=== PATIENT | female | born 1960 | race Caucasian/White ===

== ENCOUNTER → 2019-12-28 11:55 | Outpatient (CLI) | payer BC, SELFPAY ==
[2019-12-28 10:41] VITALS: BMI 34.0
[2019-12-28 12:35] LABS: Absolute Lymphocyte Count 3.17 X10^3/uL (0.83-4.51); Absolute Neutrophil Count 5.4 X10^3/uL (2.0-7.7); Basophil# 0.07 X10^3/uL; Basophil% 0.7 % (0-1); Eosinophil# 0.37 X10^3/uL; Eosinophils% 3.8 % (0-5); Hematocrit 46.9 % (37-47); Hemoglobin 15.7 g/dL (12.0-15.0); Lymphocyte # 3.17 X10^3/ul (4.0); Lymphocyte % 32.2 % (19-41); Mean Corp Hgb Conc 33.5 g/dL (32-36); Mean Corpuscular Hgb 31.5 pg (27.0-32.0); Mean Corpuscular Volume 94.2 fL (81-99); Mean Platelet Vol. 9.5 fl (6.2-12.0); Monocyte# 0.76 X10^3/uL; Monocyte% 7.7 % (0-10); NRBC Flagged by Analyzer 0 % (0-5); Neutrophil # 5.43 X10^3/uL (2.7-7.7); Neutrophil % 55.2 % (47-70); Platelet Count 285 K/mm3 (150-450); RBC Distribution Width CV 11.9 % (11.6-14.6); RBC Distribution Width SD 41.5 fl (35.1-43.9); Red Blood Count 4.98 M/mm3 (4.2-5.4); White Blood Count 9.8 K/mm3 (4.4-11.0)
[2019-12-28 13:11] LABS: Anion Gap 4 (5-15); BUN 24 mg/dL (7-18); BUN/Creat Ratio 28.3 RATIO (10-20); Calcium,Total 9.6 mg/dL (8.5-10.1); Chloride 105 mmol/L (98-107); Creatinine, Serum 0.85 mg/dL (0.55-1.02); EST Glomerular Filtration Rate 73 mL/min (>60); Est Glom Filt Rate - Afr Amer 89 mL/min (>60); Glucose 112 mg/dL (74-106); Magnesium 2.2 mg/dL (1.6-2.6); Potassium 3.9 mmol/L (3.5-5.1); Sodium Level 138 mmol/L (136-145)
== END ==
PROVIDERS: Referring Provider Internal Medicine Cardiovascular Disease; Visit Provider Internal Medicine Cardiovascular Disease
DX: I42.8 Other cardiomyopathies (principal); I50.22 Chronic systolic (congestive) heart failure
CPT/HCPCS: 36415; 80048; 83735; 84443; 85025

== ENCOUNTER 2020-07-21 13:13 | Emergency (ER) | payer BC, SELFPAY ==
[2019-12-28 10:41] VITALS: BMI 34.0
[2020-07-21 13:14] VITALS: BP 178/92; PULSE 79; RESP 17; TEMP 36.7; O2SAT 99; BMI 33.3
--- NOTE | 2020-07-21 13:53 | RAD_ITS ---
STUDY: X-RAY - UNILATERAL RIBS ( LEFT ) WITH CHEST REASON FOR EXAM: Female, 60 years old. Left axillary rib pain after fall 3 days ago. TECHNIQUE - RIBS: 4 view(s) of the ribs. TECHNIQUE - CHEST: Single frontal view of the chest. COMPARISON: None. FINDINGS - RIBS: Generalized osteopenia. No displaced rib fracture identified. FINDINGS - CHEST: Hyperexpansion. There is no demonstrated pleural abnormality. Cardiomegaly. Normal mediastinum and acosta. Normal visualized pulmonary arteries. Normal visualized aortic arch and descending thoracic aorta. Normal visualized thoracic spine. Normal visualized ribs, clavicles, and shoulders. There is no demonstrated abnormality of the visualized soft tissue structures of the upper abdomen. RAD/Ribs Uni Min 3V w/PA Chest IMPRESSION: RIBS: Osteopenia with no displaced rib fracture. CHEST: Cardiomegaly with hyperexpansion. Electronically Signed: Ry Ontiveros MD at 14:35 EST , Service support ,
[2020-07-21] MEDS: HYDROcodone Bitartrate/Apap 5/325 Tablet PO (14:00)
--- NOTE | 2020-07-21 14:36 | ED.DCSUM_ITS ---
- ER Visit Summary Date of Service: 07/21/20 Chief Complaint: Left rib pain History of Present Illness: The patient is a 60 F who presents with left rib pain that began after a fall. Patient states she fell 4 days ago. Patient states she tripped and fell. Patient states the pain has been getting progress ively worse. Patient describes the pain as sharp. Patient states the pain is over the left lower ribs. Patient states the pain is worse with coughing. Patient states nothing has been helping with the pain. Patient denies any shortness of breath. Patient denies any fevers or chills. Patient denies any head injury or loss of consciousness. Physical Examination: Vital signs are stable. Patient is afebrile. Patient is in no acute distress. Oral mucosa is pink and moist. Neck is supple. Trachea is midline. There is no JVD. Heart was regular rate and rhythm. Lungs are clear and equal bilaterally. Respiratory effort was limited secondary to pain. Abdomen is soft. Bowel sounds are normal. There is no tenderness. Musculoskeletal exam reveals tenderness over the left lower ribs. There is edema and ecchymosis noted. There is no bony crepitance or step-off. Cranial nerves II through XII are intact. There are no focal motor or sensory deficits noted. Test Results: X-rays of the left ribs were obtained. On my interpretation, there were no acute fractures or pneumothorax. There is no acute cardiopulmonary process. Radiologist also interpreted the x-rays and agrees. Emergency Department Course and Treatment: Patient was given a dose of [place] here. Patient was advised of her findings. Patient was given a prescription for [place]. Patient was instructed to take 10-15 deep breaths every hour while awake to prevent pneumonia. Patient was instructed to follow-up with her primary care physician in 5 to 7 days. Patient understood and was agreeable with the plan. All questions were answered. Disposition: Discharge home Impression: 1. Left chest wall contusion This note was generated with [employer] dictation software. It may contain incorrect words, spelling, and punctuation that were not noted in review of the chart prior to signing ED Disposition - Plan for ED Patient: Disposition: Home or Assisted Living Diagnosis: Contusion of left chest wall Instructions: ED CHEST CONTUSION Prescriptions: Hydrocodone Bitart/Apap 5-325 [[place] 5MG-325MG] 1 tab PO Q6H PRN PRN 3 Days #10 tab PRN Reason: Pain Prescription Printed Referrals: Ryan Shelton MD [STAFF PHYSICIAN] - 3-5 Days
[2020-07-21 16:13] VITALS: BP 145/78; PULSE 70; RESP 18; O2SAT 97
== END 2020-07-21 16:14 | disposition home or self-care (01) ==
PROVIDERS: Emergency Provider Emergency Medicine
DX: S20.212A Contusion of left front wall of thorax, initial encounter (principal); W01.0XXA Fall on same level from slipping, tripping and stumbling without subsequent striking against object, initial encounter; I50.9 Heart failure, unspecified; I11.0 Hypertensive heart disease with heart failure; F17.210 Nicotine dependence, cigarettes, uncomplicated
CPT/HCPCS: 71101; 99284

== ENCOUNTER → 2020-07-24 11:42 | Outpatient (CLI) | payer BC, SELFPAY ==
[2020-07-21 13:14] VITALS: BMI 33.3
--- NOTE | 2020-07-24 11:46 | RAD_ITS ---
STUDY: X-RAY - UNILATERAL RIBS ( LEFT ) WITH CHEST REASON FOR EXAM: Female, 60 years old. Fell 6 days ago, left rib pain-under left breast and left lower posterior rib pain also TECHNIQUE - 5 views of the chest and left RIBS COMPARISON: 07/21/2020 The lungs are clear. No focal pulmonary opacity. Normal cardiac mediastinal silhouette. Osseous structures including additional views of the left ribs demonstrate no acute or displaced fracture. RAD/Ribs Uni Min 3V w/PA Chest IMPRESSION: No acute cardiopulmonary process. No acute displaced rib fracture identified. Electronically Signed: Ranjith Bach, at 15:05 EST Tel , Service support ,
== END ==
PROVIDERS: Referring Provider Family Medicine; Visit Provider Family Medicine
DX: R07.81 Pleurodynia (principal)
CPT/HCPCS: 71101

== ENCOUNTER 2020-07-26 09:09 | Emergency (ER) | payer BC, SELFPAY ==
[2020-07-26 09:10] VITALS: BP 163/90; PULSE 83; RESP 16; TEMP 36.4; O2SAT 99; BMI 34.1
--- NOTE | 2020-07-26 09:26 | CT_ITS ---
STUDY: CT CHEST WITHOUT CONTRAST REASON FOR EXAM: Female, 60 years old. Fell 1 week ago injuring ribs, left rib pain, cough. RADIATION DOSAGE (If Supplied By Facility): CTDIvol = ( 13.70 ) mGy, DLP = ( 585.66 ) mGycm TECHNIQUE: Transaxial imaging was performed without the administration of intravenous contrast material. Individualized dose optimization techniques were used for this CT. COMPARISON: Radiographs of the ribs 1121 and 1124. FINDINGS: Normal lung volumes. No pneumothorax. Trace left pleural effusion. No significant pulmonary opacities. 3 or 4 tiny nodules in the posterior right lung base, largest is 4 mm. These can be seen on axial images 99-100. Suggest follow-up in 12 months. Normal heart and pericardium. Normal mediastinum. Normal hilar regions. Normal unenhanced pulmonary arteries. Normal aorta arch and descending thoracic aorta. Fractures of the left fourth, fifth, sixth, seventh, ninth, 10th, ribs. There is no demonstrated abnormality of the visualized upper abdomen. CT/Chest without Contrast IMPRESSION: Several left rib fractures. Trace left pleural effusion. No pneumothorax. Small nodules in the posterior right lung base, suggest follow-up in 12 months. Electronically Signed: Jose Duong MD at 11:23 EST , Service support ,
--- NOTE | 2020-07-26 09:32 | ED.DCSUM_ITS ---
History of Present Illness Chief Complaint: Fall Narrative: Patient presenting for evaluation secondary to rib pain. Patient states that around a week ago she suffered a mechanical fall from a trip and fall where she struck her left ribs. Patient was evaluated in the emergency department for this, she had negative x-rays was discharged with a short course of [place]. Patient was continuing to have chest pain, she got in with a primary care office. Patient reports that she has an underlying allergy to NSAIDs as it causes her severe gastric issues, and she was unhappy with the fact that this primary care did discharge her with a course of NSAID medication. Patient has been having persistent severe left-sided chest pain. Is worse with palpation movement and coughing. Patient denies any hemoptysis. She is not on any sort of anticoagulants. Patient reports that she called Dr. Gutierrez office to establish care, and they recommended that if she was having severe pain she should come to the emergency department for acute pain control. Review of systems otherwise negative. Past Medical History - Allergies and Home Meds Allergies/Adverse Reactions: Allergies aspirin Adverse Reaction (Verified 07/26/20 09:10) GI Upset cyclobenzaprine Adverse Reaction (Verified 07/26/20 09:10) mouth burning latex Adverse Reaction (Verified 07/26/20 09:10) Swelling lisinopril Adverse Reaction (Verified 07/26/20 09:10) cough NSAIDS (Non-Steroidal Anti-Inflamma Adverse Reaction (Verified 07/26/20 09:10) PT UNABLE TO RESPOND-NEEDS F/U EATS A HOLE IN MY TUMMY Primary Care Physician: Mary Lou Gutierrez MD [STAFF PHYSICIAN] - As soon as possible Prior records reviewed: Yes Past Medical History: - - Nonischemic cardiomyopathy, congestive heart failure, pulmonary hypertension, systemic hypertension Smoking Status: Current every day smoker Alcohol: None Drugs: None Review of Systems All systems negative except as indicated General: Denies: Chills, Fever, Sweats Eyes: Denies: Visual changes - bilaterally, Diplopia ENT: Denies: Rhinorrhea, Sore throat Cardiovascular: Reports: Chest pain Respiratory: Reports: Dyspnea - Mild secondary to inability to take a deep breath Gastrointestinal: Denies: Abdominal pain, Nausea, Vomiting, Diarrhea, Melena, Hematochezia Genitourinary: Denies: Dysuria, Hematuria, Frequency Musculoskeletal: Denies: Back pain, Extremity Pain Skin: Denies: Rash, Wounds Neurological: Denies: Headache, Weakness, Numbness Physical Exam Vital Signs/Narrative: Vital Signs Temp Pulse Resp BP Pulse Ox 07/26/20 09:10 97.5 F L 83 16 163/90 H 99 Inital Vital Signs reviewed: Yes General: Well nourished, Well developed, - - Visibly uncomfortable secondary to pain, otherwise not in physiologic distress Head: Normocephalic, Atraumatic Eyes: Perrl, EOMI ENT: TM's clear, No hemotympanum or drainage, No trauma Neck: Nontender, Full ROM Cardiovascular: Regular rate, Regular rhythm, No murmurs Respiratory: Chest tenderness - Ecchymosis noted over the patient's T6-T7 posterior axillary rib line. No crepitus. No evidence of flail chest. Abdomen: Soft, Nontender, Nondistended, Normal bowel sounds Back: Nontender Skin: Normal color, No rash Neurological: Alert, Oriented x3, Cranial nerves II-XII grossly intact, Normal Strength, Normal Sensation Psychological: Normal affect Diagnostic/Tx/Re-eval Clinical Impression(s) from Imaging Studies Chest CT 07/26/20 09:26 IMPRESSION: Several left rib fractures. Trace left pleural effusion. No pneumothorax. Small nodules in the posterior right lung base, suggest follow-up in 12 months. Electronically Signed: Jose Duong MD at 11:23 EST , Service support , - Medical Decision Making Patient presented secondary to a left rib injury. She has ecchymosis in the area and has a significant amount of pain, and concern for occult fracture that was missed by x-ray. CT imaging of the chest shows a multitude of rib fractures with a small associated pleural effusion. No evidence of pneumothorax. Patient was given 2 doses of morphine and a lidocaine patch in the emergency department. She did consent to a serratus anterior block which was performed as described in the procedure note. After the patient's nerve block, she was up and ambulatory and had significant improvement. Patient will be discharged with a course of Percocet. She is instructed to follow-up with primary care. She was educated on signs and symptoms for which to return. Procedures Procedure(s): Patient was given informed consent and verbally consented to a ultrasound-guided left-sided serratus anterior block. Patient serratus muscle was identified via the linear probe with the patient in the right lateral decubitus position. The area was cleansed x2 with chlorhexidine. A 22-gauge spinal needle was utilized, and was advanced under direct ultrasound guidance to the inferior fascial plane to the serratus anterior muscle. A total of 20 cc of 0.5% bupivacaine were injected under direct visualization. Patient tolerated this well. ED Disposition - Plan for ED Patient: Disposition: Home or Assisted Living Diagnosis: Multiple rib fractures Instructions: ED Rib Fx Prescriptions: Oxycodone HCl/Acetaminophen [Percocet 5/325] 1 tab PO Q6H PRN PRN 5 Days #20 tab PRN Reason: Pain 1-10 Or Fever Prescription Printed Referrals: Mary Lou Gutierrez MD [STAFF PHYSICIAN] - As soon as possible
[2020-07-26] MEDS: Lidocaine 5% Patch 1 PATCH TOPICAL (09:54)
[2020-07-26] MEDS: morphine 8 MG/ML Syringe IM (09:55)
[2020-07-26] MEDS: morphine 8 MG/ML Syringe 6 MG IM (10:26)
[2020-07-26] MEDS: Bupivacaine Mpf 0.5% 30 ML VIAL INFILT (12:23)
== END 2020-07-26 12:23 | disposition home or self-care (01) ==
PROVIDERS: Emergency Provider Emergency Medicine
DX: S22.42XA Multiple fractures of ribs, left side, initial encounter for closed fracture (principal); W01.10XA Fall on same level from slipping, tripping and stumbling with subsequent striking against unspecified object, initial encounter; Y93.9 Activity, unspecified; Y92.89 Other specified places as the place of occurrence of the external cause; Y99.9 Unspecified external cause status; I11.0 Hypertensive heart disease with heart failure; I50.9 Heart failure, unspecified; J90 Pleural effusion, not elsewhere classified; I27.20 Pulmonary hypertension, unspecified; F17.200 Nicotine dependence, unspecified, uncomplicated; Z88.6 Allergy status to analgesic agent
CPT/HCPCS: 71250; 96372; 99282

== ENCOUNTER → 2023-05-07 | Outpatient (CLI) | payer BC, SELFPAY ==
--- NOTE | 2023-05-07 14:42 | ECHOD_ITS ---
Reason For Study: CM Procedure This was a 2D Doppler, Color Flow transthoracic echocardiogram. Exam performed in department. Left Ventricle Normal LV size. Left ventricular systolic function is normal. The estimated ejection fraction is 65 %. Stage 1 diastolic dysfunction. No regional wall motion abnormalities noted. Right Ventricle Normal RV size. Normal systolic function. Atria Normal left atrium. Normal right atrium. Bubble contrast study negative for right to left interatrial shunt. Mitral Valve Normal mitral valve. Tricuspid Valve Normal tricuspid valve. Mild tricuspid valve insufficiency. Aortic Valve Normal aortic valve. Trisinus/trileaflet aortic valve. Pulmonic Valve Normal pulmonic valve. Great Vessels Normal aortic root. The pulmonary artery is normal size. Inferior vena cava collapse with respiration. Pericardium/Pleural No pericardial effusion. Medication Performed a rapid injection of agitated mix of 9 cc saline and 1cc air to assess for atrial septal defect. MMode/2D Measurements & Calculations LVIDd: 5.2 cm IVSd: 1.0 cm Ao root diam: 2.8 cm LVIDs: 3.7 cm LVPWd: 0.92 cm RVDd: 3.5 cm FS: 29.2 % LAV(MOD-bp): 41.8 ml LVAd ap4: 28.0 cm2 SV(MOD-sp4): 52.7 ml LAV(MOD-bp) Indexed: 20.7 ml/m2 LVLd ap4: 8.0 cm LAV(MOD-sp2): 39.8 ml EDV(MOD-sp4): 80.2 ml LAV(MOD-sp4): 41.5 ml EDV(sp4-el): 82.7 ml LVAs ap4: 14.5 cm2 LVLs ap4: 6.3 cm ESV(MOD-sp4): 27.5 ml ESV(sp4-el): 28.3 ml EF(MOD-sp4): 65.7 % EF(sp4-el): 65.7 % SV(sp4-el): 54.3 ml LA A4 area: 16.2 cm2 LA dimension(2D): 4.1 cm RA A4 area: 11.2 cm2 TAPSE: 2.0 cm Time Measurements MV dec time: 0.28 sec Doppler Measurements & Calculations MV E max charles: 58.1 cm/sec Lat Peak E' Charles: 9.7 cm/sec Med Peak E' Charles: 6.2 cm/sec MV A max charles: 75.5 cm/sec E/E' lat: 6.0 E/E' med: 9.3 MV E/A: 0.77 MV dec slope: 203.9 cm/sec2 Ao V2 max: 130.7 cm/sec LV V1 max: 112.4 cm/sec Ao max P.8 mmHg LV V1 max P.1 mmHg Ao V2 mean: 88.8 cm/sec Ao mean P.5 mmHg Ao V2 VTI: 28.4 cm PA V2 max: 104.2 cm/sec PI end-d charles: 105.3 cm/sec TR max charles: 193.9 cm/sec TR max P.0 mmHg ECHO/Echo Complete Interpretation Summary Normal LV size. Left ventricular systolic function is normal. The estimated ejection fraction is 65 %. Stage 1 diastolic dysfunction. Mild tricuspid valve insufficiency. Bubble contrast study negative for right to left interatrial shunt. Ordering Physician: Kalin Sneed Referring Physician: Mary Lou Gutierrez Performed By: Sunshine Sanchez, RDCS, RVT
== END | disposition home or self-care (01) ==
PROVIDERS: PCP Internal Medicine; Referring Provider Internal Medicine Cardiovascular Disease; Visit Provider Internal Medicine Cardiovascular Disease
DX: I42.8 Other cardiomyopathies (principal)
CPT/HCPCS: 93306; A4216

== ENCOUNTER → 2023-09-21 | Outpatient (CLI) | payer BC, SELFPAY ==
--- OUTSIDE RECORDS SUMMARY | 2023-09-21 13:44 | XMS RPT_ITS | CCD ---
Author Name Unknown Address [address] [place] [address] Organization [facility] Care Team Providers Care National Sales Associate Name Role Phone Unavailable Primary Care Provider UnavailDebbie Farris MD Primary Care Provider Debbie Gutierrez MD Primary Care Provider MARK DEBBIE D Primary Care Unavailable JACINTO BOWERS Referring Unavailable TALAMPAS, DEBBIE D Primary Care Unavailable JACINTO BOWERS Attending Unavailable TALAMPAS, DEBBIE D Primary Care Unavailable DANIELLE SOTO Referring Unavailable JACINTO BOWERS Referring Unavailable SHARLENE GALLAGHER Attending Unavailable TALAMPAS, DEBBIE D Primary Care Unavailable RASHEL GONGORA Referring Unavailable TALAMPAS, DEBBIE D Primary Care Unavailable TALAMPAS, DEBBIE D Primary Care Unavailable Allergies Allergy Classification Reported Allergen(s) Allergy Type Date of Onset Reaction(s) Facility (12 sources) Aspirin; Translations: [ASPIRIN] Drug Allergy 0 GI Upset [facility] Work Phone: (12 sources) cyclobenzaprine ; Translations: [CYCLOBENZAPRIN E] Drug Allergy 5 Swelling, Other: See Comments [facility] Work Phone: (12 sources) Lactase; Translations: [LACTASE] Drug Allergy 1 Unknown [facility] Work Phone: (12 sources) Latex; Translations: [LATEX] Drug Allergy 1 Rash [facility] Work Phone: (12 sources) Lisinopril; Translations: [LISINOPRIL] Drug Allergy 9 Cough [facility] Work Phone: (12 sources) Non-steroidal anti-inflammato ry agent; Translations: [NSAIDS (NON-STEROIDAL ANTI-INFLAMMATO RY DRUG)] Drug Intolerance 0 Intolerance, GI Upset, Vomiting [facility] Work Phone: (12 sources) Bee Venom Protein (Honey Bee); Translations: [BEE VENOM PROTEIN (HONEY BEE)] Drug Allergy 1 Swelling [facility] Work Phone: Medications Completed/Discontinued Medications Medication Drug Class(es) Dates Sig (Normalized) Sig (Original) amoxicillin 500 mg oral tablet (11 sources) Penicillin-class Antibacterial Start: 05-17-2021 Amoxicillin 500 mg tablet TAKE 4 PILLS 1 HOUR PRIOR TO DENTAL PROCEDURE 4 tablet 5 05/17/2021 Active Problems Active Problems Problem Classification Problem Date Documented Date Episodic/Chronic Congestive heart failure; nonhypertensive (12 sources) Chronic systolic heart failure; Translations: [Chronic systolic (congestive) heart failure] Onset: 2019 06-03-2021 Chronic Disorders of lipid metabolism (2 sources) Hyperlipidemia; Translations: [Hyperlipidemia, unspecified] Onset: 07-28-2022 Chronic Essential hypertension (13 sources) Essential hypertension; Translations: [Essential (primary) hypertension] Onset: 2019 Chronic Other connective tissue disease (3 sources) Infraspinatus tendinitis; Translations: [Other shoulder lesions, left shoulder] Episodic Other connective tissue disease (2 sources) H/O: musculoskeletal disease; Translations: [Personal history of other diseases of the musculoskeletal system and connective tissue] Episodic Other nervous system disorders (1 source) Other chronic pain; Translations: [Chronic left shoulder pain] Onset: 10-08-2022 Chronic Other nutritional; endocrine; and metabolic disorders (8 sources) Obese class I; Translations: [Obesity, unspecified] Onset: 08-12-2022 Chronic Other screening for suspected conditions (not mental disorders or infectious disease) (1 source) Patient encounter status; Translations: [Encounter for screening for malignant neoplasm of colon] Episodic [place]-; endo-; and myocarditis; cardiomyopathy (except that caused by tuberculosis or sexually transmitted disease) (11 sources) Cardiomyopathy; Translations: [Cardiomyopathy, unspecified] Onset: 2019 07-31-2020 Chronic Pulmonary heart disease (20 sources) Secondary pulmonary hypertension; Translations: [Other secondary pulmonary hypertension] Onset: 2019 07-31-2020 Chronic Spondylosis; intervertebral disc disorders; other back problems (11 sources) Cervical disc disorder; Translations: [Cervical disc disorder, unspecified, unspecified cervical region] Onset: 08-12-2022 Chronic Substance-related disorders (12 sources) Nicotine dependence; Translations: [Nicotine dependence, unspecified, uncomplicated] Onset: 08-31-1979 07-31-2020 Chronic Thyroid disorders (16 sources) Hyperthyroidism; Translations: [Thyrotoxicosis, unspecified without thyrotoxic crisis or storm] Onset: 2019 Chronic Unclassified (1 source) Low back pain at multiple sites; Translations: [Low back pain at multiple sites] Onset: 10-08-2022 Past or Other Problems Problem Classification Problem Date Documented Da te Episodic/Chronic Other fractures (11 sources) Fracture of multiple ribs ; Translations: [Multiple fractures of ribs, unspecified side, initial encounter for closed fracture] Onset: 07-31-2020 07-31-2020 Episodic Other non-traumatic joint disorders (7 sources) Chronic pain of left upper limb; Translations: [Pain in left shoulder] Onset: 10-08-2022 Episodic Other non-traumatic joint disorders (1 source) Pain in left shoulder; Translations: [Chronic left shoulder pain] Onset: 10-08-2022 Episodic Spondylosis; intervertebral disc disorders; other back problems (9 sources) Neck pain; Translations: [Cervicalgia] Onset: 10-08-2022 Episodic Superficial injury; contusion (11 sources) Contusion of chest; Translations: [Contusion of left front wall of thorax, initial encounter] Onset: 07-31-2020 06-03-2021 Episodic Results Test Name Value Interpretation Reference Range Facil ity Vital Signs Date Time Vital Sign Value Performing Clinician Faci lity 08-12-2022 13:39-0500 Body height 163.8 cm Jacinto Bowers APRN.CNP Work Phone: [facility] 08-12-2022 13:39-0500 Body weight 92.08 kg Jacinto Bowers APRN.CNP Work Phone: [facility] 08-12-2022 13:39-0500 Diastolic blood pressure 62 mm[Hg] Jacinto Bowers APRN.CNP Work Phone: [facility] 08-12-2022 13:39-0500 Heart rate 77 /min Jacinto Elissa TIMBER FRAMER.BUSINESS SUPPORT PROFESSIONAL Work Phone: [facility] 08-12-2022 13:39-0500 Respiratory rate 12 /min Jacinto Elissa TIMBER FRAMER.BUSINESS SUPPORT PROFESSIONAL Work Phone: [facility] 08-12-2022 13:39-0500 SaO2% (BldA) [Mass fraction] 98 % Jacinto Elissa TIMBER FRAMER.BUSINESS SUPPORT PROFESSIONAL Work Phone: [facility] 08-12-2022 13:39-0500 Systolic blood pressure 118 mm[Hg] Jacinto Elissa TIMBER FRAMER.BUSINESS SUPPORT PROFESSIONAL Work Phone: [facility] Encounters Encounter Date Encounter Type Care Provider Facility Start: 02-28-2023 Get Medical Advice Debbie garzon MD Work Phone: [facility] Procedures Date Procedure Procedure Detail Performing Clinician Start: 11-21-2002 Mammography Yari sequeira Plan of Treatment Date Care Activity Detail Author Start: 07-28-2027 LIPID SCREEN LIPID SCREEN [facility] Start: 05-27-2026 LIPID SCREEN LIPID SCREEN [facility] Start: 07-28-2025 DIABETES SCREEN DIABETES SCREEN [facility] Start: 05-27-2024 DIABETES SCREEN DIABETES SCREEN [facility] Start: 08-12-2023 ANNUAL PCP TEAM CHRONIC DISEASE VISIT ANNUAL PCP TEAM CHRONIC DISEASE VISIT [facility] Start: 08-12-2023 BP CONTROLLED (<130/80) BP CONTROLLED (<130/80) [facility] Start: 05-01-2023 Influenza vaccination INFLUENZA (#1) [facility] Start: 08-31-2022 DEPRESSION ASSESSMENT DEPRESSION ASSESSMENT [facility] Start: 07-14-2022 End: 09-13-2022 CBC W Auto Differential panel - Blood CBC + DIFF Lab Routine Essential hypertension Expected: 07/14/2022, Expires: 09/13/2022 [facility] Work Phone: Immunizations Immunization Date Immunization Notes Care Provider Fa dax 01-07-2022 zoster vaccine recombinant Jacinto Elissa TIMBER FRAMER.BUSINESS SUPPORT PROFESSIONAL Work Phone: [facility] Work Phone: 08-04-2021 zoster vaccine recombinant Jacinto Elissa TIMBER FRAMER.BUSINESS SUPPORT PROFESSIONAL Work Phone: [facility] Work Phone: 12-26-2020 COVID-19 original vaccine, age 12+ yr, monovalent (PFIZER-BIONTECH - PURPLE TOP) Danielle Soto TIMBER FRAMER.BSW Work Phone: [facility] 11-29-2020 COVID-19 original vaccine, age 12+ yr, monovalent (PFIZER-BIONTECH - PURPLE TOP) Danielle Alcalas TIMBER FRAMER.BSW Work Phone: [facility] Payers Date Payer Category Payer Unknown [employer]AYLA SALAZAR HMO [employer] [id number] 2020-Present [phone] [address] [place] [address] HMO [id number] 2020 Unknown [id number] 2019 Unknown [employer]AYLA BLUE CARD PPO [id number] 2019-Present PPO [id number] Social History Date Type Detail Facility Tobacco smoking stat us [facility] Unknown if ever smoked [facility] Sex Assigned At Not on file [facility] Start: 11-29-2020 End: 08-12-2022 Tobacco smoking status PRIS Smokes tobacco daily [facility] Work Phone: History of tobacco use Cigarette Smoker [facility] Work Phone: Start: 11-29-2020 End: 08-12-2022 Cigarettes smoked current (pack per day) - Reported 1 [facility] Start: 11-29-2020 End: 08-12-2022 Tobacco use and exposure Smokeless tobacco non-user [facility] Work Phone: Start: 06-03-2021 End: 08-12-2022 Alcohol intake Current drinker of alcohol (finding) [facility] Start: 05-28-2021 End: 08-11-2022 History SDOH Social Connections Phone 5 [facility] Start: 05-28-2021 End: 08-11-2022 History SDOH Social Connections Get Together 2 [facility] Start: 05-28-2021 End: 08-11-2022 History SDOH Social Connections [employer] 1 [facility] Start: 05-28-2021 End: 08-11-2022 History SDOH Social Connections Living 3 [facility] Start: 05-28-2021 History SDOH Physica l Activity DPW 0 [facility] Start: 05-28-2021 Education 12 [facility] Start: 1960 Sex Assigned At Female [facility] Clinical Notes 02-26-2022 to 03-02-2023 Telephone Encounter - TODD Kelley - 03/02/2023 2:17 PM EDTTelephone Encounter - Debbie Gutierrez MD - 02/28/2023 2:23 PM EDTTelephone Encounter - Dilcia Tucker LPN - 02/28/2023 10:58 AM EDT Note Date & Type Note Facility 03-02-2023 Miscellaneous Notes MC message sent to patient with providers message and number for scheduling provided. TODD Kelley Make sure get at least yearly follow up scheduled July since last seen 08/12/22. Can be a yearly wellness The following approved medication requests have been transmitted electronically. Requested Prescriptions Signed Prescriptions Disp Refills carvedilol (COREG) 25 mg tablet 60 tablet 0 Sig: Take 1 tablet by mouth twice daily. Patient prescription now since [place] be travelling out of [place] and will not be here to get refill of med when due Authorizing Provider: DEBBIE GUTIERREZ MD Per patient's My Chart message: Garret, My daughter needs me in [place] for a few weeks starting 03/09. I'll reschedule my naun with Dr Sneed on the but my Carvedilol won't last. Could you please give me a 30 day holdover? Thank you documented in this encounter [facility] 10-08-2022 Note HNO ID: [id number] Author: Sharlene Gallagher PT Service: ? Author Type: Physical Therapist Type: Progress Notes Filed: 11/12/2022 10:24 AM Note Text: 11/12/2022 [facility] PHYSICAL THERAPY DISCONTINUANCE OF CARE Plan of Care Period: Start of Care Date: 10/08/22 Last Visit Date: 10/08/2022 Therapy Program: Patient did not return for follow up care as planned. Please refer to last visit note for interventions provided for this episode of care. Assessment: Unable to formally assess goal achievement. Reason for Discontinuation of Care: Patient has not returned to therapy or scheduled additional follow-up appointments. Sharlene Gallagher PT Episode Visit Count: 1 Therapist That Will Accept/Oversee The Plan Of Care: Sharlene Gallagher Start of Care Date: 10/08/22 Onset Date: 05/08/22 Plan of Care Certification Date: 10/08/22 Next Certification Due Date: 11/12/22 Patient Identified by Name and Date of : Yes REHABILITATION AND SPORTS THERAPY PHYSICAL THERAPY EVALUATION PLAN OF CARE: Assessment: Angelina Ruiz presents with diagnosis of chronic left shoulder pain, neck pain, low back pain at multiple sites that interferes with sleeping, driving . She presents with impairments in ADL's, flexibility, independence in exercise, joint mobility, overall function, patient reported outcome measures, posture, range of motion, strength , stress management, symptom management, and tissue tenderness. Prognosis for therapy is Fair due to: coping skills, limited tolerance to activity, poor understanding of deficits, chronic nature of impairments, clinical presentation . She will benefit from skilled therapy services to meet the goals established for this plan of care as noted below. Goals for Episode of Care: created on 10/08/22 through 11/12/22 Independent in a Home Exercise Program. Patient will decrease pain rating by 2 points to meet minimal clinical important difference for numeric pain rating scale. Restore pain free cervical ROM to minimal to moderate limitation with R side flexion and L rotation of the cervical spine to allow for ADLs. Drive with no aggravation of pain/symptoms. Sleep throughout the night without pain/symptoms. Patient will be able to tolerate functional activities for 1-2 hours without increased symptoms. Patient Goals: to reduce neck and L shoulder pain, improve cervical rotation for driving Planned Interventions, Frequency, and Duration: Current Frequency: 1x/week Duration: 5 weeks Total Number of Visits Planned: 5 Planned Treatment Interventions: Therapeutic exercise (97601), Self-mcc management (03390) PLAN FOR NEXT VISIT: Assess symptom response to repeated cervical retraction and postural correction. Consider cervical and scapular isometrics Patient demonstrates good understanding of plan of care and treatment. The above goals and plan of care were discussed and agreed upon by patient/family. SUBJECTIVE: Angelina Ruiz is a 62 year old female seen today for for neck and back pain that radiates to the L shoulder but does not radiate down the arm. Pt. makes the statement: I am completely atrophied throughout my whole body. Pt. reports the pain does not reduce below a 6.5/10. Pt. states that she may not get authorization for an MRI unless she does PT first. Patient Goals: to reduce neck and L shoulder pain, improve cervical rotation for driving Functional Limitations: sleeping, driving Prior Level of Function: Independent without limitations Relevant History Past Relevant Medical Conditions: Cardiac, Hypertension Preferred Language: Czech Right or Left Handed: Right Employment: Retired Hobbies / Interests: We just moved here in 2019 and have been locked in. reading Home Environment Patient Lives With: Spouse Intake Information: Prescription present Previous Treatment: Heat , Topicals ( lidocaine patches help. tylenol 2x/day) Falls Interview: No positive findings with falls interview Red Flags Vertebral Fracture Red Flags: Female Vertebral Fracture Clinical Reasoning: Proceed with caution due to the above (1-2) risk factors Cancer Red Flags: Age >50 or <20 Cancer Clinical Reasoning: Proceed with caution Infection Clinical Reasoning: No identified risk factors. Cervical Arterial Dysfunction Clinical Reasoning: Proceed with caution Cervical Myelopathy: Age > 45 yo Cervical Myelopathy Diagnostic Rule: Proceed with caution Red Flags - Cervical Cancer Red Flags: Age >50 or <20 Cancer Clinical Reasoning: Proceed with caution Infection Clinical Reasoning: No identified risk factors. Cervical Arterial Dysfunction Clinical Reasoning: Proceed with caution Cervical Myelopathy: Age > 45 yo Cervical Myelopathy Diagnostic Rule: Proceed with caution Spine History Symptoms Location at Onset: Neck, Back Symptoms Since Onset: Worsening Pain is Worse Always: Turnin (more content not included)... [facility] History of Presen t illness Narrative Episode Visit Count: 1 Therapist That Will Accept/Oversee The Plan Of Care: Sharlene Gallagher Start of Care Date: 10/08/22 Onset Date: 05/08/22 Plan of Care Certification Date: 10/08/22 Next Certification Due Date: 11/12/22 Patient Identified by Name and Date of : Yes REHABILITATION AND SPORTS THERAPY PHYSICAL THERAPY EVALUATION PLAN OF CARE: Assessment: Angelina Ruiz presents with diagnosis of chronic left shoulder pain, neck pain, low back pain at multiple sites that interferes with sleeping, driving . She presents with impairments in ADL's, flexibility, independence in exercise, joint mobility, overall function, patient reported outcome measures, posture, range of motion, strength , stress management, symptom management, and tissue tenderness. Prognosis for therapy is Fair due to: coping skills, limited tolerance to activity, poor understanding of deficits, chronic nature of impairments, clinical presentation . She will benefit from skilled therapy services to meet the goals established for this plan of care as noted below. Goals for Episode of Care: created on 10/08/22 through 11/12/22 Independent in a Home Exercise Program. Patient will decrease pain rating by 2 points to meet minimal clinical important difference for numeric pain rating scale. Restore pain free cervical ROM to minimal to moderate limitation with R side flexion and L rotation of the cervical spine to allow for ADLs. Drive with no aggravation of pain/symptoms. Sleep throughout the night without pain/symptoms. Patient will be able to tolerate functional activities for 1-2 hours without increased symptoms. Patient Goals: to reduce neck and L shoulder pain, improve cervical rotation for driving Planned Interventions, Frequency, and Duration: Current Frequency: 1x/week Duration: 5 weeks Total Number of Visits Planned: 5 Planned Treatment Interventions: Therapeutic exercise (58305), Self-mcc management ([id number]) PLAN FOR NEXT VISIT: Assess symptom response to repeated cervical retraction and postural correction. Consider cervical and scapular isometrics Patient demonstrates good understanding of plan of care and treatment. The above goals and plan of care were discussed and agreed upon by patient/family. SUBJECTIVE: Angelina Ruiz is a 62 year old female seen today for for neck and back pain that radiates to the L shoulder but does not radiate down the arm. Pt. makes the statement: I am completely atrophied throughout my whole body. Pt. reports the pain does not reduce below a 6.5/10. Pt. states that she may not get authorization for an MRI unless she does PT first. Patient Goals: to reduce neck and L shoulder pain, improve cervical rotation for driving Functional Limitations: sleeping, driving Prior Level of Function: Independent without limitations Relevant History Past Relevant Medical Conditions: Cardiac, Hypertension Preferred Language: Czech Right or Left Handed: Right Employment: Retired Hobbies / Interests: We just moved here in 2019 and have been locked in. reading Home Environment Patient Lives With: Spouse Intake Information: Prescription present Previous Treatment: Heat , Topicals ( lidocaine patches help. tylenol 2x/day) Falls Interview: No positive findings with falls interview Red Flags Vertebral Fracture Red Flags: Female Vertebral Fracture Clinical Reasoning: Proceed with caution due to the above (1-2) risk factors Cancer Red Flags: Age >50 or <20 Cancer Clinical Reasoning: Proceed with caution Infection Clinical Reasoning: No identified risk factors. Cervical Arterial Dysfunction Clinical Reasoning: Proceed with caution Cervical Myelopathy: Age > 45 yo Cervical Myelopathy Diagnostic Rule: Proceed with caution Red Flags - Cervical Cancer Red Flags: Age >50 or <20 Cancer Clinical Reasoning: Proceed with caution Infection Clinical Reasoning: No identified risk factors. Cervical Arterial Dysfunction Clinical Reasoning: Proceed with caution Cervical Myelopathy: Age > 45 yo Cervical Myelopathy Diagnostic Rule: Proceed with caution Spine History Symptoms Location at Onset: Neck, Back Symptoms Since Onset: Worsening Pain is Worse Always: Turning, Driving Pain is Better Always: (correcting posture) Sleeping Position: Side lying right > left (owns a cervical pillow, gets 4 consecutive hours/night x 20 years) Sleep Affected by Pain: Pain keeps from falling asleep Pain: Pain Pain Level: 7 ( I live between a 6.5 and a 7 every single day. ) Pain Location: Neck, Shoulder - Left Post Treatment Pain Post Treatment Pain Level: No Change Post Treatment Pain Location: Neck, Shoulder - Left PROMIS Scales Higher is Better 05/28/2021 08/11/2022 10/08/2022 Phys Func - Score - - 34 (moderate dysfunction) Phys Func - Percentile - - 5 % GH Physical - Score 42.3 (Good) 34.9 (Poor) - GH Physical - Percentile 22 % 7 % - GH Mental - Score 45.8 (Good) 41.1 (Good) - GH Mental - Percentile 34 % 19 % - Self-Eff Symptom - Score - - 35 (Low) Self-Eff Symptom - Percentile - - 7 % T-scores: mean of general population = 50. 5 points is clinically meaningfully difference Percentiles provide an indication of how the patient's score ranks in relation to the general population. Higher percentile rankings indicate better function/quality of life. 50th percentile is the average of the general population and indicates half of respondents had a worse score. T-scores: mean of general population = 50. 5 points is clinically meaningfully difference Percentiles provide an indication of how the patient's score ranks in relation to the general population. Higher percentile rankings indicate better function/quality of life. 50th percentile is the average of the general population and indicates half of respondents had a worse score. OBJECTIVE MEASURES WITH LEVEL OF FUNCTION: Posture / Alignment Sitting Posture: Erect Effects of Posture Correction: better, but it's a lot of work. Sensation - Cervical Spine Cervical Spine Sensation: Grossly Intact Cervical Spine ROM Cervical ROM : Limitation AROM Cervical Protrusion AROM: Normal ( doesn't hurt the shoulder blade as much. ) Cervical Retraction AROM: Produces, Peripheralizing Cervical Flexion AROM: Normal, Pain during movement Cervical Extension AROM: Normal, Pain during movement Cervical Side-Bend Right AROM: Pain during movement, Major limitation Cervical Side-Bend Left AROM: Pain during movement, Normal Cervical Rotation Right AROM: Normal, Pain during movement Cervical Rotation Left AROM: Major limitation, Pain during movement Repeated Test Movements - Cervical Cervical RET - Symptoms During: produces Cervical RET - Symptoms After: increase ROM, no effect Static Testing - Cervical Sustained Cervical Protrusion: better Sustained Cervical Flexion: no effect Sustained Cervical Retraction: worse Sustained Cervical Extension: worse UE AROM L Shoulder Flex: 180 Degrees (with increased symptoms) L Shoulder Internal Rotation (Functional): 3rd MCP L hand L3 (with increased symptoms) L Shoulder External Rotation (Functional): 3rd MCP of L hand T4 (with increased symptoms) Education: Education Learning Preferences: Demonstration, Explanation, Performance, Printed Materials Barriers: Emotions Learning/educational needs: Plan of Care, Home exercise program, Posture Education Provided: Yes, see treatment interventions for education provided Education Provided To: Patient Education Mode/Type: Demonstration, Explanation/Discussion, Literature/Printed Materials, Performance Response to Education/Teach Back: Requires Review/Additional Education TREATMENT: PT Treatment Interventions: Therapeutic Exercise, Self-Mcc Management Evaluation Therapeutic Exercise: 1: *seated cervical retraction 3-4 sets of 10 2: *UT stretch 3x30 sec each side Skilled Intervention: Patient was educated in proper exercise technique and purpose for exercises. Skilled judgment was provided in selection of appropriate interventions. Provided written instruction for home exercise program to facilitate proper performance and compliance. Correct performance of therapeutic exercises was facilitated with verbal, visual, and tactile cuing. Educated patient on rationale for performing exercises in regards to decreasing fatigue , increase ease of ADL, and ROM and function . Patient education as noted. Self-Mcc Management: 1: *postural education 2: *discussed use of towel roll when side lying or supine to support lordotic curve of the cervical spine 3: *discussed the benefit of complaince with PT POC to restore functional mobility of cervical spine and reduce symptoms while progressing as tolerated Skilled Intervention: Skilled judgment in the selection of proper modification for activity of daily living/home management based on clinical presentation, deficits, and needs. Educated the patient regarding recommendations and provided written instruction to facilitate compliance. Provided written instruction for activities of daily living techniques to facilitate proper performance and compliance. Reviewed patient specific diagnosis in relation to activities of daily living/home management. Activity progression based on professional judgement. Moderate verbal cues for maintaining neutral spine alignment. Reviewed and educated patient on additions/changes for home program as noted above with an (*). Provided written instruction for home program to facilitate proper performance and compliance. Correct performance of home program was facilitated with verbal, visual, and tactile cueing. Billing * Evaluation Low Complexity: 1 Unit Therapeutic Exercise Treatment Minutes: 15 Self-Care/Home Management Treatment Minutes: 10 Total Treatment Time Minutes (timed/untimed): 45 Sharlene Gallagher PT documented in this encounter [facility] 09-26-2022 Miscellaneous Notes Spoke with pt to schedule Endocrinology Consult appt; declined to schedule at this time; will call back documented in this encounter [facility] 08-20-2022 Miscellaneous Notes Left message on Patient's identifed vm. Called pharmacy w/response. Sandy Hou LPN Check with patient if wants replacement. Looks like lidocaine patches not covered. She can get out of pocket if wants. Pharmacy requesting alternative medication for pt. Prescription below not covered by insurance. Shelli Sims LPN documented in this encounter [facility] 08-12-2022 Note HNO ID: [id number] Author: RT Kelle(R) Service: Radiology Author Type: Technologist Type: Progress Notes Filed: 08/12/2022 3:00 PM Note Text: Radiology Service Progress Note PATIENT NAME: Angelina Ruiz DATE OF SERVICE: August 12, 2022 TIME: 2:47 PM PATIENT IDENTITY VERIFICATION COMPLETED USING TWO (2) IDENTIFIERS: Name and Date of confirmed by patient verbally. FALL SCREENING: Has the patient had 2 falls in the last year or 1 fall with injury or currently using an Ambulatory Assistive Device (Walker, Cane, Wheelchair, Crutches, etc.)? No PATIENT GENDER DATA: Female. status: : No status: NO. PATIENT RELEVANT IMPLANT DATA REVIEWED: Yes RADIOLOGY DEPARTMENT: General X-ray: Exam(s) Completed: Spine X-Ray(s): Cervical AP / LAT / OBL PERIPHERAL IV DATA: Not applicable SIGNED BY: RT Kelle(R) August 12, 2022 2:47 PM [facility] 08-12-2022 Note HNO ID: [id number] Author: Jacinto Bowers APRN.BUSINESS SUPPORT PROFESSIONAL Service: ? Author Type: Nurse Practitioner Type: Progress Notes Filed: 08/12/2022 2:51 PM Note Text: CHIEF COMPLAINT: Patient presents with: Physical Pain: in lower back and neck that radiates down into left shoulder have symptoms of gurgling in right calf but no pain HISTORY: Angelina Ruiz is a 62 year old female who presents 08/12/2022 for her Yearly Physical Exam. They are here today for a wellness exam. Feels like her health is fair. Generally feels well and does not have complaints. Is able to complete ADL's with independence. Last seen in our office in May 2021. Issues with pain to neck and shoulders for the last several months. History of cervical disc disease. Pain continues to worsen. Goes in to the left shoulder. No pain down the arm. No numbness, weakness or tingling. Using ointment and lidocaine patches, warm showers. Tylenol as needed. Muscle tightness. Last imaging was MRI on the neck in 2002. Dr. Gongora in Oct. For her hyperthyroid, tapazole management. Other Providers: Ortho in the past, Dr. Bassett Endocrine Dr. Gongora Depression Screen Q1: Over the past two weeks, have you felt down, depressed or hopeless? No Q2: Over the past two weeks, have you felt little interest or pleasure in doing things? 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 Patient is postmenopausal. Last Pap: No results found for: CYTO Hx of Abnml Pap: No Past Medical History: PAST MEDICAL HISTORY Diagnosis Date Cervical disc disease Congestive heart failure (HCC) Essential hypertension Primary generalized (osteo)arthritis Family Medical History: FAMILY HISTORY Problem Relation Age of Onset Heart Failure Mother other (congestive heart failure) Father Diabetes Father Social History: Social History Tobacco Use Smoking status: Every Day Packs/day: 1.00 Years: 40.00 Pack years: 40.00 Types: Cigarettes Smokeless tobacco: Never Substance Use Topics Alcohol use: Yes Alcohol/week: 14.0 standard drinks Types: 14 Glasses of Wine (5oz) per week Drug use: Yes Frequency: 3.0 times per week Types: Marijuana Allergies: ALLERGIES Allergen Reactions Cyclobenzaprine Swelling, Other: See Comments Mouth swelling Nsaids (Non-Steroid* Intolerance, GI Upset, Vomiting Severe stomach pain Aspirin GI Upset Bee Venom Protein (* Swelling Dairy Aid [Lactase] Unknown Latex Rash itching and swelling Lisinopril Cough Medications: Current Outpatient Medications Medication Sig methIMAzole (TAPAZOLE) 5 mg tablet Take 1 tablet by mouth once daily. As directed Amoxicillin 500 mg tablet TAKE 4 PILLS 1 HOUR PRIOR TO DENTAL PROCEDURE CARVEDILOL ORAL Take 25 mg by mouth twice daily. furosemide (LASIX) 40 mg tablet Take 40 mg by mouth once daily. magnesium oxide 400 mg magnesium cap Take 400 mg by mouth once daily. losartan (COZAAR) 50 mg tablet EVERY EVENING diclofenac (VOLTAREN ARTHRITIS PAIN) 1 % topical gel Apply 4 g to affected area four times daily. No current facility-administered medications for this visit. Chronic Problem List: ACTIVE PROBLEM LIST Cervical Disc Disease - 08/12/2022 Obesity, Class I, Bmi 30-34.9 - 08/12/2022 Contusion of Left Front Wall of Thorax - 07/31/2020 Fracture of Multiple Ribs - 07/31/2020 Secondary Pulmonary Arterial Hypertension (Hcc) - 07/31/2020 Cardiomyopathy (Hcc) - 2019 Chronic Systolic Heart Failure (Hcc) - 2019 Essential Hypertension - 2019 Hyperthyroidism - 2019 Other Secondary Pulmonary Hypertension (Hcc) - 2019 Nicotine Dependence - 08/31/1979 Review of Systems Review of Systems Respiratory: Negative for cough, choking, chest tightness, wheezing and stridor. Cardiovascular: Negative. Musculoskeletal: Positive for arthralgias, back pain and myalgias. Negative for joint swelling, neck pain and neck stiffness. OBJECTIVE BP 118/62 Pulse 77 Resp 12 Ht 5' 4.5 (1.64m) Wt 203 lb (92.1kg) SpO2 98% BMI 34.32 kg/(m2). Physical Exam Vitals and nursing note reviewed. Constitutional: General: She is awake. She is not in acute distress. Appearance: She is well-developed and well-groomed. She is not ill-appearing, toxic-appearing or diaphoretic. HENT: Head: Normocephalic. Neck: Thyroid: No thyroid mass, thyromegaly or thyroid tenderness. Cardiovascular: Rate and Rhythm: Normal rate and regular rhythm. Heart sounds: Normal heart sounds. Pulmonary: Effort: Pulmonary effort is normal. No accessory muscle usage, prolonged expiration or respiratory distress. Breath sounds: Normal breath sounds. Musculosk (more content not included)... [facility] 08-12-2022 Instructions Jacinto Bowers APRN.MARIA C - 08/12/2022 2:09 PM EST 2000 units of vitamin D3 documented in this encounter [facility] 08-12-2022 History of Presen t illness Narrative CHIEF COMPLAINT: Patient presents with: Physical Pain: in lower back and neck that radiates down into left shoulder have symptoms of gurgling in right calf but no pain HISTORY: Angelina Ruiz is a 62 year old female who presents 08/12/2022 for her Yearly Physical Exam. They are here today for a wellness exam. Feels like her health is fair. Generally feels well and does not have complaints. Is able to complete ADL's with independence. Last seen in our office in May 2021. Issues with pain to neck and shoulders for the last several months. History of cervical disc disease. Pain continues to worsen. Goes in to the left shoulder. No pain down the arm. No numbness, weakness or tingling. Using ointment and lidocaine patches, warm showers. Tylenol as needed. Muscle tightness. Last imaging was MRI on the neck in 2002. Dr. Gongora in Oct. For her hyperthyroid, tapazole management. Other Providers: Ortho in the past, Dr. Bassett Endocrine Dr. Gongora Depression Screen Q1: Over the past two weeks, have you felt down, depressed or hopeless? No Q2: Over the past two weeks, have you felt little interest or pleasure in doing things? 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 Patient is postmenopausal. Last Pap: No results found for: CYTO Hx of Abnml Pap: No Past Medical History: PAST MEDICAL HISTORY Diagnosis Date Cervical disc disease Congestive heart failure (HCC) Essential hypertension Primary generalized (osteo)arthritis Family Medical History: FAMILY HISTORY Problem Relation Age of Onset Heart Failure Mother other (congestive heart failure) Father Diabetes Father Social History: Social History Tobacco Use Smoking status: Every Day Packs/day: 1.00 Years: 40.00 Pack years: 40.00 Types: Cigarettes Smokeless tobacco: Never Substance Use Topics Alcohol use: Yes Alcohol/week: 14.0 standard drinks Types: 14 Glasses of Wine (5oz) per week Drug use: Yes Frequency: 3.0 times per week Types: Marijuana Allergies: ALLERGIES Allergen Reactions Cyclobenzaprine Swelling, Other: See Comments Mouth swelling Nsaids (Non-Steroid* Intolerance, GI Upset, Vomiting Severe stomach pain Aspirin GI Upset Bee Venom Protein (* Swelling Dairy Aid [Lactase] Unknown Latex Rash itching and swelling Lisinopril Cough Medications: Current Outpatient Medications Medication Sig methIMAzole (TAPAZOLE) 5 mg tablet Take 1 tablet by mouth once daily. As directed Amoxicillin 500 mg tablet TAKE 4 PILLS 1 HOUR PRIOR TO DENTAL PROCEDURE CARVEDILOL ORAL Take 25 mg by mouth twice daily. furosemide (LASIX) 40 mg tablet Take 40 mg by mouth once daily. magnesium oxide 400 mg magnesium cap Take 400 mg by mouth once daily. losartan (COZAAR) 50 mg tablet EVERY EVENING diclofenac (VOLTAREN ARTHRITIS PAIN) 1 % topical gel Apply 4 g to affected area four times daily. No current facility-administered medications for this visit. Chronic Problem List: ACTIVE PROBLEM LIST Cervical Disc Disease - 08/12/2022 Obesity, Class I, Bmi 30-34.9 - 08/12/2022 Contusion of Left Front Wall of Thorax - 07/31/2020 Fracture of Multiple Ribs - 07/31/2020 Secondary Pulmonary Arterial Hypertension (Hcc) - 07/31/2020 Cardiomyopathy (Hcc) - 2019 Chronic Systolic Heart Failure (Hcc) - 2019 Essential Hypertension - 2019 Hyperthyroidism - 2019 Other Secondary Pulmonary Hypertension (Hcc) - 2019 Nicotine Dependence - 08/31/1979 Review of Systems Review of Systems Respiratory: Negative for cough, choking, chest tightness, wheezing and stridor. Cardiovascular: Negative. Musculoskeletal: Positive for arthralgias, back pain and myalgias. Negative for joint swelling, neck pain and neck stiffness. OBJECTIVE BP 118/62 Pulse 77 Resp 12 Ht 5' 4.5 (1.64m) Wt 203 lb (92.1kg) SpO2 98% BMI 34.32 kg/(m^2). Physical Exam Vitals and nursing note reviewed. Constitutional: General: She is awake. She is not in acute distress. Appearance: She is well-developed and well-groomed. She is not ill-appearing, toxic-appearing or diaphoretic. HENT: Head: Normocephalic. Neck: Thyroid: No thyroid mass, thyromegaly or thyroid tenderness. Cardiovascular: Rate and Rhythm: Normal rate and regular rhythm. Heart sounds: Normal heart sounds. Pulmonary: Effort: Pulmonary effort is normal. No accessory muscle usage, prolonged expiration or respiratory distress. Breath sounds: Normal breath sounds. Musculoskeletal: Right shoulder: Normal. Left shoulder: Tenderness present. No swelling, deformity, effusion, laceration, bony tenderness or crepitus. Decreased range of motion. Normal strength. Normal pulse. Arms: Cervical back: Normal range of motion and neck supple. Lymphadenopathy: Cervical: No cervical adenopathy. Skin: General: Skin is warm and dry. Capillary Refill: Capillary refill takes less than 2 seconds. Neurological: General: No focal deficit present. Mental Status: She is alert and oriented to person, place, and time. Psychiatric: Attention and Perception: Attention normal. Mood and Affect: Mood normal. Speech: Speech normal. Behavior: Behavior normal. Behavior is cooperative. Thought Content: Thought content normal. Judgment: Judgment normal. ASSESSMENT/PLAN: 1. Wellness examination - ICD9: V70.0, ICD10: Z00.00 (primary diagnosis) - Counseled on healthy diet and regular exercise - Calcium intake with supplements or by diet of 1000 mg/day for under 50, 6292-8142 mg/day for 50+ - Pap declined - Colorectal cancer screening recommended - agrees to iFOBT testing - Mammogram ordered - screening declined at this time - Lung cancer screening recommended- declined - Smoking cessation encouraged; discussed risks to health and quitting strategies. Patient is not ready to quit - Counseled patient on limiting alcohol intake to 1 drink per day - Follow up for annual exam in one year 2. Hyperthyroidism - ICD9: 242.90, ICD10: E05.[address] Gongora in October 3. Chronic systolic heart failure (HCC) - ICD9: 428.22, ICD10: I50.22 Stable. 4. Chronic left shoulder pain - ICD9: 719.41, 338.29, ICD10: M25.512, G89.29 Suspect this is due to a tendonitis of the infraspinatus. Recommend rest, ice/heat, continue lidocaine patches. Can try Voltaren gel, PT after holidays if not improving. - DICLOFENAC 1 % TOPICAL GEL 5. Tendinitis of left infraspinatus tendon - ICD9: 726.10, ICD10: M75.82 See above. 6. Cervical disc disease - ICD9: 722.91, ICD10: M50.90 Originally suspect some nerve impingement as cause for her shoulder issues but on exam this appears to be more muscular. Will check a neck xray to ensure no worsening of her cervical disc issues that could be contributing to her pain. - XR CERV OTHER 4V AP/LAT/OBL 7. Tobacco use disorder - ICD9: 305.1, ICD10: F17.200 - Cessation encouraged. 8. Screening for colon cancer - ICD9: V76.51, ICD10: Z12.11 - FECAL OCCULT BLOOD TEST 9. Obesity, Class I, BMI 30-34.9 - ICD9: 278.00, ICD10: E66.9 Wellness exam completed. Health maintenance reviewed and updated. Chronic conditions and medications reviewed and updated as needed. Encouraged regular physical activity as tolerated, Healthy diet, and health promoting lifestyle. Encouraged regular eye doctor and dental visits. Portions of this note have been entered by ancillary staff. I have reviewed and when necessary edited, so that they are an adequate record of my encounter with this patient Please note that parts of this document were created using voice recognition software and therefore may contain grammatical errors. Patient verbalizes understanding of instructions from today's visit and in agreement with treatment plan. Questions answered. Agrees to call the office if questions, concerns or issues with acute symptoms not improving or if they worsen. See diagnoses and orders for additional plan(s). Allergies and medications were reviewed, list was updated, and refills given if needed. Past medical, surgical, social, and family history reviewed and updated as appropriate. Encouraged proper diet & exercise as well as compliance with taking medications. Age-appropriate health preventative measures were discussed. . Return in about 1 year (around 08/12/2023) for Wellness physical.. Jacinto Bowers APRN-BUSINESS SUPPORT PROFESSIONAL documented in this encounter [facility] 08-05-2022 Miscellaneous Notes Pt notified of provider message. Pt reports she will start with 1 tablet daily and see how she does. Brittnee Pradhan LPN LEFT MESSAGE FOR PATIENT TO CALL OFFICE. Please call patient anytime now; she is available now at: [phone]. LEFT MESSAGE FOR PATIENT TO CALL OFFICE. Below noted Dose listed on computer was three times weekly, but usually it is a daily pill. Sent as 30 with 1 refills so may either start at once daily then repeat labs and then adjust or start with 3 times weekly as before then check labs. If having heart racing from hyperthyroidism, offer to add beta suellen.eg, atenolol 25 to 50 mg daily. Labs after 6 weeks with Free T4 and Free T3 and TSH; if still feels hyperthyroid, could check sooner (in 2 to 4 weeks)and base adjustment on Free T4 and Free T3 plus symptoms since TSH may take time to adjust. Patient returned call. Message given as stated below. She said she had stopped taking the medication for 2-3 months to see how she would do without it. Said she scheduled appt with Dr. Gongora in October. Left message for patient to call office TSH suppressed. Verify dose she has been taking of tapazole. Has she missed doses? Prior records shows 3 times weekly. Also, has she been able to get appointment with Dr. Gongora? Patient schedule with Jacinto 08/12 for physical. Medications attached unable to close Last appt with TALENT ASSISTANT 06/20/21. Please call pt to arrange routine appt. Patient has been identified by name and date of : Yes Patient phones for refill(s): Requested Prescriptions Pending Prescriptions Disp Refills methIMAzole (TAPAZOLE) 5 mg tablet Date of last office visit in primary care: 06/03/22 Last 2 Encounter Wt Readings: Date: Wt: 06/03/2021 91.2 kg (201 lb) 11/29/2020 90.7 kg (200 lb) Previous labs/tests for medication: Not applicable Please advise. Thank you. Gail Cristina documented in this encounter [facility] 07-30-2022 Miscellaneous Notes Order and records faxed to Dr. Gongora's office as requested. PATIENT NOTIFIED OF SAME. New order placed. Needs a new order the original has /cancelled. Patient is unable to schedule with endo provider within [facility] due to insurance, please send referral to [facility]-Dr. Rashel Gongora. Please advise. documented in this encounter [facility] 07-14-2022 Miscellaneous Notes Please schedule visit with me or Debbie Gutierrez MD at earliest convenience with labs prior. 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 documented in this encounter [facility] 02-26-2022 Note Patient Outreach (IN [facility]) ANGELINA RUIZ ([id number]) 1960 F Date Time Provider Department 02/26/22 DEBBIE GUTIERREZ During your visit today, we recorded the following information about you: Allergies As of Date: 02/26/2022 Noted Allergy Reaction CYCLOBENZAPRINE 01/02/2005 7 - Swelling 14 - Other: See Comments Comments: Mouth swelling NSAIDS (NON-STEROIDAL ANTI-INFLAM*07/31/2020 5 - Intolerance 8 - GI Upset 11 - Vomiting Comments: Severe stomach pain ASPIRIN 07/26/2020 8 - GI Upset BEE VENOM PROTEIN (HONEY BEE) 11/29/2020 7 - Swelling DAIRY AID (LACTASE) 06/03/2021 16 - Unknown LATEX 11/29/2020 2 - Rash Comments: itching and swelling LISINOPRIL 05/25/2019 3 - Cough Date Reviewed: 06/03/2021 Reviewed by: Danielle Soto APRN.BSW - Fully Assessed Visit Diagnosis:Encounter for screening mammogram for breast cancer [Z12.31] Order(s):[facility] SCREENING [[id number]] Order #: [id number] FUTURE Prescriptions as of 03/03/2022 - Amoxicillin 500 mg tablet TAKE 4 PILLS 1 HOUR PRIOR TO DENTAL PROCEDURE - CARVEDILOL ORAL Take 25 mg by mouth twice daily. - furosemide (LASIX) 40 mg tablet Take 40 mg by mouth once daily. - methIMAzole (TAPAZOLE) 5 mg tablet .3 x week - magnesium oxide 400 mg magnesium cap Take 400 mg by mouth once daily. - losartan (COZAAR) 50 mg tablet EVERY EVENING Problem List As Of Date 02/26/2022 Noted Resolved Cardiomyopathy (HCC) [I42.9] 2019 Chronic systolic heart failure (HCC) [I50.22] 2019 Contusion of left front wall of thorax [S20.212*07/31/2020 Essential hypertension [I10] 2019 Fracture of multiple ribs [S22.49XA] 07/31/2020 Hyperthyroidism [E05.90] 2019 Nicotine dependence [F17.200] 08/31/1979 Other secondary pulmonary hypertension (HCC) [I*2019 Secondary pulmonary arterial hypertension (HCC)*07/31/2020 Encounter Status:Closed by EPIC, PRODUSER on 03/03/22 [facility] Hyperthyroidism- Primary Thyrotoxicosis without mention of goiter or other cause, without mention of thyrotoxic crisis or storm [facility] Diagnosis Wellness examination- Primary Hyperthyroidism Thyrotoxicosis without mention of goiter or other cause, without mention of thyrotoxic crisis or storm Chronic systolic heart failure (HCC) Chronic systolic heart failure Chronic left shoulder pain Pain in joint, shoulder region Tendinitis of left infraspinatus tendon Cervical disc disease Other and unspecified disc disorder of cervical region Tobacco use disorder Screening for colon cancer Special screening for malignant neoplasms, colon Obesity, Class I, BMI 30-34.9 Obesity, unspecified [facility] Diagnosis Personal history of spinal narrowing- Primary Personal history of other musculoskeletal disorders Chronic left shoulder pain Pain in joint, shoulder region Tendinitis of left infraspinatus tendon Cervical disc disease Other and unspecified disc disorder of cervical region [facility] Diagnosis Personal history of spinal narrowing Personal history of other musculoskeletal disorders Chronic left shoulder pain Pain in joint, shoulder region Tendinitis of left infraspinatus tendon Cervical disc disease Other and unspecified disc disorder of cervical region [facility] Diagnosis Neck pain- Primary Cervicalgia Chronic left shoulder pain Pain in joint, shoulder region Low back pain at multiple sites [facility] Diagnostic Procedure Only (Routine) - Closed Specialty Diagnoses / Procedures Referred By Contac t Referred To Contact XR IMAGING Diagnoses Cervical disc disease Procedures XR CERV OTHER 4V AP/LAT/OBL RADEX SPINE CERVICAL 4 OR 5 VIEWS Jacinto Bowers APRN.CNP [id number] [phone] Xr Imaging Referral ID Status Reason Start Date Expiration Date V isits Requested Visits Authorized [id number] Closed Auto-Generate d Referral 08/12/2022 09/11/2023 1 1 [facility] Summary Purpose Family History No Family History Records FoundNo Family History Records Found Advance Directives No Advanced Directives Records FoundNo Advanced Directives Records Found Reason for Referral Specialty Diagnoses / Procedures Referred By Jodi t Referred To Contact Diagnoses Hyperthyroidism Procedures CONSULT TO ENDOCRINOLOGY OFFICE/OUTPATIENT [facility] 60-74 MINUTES Jacinto Bowers APRN.BUSINESS SUPPORT PROFESSIONAL [address] [place] [address] Rashel Gongora MD [address] [place] [address] Referral ID Status Reason Start Date Expiration Date Visits Requested Visits Authorized [id number] Pending Review PCP Requested Referral 2 07/30/2023 1 1 Specialty Diagnoses / Procedures Referred By Contac t Referred To Contact [facility] Diagnoses Chronic left shoulder pain Neck pain Low back pain at multiple sites Procedures PT REHAB FOLLOW UP ORDER THERAPEUTIC EXERCISES RE, EA 15 MIN. Sharlene Gallagher, PT [facility] [address] [place] [address] Referral ID Status Reason Start Date Expiration Date Visits Requested Visits Authorized [id number] Pending Review PCP Requested Referral Auto-Generate d Referral 10/08/2022 01/06/2023 1 1 Additional Source Comments Source Comments (unrecognize d section and content) In the event this informatio n is protected by the Federal Confidentiality of Alcohol and Drug Abuse Patient Records regulations: The Federal rules restrict any use of the information to criminally investigate or prosecute any alcohol or drug abuse patient.[facility] the event this information is protected by the Federal Confidentiality of Alcohol and Drug Abuse Patient Records regulations: The Federal rules restrict any use of the information to criminally investigate or prosecute any alcohol or drug abuse patient.[facility] the event this information is protected by the Federal Confidentiality of Alcohol and Drug Abuse Patient Records regulations: The Federal rules restrict any use of the information to criminally investigate or prosecute any alcohol or drug abuse patient.[facility] the event this information is protected by the Federal Confidentiality of Alcohol and Drug Abuse Patient Records regulations: The Federal rules restrict any use of the information to criminally investigate or prosecute any alcohol or drug abuse patient.[facility] the event this information is protected by the Federal Confidentiality of Alcohol and Drug Abuse Patient Records regulations: The Federal rules restrict any use of the information to criminally investigate or prosecute any alcohol or drug abuse patient.[facility] the event this information is protected by the Federal Confidentiality of Alcohol and Drug Abuse Patient Records regulations: The Federal rules restrict any use of the information to criminally investigate or prosecute any alcohol or drug abuse patient.[facility] the event this information is protected by the Federal Confidentiality of Alcohol and Drug Abuse Patient Records regulations: The Federal rules restrict any use of the information to criminally investigate or prosecute any alcohol or drug abuse patient.[facility] the event this information is protected by the Federal Confidentiality of Alcohol and Drug Abuse Patient Records regulations: The Federal rules restrict any use of the information to criminally investigate or prosecute any alcohol or drug abuse patient.[facility] the event this information is protected by the Federal Confidentiality of Alcohol and Drug Abuse Patient Records regulations: The Federal rules restrict any use of the information to criminally investigate or prosecute any alcohol or drug abuse patient.[facility] Campus[facility] the event this information is protected by the Federal Confidentiality of Alcohol and Drug Abuse Patient Records regulations: The Federal rules restrict any use of the information to criminally investigate or prosecute any alcohol or drug abuse patient.[facility] the event this information is protected by the Federal Confidentiality of Alcohol and Drug Abuse Patient Records regulations: The Federal rules restrict any use of the information to criminally investigate or prosecute any alcohol or drug abuse patient.[facility] Campus[facility] the event this information is protected by the Federal Confidentiality of Alcohol and Drug Abuse Patient Records regulations: The Federal rules restrict any use of the information to criminally investigate or prosecute any alcohol or drug abuse patient.[facility] Reason for Visit (unrecogniz ed section and content) Reason Comments Orders Reason Onset Date Comments Refill Request 07/31/2022 Reason Comments Physical Pain in lower back and ne ck that radiates down into left shoulderhave symptoms of gurgling in right calf but no pain Reason Comments Med Change Request Reason Comments Endocrinology Consult appt Reason Comments PT Eval Specialty Diagnoses / Procedures Referred By Jodi t Referred To Contact [facility] Diagnoses Chronic left shoulder pain Neck pain Low back pain at multiple sites Procedures CONSULT TO PHYSICAL THERAPY PHYSICAL THERAPY EVALUATION HIGH COMPLEX 45 MINS Jacinto Bowers APRN.[facility] [address] [place] [address] [facility] [address] [place] [address] Referral ID Status Reason Start Date Expiration Date Visits Requested Visits Authorized [id number] Pending Review Auto-Generat ed Referral OON/Self Pay Override 09/30/2022 09/30/2023 1 1 Reason Onset Date Comments Refill Request 02/28/2023 Telephone Encounter - Yari Alvarez (Rn), RN - 07/26/2020 8:23 AM EST Miscellaneous Notes (unrecog nized section and content) Reason for call: Severe chest pain Outcome: Patient verbalizes understanding to GO TO ED NOW recommendation and of Care Advice provided. Reviewed ED's near her, not sure where she will go. Reason for Disposition SEVERE chest pain Protocols used: CHEST [id number] Talked with Angelina, she has worsening left sided chest pain since a recent fall and recent ED visit. She rates her pain 13 on 1-10 pain scale. Advised to go to the ED. She was seen for a follow up 2 days ago, declines to speak with electrical and instrumentation manager for that physician. Advised to go to the ED. documented in this encounter INFORMATION SOURCE (unrecogn ized section and content) DATE CREATED AUTHOR AUTHOR'S ORGANIZ ATION 02/09/2023 [facility] Care Teams (unrecognized sec tion and content) National Sales Associate Relationship Specialty Start Date End Date Debbie Gutierrez MD [address] [place] [address] PCP - General Internal Medicine 12/11/20 National Sales Associate Relationship Specialty Start Date End Date Debbie Gutierrez MD [facility] [place] [address] PCP - General Internal Medicine 12/11/20 National Sales Associate Relationship Specialty Start Date End Date Debbie Gutierrez MD [facility] [place] [address] PCP - General Internal Medicine 12/11/20 National Sales Associate Relationship Specialty Start Date End Date Debbie Gutierrez MD [facility] [place] [address] PCP - General Internal Medicine 12/11/20 National Sales Associate Relationship Specialty Start Date End Date Debbie Gutierrez MD [facility] [place] [address] PCP - General Internal Medicine 12/11/20 National Sales Associate Relationship Specialty Start Date End Date Debbie Gutierrez MD [address] [place] [address], [place] [address] PCP - General Internal Medicine 12/11/20 National Sales Associate Relationship Specialty Start Date End Date Debbie Gutierrez MD [address] [place] [address], [place] [address] PCP - General Internal Medicine 12/11/20 National Sales Associate Relationship Specialty Start Date End Date Debbie Gutierrez MD [address] [place] [address], [place] [address] PCP - General Internal Medicine 12/11/20 FOR RECORDS PERTAINING TO PATIENTS WHO ARE OR HAVE BEEN ENROLLED IN A CHEMICAL DEPENDENCY/SUBSTANCEABUSE PROGRAM, SOME INFORMATION MAY BE OMITTED. This clinical summary was aggregated from multiple sources. Caution should be exercised in using it in the provision of clinical care. This summary normalizes information from multiple sources, and as a consequence, information in this document may materially change the coding, format and clinical context of patient data. In addition, data may be omitted in some cases. CLINICAL DECISIONS SHOULD BE BASED ON THE PRIMARY CLINICAL RECORDS. [facility] [employer] [facility]. provides no warranty or guarantee of the accuracy or completeness of information in this document.
[2023-09-21 14:10] LABS: Anion Gap 5 (5-15); BUN 22 mg/dL (7-18); BUN/Creat Ratio 26.3 RATIO (10-20); Calcium,Total 9.8 mg/dL (8.5-10.1); Chloride 105 mmol/L (98-107); Creatinine, Serum 0.84 mg/dL (0.55-1.02); EST Glomerular Filtration Rate 73 mL/min (>60); Est Glom Filt Rate - Afr Amer 89 mL/min (>60); Glucose 143 mg/dL (74-106); Potassium 4.3 mmol/L (3.5-5.1); Sodium Level 138 mmol/L (136-145)
[2023-09-21 14:20] LABS: Free T3 2.2 pg/mL (2.18-3.98); T4 Free Direct 0.77 ng/dL (0.76-1.46); Thyroid Stim Hormone (TSH) 2.96 uIU/mL (0.358-3.74)
== END | disposition home or self-care (01) ==
PROVIDERS: Internal Medicine Endocrinology, Diabetes & Metabolism; Nurse Practitioner Family; PCP Internal Medicine; Referring Provider Nurse Practitioner Family; Visit Provider Nurse Practitioner Family
DX: I42.8 Other cardiomyopathies (principal); F17.200 Nicotine dependence, unspecified, uncomplicated; I10 Essential (primary) hypertension; E05.90 Thyrotoxicosis, unspecified without thyrotoxic crisis or storm
CPT/HCPCS: 36415; 80048; 84439; 84443; 84481

== ENCOUNTER → 2024-01-26 | Outpatient (CLI) | payer BC, SELFPAY ==
[2024-01-26 13:16] LABS: Free T3 3.3 pg/mL (2.18-3.98); T4 Free Direct 0.83 ng/dL (0.76-1.46); Thyroid Stim Hormone (TSH) 2.13 uIU/mL (0.358-3.74)
== END | disposition home or self-care (01) ==
LOC: LAB 12:14
PROVIDERS: PCP Internal Medicine; Referring Provider Internal Medicine Endocrinology, Diabetes & Metabolism; Visit Provider Internal Medicine Endocrinology, Diabetes & Metabolism
DX: E05.90 Thyrotoxicosis, unspecified without thyrotoxic crisis or storm (principal)
CPT/HCPCS: 36415; 84439; 84443; 84481

== ENCOUNTER → 2024-07-19 | Outpatient (CLI) | payer BC, SELFPAY ==
[2024-07-19 16:00] LABS: Free T3 2.9 pg/mL (2.18-3.98); T4 Free Direct 0.78 ng/dL (0.76-1.46)
== END | disposition home or self-care (01) ==
LOC: MTLAB 12:41
PROVIDERS: PCP Internal Medicine; Referring Provider Internal Medicine Endocrinology, Diabetes & Metabolism; Visit Provider Internal Medicine Endocrinology, Diabetes & Metabolism
DX: E05.90 Thyrotoxicosis, unspecified without thyrotoxic crisis or storm (principal)
CPT/HCPCS: 36415; 84439; 84443; 84481

== ENCOUNTER → 2024-08-12 | Outpatient (CLI) | payer BC, SELFPAY ==
[2024-08-12 18:19] LABS: T4 Free Direct 1.01 ng/dL (0.76-1.46)
[2024-08-12 22:58] LABS: Free T3 3.2 pg/mL (2.18-3.98)
== END | disposition home or self-care (01) ==
LOC: MTLAB 14:00
PROVIDERS: Internal Medicine Endocrinology, Diabetes & Metabolism; PCP Internal Medicine; Referring Provider Nurse Practitioner Family; Visit Provider Nurse Practitioner Family
DX: E05.90 Thyrotoxicosis, unspecified without thyrotoxic crisis or storm (principal)
CPT/HCPCS: 36415; 84439; 84443; 84481

== ENCOUNTER → 2025-07-03 | Outpatient (CLI) | payer BC, SELFPAY ==
[2025-07-03 15:45] LABS: Free T3 3.2 pg/mL (2.18-3.98)
== END | disposition home or self-care (01) ==
LOC: MTLAB 12:48
PROVIDERS: PCP Internal Medicine; Referring Provider Internal Medicine Endocrinology, Diabetes & Metabolism; Visit Provider Internal Medicine Endocrinology, Diabetes & Metabolism
DX: E05.90 Thyrotoxicosis, unspecified without thyrotoxic crisis or storm (principal)
CPT/HCPCS: 36415; 84439; 84443; 84481

== ENCOUNTER 2025-08-22 02:42 | Inpatient (IN) | payer BC, SELFPAY ==
[2025-08-22] VITALS (9 sets, daily range): BP systolic 111–156; BP diastolic 41–72; PULSE 77–87; RESP 16–20; TEMP 36.4–37.2; O2SAT 83–99; BMI 37.3; BMI 36.8
--- NOTE | 2025-08-22 02:56 | EDS_ITS ---
HPI HPI - Fall History of Present Illness Chief Complaint: Fall Informant: patient, spouse/S.O. and EMS Narrative Narrative: Patient is a 65-year-old female presenting with left lower leg pain following a fall. - Reports falling after losing balance while turning in the kitchen; describes the incident as a misstep without preceding dizziness or other symptoms. - Pain localized to the middle of the left lower leg; denies pain in the ankle or foot. Unable to stand / WB afterwards due to pain. - Denies head, back, or other extremity injuries. - Currently recovering from pneumonia, taking a Z-Stan, and reports improvement. 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 12/27/19 08/21/25 History ordered Handicap Placard #1 ea 04/08/23 Unknown Rx losartan 50 mg tablet 50 mg PO QPM #90 tabs 08/20/25 Rx methimazole 5 mg tablet 5 mg PO .3 days per week #48 tabs 05/04/25 Unknown Rx psyllium husk 0.4 gram capsule 0.4 g PO QDAY regularit y 05/04/25 08/21/25 History (Daily Fiber) furosemide 40 mg tablet 40 mg PO DAILY Dose increase d back 06/15/25 08/21/25 Rx to whole 40 mg tablet daily #90 tabs carvedilol 25 mg tablet 25 mg PO BID #180 tabs 06/1608/21/25 Rx Allergy/AdvReac Type Severity Reaction Status Date / Time bee venom protein (honey bee) Allergy Unknown Swelling Verified 08/22/25 02:47 lactase (From Dairy Aid) Allergy Unknown Unknown Verified 08/22/25 02:47 aspirin AdvReac GI Upset Verified 08/22/25 02:47 cyclobenzaprine AdvReac mouth Verified 08/22/25 02:47 burning latex AdvReac Swelling Verified 08/22/25 02:47 lisinopril AdvReac cough Verified 08/22/25 02:47 NSAIDS (Non-Steroidal AdvReac PT UNABLE Verified 08/22/25 02:47 Anti-Inflamma TO RESPOND-NEEDS F/U Family History Father Diabetes Heart disease Mother Respiratory disease Psychiatric care Mental disorder Suicide attempt Heart failure Surgical History History of dilatation and curettage History of tubal ligation History of total hip arthroplasty Social History Smoking Status: Current every day smoker tobacco type: cigarettes Tobacco: How many years used: 30 alcohol intake: current alcohol intake frequency: 3 or more drinks per day Alcohol type: wine substance use type: marijuana caffeine: Yes Type: coffee Number of servings: 1 ROS ROS ED Constitutional Constitutional ED: Denies chills or fever(s) Cardiovascular Cardiovascular: Denies chest pain, palpitations or racing heartbeat Respiratory/Chest Respiratory/Chest: Reports cough; Denies dyspnea Gastrointestinal Gastrointestinal: Denies abdominal pain, nausea or vomiting Musculoskeletal Musculoskeletal: Reports extremity pain; Denies back pain or neck pain Integumentary Denies Abrasions, rash or wounds Neurologic Neurologic: Denies headache(s), paresthesias or weakness EXAM Physical Exam Const Vital Signs: 08/22/25 02:43 08/22/25 02:47 08/22/25 03:00 Temperature 97.7 F L Temperature Source Oral Pulse Rate 87 81 Respiratory Rate 18 19 H Respiratory Effort Normal Respiratory Depth Normal Respiratory Pattern Normal Blood Pressure 111/41 L 131/66 H Blood Pressure Mean 64 87 Pulse Ox 99 95 Oxygen Delivery Method Room Air Oxygen Flow Rate (L/min) 08/22/25 04:25 08/22/25 04:53 08/22/25 05:17 Temperature 97.7 F L Temperature Source Pulse Rate 78 78 Respiratory Rate 18 18 Respiratory Effort Respiratory Depth Respiratory Pattern Blood Pressure 121/55 H 121/55 H Blood Pressure Mean 77 77 Pulse Ox 83 94 94 Oxygen Delivery Method Room Air Nasal Cannula Oxygen Flow Rate (L/min) 2 Positive well nourished and well developed General Appearance ED: well developed and NAD HEENT Reports normocephalic atraumatic Eyes PERRL and EOMs intact bilaterally Neck full ROM and supple General: Negative for tenderness Chest Wall inspection of chest normal and palpation of chest normal Resp normal respiratory effort, no retractions and clear to auscultation bilaterally Cardio regular rate, regular rhythm and no murmurs GI non-tender and non-distended Auscultation: normoactive bowel sounds Palpation: soft Back/Spine normal ROM and normal to inspection Extremity Extremity Narrative: Limited range of motion throughout the left lower extremity due to pain in the lower leg. There is some swelling at the lateral aspect, junction of the middle and distal thirds of the lower leg. The knee and ankle are nontender but again limited range of motion. There is no effusion in the knee. No tenderness in the foot. 1+/4 dorsalis pedis pulse, able to wiggle toes without difficulty and normal sensation distally. Full range of motion throughout the right lower and both upper extremities without limitation or difficulty. Neuro oriented x3, no focal motor deficits and no sensory deficits noted Sensorium / Orientation: alert Psych thought process normal Mood & Affect: anxious and tearful Skin no wounds Rashes: no rashes MDM MDM MDM Narrative Medical decision making narrative: I have a high suspicion of a lower leg fracture. The patient was given IV morphine and Zofran, and we obtained x-rays. A two-view x-ray series of the left tibia and fibula, in my interpretation, shows a segmental fracture pattern of the fibula, with fractures at the junction of the proximal and middle thirds as well as the middle and distal thirds. There is also an associated displaced ti bial shaft fracture at the junction of the middle and distal thirds, which will likely require surgery. I discussed the case with Dr. Carl from Orthopedics. He is amenable to the patient staying here and will evaluate her in the morning. The patient has a history of ischemic cardiomyopathy, so we will admit her to the hospitalist service for medical clearance prior to surgery. We splinted the patient after providing additional pain control and obtaining labs, which were reviewed. Given the extent of this injury, the patient will have difficulty maintaining [id number] status and coordinating outpatient follow-up. For that reason, we will admit her. Lab Data Attestation: I reviewed the patient's lab results. Labs: Laboratory Results - last 24 hr 08/22/25 04:25 WBC 9.0 RBC 4.45 Hgb 14.8 Hct 43.9 MCV 98.7 MCH 33.3 H MCHC 33.7 RDW Std Deviation 42.2 RDW Coeff of Lyssa 11.7 Plt Count 460 H MPV 9.2 Immature Gran % (Auto) 0.600 Neut % (Auto) 69.2 Lymph % (Auto) 20.5 Harvey % (Auto) 6.2 Eos % (Auto) 2.5 Baso % (Auto) 1.0 Absolute Neuts (auto) 6.3 Absolute Lymphs (auto) 1.85 Nucleated RBC % 0 Sodium 140 Potassium 4.5 Chloride 103 Carbon Dioxide 21.5 Anion Gap 16 BUN 14 Creatinine 0.58 L Estim Creat Clear Calc 115.86 Est GFR (MDRD) Non-Af 101 BUN/Creatinine Ratio 23.5 H Glucose 143 H Calcium 9.0 TSH 0.172 L Free T4 1.40 Radiography Diagnostic Testing: Clinical Impression(s) from Imaging Studies Tibia/Fibula X-Ray 08/22/25 03:30 IMPRESSION: Acute displaced tibial and fibular fractures with associated soft tissue swelling as detailed above. Reading [facility] [address] Tibia/Fibula X-Ray 08/22/25 04:55 IMPRESSION: Splinted 2 part left fibular and distal left tibial fracture in improved alignment. Reading Location: [id number] Management Discussion w/another healthcare provider: Hospitalist and Projector Booth Operator (alden carl) Procedures Lower Extremity Splints Lower Extremity Splint: Orthoglass and Long leg Splint Fabrication: Fabricated Location: Left (NVID after placement; tolerated well, no complications.) Other Procedures Procedure(s): Closed reduction left distal tibia shaft fracture: At the time of splinting, the patient has an internal rotation and apex anterior deformity of the tibial shaft fracture and was reduced simultaneous while splinting. After this and splinting patient is neurovascularly intact distally, postreduction x- rays show improvement on alignment, 2 views of the left tibia and fibula. Discharge Plan Dx/Rx/DC Orders Clinical Impression: Closed traumatic displaced fracture of shaft of left tibia, Closed traumatic minimally displaced fracture of shaft of left fibula, Fall on same level from tripping Disposition Disposition: Acute Care Hospital [facility] Discharge Date/Time: 08/22/25 06:01
--- NOTE | 2025-08-22 03:30 | RAD_ITS ---
PROCEDURE: TIBIA FIBULA 2 VIEWS 08/22/2025 REASON FOR EXAM: PAIN/INJURY TECHNIQUE: Procedure Code: RADTF Modality: DX Procedure: TIBIA FIBULA 2 VIEWS COMPARISON: None FINDINGS: Acute proximal fibula shaft spiral fracture is noted with minimal displacement. Acute distal tibia shaft fracture with anterior dislocation of the proximal fracture and. Acute distal fibula shaft fracture is noted with minimal gapping and subtle subluxation of the proximal fracture and. Lucent distal tibia/posterior malleolus fracture reaching the articular surface. Associated soft tissue swelling is noted. RAD/Tibia & Fibula 2 Views IMPRESSION: Acute displaced tibial and fibular fractures with associated soft tissue swelli ng as detailed above. Reading Location: [facility]
--- OUTSIDE RECORDS SUMMARY | 2025-08-22 04:12 | XMS RPT_ITS | CCD ---
Author Organization [facility] Care Team Providers Care Director Of Quality Name Role Phone Unavailable Primary Care Provider Debbie Hanson MD Primary Care Provider Debbie Flores MD Primary Care Provider Dr. Debbie Flores Primary Care Provider Dr. Debbie Flores Referring Provider Dr. Vince Gongora Attending Provider Dr. Kalin Sneed Attending Provider [facility] SENIOR IT SECURITY ANALYST, SENIOR IT SECURITY ANALYST-Sara Brito Attending Provider Dr. Debbie Flores Primary Care Provider Dr. Debbie Flores Referring Provider Debbie Flores MD Primary Care Provider Unavailable Primary Care Provider Unavailyessenia Soto HOCKEY PLAYER.STAFFING MGR, Ya Unavailable Elissa HOCKEY PLAYER.STAMP PAD FINISHER, Mag Unavailable Elissa HOCKEY PLAYER.STAMP PAD FINISHER, Mag Unavailable Soto HOCKEY PLAYER.STAFFING MGR, Ya Unavailable Dr. Debbie Flores MD Primary Care Provider [phone] Dr. Debbie Flores MD Referring Provider Dr. Vince Gongora MD Attending Provider YA SOTO Referring Unavailable DEBBIE FLORES Primary Care Unavailable DEBBIE FLORES Referring Unavailable YA SOTO Attending Unavailable DEBBIE FLORES Primary Care Unavailable DEBBIE FLORES Primary Care Unavailable SOTO, YA Attending Unavailable SELF Referring Unavailable SOTO, YA Referring Unavailable TALAMPAS, DEBBIE D Primary Care Unavailable SOTO, YA Referring Unavailable TALAMPAS, DEBBIE D Primary Care Unavailable Ryan Sanchez NP Attending Unavailable Talampas, Debbie D Referring Unavailable Talampas, Debbie D Primary Care Unavailable Rolan, Vince Attending Unavailable Rolan, Vince Referring Unavailable Talampas, Debbie D Primary Care Unavailable Rolan, Vince Attending Unavailable Talampas, Debbie D Referring Unavailable Talampas, Debbie D Primary Care Unavailable Rolan, Vince Attending Unavailable Talampas, Debbie D Referring Unavailable Talampas, Debbie D Primary Care Unavailable Geovanna Dow Attending Unavailable Victor M, Geovanna Referring Unavailable Talampas, Debbie D Primary Care Unavailable Rolan, Vince Attending Unavailable Rolan, Vince Referring Unavailable Talampas, Debbie D Primary Care Unavailable Allergies Allergy Classification Reported Allergen(s) Allergy Type Date of Onset Reaction(s) Facility (20 sources) Aspirin; Translations: [ASPIRIN] Drug Allergy 07-26-20 20 GI Upset [facility] Work Phone: (20 sources) cyclobenzaprine; Translations: [CYCLOBENZAPRINE] Drug Allergy 01-03-20 05 Swelling, Other: See Comments [facility] Work Phone: (20 sources) Lactase; Translations: [LACTASE] Drug Allergy 06-03-20 21 Unknown [facility] Work Phone: [phone] (20 sources) Latex; Translations: [LATEX] Drug Allergy 11-30-19 21 Rash [facility] Work Phone: [phone] (20 sources) Lisinopril; Translations: [LISINOPRIL] Drug Allergy 05-25-20 19 Cough [facility] Work Phone: [phone] (20 sources) Non-steroidal anti-inflammatory agent; Translations: [NSAIDS (NON-STEROIDAL ANTI-INFLAMMATORY DRUG)] Drug Intolerance 07-31-20 20 Intolerance, GI Upset, Vomiting [facility] Work Phone: (20 sources) Bee Venom Protein (Honey Bee); Translations: [BEE VENOM PROTEIN (HONEY BEE)] Drug Allergy 11-30-19 21 Swelling [facility] Work Phone: [phone] (3 sources) Nonsteroidal Anti-inflammatory Compounds Propensity to adverse reactions 04-08-20 PT UNABLE TO RESPOND-NEEDS F/U [facility] Comment on above: EATS A HOLE IN MY T UMMY (1 source) Non-steroidal anti-inflammatory agent Drug Intolerance 07-31-20 Intolerance, GI Upset, Vomiting [facility] (1 source) Aspirin Drug Allergy 05-04-20 [facility] Repository (1 source) cyclobenzaprine Drug Allergy 05-04-20 [facility] (1 source) Lactase Drug Allergy 05-04-20 [facility] (1 source) Latex Drug allergy (disorder) 05-04-20 [facility] (1 source) Lisinopril Drug Allergy 05-04-20 [facility] (1 source) NSAIDs Drug allergy (disorder) 05-04-20 [facility] (1 source) bee venom protein (honey bee) Drug allergy (disorder) 05-04-20 [facility] Medications Current Medications Medication Drug Class(es) Dates Sig (Normalized) Sig (Original) amoxicillin 500 mg oral tablet (20 sources) Penicillin-class Antibacterial Start: 04-02-2023 take 4 capsules by mouth once as needed Amoxicillin 500 mg capsule Active 2000 mg PO ONCE as needed April 02, 2023 12:00am Start: 04-02-2023 take 2000 mg by mouth once [place] xicillin Active 2000 MG PO ONCE April 01, 2023 11:00pm Start: 05-17-2021 End: 11-24-2024 Amoxicillin 500 mg tablet In dications: Status post bilateral hip replacements TAKE 4 PILLS 1 HOUR PRIOR TO DENTAL PROCEDURE 4 tablet 5 11/24/2024 Active Comment on above: TAKE 4 PILLS 1 HOUR PRIOR TO DENTAL PROCEDURE carvedilol 25 mg oral tablet (20 sources) alpha-Adrenergic Suellen, beta-Adrenergic Suellen Start: 0 End: 4 take 1 tablet by mouth twice daily carvedilol (COREG) 25 mg tablet Take 1 tablet by mouth twice daily. Patient prescription now since [place] be [place] and will not be here to get refill of med when due 60 tablet 02/28/2023 Active Comment on above: Take 25 mg by mouth twice daily. Take 1 tablet by marly twice daily. Patient prescription now since will be travelling out of state and will not be here to get refill of med when due clobetasol propionate 0.0005 mg/mg topical ointment (2 sources) Corticosteroid Start: 5 End: clobetasol (TEMOVATE) 0.05 % ointment Indications: Skin lesion Apply to affected area two times a day for 14 days. Use for skin lesions as needed, up to 14 days then discontinue. Repeat as needed 15 g 11/10/2024 11/24/2024 Active furosemide 40 mg oral tablet (20 sources) Loop Diuretic Start: 3 End: 3 Furosemide 40 mg tablet Discontinued 20 mg PO DAILY May 08, 2023 2:38pm August 14, 2023 12:46pm Start: 05-08-2023 End: 08-14-2023 take 20 mg by mouth once daily Furosemide Discontinued 20 MG PO DAILY May 08, 2023 1:38pm August 14, 2023 11:46am Start: 12-27-2019 End: 05-30-2024 take 1 tablet by mouth once daily Furosemide 40 mg tablet Active 40 mg PO DAILY 90 May 30, 2024 9:20am Dose increased back to whole 40 mg tablet daily Comment on above: Take 40 mg by mouth once daily. losartan potassium 50 mg oral tablet (20 sources) Angiotensin 2 Receptor Suellen Start: 2019 End: 2024 take 1 tablet by mouth once daily in the evening losartan (COZAAR) 50 mg tablet Take 1 tablet by mouth once daily. in the evening 90 tablet 1 01/22/2023 Active Comment on above: EVERY EVENING Take 1 tablet by marly th once daily. in the evening magnesium oxide 400 mg oral capsule (20 sources) Start: 2018 take 1 capsule by mouth once daily magnesium oxide 400 mg magnesium cap Take 400 mg by mouth once daily. 2019 Active Comment on above: Take 400 mg by mouth once daily. mupirocin 0.02 mg/mg topical ointment (1 source) RNA Synthetase Inhibitor Antibacterial Start: 2024 End: 2024 mupirocin (BACTROBAN) 2 % ointment Indications: Rash and nonspecific skin eruption Apply 1 application to affected area once daily for 7 days. right leg, red area 30 g 1 11/10/2024 11/17/2024 Active pantoprazole 20 mg delayed release oral tablet (10 sources) Proton Pump Inhibitor Start: 2024 End: 2024 take 1 tablet by mouth once daily for gastroesophageal reflux disease pantoprazole DR (PROTONIX) 20 mg tablet Indications: Gastroesophageal reflux disease without esophagitis Take 1 tablet by mouth once daily. For heartburn symptoms and upper abdominal discomfort 30 tablet 2 11/24/2024 Active psyllium 400 mg oral capsule (1 source) Start: 2024 Psyllium Husk (Daily Fiber) 0.4 gram capsule Active 0.4 g PO daily May 04, 2025 12:00am sertraline 50 mg oral tablet (16 sources) Serotonin Reuptake Inhibitor Start: 2023 End: 2024 take 1 tablet by mouth once daily sertraline (ZOLOFT) 50 mg tablet Indications: Current moderate episode of major depressive disorder, unspecified whether recurrent (HCC) Take 1 tablet by mouth once daily. 90 tablet 1 03/21/2024 Active Start: 12-15-2023 End: 03-21-2024 take 1 tablet by mouth once daily sertraline (ZOLOFT) 25 mg tablet Take 1 tablet by mouth once daily. 90 tablet 1 12/15/2023 03/21/2024 Discontinued (Dosage adjustment) triamcinolone acetonide 1 mg/ml topical cream (1 source) Corticosteroid Start: 11-10-2024 End: 11-17-2024 triamcinolone acetonide (KENALOG) 0.1 % cream Indications: Rash and nonspecific skin eruption Apply 1 application to affected area once daily for 7 days. Apply to affected area. right leg, red area 15 g 1 11/10/2024 11/17/2024 Active Completed/Discontinued Medications Medication Drug Class(es) Dates Sig (Normalized) Sig (Original) acetaminophen 325 mg / HYDROcodone bitartrate 5 mg oral tablet (3 sources) Opioid Agonist Start: 07-21-2020 End: 07-24-2020 Hydrocodone-Acetami nophen 1 TABLET tablet Discontinued 1 {tbl} PO EVERY 6 HOURS NEEDED as needed for Pain 10 3 0 July 21, 2020 July 23, 2020 1:00am July 24, 2020 1:03am Contusion of left chest wall Contusion of left front wall of thorax, initial encounter Start: 07-21-2020 End: 07-24-2020 take 1 tablet by mouth every six hours as needed Hydrocodone-Acetaminophen Discontinued 1 TABLET PO EVERY 6 HOURS NEEDED 10 3 July 21, 2020 July 24, 2020 12:03am acetaminophen 325 mg / oxyCODONE hydrochloride 5 mg oral tablet (4 sources) Opioid Agonist Start: 08-07-2020 End: 08-15-2020 take 8 tablets by mouth every six hours oxyCODONE-acetaminophen (PERCOCET) 5-325 mg tablet Indications: Closed fracture of multiple ribs of left side with routine healing, subsequent encounter Take 0.5-1 tablets by mouth every 6 hours as needed for Pain for up to 7 days. Taper down dose as pain improves then discontinue Do not start before August 07, 2020. 21 tablet 08/07/2020 08/15/2020 Discontinued Start: 07-26-2020 End: 07-31-2020 take 1-10 tablets by mouth every six hours as needed for pain Oxycodone-Acetaminophen 1 TABLET tablet Discontinued 1 {tbl} PO EVERY 6 HOURS NEEDED as needed for Pain 1-10 Or Fever 20 5 0 July 26, 2020 July 30, 2020 1:00am July 31, 2020 1:02am Fracture of multiple ribs 5 day supply is indicated due to holiday weekend with rib fractures Start: 07-26-2020 End: 07-31-2020 take 1 tablet by mouth every six hours as needed Oxycodone-Acetaminophen Discontinued 1 TABLET PO EVERY 6 HOURS NEEDED 20 5 July 26, 2020 July 31, 2020 12:02am 5 day supply is indicated due to holiday weekend with rib fractures amoxicillian (3 sources) Start: 10-07-2022 End: 02-03-2023 amoxicillian Discontinued PO as needed October 07, 2022 1:00am February 03, 2023 1:10pm prior to dental procedures Start: 10-07-2022 End: 02-03-2023 amoxicillian Discontinued PO October 07, 2022 12:00am February 03, 2023 12:10pm prior to dental procedures Start: 10-07-2022 End: 02-03-2023 amoxicillian Discontinued PO October 07, 2022 1:00am February 03, 2023 1:10pm prior to dental procedures cholecalciferol 0.025 mg oral capsule (3 sources) Vitamin D Start: 10-07-2022 End: 02-03-2023 take 1 capsule by mouth once daily Cholecalciferol (Vitamin D3) 25 mcg (1,000 unit) capsule Discontinued 25 ug PO DAILY October 07, 2022 1:00am February 03, 2023 1:10pm diclofenac sodium 0.01 mg/mg topical gel (12 sources) Nonsteroidal Anti-inflammatory Drug Start: 04-02-2023 End: 04-08-2023 Diclofenac Sodium (Arthritis Pain (Diclofenac)) 1 % gel Discontinued 4 g TOPICAL 4 times daily April 02, 2023 12:00am April 08, 2023 11:32am apply to single knee, ankle, foot; for foot includes sole/toes/top of foot Start: 08-12-2022 End: 01-26-2024 apply 4 g topically four times daily diclofenac (VOLTAREN ARTHRITIS PAIN) 1 % topical gel Indications: Chronic left shoulder pain Apply 4 g to affected area four times daily. 450 g 2 08/12/2022 01/26/2024 Discontinued (Lack of Efficacy) Comment on above: Apply 4 g to affecte d area four times daily. Handicap Placard (3 sources) Start: 04-08-2023 Handicap Placard Active 0 .Route .MEDSUPPLY 1 0 April 08, 2023 12:00am April 08, 2028 12:00am Nonischemic cardiomyopathy Chronic systolic congestive heart failure Secondary pulmonary arterial hypertension Essential hypertension Hyperthyroidism Shortness of breath Other cardiomyopathies Chronic systolic (congestive) heart failure Secondary pulmonary arterial hypertension Essential (primary) hypertension Thyrotoxicosis, unspecified without thyrotoxic crisis or storm Shortness of breath Lifetime Expires 5 years from order date Start: 04-08-[address] Active 0 .Route .MEDSUPPLY 1 April 07, 2023 11:00pm Lifetime Expires 5 years from order date Start: 04-08-[address] Active 0 .Route .MEDSUPPLY 1 April 08, 2023 12:00am Lifetime Expires 5 years from order date iv contrast (will be provide d with radiology test) (2 sources) Start: 12-01-2024 End: 12-02-2024 iv contrast (will be provide d with radiology test) MRI PANC/ANDREIA Inject, intravenously, once for 1 dose. No IV access, insert saline lock prior to the beginning of sedation, infusion, injection of imaging exam. Discontinue saline lock post exam. If Pt. has a central line or IVAD, may access for administration according to line specific nursing protocol. Once exam is complete flush line and de-access according to line specific nursing protocol in the MR contrast administration guidelines link. 1 each 12/01/2024 12/02/2024 Start: 12-01-2024 End: 12-02-2024 iv contrast (will be provide d with radiology test) MRI PANC/ANDREIA Inject, intravenously, once for 1 dose. No IV access, insert saline lock prior to the beginning of sedation, infusion, injection of imaging exam. Discontinue saline lock post exam. If Pt. has a central line or IVAD, may access for administration according to line specific nursing protocol. Once exam is complete flush line and de-access according to line specific nursing protocol in the MR contrast administration guidelines link. 1 each 12/01/2024 12/02/2024 Active Lidocaine (20 sources) Antiarrhythmic, Amide Local Anesthetic Start: 10-07-2022 End: 04-02-2023 lidocaine Discontinued TOPICAL October 07, 2022 12:00am April 02, 2023 2:03pm NEEDS CLARIFIED Start: 10-07-2022 End: 04-02-2023 lidocaine Discontinued TOPIC AL October 07, 2022 1:00am April 02, 2023 3:03pm NEEDS CLARIFIED Start: 08-19-2022 apply 1 dose transde rmal route every twenty-four hours lidocaine (LIDODERM) 5 % Indications: Personal history of spinal narrowing , Chronic left shoulder pain , Tendinitis of left infraspinatus tendon , Cervical disc disease Apply 1 Patch as directed every 24 hours. Remove old patch prior to placing new patch. Location: left shoulder 30 Patch 1 08/19/2022 Active Comment on above: Apply 1 Patch as dir ected every 24 hours. Remove old patch prior to placing new patch. Location: left shoulder methIMAzole 5 mg oral tablet (20 sources) Thyroid Hormone Synthesis Inhibitor Start: 05-04-2025 End: 05-04-2025 Methimazole 5 mg tablet Active 5 mg PO .3 days per week 48 May 04, 2025 1:17pm Hyperthyroidism Thyrotoxicosis, unspecified without thyrotoxic crisis or storm Start: 07-21-2024 End: 07-21-2024 take 1 tablet by mouth every other week Methimazole 5 mg tablet Discontinued 5 mg PO .5 days per week 72 July 21, 2024 9:10am July 21, 2024 12:30pm Hyperthyroidism Thyrotoxicosis, unspecified without thyrotoxic crisis or storm Start: 07-20-2024 End: 07-21-2024 Methimazole 5 mg tablet Disc ontinued 5 mg PO .3 days per week 72 July 20, 2024 1:19pm July 21, 2024 9:11am Hyperthyroidism Thyrotoxicosis, unspecified without thyrotoxic crisis or storm Start: 07-19-2024 End: 05-04-2025 Methimazole 5 mg tablet Disc ontinued 5 mg PO .4 days per week 48 May 04, 2025 1:09pm May 04, 2025 1:17pm Hyperthyroidism Thyrotoxicosis, unspecified without thyrotoxic crisis or storm Start: 08-04-2022 End: 07-19-2024 take 1 tablet by mouth once daily methIMAzole (TAPAZOLE) 5 mg tablet Take 1 tablet by mouth once daily. As directed 30 tablet 1 08/04/2022 Active Start: 2019 End: 10-07-2022 take 0.3 tablet by mouth every week Methimazole 5 mg tablet Discontinued 5 mg PO .3 x week 45 3 March 22, 2021 9:31am October 07, 2022 11:13am Comment on above: .3 x week Take 1 tablet by marly once daily. As directed methylPREDNISolone (1 source) Corticosteroid Start: 07-31-20 End: 08-06-20 methylPREDNISolone (MEDROL, KB,) 4 mg Dose-Pack Indications: Closed fracture of multiple ribs of left side with routine healing, subsequent encounter Follow dosing instructions, take with food. 1 Package 07/31/2020 08/06/2020 24 hr metoprolol succinate 50 mg extended release oral tablet (6 sources) beta-Adrenergic Suellen Start: 12-28-19 End: 12-28-19 Metoprolol Succinate 50 mg tablet extended release 24 hr Discontinued 200 mg PO DAILY December 28, 2019 12:00am December 28, 2019 11:22am Start: 12-28-2019 End: 12-28-2019 take 200 mg by mouth once daily Metoprolol Succinate Discontinued 200 MG PO DAILY December 27, 2019 11:00pm December 28, 2019 10:22am Start: 12-27-2019 End: 12-28-2019 take 1 capsule by mouth once daily Metoprolol Succinate 200 mg capsule,sprinkle,ER 24hr Discontinued 200 mg PO DAILY December 27, 2019 12:00am December 28, 2019 10:46am Multivitamin (Daily Multi-Vitamin) tablet (3 sources) Start: 10-07-2022 End: 02-03-2023 Multivitamin (Daily Multi-Vitamin) tablet Discontinued 1 {tbl} PO DAILY October 07, 2022 1:00am February 03, 2023 1:10pm Start: 10-07-2022 End: 02-03-2023 take 1 tablet by mouth once daily Multivitamin (Daily Multi-Vitamin) tablet Discontinued 1 TABLET PO DAILY October 07, 2022 12:00am February 03, 2023 12:10pm Start: 10-07-2022 End: 02-03-2023 take 1 tablet by mouth once daily Multivitamin (Daily Multi-Vitamin) tablet Discontinued 1 TABLET PO DAILY October 07, 2022 1:00am February 03, 2023 1:10pm nitrofurantoin, macrocrystals 25 mg / nitrofurantoin, monohydrate 75 mg oral capsule (5 sources) Nitrofuran Antibacterial Start: 11-24-2024 End: 12-01-2024 take 1 capsule by mouth twice daily at mealtime nitrofurantoin monohydrate and macrocrystal (MACROBID) 100 mg capsule Indications: UTI symptoms Take 1 capsule by mouth two times a day with meals for 7 days. Take with food 14 capsule 11/24/2024 12/01/2024 Problems Active Problems Problem Classification Problem Date Documented Date Episodic/Chronic Congestive heart failure; nonhypertensive (20 sources) Chronic systolic heart failure; Translations: [Chronic systolic (congestive) heart failure] Onset: 2019 06-03-2021 Chronic Deficiency and other anemia (2 sources) Increased hemoglobin; Translations: [Other hemoglobinopathies] 11-25-2024 Chronic Deficiency and other anemia (1 source) Other hemoglobinopathies; Translations: [Elevated hemoglobin] Onset: 12-07-2024 Chronic Disorders of lipid metabolism (1 source) Hyperlipidemia; Translations: [Hyperlipidemia, unspecified] Chronic Esophageal disorders (1 source) Gastroesophageal reflux disease without esophagitis; Translations: [Gastro-esophageal reflux disease without esophagitis] 11-24-2024 Chronic Essential hypertension (20 sources) Essential hypertension; Translations: [Essential (primary) hypertension] Onset: 2019 Chronic Genitourinary symptoms and ill-defined conditions (1 source) Incontinence; Translations: [Mixed incontinence] 11-24-2024 Chronic Genitourinary symptoms and ill-defined conditions (1 source) Urinary symptoms ; Translations: [Unspecified symptoms and signs involving the genitourinary system] 11-24-2024 Episodic Mood disorders (3 sources) Moderate major depression, single episode; Translations: [Major depressive disorder, single episode, moderate] 01-26-2024 Chronic Noninfectious gastroenteritis (1 source) Colitis; Translations: [Noninfective gastroenteritis and colitis, unspecified] 11-24-2024 Episodic Other connective tissue disease (3 sources) History of repair of hip joint; Translations: [Presence of left artificial hip joint] 11-13-2020 Chronic Other connective tissue disease (1 source) Hip joint prosthesis present; Translations: [Presence of artificial hip joint, bilateral] 11-24-2024 Chronic Other connective tissue disease (3 sources) Infraspinatus tendinitis; Translations: [Other shoulder lesions, left shoulder] Episodic Other connective tissue disease (2 sources) H/O: musculoskeletal disease; Translations: [Personal history of other diseases of the musculoskeletal system and connective tissue] Episodic Other fractures (1 source) Closed fracture of multiple ribs; Translations: [Multiple fractures of ribs, left side, subsequent encounter for fracture with routine healing] 08-06-2020 Episodic Other liver diseases (2 sources) Steatosis of liver; Translations: [Fatty (change of) liver, not elsewhere classified] 12-01-2024 Chronic Other liver diseases (2 sources) Enzyme level - finding; Translations: [Abnormal levels of other serum enzymes] 12-01-2024 Episodic Other non-traumatic joint disorders (1 source) Hip pain; Translations: [Pain in left hip] 11-13-2020 Episodic Other nutritional; endocrine; and metabolic disorders (20 sources) Obese class I; Translations: [Obesity, unspecified] Onset: 08-12-2022 Chronic Other nutritional; endocrine; and metabolic disorders (1 source) Obesity caused by energy imbalance; Translations: [Other obesity due to excess calories] 01-26-2024 Chronic Other screening for suspected conditions (not mental disorders or infectious disease) (5 sources) Patient encounter status; Translations: [Encounter for screening for malignant neoplasm of colon] Episodic Other skin disorders (1 source) Skin lesion; Translations: [Disorder of the skin and subcutaneous tissue, unspecified] 11-10-2024 Episodic Other skin disorders (1 source) Eruption; Translations: [Rash and other nonspecific skin eruption] 11-10-2024 Episodic Tahira-; endo-; and myocarditis; cardiomyopathy (except that caused by tuberculosis or sexually transmitted disease) (20 sources) Cardiomyopathy; Translations: [Cardiomyopathy, unspecified] Onset: 2019 07-31-2020 Chronic Pulmonary heart disease (20 sources) Secondary pulmonary hypertension; Translations: [Other secondary pulmonary hypertension] Onset: 2019 07-31-2020 Chronic Residual codes; unclassified (1 source) Postmenopausal state; Translations: [Asymptomatic menopausal state] 01-26-2024 Episodic Spondylosis; intervertebral disc disorders; other back problems (20 sources) Cervical disc disorder; Translations: [Cervical disc disorder, unspecified, unspecified cervical region] Onset: 08-12-2022 Chronic Substance-related disorders (20 sources) Nicotine dependence; Translations: [Nicotine dependence, unspecified, uncomplicated] Onset: 08-31-1979 07-31-2020 Chronic Thyroid disorders (20 sources) Hyperthyroidism; Translations: [Thyrotoxicosis, unspecified without thyrotoxic crisis or storm] Onset: 2019 Chronic Past or Other Problems Problem Classification Problem Date Documented Da te Episodic/Chronic Abdominal pain (13 sources) Lower abdominal pain; Translations: [Right upper quadrant pain] Onset: 11-24-2024 11-24-2024 Episodic Other fractures (20 sources) Fracture of multiple ribs ; Translations: [Multiple fractures of ribs, unspecified side, initial encounter for closed fracture] Onset: 07-31-2020 07-31-2020 Episodic Other non-traumatic joint disorders (20 sources) Chronic pain of left upper limb; Translations: [Pain in left shoulder] Onset: 10-08-2022 Episodic Spondylosis; intervertebral disc disorders; other back problems (20 sources) Neck pain; Translations: [Cervicalgia] Onset: 10-08-2022 Episodic Superficial injury; contusion (20 sources) Contusion of chest; Translations: [Contusion of left front wall of thorax, initial encounter] Onset: 07-31-2020 06-03-2021 Episodic Unclassified (1 source) History of repair of hip joint 02-21-2025 Results Test Name Value Interpretation Reference Range Facility Free T3on 07-03-2025 Free T3 [Mass/Vol] 3.2 pg/mL Normal 2.18-3.98 [facility] Comment on above: Performed By: #### L 506.0400, [id number], L501.75776 #### [facility] [address] [place], [address] T4 Free Directon 07-03-2025 T4 FREE DIRECT 1.10 ng/dL Normal 0.76-1.46 [facility] Comment on above: Performed By: #### L 506.0400, L501.9520, L501.73422 #### [facility] [address] [place], [address] Thyroid Stim Hormone (TSH)on 07-03-2025 TSH 0.959 uIU/mL Normal 0.300-4.200 [facility] Comment on above: Performed By: #### L 506.0400, L501.9520, L501.42427 #### [facility] [address] [place], [address] CNCOon 05-15-2025 CNCO Letter Text Normal [facility] Endocrinology Visit Reporton 05-04-2025 Endocrinology Visit Report [facility] [address] [place], [place] [address] OFFICE VISIT Date of Service: 05/04/25 MR#: [id number] Acct: [id number] Name: ANGELINA THEODORE Rep #: [id number] : 1960 Provider: Jay Harper Age/Sex: 65/F Location[place] [facility] Status: Signed Intake Vital Signs 11/07/24 13:05 12/07/24 10:51 05/04/25 13:01 Height 5 ft 5 in 5 ft 5 in 5 ft 5 in Weight: 221 lb 4 oz 219 lb 215 lb BMI 36.8 36.4 35.7 BP 129/79 H 165/83 H 117/71 Blood Pressure Location Lt radial Lt brachial Lt brachial Position Sitting Sitting Sitting Respiration 20 H Pulse 68 68 65 Pulse Source Monitor Monitor Monitor Pulse Oximetry (%) 93 97 92 Oxygen Delivery Method room air Intake Visit Reasons: 6 M FU Chief Complaint: Hyperthyroidism Hazardous Substances Engineer Required: No Accompanied by: Self Is patient in pain?: Yes (Rt Hand) Pain scale (1-10): 6 Allergies bee venom protein (honey bee) Allergy (Unknown, Verified 05/04/25 13:04) Swelling lactase (From Dairy Aid) Allergy (Unknown, Verified 05/04/25 13:04) Unknown aspirin Adverse Reaction (Verified 05/04/25 13:04) GI Upset cyclobenzaprine Adverse Reaction (Verified 05/04/25 13:04) mouth burning latex Adverse Reaction (Verified 05/04/25 13:04) Swelling lisinopril Adverse Reaction (Verified 05/04/25 13:04) cough NSAIDS (Non-Steroidal Anti-Inflamma Adverse Reaction (Verified 05/04/25 13:04) PT UNABLE TO RESPOND-NEEDS F/U Medications ???Medication ???Instructions ???Recorded ???Confirmed ???Type magnesium oxide 400 mg PO DAILY 12/27/19 05/04/25 History amoxicillin 500 mg capsule 2,000 mg PO ONCE PRN 04/02/2312/23 History Handicap Placard #1 ea 04/08/23 05/04/25 Rx furosemide 40 mg tablet 40 mg PO DAILY Dose increased back 05/30/24 05/04/25 Rx to whole 40 mg tablet daily #90 tabs carvedilol 25 mg tablet 25 mg PO BID #180 tabs 06/17/24 Rx losartan 50 mg tablet 50 mg PO QPM #90 tabs 04/15/25 09/ 04/25 Rx methimazole 5 mg tablet 5 mg PO .3 days per week #48 tabs 05/04/25 05/04/25 Rx psyllium husk 0.4 gram capsule 0.4 g PO QDAY 05/04/25 05/04/25 Hi story (Daily Fiber) PFSH Medical History Secondary pulmonary arterial hypertension Osteoarthritis Fibromyalgia Thyroid nodule Demand ischemia (05/02/19) Chronic systolic (congestive) heart failure Non-ischemic cardiomyopathy Essential (primary) hypertension Hyperthyroidism Nicotine dependence Surgical History History of dilatation and curettage History of tubal ligation History of total hip arthroplasty Family History Father Diabetes Heart disease Mother Respiratory disease Psychiatric care Mental disorder Suicide attempt Heart failure Social History Smoking Status: Current every day smoker tobacco type: cigarettes Tobacco: How many years used: 30 alcohol intake: current alcohol intake frequency: 3 or more drinks per day Alcohol type: wine substance use type: marijuana caffeine: Yes Type: coffee Number of servings: 1 HPI HPI Chief Complaint: Hyperthyroidism Details: ANGELINA THEODORE, is a 65 F who presents to the office today for follow up. She has longstanding hyperthyroidism treated with methimazole 5 mg three times per week. She is feeing fine. She will be due for labs next month. ROS Const Constitutional: Positive for fatigue; No weakness, weight change or change in appetite Eyes Eyes: No change in vision ENT ENT: No hearing loss, nasal congestion or difficulty swallowing Cardio Cardiology: No chest pain at rest, chest pain with exertion or shortness of breath Musc Musculoskeletal: No numbness Neuro Neurology: No weakness, memory loss or numbness Psych Psychiatric: No change in appetite, No memory loss and No Thoughts of harming yourself/Others Resp Respiratory: No cough or chest congestion Gastro GI: No difficulty swallowing Genitourinary-Female : No burning urination Skin Skin: No itchy eyes or wounds Endo Endocrine: Positive for fatigue; No weight change Aller/Imm Allergy/Immunologic: No itchy eyes Exam Const General: cooperative, healthy appearing, comfortable, no acute distress, well developed and not cushingoid Nutritional Appearance: well nourished Orientation: alert, awake and oriented x3 HENMT Head: normal to inspection Ears: hearing grossly normal bilaterally Nose: external nose normal Mouth: oral mucosae normal Eyes General: appearance normal, both eyes and all related structures Alignment and Position: alignment normal Periorbital: periorbit (more content not included)... Normal [facility] 02-21-2025 [facility] Telephone (INTMWS) ANGELINA THEODORE ([id number]) 1960 F Date Time Provider Department 02/21/25 DEBBIE FLORES INTMWS During your visit today, we recorded the following information about you: Nona Grullon RN 02/21/2025 12:37 PM Signed In patient's last 2 encounters (12/23 [facility] and 12/08 Telephone) there was discussion about pt's two current MRI orders that were ordered by Oralia LEWIS on 12/01/24. At that time pt was uncomfortable in proceeding with the MRIs due to having bilateral hip replacement hardware. Per notes, both Oralia Soto and Dr. Flores reviewed this with the MRI personnel who deemed it safe for pt to continue with MRI orders. Of date, pt has not completed the MRIs yet. Pt calling in today to state she would prefer getting a 2nd opinion from Orthopedics to deem it safe for her to proceed with current MRI orders with the bilateral hip hardware that she has. Pt asking if Dr. Flores would place a Ortho referral order for this? Please call patient back with reply. MARLI Lopes Terri, APRN.STAFFING MGR 02/21/2025 4:47 PM Signed OK for consult, please schedule Annita Schuster LPN 02/21/2025 4:51 PM Signed Phoned patient aware referral in place, assisted with transfer to care team coordinator scheduler to get Ortho appt set up. Shona Miller 02/21/2025 4:58 PM Signed Spoke to patient for scheduling. Due to her diagnosis, [facility] is not an option for her to be seen. She declined traveling and would like to proceed scheduling with [facility]. Please send patient referral, office notes and demographics for patient. Shona Miller February 21, 2025 4:58 PM Annita Schuster LPN 02/22/2025 9:36 AM Signed Printed referral, face sheet, insurance card copy and faxed to [facility] at [phone] as requested. Allergies As of Date: 02/21/2025 Noted Allergy Reaction CYCLOBENZAPRINE 01/02/2005 7 - Swelling 14 - Other: See Comments Comments: Mouth swelling NSAIDS (NON-STEROIDAL ANTI-INFLAM*07/31/20 20 5 - Intolerance 8 - GI Upset 11 - Vomiting Comments: Severe stomach pain ASPIRIN 07/26/2020 8 - GI Upset BEE VENOM PROTEIN (HONEY BEE) 11/29/2020 7 - Swelling DAIRY AID (LACTASE) 06/03/2021 16 - Unknown LATEX 11/29/2020 2 - Rash Comments: itching and swelling LISINOPRIL 05/25/2019 3 - Cough Date Reviewed: 11/24/2024 Reviewed by: Ya Soto APRN.STAFFING MGR - Fully Assessed Reason for Visit: Referral Request [Other] Primary Visit Diagnosis:H/O bilateral hip replacements [Z96.643] Order(s):CONSULT TO ORTHOPAEDICS [9026] Order #: [id number]: 1 FUTURE Prescriptions as of 02/22/2025 - Amoxicillin 500 mg tablet TAKE 4 PILLS 1 HOUR PRIOR TO DENTAL PROCEDURE - pantoprazole DR (PROTONIX) 20 mg tablet Take 1 tablet by mouth once daily. For heartburn symptoms and upper abdominal discomfort - sertraline (ZOLOFT) 50 mg tablet Take 1 tablet by mouth once daily. - carvedilol (COREG) 25 mg tablet Take 1 tablet by mouth twice daily. Patient prescription now since [place] be [place] out of state and will not be here to get refill of med when due - losartan (COZAAR) 50 mg tablet Take 1 tablet by mouth once daily. in the evening - lidocaine (LIDODERM) 5 % Apply 1 Patch as directed every 24 hours. Remove old patch prior to placing new patch. Location: left shoulder - methIMAzole (TAPAZOLE) 5 mg tablet Take 1 tablet by mouth once daily. As directed - furosemide (LASIX) 40 mg tablet Take 40 mg by mouth once daily. - magnesium oxide 400 mg magnesium cap Take 400 mg by mouth once daily. Problem List As Of Date 02/21/2025 Noted Resolved Cardiomyopathy (HCC) [I42.9] 2019 Chronic systolic heart failure (HCC) [I50.22] 2019 Contusion of left front wall of thorax [S20.212*07/31/2020 Essential hypertension [I10] 2019 Fracture of multiple ribs [S22.49XA] 07/31/2020 Hyperthyroidism [E05.90] 2019 Nicotine dependence [F17.200] 08/31/1979 Other secondary pulmonary hypertension (HCC) [I*2019 Secondary pulmonary arterial hypertension (HCC)*07/31/2020 Cervical disc disease [M50.90] 08/12/2022 Obesity, Class I, BMI 30-34.9 [E66.811] 08/12/2022 Chronic left shoulder pain [M25.512, G89.29] 10/08/2022 Neck pain [M54.2] 10/08/2022 Low back pain at multiple sites [M54.50] 10/08/2022 Encounter Status:Closed by ANNITA SCHUSTER on 02/21/25 [facility] ANGEL[facility] THEOD[facility] ([id number]) 1960 F Date Time Provider Department 12/08/24 DEBBIE FLORES INTMWS During your visit today, we recorded the following information about you: Jay Stephenson, RN 12/08/2024 12:19 PM Signed [facility]- reports the PA on the MRI abdomen with AND without constrast has been approved. Order # [id number]. Valid 12/07/24 through 01/05/25. CPT- 21125. Ya Soto APRN.JOSHUA 12/08/2024 12:43 PM Signed See below regarding approval for MRI. There is another encounter todays date indicating she was unhappy as she was told previously she could not have an MRI. I will close the other encounter and finish documentation in this phone encounter.. MRI is possible depending on the hardware used for her hip replacements. Would recommend discussing with radiology before performing MRI. Where did she have hip replacement done and when approximately? If has any records of the surgery it would be helpful. Cindy Wyatt MA 12/08/2024 6:57 PM Signed Unable to reach patient. Left VM to return call to office. Please read below and advise. AMOS Tan Terri, APRN.STAFFING MGR 12/09/2024 9:41 AM Signed Is there a account contact associate in MRI dept. that could review if any problem with completing MRI due to her hip replacements? Ya Soto APRN.JOSHUA 12/09/2024 10:34 AM Signed Plesae let her know that reviewed with MRI personnel that advise can complete with hip replacements. Schedule if willing. Dilcia Tucker LPN 12/09/2024 11:19 AM Signed LEFT MESSAGE FOR PATIENT TO CALL OFFICE. Jagruti Ling RN 12/09/2024 11:34 AM Signed Patient called and notified of below. Patient is still unsure if she wants to have it done. Patient will think about this and call back to schedule. MARLI Deng Terri, JYOTI.STAFFING MGR 12/09/2024 3:53 PM Signed noted Allergies As of Date: 12/08/2024 Noted Allergy Reaction CYCLOBENZAPRINE 01/02/2005 7 - Swelling 14 - Other: See Comments Comments: Mouth swelling NSAIDS (NON-STEROIDAL ANTI-INFLAM*07/31/20 20 5 - Intolerance 8 - GI Upset 11 - Vomiting Comments: Severe stomach pain ASPIRIN 07/26/2020 8 - GI Upset BEE VENOM PROTEIN (HONEY BEE) 11/29/2020 7 - Swelling DAIRY AID (LACTASE) 06/03/2021 16 - Unknown LATEX 11/29/2020 2 - Rash Comments: itching and swelling LISINOPRIL 05/25/2019 3 - Cough Date Reviewed: 11/24/2024 Reviewed by: Ya Soto APRN.STAFFING MGR - Fully Assessed Reason for Visit: MRI abd W AND WO constrast approved [Other] Prescriptions as of 12/09/2024 - Amoxicillin 500 mg tablet TAKE 4 PILLS 1 HOUR PRIOR TO DENTAL PROCEDURE - pantoprazole DR (PROTONIX) 20 mg tablet Take 1 tablet by mouth once daily. For heartburn symptoms and upper abdominal discomfort - sertraline (ZOLOFT) 50 mg tablet Take 1 tablet by mouth once daily. - carvedilol (COREG) 25 mg tablet Take 1 tablet by mouth twice daily. Patient prescription now since will be travelling out of state and will not be here to get refill of med when due - losartan (COZAAR) 50 mg tablet Take 1 tablet by mouth once daily. in the evening - lidocaine (LIDODERM) 5 % Apply 1 Patch as directed every 24 hours. Remove old patch prior to placing new patch. Location: left shoulder - methIMAzole (TAPAZOLE) 5 mg tablet Take 1 tablet by mouth once daily. As directed - furosemide (LASIX) 40 mg tablet Take 40 mg by mouth once daily. - magnesium oxide 400 mg magnesium cap Take 400 mg by mouth once daily. Problem List As Of Date 12/08/2024 Noted Resolved Cardiomyopathy (HCC) [I42.9] 2019 Chronic systolic heart failure (HCC) [I50.22] 2019 Contusion of left front wall of thorax [S20.212*07/31/2020 Essential hypertension [I10] 2019 Fracture of multiple ribs [S22.49XA] 07/31/2020 Hyperthyroidism [E05.90] 2019 Nicotine dependence [F17.200] 08/31/1979 Other secondary pulmonary hypertension (HCC) [I*2019 Secondary pulmonary arterial hypertension (HCC)*07/31/2020 Cervical disc disease [M50.90] 08/12/2022 Obesity, Class I, BMI 30-34.9 [E66.811] 08/12/2022 Chronic left shoulder pain [M25.512, G89.29] 10/08/2022 Neck pain [M54.2] 10/08/2022 Low back pain at multiple sites [M54.50] 10/08/2022 Encounter Status:Closed by YA SOTO on 12/09/24 Normal [facility] Hepatic function 2000 panelo n 12-08-2024 Albumin [Mass/Vol] 4.2 g/dL 3.9 - 4.9 g/dL [facility] ALP [Catalytic activity/Vol] 91 U/L 34 - 123 U/L [facility] ALT [Catalytic activity/Vol] 28 U/L 7 - 38 U/L [facility] AST [Catalytic activity/Vol] 26 U/L 13 - 35 U/L [facility] Bilirubin [Mass/Vol] 0.3 mg/dL 0.2 - 1 .3 mg/dL [facility] Bilirubin.conjugated [Mass/Vol] mg/dL NINF - 0.3 mg/dL [facility] Interpretation and review of laboratory results Normal [facility] Protein [Mass/Vol] 6.5 g/dL 6.3 - 8.0 g/dL [facility] CBC W Auto Differential pane l (Bld)on 12-07-2024 Basophils (Bld) [#/Vol] 0.07 10*3/uL Normal <0.11 [facility] Comment on above: Order Comment: Speci men Type: BLOOD SPECIMENOrdering Facility: [facility] Address: [address] [place] [address] Performed By: #### 5 7021-8 ####[facility] LABCLIA [id number] [place] [address] [place] [facility] Basophils/100 WBC (Bld) 1.1 % Normal [facility] Comment on above: Order Comment: Speci men Type: BLOOD SPECIMENOrdering Facility: [facility] Address: [address] [place] [address] Performed By: #### 5 7021-8 ####[facility] LABCLIA [id number] [address] [place] Differential cell count method Nom (Bld) Auto Normal [facility] Comment on above: Order Comment: Speci men Type: BLOOD SPECIMENOrdering Facility: [facility] Address: [address] [place] [address] Performed By: #### 5 7021-8 ####[facility] LABCLIA [id number] [place] [address] [place] Eosinophils (Bld) [#/Vol] 0.30 10*3/uL Normal <0.46 [facility] Comment on above: Order Comment: Speci men Type: BLOOD SPECIMENOrdering Facility: [facility] Address: [address] [place] [address] Performed By: #### 5 7021-8 ####[facility] LABCLIA [id number] [place] [address] [place] Eosinophils/100 WBC (Bld) 4.7 % Normal [facility] Comment on above: Order Comment: Speci men Type: BLOOD SPECIMENOrdering Facility: [facility] Address: [address] [place] [address] Performed By: #### 5 7021-8 ####[facility] LABCLIA [id number] [place] [address] [place] Erythrocyte distribution width (RBC) [Ratio] 12.0 % Normal 11.5-15.0 [facility] Comment on above: Order Comment: Speci men Type: BLOOD SPECIMENOrdering Facility: [facility] Address: [address] [place] [address] Performed By: #### 5 7021-8 ####[facility] LABCLIA [id number] [place] [address] [place] Hematocrit (Bld) [Volume fraction] 49.9 % High 36.0-46.0 [facility] Comment on above: Order Comment: Speci men Type: BLOOD SPECIMENOrdering Facility: [facility] Address: [address] [place], [place] [address] Performed By: #### 5 7021-8 ####[facility] LABCLIA [id number] [address], [place] [address] [place] Hemoglobin (Bld) [Mass/Vol] 17.1 g/dL High 11.5-15.5 [facility] Comment on above: Order Comment: Speci men Type: BLOOD SPECIMENOrdering Facility: [facility] Address: [address] [place] [address] Performed By: #### 5 7021-8 ####[facility] LABCLIA [id number] [address], [place] [address] [place] Immature granulocytes (Bld) [#/Vol] 10*3/uL Normal <0.10 [facility] Comment on above: Order Comment: Speci men Type: BLOOD SPECIMENOrdering Facility: [facility] Address: [address] [place] [address] Performed By: #### 5 7021-8 ####[facility] LABCLIA [id number] [address], [place] [address] [place] Immature granulocytes/100 WBC (Bld) 0.3 % Normal [facility] Comment on above: Order Comment: Speci men Type: BLOOD SPECIMENOrdering Facility: [facility] Address: [address] [place] [address] Performed By: #### 5 7021-8 ####[facility] LABCLIA [id number] [address], [facility] [place] Lymphocytes (Bld) [#/Vol] 1.76 10*3/uL Normal 1.00-4.00 [facility] Comment on above: Order Comment: Speci men Type: BLOOD SPECIMENOrdering Facility: [facility] Address: [address] [place] [address] Performed By: #### 5 7021-8 ####[facility] LABCLIA [id number] [address] [address] [place] Lymphocytes/100 WBC (Bld) 27.7 % Normal [facility] Comment on above: Order Comment: Speci men Type: BLOOD SPECIMENOrdering Facility: [facility] Address: [address] [place] [address] Performed By: #### 5 7021-8 ####[facility] LABIA [id number] [place] [address] [place] MCH (RBC) [Entitic mass] 33.3 pg Normal 26.0-34.0 [facility] Comment on above: Order Comment: Speci men Type: BLOOD SPECIMENOrdering Facility: [facility] Address: [address] [place] [address] Performed By: #### 5 7021-8 ####[facility] LABIA [id number] [place] [address] [place] MCHC (RBC) [Mass/Vol] 34.3 g/dL Normal 30.5-36.0 [facility] Comment on above: Order Comment: Speci men Type: BLOOD SPECIMENOrdering Facility: [facility] Address: [address] [place] [address] Performed By: #### 5 7021-8 ####[facility] LABIA [id number] [place] [address] [place] MCV (RBC) [Entitic vol] 97.1 fL Normal 80.0-100.0 [facility] Comment on above: Order Comment: Speci men Type: BLOOD SPECIMENOrdering Facility: [facility] Address: [address] [place] [address] Performed By: #### 5 7021-8 ####[facility] LABIA [id number] [place] [address] [place] Monocytes (Bld) [#/Vol] 0.47 10*3/uL Normal <0.87 [facility] Comment on above: Order Comment: Speci men Type: BLOOD SPECIMENOrdering Facility: [facility] Address: [address] [place] [address] Performed By: #### 5 7021-8 ####[facility] LABCLIA [id number] [place] [address] [place] Monocytes/100 WBC (Bld) 7.4 % Normal [facility] Comment on above: Order Comment: Speci men Type: BLOOD SPECIMENOrdering Facility: [facility] Address: [address] [place] [address] Performed By: #### 5 7021-8 ####[facility] LABCLIA [id number] [place] [address] [place] Neutrophils (Bld) [#/Vol] 3.73 10*3/uL Normal 1.45-7.50 [facility] Comment on above: Order Comment: Speci men Type: BLOOD SPECIMENOrdering Facility: [facility] Address: [address] [place] [address] Performed By: #### 5 7021-8 ####[facility] LABIA [id number] [place] [address] [place] Neutrophils/100 WBC (Bld) 58.8 % Normal [facility] Comment on above: Order Comment: Speci men Type: BLOOD SPECIMENOrdering Facility: [facility] Address: [address] [place] [address] Performed By: #### 5 7021-8 ####[facility] LABCLIA [id number] [place] [address] [place] Nucleated RBC (Bld) [#/Vol] 10*3/uL Normal <0.01 [facility] Comment on above: Order Comment: Speci men Type: BLOOD SPECIMENOrdering Facility: [facility] Address: [address] [place] [address] Performed By: #### 5 7021-8 ####[facility] LABCLIA [id number] [place] [address] [place] Nucleated RBC/100 WBC (Bld) [Ratio] 0.0 /100 WBC Normal [facility] Comment on above: Order Comment: Speci men Type: BLOOD SPECIMENOrdering Facility: [facility] Address: [address] [place] [address] Performed By: #### 5 7021-8 ####[facility] LABCLIA [id number] [place] [address] [place] Platelet mean volume (Bld) [Entitic vol] 10.6 fL Normal 9.0-12.7 [facility] Comment on above: Order Comment: Speci men Type: BLOOD SPECIMENOrdering Facility: [facility] Address: [address] [place] [address] Performed By: #### 5 7021-8 ####[facility] LABCLIA [id number] [place] [address] [place] Platelets (Bld) [#/Vol] 253 10*3/uL Normal 150-400 [facility] Comment on above: Order Comment: Speci men Type: BLOOD SPECIMENOrdering Facility: [facility] Address: [address] [place] [address] Performed By: #### 5 7021-8 ####[facility] LABCLIA [id number] [place] [address] [place] RBC (Bld) [#/Vol] 5.14 10*6/uL Normal 3.90-5.20 [facility] Comment on above: Order Comment: Speci men Type: BLOOD SPECIMENOrdering Facility: [facility] Address: [address] [place] [address] Performed By: #### 5 7021-8 ####[facility] LABCLIA [id number] [place] [id number] [place] WBC (Bld) [#/Vol] 6.35 10*3/uL Normal 3.70-11.00 [facility] Comment on above: Order Comment: Speci men Type: BLOOD SPECIMENOrdering Facility: [facility] Address: [address] [place] [address] Performed By: #### 5 7021-8 ####[facility] LABCLIA [id number] [address] CERV[address]ES [id number] [place] [address] [place] Cardiology Visit Reporton Cardiology Visit Report [facility] [address] [place] [address] OFFICE VISIT Date of Service: 12/07/24 MR#: [id number] Acct: [id number] Name: ANGELINA THEODORE Rep #: [id number] : 1960 Provider: LIZZY stanley Age/Sex: 64/F Location: [facility] Status: Signed HPI HPI History of Present Illness Details: 64-year-old lady who presents for a cardiovascular patient follow-up. She has been a lifelong tobacco user and had presented with heart failure in [place]. Apparently an echocardiogram was performed which had demonstrated an ejection fraction of 15% with trivial pericardial effusion, moderate mitral regurgitation, and right ventricular systolic pressure of 51 mmHg. She had been placed on beta-suellen and we made some changes to her medication but soon after that COVID struck and she was not seen again here. She then reestablished with our practice. She underwent echocardiogram in May 2023 that showed an improved ejection fraction at 65%. She had hip replacement that has excluded her from having an MRI. She denies chest, arm, jaw, or neck discomfort. She denies palpitations. She states bilateral lower extremity edema. She denies claudication. She denies shortness of breath with activity, shortness of breath at rest, orthopnea, or PND. She denies chronic cough. She denies significant, sudden weight gain. She denies lightheadedness, dizziness, near-syncope, or syncope. She denies blood in urine, blood in stool, or epistaxis. He denies fever with chills. She denies myalgia. She denies fatigue. Her exercise level has remained stable. Intake Vital Signs 08/14/23 11:03 04/12/24 13:00 12/07/24 10:51 Height 5 ft 5 in 5 ft 5 in 5 ft 5 in Weight: 219 lb BMI 36.4 BP 165/83 H Blood Pressure Location Lt brachial Position Sitting Respiration 20 H Pulse 68 Pulse Source Monitor Pulse Oximetry (%) 97 Intake Visit Reasons: 1 Y FU Hazardous Substances Engineer Required: No Is patient in pain?: No Allergies bee venom protein (honey bee) Allergy (Unknown, Verified 12/07/24 16:00) Swelling lactase (From Dairy Aid) Allergy (Unknown, Verified 12/07/24 16:00) Unknown aspirin Adverse Reaction (Verified 12/07/24 16:00) GI Upset cyclobenzaprine Adverse Reaction (Verified 12/07/24 16:00) mouth burning latex Adverse Reaction (Verified 12/07/24 16:00) Swelling lisinopril Adverse Reaction (Verified 12/07/24 16:00) cough NSAIDS (Non-Steroidal Anti-Inflamma Adverse Reaction (Verified 12/07/24 16:00) PT UNABLE TO RESPOND-NEEDS F/U Medications ???Medication ???Instructions ???Recorded ???Confirmed ???Type magnesium oxide 400 mg PO DAILY 12/27/19 12/07/24 History amoxicillin 500 mg capsule 2,000 mg PO ONCE PRN 04/02/2305/25 History Handicap Placard #1 ea 04/08/23 04/12/24 Rx losartan 50 mg tablet 50 mg PO QPM #90 tabs 10/05/2305/25 Rx furosemide 40 mg tablet 40 mg PO DAILY Dose increased back 05/30/24 12/07/24 Rx to whole 40 mg tablet daily #90 tabs carvedilol 25 mg tablet 25 mg PO BID #180 tabs 06/17/24 Rx methimazole 5 mg tablet 5 mg PO .4 days per week #48 tabs 11/07/24 12/07/24 Rx Ejection fraction %: 65 Have you fallen in the past year?: No PFSH Medical History (Reviewed 12/07/24 @ 16:18 by Ryan Sanchez SENIOR IT SECURITY ANALYST, SENIOR IT SECURITY ANALYST-C) Secondary pulmonary arterial hypertension Osteoarthritis Fibromyalgia Thyroid nodule Demand ischemia (05/02/19) Chronic systolic (congestive) heart failure Non-ischemic cardiomyopathy Essential (primary) hypertension Hyperthyroidism Nicotine dependence Surgical History (Reviewed 12/07/24 @ 16:18 by Ryan Sanchez SENIOR IT SECURITY ANALYST, SENIOR IT SECURITY ANALYST-C) History of dilatation and curettage History of tubal ligation History of total hip arthroplasty Family History (Reviewed 12/07/24 @ 16:18 by Ryan Sanchez SENIOR IT SECURITY ANALYST, SENIOR IT SECURITY ANALYST-C) Father Diabetes Heart disease Mother Respiratory disease Psychiatric care Mental disorder Suicide attempt Heart failure Social History (Reviewed 12/07/24 @ 16:18 by Ryan Sanchez SENIOR IT SECURITY ANALYST, SENIOR IT SECURITY ANALYST-C) Smoking Status: Current every day smoker tobacco type: cigarettes Tobacco: How many years used: 30 alcohol intake: current alcohol intake frequency: 3 or more drinks per day Alcohol type: wine substance use type: marijuana caffeine: Yes Type: coffee Number of servings: 1 ROS Const Const: Negative for fatigue, weakness, headache(s) or frequent falls Eyes Eyes: Negative for blurry vision ENT ENT: Negative for headache(s), dizziness or Nosebleed/epistaxis Cardio Chest Pain: No Palpitations: No Edema: Bilateral Muscle aches with walking: None Resp Respiratory: Negative for SOB with activity, SOB at rest or SOB orthopnea SOB lying down GI GI: Positive for heartburn (esophagus issues); Negative nausea, vomiting, bright, red blood in stools or (more content not included)... Normal [facility] Hepatic function 2000 panelo n 12-07-2024 Albumin [Mass/Vol] 4.2 g/dL Normal 3.9-4.9 [facility] Comment on above: Order Comment: Speci men Type: BLOOD SPECIMENOrdering Facility: [facility] Address: [address] [place] [address] Performed By: #### 3 016-3, 94775-8, 305-0, 3027 ####[facility] LABCLIA [id number] [address] [address] [place] ALP [Catalytic activity/Vol] 91 U/L Normal 34-123 [facility] Comment on above: Order Comment: Speci men Type: BLOOD SPECIMENOrdering Facility: [facility] Address: [address] [place] [address] Performed By: #### 3 016-3, 94040-9, 3051-0, 302-7 ####[facility] LABCLIA [id number] [address] [address] [place] ALT [Catalytic activity/Vol] 28 U/L Normal 7-38 [facility] Comment on above: Order Comment: Speci men Type: BLOOD SPECIMENOrdering Facility: [facility] Address: [address] [place] [address] Performed By: #### 3 016-3, 15084-4, 0, 7 ####[facility] LABCLIA [id number] [place] [id number] [place] AST [Catalytic activity/Vol] 26 U/L Normal 13-35 [facility] Comment on above: Order Comment: Speci men Type: BLOOD SPECIMENOrdering Facility: [facility] Address: [address] [place] [address] Performed By: #### 3 016-3, 86470-6, 0, 7 ####[facility] LABCLIA [id number] [place] [id number] [place] Bilirubin [Mass/Vol] 0.3 mg/dL Normal 0.2-1.3 [facility] Comment on above: Order Comment: Speci men Type: BLOOD SPECIMENOrdering Facility: [facility] Address: [address] [place] [address] Performed By: #### 3 016-3, 60277-3, 0, 3024-02 ####[facility] LABCLIA [id number] [place] [id number] [place] Bilirubin.conjugated [Mass/Vol] mg/dL Normal <0.3 [facility] Comment on above: Order Comment: Speci men Type: BLOOD SPECIMENOrdering Facility: [facility] Address: [address] [place] [address] Performed By: #### 3 016-3, 33783-2, 305-0, 7 ####[facility] LABCLIA [id number] [address] [address] [place] Protein [Mass/Vol] 6.5 g/dL Normal 6.3-8.0 [facility] Comment on above: Order Comment: Speci men Type: BLOOD SPECIMENOrdering Facility: [facility] Address: [address] [place] [address] Performed By: #### 3 016-3, 60459-4, 3051-0, 3024-7 ####[facility] LABIA [id number] [address] [address] [place] T3Free SerPl-mCncon 12-08-19 25 Free T3 [Mass/Vol] 3.1 pg/mL Normal 2.3-4.1 [facility] Comment on above: Order Comment: Speci men Type: BLOOD SPECIMENOrdering Facility: [facility] Address: [address] [place] [address], [place] [id number] Performed By: #### 3 016-3, 62299-8, 3051-0, 3024-7 ####[facility] [id number] [place] [id number] [place] T4 Free SerPl-mCncon 025 Free T4 [Mass/Vol] 1.0 ng/dL Normal 0.9-1.7 [facility] Comment on above: Order Comment: Speci men Type: BLOOD SPECIMENOrdering Facility: [facility] Address: [address] [place] [address], [place] [address] Performed By: #### 3 016-3, 92708-4, 3051-0, 3024-7 ####[facility] [id number] [place] [id number] [place] TSH SerPl-aCncon 12-07-2024 TSH Qn 1.270 m[IU]/L Normal 0.270-4.200 [facility] Comment on above: Order Comment: Speci men Type: BLOOD SPECIMENOrdering Facility: [facility] Address: [address] [place] [id number] Performed By: #### 3 016-3, 04377-0, 3051-0, 3024-7 ####[facility] LABCLIA [id number] [place] [address] [place] US ABD RIGHT UPPER QUADRANTo n 11-28-2024 US ABD RIGHT UPPER QUADRANT * * *Final Report* * * DATE OF EXAM: Nov 28 2024 11:52AM WRU 1032 - US ABD RIGHT UPPER QUADRANT / PROCEDURE REASON: multiple diagnoses * * * * Physician Interpretation * * * * EXAMINATION: RIGHT UPPER QUADRANT AND SPLEEN ULTRASOUND CLINICAL HISTORY: Right upper quadrant pain TECHNIQUE: Sonography of the right upper quadrant was performed. Images were obtained and stored in a permanent archive. MQ: URUQ_2 COMPARISON: None. RESULT: Pancreas: Normal sonographic appearance. Portions obscured: tail Liver: Echotexture: Normal, homogeneous. Echogenicity: Increased compatible with hepatic steatosis with mild sparing of the gallbladder fossa Surface contour: Smooth Lesions: None. Biliary: No intrahepatic biliary duct dilation. CBD: 0.9 at the hilum, mildly dilated. Gallbladder: Normal caliber -Contents: No cholelithiasis -Wall: Normal -Other: No pericholecystic fluid. Bilateral kidneys: Normal cortical echogenicity. No hydronephrosis. Spleen: Normal in size measuring 10.6 cm in craniocaudad dimension. No sonographic evidence of focal splenic lesion. Ascites: None. IMPRESSION: 1. Hepatic steatosis. 2. Mild dilation of the common bile duct. Correlate with bilirubin levels. If elevated, consider further evaluation with MRCP. ACTIONABLE RESULT: FOLLOW-UP Acuity: Actionable Findings: Pancreas/Biliary Routing Code: PB_1 Recommendation: Unlisted Recommendation (see report) Time Frame: At the discretion of the clinical team. COMMUNICATION: Results will be communicated with the ordering provider via [employer] staff message or phone message by [employer] within 2 business days of report finalization. --END OF FINDING-- Boat Pilot: ROMY Transcribe Date/Time: Nov 29 2024 2:49P Dictated by : JOSE MIGUEL CONLEY MD This examination was interpreted and the report reviewed and electronically signed by: JOSE MIGUEL CONLEY MD on Nov 29 2024 2:55PM EST [id number] CN ACTIONABLE Invalid Interpretation Code [facility] US ABD SPLEEN -NBon 11-29-19 25 US ABD SPLEEN -NB * * *Final Report* * * DATE OF EXAM: Nov 28 2024 11:52AM WRU 1232 - US ABD SPLEEN -NB / PROCEDURE REASON: multiple diagnoses * * * * Physician Interpretation * * * * EXAMINATION: RIGHT UPPER QUADRANT AND SPLEEN ULTRASOUND CLINICAL HISTORY: Right upper quadrant pain TECHNIQUE: Sonography of the right upper quadrant was performed. Images were obtained and stored in a permanent archive. MQ: URUQ_2 COMPARISON: None. RESULT: Pancreas: Normal sonographic appearance. Portions obscured: tail Liver: Echotexture: Normal, homogeneous. Echogenicity: Increased compatible with hepatic steatosis with mild sparing of the gallbladder fossa Surface contour: Smooth Lesions: None. Biliary: No intrahepatic biliary duct dilation. CBD: 0.9 at the hilum, mildly dilated. Gallbladder: Normal caliber -Contents: No cholelithiasis -Wall: Normal -Other: No pericholecystic fluid. Bilateral kidneys: Normal cortical echogenicity. No hydronephrosis. Spleen: Normal in size measuring 10.6 cm in craniocaudad dimension. No sonographic evidence of focal splenic lesion. Ascites: None. IMPRESSION: 1. Hepatic steatosis. 2. Mild dilation of the common bile duct. Correlate with bilirubin levels. If elevated, consider further evaluation with MRCP. ACTIONABLE RESULT: FOLLOW-UP Acuity: Actionable Findings: Pancreas/Biliary Routing Code: PB_1 Recommendation: Unlisted Recommendation (see report) Time Frame: At the discretion of the clinical team. COMMUNICATION: Results will be communicated with the ordering provider via [employer] staff message or phone message by [facility] within 2 business days of report finalization. --END OF FINDING-- Boat Pilot: ROMY Transcribe Date/Time: Nov 29 2024 2:49P Dictated by : JOSE MIGUEL CONLEY MD This examination was interpreted and the report reviewed and electronically signed by: JOSE MIGUEL CONLEY MD on Nov 29 2024 2:55PM EST [id number] CN ACTIONABLE Invalid Interpretation Code [facility] Amylase SerPl-cCncon 025 Amylase [Catalytic activity/Vol] 27 U/L Low 30-104 [facility] Comment on above: Order Comment: Speci men Type: BLOOD SPECIMENOrdering Facility: [facility] Address: [address] [place] [address] Performed By: #### 1 798-8, 3040-3, 21928-3 ####[facility] [id number] [place] [address] [place] Bacteria Ur Culton Bacteria identified Cx Nom (U) ORGANISM ID: 1 10,000 -<50,000 CFU/ml Mixed microbiota No further workup. Mixed microbiota can be due to???urine???contami nation with skin bacteria at time of collection or presence of a long-term urinary catheter. If a new culture is needed, please consider re-education of the patient on proper midstream collection technique or straight catheterization for???urine???collec tion. Normal [facility] Comment on above: Performed By: #### 6 30-4 ####[facility] LABCLIA [id number] [place] [address] [place] CBC W Auto Differential pane l (Bld)on 11-24-2024 Basophils (Bld) [#/Vol] 0.07 10*3/uL Normal <0.11 [facility] Comment on above: Order Comment: Speci men Type: BLOOD SPECIMENOrdering Facility: [facility] Address: [address] [place] [address] Performed By: #### 5 7021-8 ####[facility] LABCLIA [id number] [place] [address] [place] Basophils/100 WBC (Bld) 0.9 % Normal [facility] Comment on above: Order Comment: Speci men Type: BLOOD SPECIMENOrdering Facility: [facility] Address: [address] [place] [address] Performed By: #### 5 7021-8 ####[facility] LABCLIA [id number] [place] [address] [place] Differential cell count method Nom (Bld) Auto Normal [facility] Comment on above: Order Comment: Speci men Type: BLOOD SPECIMENOrdering Facility: [facility] Address: [address] [place] [address] Performed By: #### 5 7021-8 ####[facility] LABCLIA [id number] [address], [place] [address] [place] Eosinophils (Bld) [#/Vol] 0.26 10*3/uL Normal <0.46 [facility] Comment on above: Order Comment: Speci men Type: BLOOD SPECIMENOrdering Facility: [facility] Address: [address] [place] [address] Performed By: #### 5 7021-8 ####[facility] LABIA [id number] [address], [place] [address] [place] Eosinophils/100 WBC (Bld) 3.2 % Normal [facility] Comment on above: Order Comment: Speci men Type: BLOOD SPECIMENOrdering Facility: [facility] Address: [address] [place] [address] Performed By: #### 5 7021-8 ####[facility] LABIA [id number] [address] [place] Erythrocyte distribution width (RBC) [Ratio] 11.9 % Normal 11.5-15.0 [facility] Comment on above: Order Comment: Speci men Type: BLOOD SPECIMENOrdering Facility: [facility] Address: [address] [place] [address] Performed By: #### 5 7021-8 ####[facility] LABCLIA [id number] [address] [place] Hematocrit (Bld) [Volume fraction] 50.4 % High 36.0-46.0 [facility] Comment on above: Order Comment: Speci men Type: BLOOD SPECIMENOrdering Facility: [facility] Address: [address] [place] [address] Performed By: #### 5 7021-8 ####[facility] LABCLIA [id number] [address], [place] [address] [place] Hemoglobin (Bld) [Mass/Vol] 17.2 g/dL High 11.5-15.5 [facility] Comment on above: Order Comment: Speci men Type: BLOOD SPECIMENOrdering Facility: [facility] Address: [address] [place] [address] Performed By: #### 5 7021-8 ####[facility] LABCLIA [id number] [address], [facility] [place] Immature granulocytes (Bld) [#/Vol] 10*3/uL Normal <0.10 [facility] Comment on above: Order Comment: Speci men Type: BLOOD SPECIMENOrdering Facility: [facility] Address: [address] [place] [address] Performed By: #### 5 7021-8 ####[facility] LABCLIA [id number] [address], [place] [address] [place] Immature granulocytes/100 WBC (Bld) 0.2 % Normal [facility] Comment on above: Order Comment: Speci men Type: BLOOD SPECIMENOrdering Facility: [facility] Address: [address] [place] [address] Performed By: #### 5 7021-8 ####[facility] LABCLIA [id number] [address], [facility] [place] Lymphocytes (Bld) [#/Vol] 2.20 10*3/uL Normal 1.00-4.00 [facility] Comment on above: Order Comment: Speci men Type: BLOOD SPECIMENOrdering Facility: [facility] Address: [address] [place] [address] Performed By: #### 5 7021-8 ####[facility] LABCLIA [id number] [address] [place] [address] [place] Lymphocytes/100 WBC (Bld) 27.2 % Normal [facility] Comment on above: Order Comment: Speci men Type: BLOOD SPECIMENOrdering Facility: [facility] Address: [address] [place] [address] Performed By: #### 5 7021-8 ####[facility] LABIA [id number] [place] [address] [place] MCH (RBC) [Entitic mass] 32.7 pg Normal 26.0-34.0 [facility] Comment on above: Order Comment: Speci men Type: BLOOD SPECIMENOrdering Facility: [facility] Address: [address] [place] [address] Performed By: #### 5 7021-8 ####[facility] LABIA [id number] [place] [address] [place] MCHC (RBC) [Mass/Vol] 34.1 g/dL Normal 30.5-36.0 [facility] Comment on above: Order Comment: Speci men Type: BLOOD SPECIMENOrdering Facility: [facility] Address: [address] [place] [address] Performed By: #### 5 7021-8 ####[facility] LABIA [id number] [place] [address] [place] MCV (RBC) [Entitic vol] 95.8 fL Normal 80.0-100.0 [facility] Comment on above: Order Comment: Speci men Type: BLOOD SPECIMENOrdering Facility: [facility] Address: [address] [place] [address] Performed By: #### 5 7021-8 ####[facility] LABIA [id number] [place] [address] [place] Monocytes (Bld) [#/Vol] 0.85 10*3/uL Normal <0.87 [facility] Comment on above: Order Comment: Speci men Type: BLOOD SPECIMENOrdering Facility: [facility] Address: [address] [place] [address] Performed By: #### 5 7021-8 ####[facility] LABCLIA [id number] [place] [address] [place] Monocytes/100 WBC (Bld) 10.5 % Normal [facility] Comment on above: Order Comment: Speci men Type: BLOOD SPECIMENOrdering Facility: [facility] Address: [address] [place] [address] Performed By: #### 5 7021-8 ####[facility] LABCLIA [id number] [place] [address] [place] Neutrophils (Bld) [#/Vol] 4.68 10*3/uL Normal 1.45-7.50 [facility] Comment on above: Order Comment: Speci men Type: BLOOD SPECIMENOrdering Facility: [facility] Address: [address] [place] [address] Performed By: #### 5 7021-8 ####[facility] LABIA [id number] [place] [address] [place] Neutrophils/100 WBC (Bld) 58.0 % Normal [facility] Comment on above: Order Comment: Speci men Type: BLOOD SPECIMENOrdering Facility: [facility] Address: [address] [place] [address] Performed By: #### 5 7021-8 ####[facility] LABCLIA [id number] [place] [id number] [place] Nucleated RBC (Bld) [#/Vol] 10*3/uL Normal <0.01 [facility] Comment on above: Order Comment: Speci men Type: BLOOD SPECIMENOrdering Facility: [facility] Address: [address] [place] [address] Performed By: #### 5 7021-8 ####[facility] LABCLIA [id number] [place] [id number] [place] Nucleated RBC/100 WBC (Bld) [Ratio] 0.0 /100 WBC Normal [facility] Comment on above: Order Comment: Speci men Type: BLOOD SPECIMENOrdering Facility: [facility] Address: [address] [place] [address] Performed By: #### 5 7021-8 ####[facility] LABCLIA [id number] [place] [address] [place] Platelet mean volume (Bld) [Entitic vol] 10.7 fL Normal 9.0-12.7 [facility] Comment on above: Order Comment: Speci men Type: BLOOD SPECIMENOrdering Facility: [facility] Address: [address] [place] [address] Performed By: #### 5 7021-8 ####[facility] LABCLIA [id number] [place] [address] [place] Platelets (Bld) [#/Vol] 264 10*3/uL Normal 150-400 [facility] Comment on above: Order Comment: Speci men Type: BLOOD SPECIMENOrdering Facility: [facility] Address: [address] [place] [address] Performed By: #### 5 7021-8 ####[facility] LABCLIA [id number] [place] [address] [place] RBC (Bld) [#/Vol] 5.26 10*6/uL High 3.90-5.20 [facility] Comment on above: Order Comment: Speci men Type: BLOOD SPECIMENOrdering Facility: [facility] Address: [address] [place] [address] Performed By: #### 5 7021-8 ####[facility] LABCLIA [id number] [place] [id number] [place] WBC (Bld) [#/Vol] 8.08 10*3/uL Normal 3.70-11.00 [facility] Comment on above: Order Comment: Speci men Type: BLOOD SPECIMENOrdering Facility: [facility] Address: [address] [place] [address] Performed By: #### 5 7021-8 ####[facility] LABCLBRYAN [id number] N[place] CERVANTES [id number] [place] [address] [place] [facility] CNOVon 11-24-2024 CNOV Office Visit (INTMWS) ANGELINA THEODORE ([id number]) 1960 F Date Time Provider Department 11/24/24 11:20 AM YA SOTO INTMWS During your visit today, we recorded the following information about you: Temperature Pulse Respiration Blood pressure 98 degrees 74/minute 16/minute 125/76 Weight 96.8 kg Ya Soto, JYOTI.STAFFING MGR 11/24/2024 12:32 PM Signed Subjective Patient ID: Angelina is a 64 year old female who presents for Abdominal Pain (lower abdominal pain, bloated. On/off sharp pain. Especially after eating something she shouldn't) and UTI (Pain, couldn't urinate, urgency). HPI Presents today regarding abdominal pain x 6 months. Reports history of colitis. Right lower and upper quadrant pain, Intermittent. Colicky. Worse with greasy fried and spicy foods. Usually associated with diet, present a few times a month. Lasts a few hours at a time. Notes eating butter in food that she subsequent epigastric discomfort and diarrhea. Notes one episode only. Present for 4 hours, improved with diarrhea. Notes usually has diarrhea with this also. Abdominal Pain and Diarrhea: - Intermittent RLQ abdominal pain x6 months. - Describes pain as clenching sensation, lasting a few hours, occurring a few times a month. - Constant bloating and discomfort. - Aggravated by greasy, fried, and spicy foods. - Recent episode of severe epigastric pain after consuming butter, lasting 4 hours, accompanied by explosive diarrhea. - Chronic loose stools, 1-2 times daily, x<1 year. - Denies constipation, hematochezia, melena, nausea, or emesis. - No history of EGD or colonoscopy. - PMHx of colitis diagnosed [address] scan. - No history of abdominal surgeries, but had tubal ligation in 1988. - Taking methimazole x5 years for hypothyroidism. - Recent reduction in methimazole dosage to 3 times a week. - Denies taking Gas-X or Beano; previously took charcoal capsules for bloating. Urinary Symptoms: - Acute onset of urinary urgency, frequency, and pressure since last night. - Chronic urinary incontinence x15 years, associated with menopause. - Leaking occurs when heading to the bathroom and with coughing or sneezing. - Denies previous evaluation by urology. Lifestyle: - Smokes cigarettes. - Consumes approximately 4 glasses of wine daily. - Diet consists of crackers and macaroni to avoid aggravating abdominal pain. - Expresses difficulty avoiding fatty foods during October. Additional Requests: - Requests pre-medication (amoxicillin) for upcoming dental appointment due to artificial hips. Heartburn: increased Reflux: yes at back of throat. Nausea: yes Vomiting: no Diarrhea: chronic loose stools 1-2 per day for less than one year Constipation: no BRBPR: no Black tarry: no Dysuria: yes Urgency: yes Frequency: yes Notes feels like not completely emptying since yesterday. Notes trouble with urinary continence, stress and urge. Present since menopause. Reports taking charcoal tabs OTC for bloating QD to QOD x 1 month. Has not tried GasX or similar. She is also followed by endocrine, was taking methimazole in Feruary 2024 ordered by Geovanna Dow APRN.STAMP PAD FINISHER. Taking for [address] Vince Gongora [facility]. EtOH: 4 glasses of wine Smoking: current She is followed by [facility]. ROS Ears/Nose/Mouth/Thro at: (+) gagging Respiratory: (+) cough Gastrointestinal: (+) right lower abdominal pain, (+) bloating, (+) nausea, (+) heartburn, (+) loose stools/diarrhea, (-) constipation, (-) blood in stool Genitourinary: (+) urinary urgency, (+) urinary frequency, (+) burning, (+) incontinence Objective BP 125/76 Pulse 74 Temp 36.7 ?C (98 ?F) Resp 16 Wt 96.8 kg (213 lb 6.5 oz) BMI 36.07 kg/m? Physical Exam Vitals and nursing note reviewed. Constitutional: Appearance: Normal appearance. HENT: Head: Normocephalic and atraumatic. Eyes: Conjunctiva/sclera: Conjunctivae normal. Cardiovascular: Rate and Rhythm: Normal rate and regular rhythm. Heart sounds: Normal heart sounds. Pulmonary: Effort: Pulmonary effort is normal. Breath sounds: Normal breath sounds. Abdominal: General: Bowel sounds are normal. There is no distension. Palpations: Abdomen is soft. There is no mass. Tenderness: There is abdominal tenderness (RLQ, RUQ). There is no guarding or rebound. Negative signs include Gerardo's sign and McBurney's sign. Skin: General: Skin is warm and dry. Neurological: General: No focal deficit present. Mental Status: She is alert and oriented to person, place, and time. 1. Lower abdominal pain (R10.30) 2. Abdominal pain, right lower quadrant (R10.31) 3. RUQ pain (R10.11) - Chronic lower abdominal pain for 6 months, described as a clench or colicky sensation, exacerbated by greasy, fried, and spicy foods. - Single episode of se (more content not included)... Normal [facility] Comprehensive metabolic 2000 panelon 11-24-2024 Albumin [Mass/Vol] 4.5 g/dL Normal 3.9-4.9 [facility] Comment on above: Order Comment: Speci men Type: BLOOD SPECIMENOrdering Facility: [facility] Address: [address] [place] [address] Performed By: #### 1 798-8, 3040-3, 47945-5 ####[facility] [id number] [place] [id number] [place] ALP [Catalytic activity/Vol] 85 U/L Normal 34-123 [facility] Comment on above: Order Comment: Speci men Type: BLOOD SPECIMENOrdering Facility: [facility] Address: [address] [place] [address] Performed By: #### 1 798-8, 3040-3, 94195-2 ####[facility]ORYCL[facility] [id number] [place] [id number] [place] ALT [Catalytic activity/Vol] 40 U/L High 7-38 [facility] Comment on above: Order Comment: Speci men Type: BLOOD SPECIMENOrdering Facility: [facility] Address: [address] [place] [address] Performed By: #### 1 798-8, 3040-3, 69413-9 ####[facility] [id number] [place] [id number] [place] Anion gap [Moles/Vol] 13 mmol/L Normal 8-15 [facility] Comment on above: Order Comment: Speci men Type: BLOOD SPECIMENOrdering Facility: [facility] Address: [address] [place] [address] Performed By: #### 1 798-8, 3039-3, 11495-4 ####[facility] [id number] [place] [id number] [place] AST [Catalytic activity/Vol] 35 U/L Normal 13-35 [facility] Comment on above: Order Comment: Speci men Type: BLOOD SPECIMENOrdering Facility: [facility] Address: [address] [place] [address] Performed By: #### 1 798-8, 3040-3, 22745-0 ####[facility] [id number] [place] [id number] [place] Bilirubin [Mass/Vol] 0.5 mg/dL Normal 0.2-1.3 [facility] Comment on above: Order Comment: Speci men Type: BLOOD SPECIMENOrdering Facility: [facility] Address: [address] [place] [address] Performed By: #### 1 798-8, 3040-3, 38981-0 ####[facility]ORYCL[facility] [id number] [place] [address] [place] Calcium [Mass/Vol] 10.0 mg/dL Normal 8.5-10.2 [facility] Comment on above: Order Comment: Speci men Type: BLOOD SPECIMENOrdering Facility: [facility] Address: [address] [place] [address] Performed By: #### 1 798-8, 3039-3, ####[facility]ORY[facility] [id number] [place] [id number] [place] Chloride [Moles/Vol] 102 mmol/L Normal 98-107 [facility] Comment on above: Order Comment: Speci men Type: BLOOD SPECIMENOrdering Facility: [facility] Address: [address] [place] [address] Performed By: #### 1 798-8, 3, ####[facility]ORY[facility] [id number] [place] [id number] [place] CO2 [Moles/Vol] 24 mmol/L Normal 22-30 [facility] Comment on above: Order Comment: Speci men Type: BLOOD SPECIMENOrdering Facility: [facility] Address: [address] [place] [address] Performed By: #### 1 798-8, 3, 09325-2 ####[facility]ORYCL[facility] [id number] [place] [address] [place] Creatinine [Mass/Vol] 0.62 mg/dL Normal 0.58-0.96 [facility] Comment on above: Order Comment: Speci men Type: BLOOD SPECIMENOrdering Facility: [facility] Address: [address] [place] [address] Performed By: #### 1 798-8, 0-3, 92048-3 ####[facility]ORY[facility] [id number] [place] [id number] [place] Creatinine and Glomerular filtration rate.predicted panel (S/P/Bld) 100 mL/min/1.73m??? Normal >=60 [facility] Comment on above: Order Comment: Pb newberry Type: BLOOD SPECIMENOrdering Facility: [facility] Address: [address] [place] [address] Result Comment: Mercedes mated Glomerular Filtration Rate (eGFR) is calculated using the 2020 CKD-EPI creatinine equation. This equation utilizes serum creatinine, sex, and age as parameters. The creatinine assay has traceable calibration to isotope dilution-mass spectrometry. Refer to KDIGO guidelines for clinical interpretation. In patients with unstable renal function, e.g. those with acute kidney injury, the eGFR may not accurately reflect actual GFR. Performed By: #### 1 798-8, 3040-3, 59740-9 ####[facility]ORY[facility] [id number] [place] [id number] [place] Glucose [Mass/Vol] 115 mg/dL High 74-99 [facility] Comment on above: Order Comment: Pb newberry Type: BLOOD SPECIMENOrdering Facility: [facility] Address: [address] [place] [address] Result Comment: The [place] [employer] Association (ADA) provides guidance for cutoff values for fasting glucose and random glucose. The ADA defines fasting as no caloric intake for at least 8 hours. Fasting plasma glucose results between 100 to 125 mg/dL indicate increased risk for diabetes (prediabetes). Fasting plasma glucose results greater than or equal to 126 mg/dL meet the criteria for diagnosis of diabetes. In the absence of unequivocal hyperglycemia, results should be confirmed by repeat testing. In a patient with classic symptoms of hyperglycemia or hyperglycemic crisis, random plasma glucose results greater than or equal to 200 mg/dL meet the criteria for diagnosis of diabetes. Reference: Standards of Medical Care in Diabetes 2016, [place] [employer] Association. Diabetes Care. 2016.39(Suppl 1). Performed By: #### 1 798-8, 3040-3, 59654-0 ####[facility]ORYCLIA [id number] [place] [id number] [place] Potassium [Moles/Vol] 4.4 mmol/L Normal 3.7-5.1 [facility] Comment on above: Order Comment: Speci men Type: BLOOD SPECIMENOrdering Facility: [facility] Address: [address] [place] [address] Performed By: #### 1 798-8, 3040-3, 49899-3 ####[facility]ORYCLIA [id number] [place] [id number] [place] Protein [Mass/Vol] 7.2 g/dL Normal 6.3-8.0 [facility] Comment on above: Order Comment: Speci men Type: BLOOD SPECIMENOrdering Facility: [facility] Address: [address] [place] [address] Performed By: #### 1 798-8, 0-3, 32877-7 ####[facility]ORYCLIA [id number] [place] [id number] [place] Sodium [Moles/Vol] 139 mmol/L Normal 136-144 [facility] Comment on above: Order Comment: Speci men Type: BLOOD SPECIMENOrdering Facility: [facility] Address: [address] [place] [address] Performed By: #### 1 798-8, 0-3, 65303-0 ####[facility]ORYCLIA [id number] [place] [id number] [place] Urea nitrogen [Mass/Vol] 14 mg/dL Normal 7-21 [facility] Comment on above: Order Comment: Speci men Type: BLOOD SPECIMENOrdering Facility: [facility] Address: [address] [place], [place] [address] Performed By: #### 1 798-8, 3040-3, 55712-1 ####[facility]ATORYCLIA [id number] [place] [address] [place] Lipase SerPl-cCncon 11-24-20 25 Lipase [Catalytic activity/Vol] 35 U/L Normal 16-61 [facility] Comment on above: Order Comment: Speci men Type: BLOOD SPECIMENOrdering Facility: [facility] Address: [address] [place] [address] Performed By: #### 1 798-8, 3040-3, 79332-0 ####[facility]ORATORYIA [id number] [place] [address] [place] UA DIP, URINE (POC)on 2024 BILIRUBIN UA (POCT) Small Abnormal Negative [facility] CLARITY UA (POCT) [facility] COLOR UA (POCT) Yellow [facility] GLUCOSE UA (POCT) Negative Negative mg/dL [facility] Hemoglobin Ql (U) Negative Negative [facility] Interpretation and review of laboratory results Abnormal [facility] KETONE UA (POCT) Trace Negative mg/dL [facility] LEUKOCYTES UA (POCT) Trace Abnormal Negative [facility] NITRITE UA (POCT) Negative Negative [facility] PH UA (POCT) 6 4.5 - 8.0 [facility] Protein Ql (U) 30 mg/dL Abnormal Negative [facility] SPECIFIC GRAVITY UA (POCT) 1.02 1.005 - 1.030 [facility] UROBILINOGEN UA (POCT) 0.2 Natasha l E.U./dL [facility] Location:[address], [id number] [place] [address] POINT OF CARE [facility] CNOVon 11-10-2024 CNOV Office Visit (INTMWS) ANGELINA THEODORE ([id number]) 1960 F Date Time Provider Department 11/10/24 1:20 PM YA SOTO INTJayWS During your visit today, we recorded the following information about you: Pulse Respiration Blood pressure Weight 77/minute 16/minute 102/62 98 kg Ya Soto APRN.STAFFING MGR 11/10/2024 3:59 PM Addendum Angelina Theodore is a 64-year-old female presenting for evaluation of a rash on the right lower leg. Right Lower Leg Rash: - Erythematous, rough rash on the lateral aspect of the right lower leg, x5 days. - Initially pruritic; now experiences occasional burning sensation. - Uncertain if the area is warmer than surrounding skin. - No drainage or visible breaks in the skin. - No associated fever or edema. - Recent cramp in the right calf yesterday; denies history of similar cramps. - No recent changes in activity level; maintains a steady lazy life. - Denies previous occurrences of similar rashes. - No known trauma or insect bites; rash appeared spontaneously. - Has been applying cortisone cream and Neosporin, and cleaning with witch lacie without improvement. - Wears light compression socks regularly; no discomfort reported from wearing them. Heat Rash: - Requests refill of clobetasol ointment for recurrent heat and sun-induced rashes. - Rashes are described as blotchy and very itchy, typically resolving within 2 days with clobetasol application. - Believes these rashes are a residual effect of sun poisoning experienced at age 17. Constitutional: (-) fever Musculoskeletal: (+) right calf cramp, (-) swelling Skin: (+) right lower leg rash, (+) occasional burning, (+) occasional itching, (-) drainage GENERAL: NAD, alert and oriented. SKIN: Erythematous, rough patch noted on the lateral aspect of the right lower leg ~1 diameter, No warmth, drainage, or breaks in the skin observed. No other rashes or lesions noted. HEAD: Normocephalic. EYES: conjunctiva clear. NECK: Supple, LUNGS: breathing easily on room air HEART: normal rate EXTREMITIES: No deformities, no skin discoloration, no edema. NEURO: Awake, alert and oriented x3, cranial nerves II-XII grossly intact, normal gait, no involuntary motions. 1. Skin lesion (L98.9) 2. Rash and nonspecific skin eruption (R21) - Erythematous, rough patch on the lateral aspect of the right lower leg, present for approximately 5 days. Occasional burning sensation, no significant pruritus, no drainage or skin breakdown observed. No associated fever, edema, or history of similar lesions. - Differential diagnosis includes dermatitis and localized infection. - Initiated treatment with antibacterial ointment in the morning and a steroid cream in the evening for 7 days. - Advised to wash the area with soap and water, avoiding alcohol and peroxide to prevent delayed healing. - Refilled clobetasol ointment for recurrent heat and sun-induced rashes. - Scheduled follow-up in one week to assess response to treatment. - Patient to continue wearing light compression socks if comfortable, and may apply a protective bandage if the lesion is irritated by clothing. - Discussed signs of cellulitis, including warmth, swelling, fever, tenderness, skin breakdown, and oozing, and advised to report any such symptoms immediately. Due for physical, will call to schedule for November 2024, plans to get labs at [facility] for endocrinology and cardiology. Medical Decision Making: Problems: Low: Acute, uncomplicated illness or injury Risk: Moderate: Drug management Medical Decision Making Level: 3 - Low The patient consented to the use of Spotistic software for draft documentation of the visit consistent with [facility]?s Notice of Privacy Practices. Ya Soto, JYOTI.STAFFING MGR 11/10/2024 1:46 PM Signed - Wash the affected area on your leg with soap and water (such as Dial or an antibacterial soap) twice daily. Avoid using alcohol or peroxide. - Apply the prescribed antibiotic ointment to the affected area in the morning for 7 days. - Apply the prescribed steroid cream to the affected area in the evening for 7 days. - You may continue wearing light compression socks if they are comfortable and not causing irritation. - If the area feels irritated by clothing or other coverings, you may apply a bandage. - Monitor the rash for improvement. If it does not improve within a week, contact the clinic. - A prescription for Clobetasol cream has been sent to your pharmacy ([facility]) for use as needed for heat or sun rashes. - Schedule a physical exam in November; call the clinic to book a 40-minute appointment. - Complete any lab work ordered by your solutions analyst and contact and service clerks supervisor during your upcoming appointments. Referring Provider: SELF [[id number]] Allergies As of Date: 11/10/2024 Noted Allergy Reaction CYCLOBENZAPRINE 01/02/2005 7 (more content not included)... Normal [facility] Endocrinology Visit Reporton 11-07-2024 Endocrinology Visit Report [facility] [address] [place], [place] [address] OFFICE VISIT Date of Service: 11/07/24 MR#: [id number] Acct: [id number] Name: ANGELINA THEODORE Rep #: [id number] : 1960 Provider: Jay Harper Age/Sex: 64/F [place] [facility] Status: Signed Intake Vital Signs 04/12/24 13:00 11/07/24 13:05 Height 5 ft 5 in 5 ft 5 in Weight: 219 lb 221 lb 4 oz BMI 36.4 36.8 BP 130/78 H 129/79 H Blood Pressure Location Lt brachial Lt radial Position Sitting Sitting Pulse 62 68 Pulse Source Monitor Monitor Pulse Oximetry (%) 93 93 Oxygen Delivery Method room air Intake Visit Reasons: 6 M FU Chief Complaint: Hyperthyroidism Allergies bee venom protein (honey bee) Allergy (Unknown, Verified 11/07/24 13:06) Swelling lactase (From Dairy Aid) Allergy (Unknown, Verified 11/07/24 13:06) Unknown aspirin Adverse Reaction (Verified 11/07/24 13:06) GI Upset cyclobenzaprine Adverse Reaction (Verified 11/07/24 13:06) mouth burning latex Adverse Reaction (Verified 11/07/24 13:06) Swelling lisinopril Adverse Reaction (Verified 11/07/24 13:06) cough NSAIDS (Non-Steroidal Anti-Inflamma Adverse Reaction (Verified 11/07/24 13:06) PT UNABLE TO RESPOND-NEEDS F/U Medications ???Medication ???Instructions ???Recorded ???Confirmed ???Type magnesium oxide 400 mg PO DAILY 12/27/19 11/07/24 History amoxicillin 500 mg capsule 2,000 mg PO ONCE PRN 04/02/2310/29 History Handicap Placard #1 ea 04/08/23 04/12/24 Rx losartan 50 mg tablet 50 mg PO QPM #90 tabs 10/05/2306/24 Rx furosemide 40 mg tablet 40 mg PO DAILY Dose increased back 05/30/24 11/07/24 Rx to whole 40 mg tablet daily #90 tabs carvedilol 25 mg tablet 25 mg PO BID #180 tabs 06/17/24 Rx methimazole 5 mg tablet 5 mg PO .4 days per week #48 tabs 11/07/24 11/07/24 Rx PFSH Medical History Secondary pulmonary arterial hypertension Osteoarthritis Fibromyalgia Thyroid nodule Demand ischemia (05/02/19) Chronic systolic (congestive) heart failure Non-ischemic cardiomyopathy Essential (primary) hypertension Hyperthyroidism Nicotine dependence Surgical History History of dilatation and curettage History of tubal ligation History of total hip arthroplasty Family History Father Diabetes Heart disease Mother Respiratory disease Psychiatric care Mental disorder Suicide attempt Heart failure Social History Smoking Status: Current every day smoker tobacco type: cigarettes Tobacco: How many years used: 30 alcohol intake: current alcohol intake frequency: 3 or more drinks per day Alcohol type: wine substance use type: marijuana caffeine: Yes Type: coffee Number of servings: 1 HPI HPI Chief Complaint: Hyperthyroidism Details: ANGELINA THEODORE, is a 64 F who presents to the office today for follow up. She is on methimazole for hyperthyroidism. TSH was 1.8 in July. She is having more labs next month. ROS Const Constitutional: Positive for fatigue; No weight change ENT ENT: No dizziness/vertigo Cardio Cardiology: Positive for dyspnea on exertion; No chest pain at rest, chest pain with exertion, shortness of breath or palpitations Skin Skin: No wounds Endo Endocrine: Positive for fatigue; No weight change Exam Const General: cooperative, healthy appearing, comfortable, no acute distress, well developed and not cushingoid Nutritional Appearance: well nourished Orientation: alert, awake and oriented x3 HENMT Head: normal to inspection Ears: hearing grossly normal bilaterally Nose: external nose normal Mouth: oral mucosae normal Eyes General: appearance normal, both eyes and all related structures Alignment and Position: alignment normal Periorbital: periorbital findings normal Eyelids: eyelids normal Conjunctivae: conjunctivae normal Neck Neck: normal visual inspection Neck mass: No Thyroid: diffusely enlarged Lymphatic: no lymphadenopathy noted Chest Chest palpation inspection: normal inspection of the chest Resp Effort Inspection: normal respiratory effort, able to speak in complete sentences, symmetric chest movement, no audible wheezes and no cough Cardio Rate: regular rate Rhythm: regular rhythm Skin General: no rashes or lesions noted Neuro General: patient alert, patient awake and patient oriented x3 Cranial Nerves: CN's II-XI intact bilaterally Cognition: normal cognition Speech: speech normal Gait: normal gait Motor: muscle tone normal throughout Extrem General: no edema Psych Appearan (more content not included)... Normal [facility] Free T3on 08-12-2024 Free T3 [Mass/Vol] 3.2 pg/mL Normal 2.18-3.98 [facility] Comment on above: Performed By: #### L [id number] #### [facility] [address] [place], [address] T4 Free Directon 08-12-2024 T4 FREE DIRECT 1.01 ng/dL Normal 0.76-1.46 [facility] Comment on above: Performed By: #### L 501.9520, L506.0400 ####[facility] [id number] [place], [address] Thyroid Stim Hormone (TSH)on 08-12-2024 TSH 1.890 uIU/mL Normal 0.358-3.740 [facility] Comment on above: Performed By: #### L 501.9520, L506.0400 ####[facility] [id number] [place], [address] Free T3on 07-19-2024 Free T3 [Mass/Vol] 2.9 pg/mL Normal 2.18-3.98 [facility] Comment on above: Performed By: #### L 506.0400, L501.9520, L501.91894 #### [facility] [address] [place], [address] T4 Free Directon 07-19-2024 T4 FREE DIRECT 0.78 ng/dL Normal 0.76-1.46 [facility] Comment on above: Performed By: #### L 506.0400, L501.9520, L501.23120 #### [facility] [address] [place], [place], [address] Thyroid Stim Hormone (TSH)on 07-19-2024 TSH 8.970 uIU/mL High 0.358-3.740 [facility] Comment on above: Performed By: #### L 506.0400, L501.9520, L501.36790 #### [facility] [address] [place], [address] Basophil percentageOrdered B y: Ryan Sanchez on 09-21-2023 Chloride [Moles/Vol] 105 mmol/L 98-107 [facility] Glucose [Mass/Vol] 143 mg/dL 74-106 [facility] Comment on above: Fasting Glucose resu lt greater than or equal to 126 mg/dL suggests DIABETES MELLITUS per A.D.A. criteria. Potassium [Moles/Vol] 4.3 mmol/L 3.5-5.1 [facility] Sodium [Moles/Vol] 138 mmol/L 136-145 [facility] - Chemistry and C hemistry - challengeOrdered By: Ryan Sanchez on 09-21-2023 CO2 [Moles/Vol] 28.0 mmol/L 21.0-32.0 [facility] Urea nitrogen/Creatinine [Mass ratio] 26.3 mg/mg 10-20 [facility] No Panel InformationOrdered By: Ryan Sanchez on 09-21-2023 Estimated GFR (MDRD) Amer 89 mL/min >60 [facility] Comment on above: GFR Calc Estimated GFR (MDRD) Non-Af Amer 73 mL/min >60 [facility] Comment on above: Non- GFR Calc No Panel InformationOrdered By: Vince Gongora on 09-21-2023 Free Triiodothyronine (T3) pg/dL 2.2 pg/mL 2.18-3.98 [facility] Serum or plasma calcium adry urement (mass/volume)Ordered By: Ryan Sanchez on 09-21-2023 Calcium [Mass/Vol] 9.8 mg/dL 8.5-10.1 [facility] Serum or plasma creatinine m easurement (mass/volume)Ordered By: Ryan Sanchez on 09-21-2023 Creatinine [Mass/Vol] 0.84 mg/dL 0.55-1.02 [facility] Comment on above: The validity of the calculated GFR & GFRAA in patients over 70 years has not been determined. Clinical correlation is essential. Serum or plasma thyroid stim ulating hormone (TSH) measurement (units/volume)Ordered By: Vince Gongora on 09-21-2023 TSH Qn 2.96 uIU/mL 0.358-3.74 [facility] Serum or plasma urea nitroge n measurement (mass/volume)Ordered By: Ryan Sanchez on 09-21-2023 Urea nitrogen [Mass/Vol] 22 mg/dL 7-18 [facility] Thin prep Papanicolaou smear with manual screeningOrdered By: Ryan Sanchez on 09-21-2023 Thin prep Papanicolaou smear with manual screening 5 5-15 [facility] Thin prep Papanicolaou smear with manual screeningOrdered By: Vince Gongora on 09-21-2023 Thin prep Papanicolaou smear with manual screening 0.77 ng/dL 0.76-1.46 [facility] XR Cervical spine AP and Lat eral and obliqueon 08-13-2022 IMPRESSION: Mild degenerative changes with neural foraminal narrowing, greater on the left. Boat Pilot: ROMY Transcribe Date/Time: Aug 13 2022 2:22P Dictated by : MARIA FERNANAD ALANIZ MD This examination was interpreted and the report reviewed and electronically signed by: MARIA FERNANDA ALANIZ MD on Aug 13 2022 3:03PM [facility] DIVISION OF RADIOLOGY * * *Final Report* * * DATE OF EXAM: Aug 12 2022 2:59PM WOX 5311 - XR CERVICAL 4V AP/LAT/OBL / PROCEDURE REASON: Cervical disc disease * * * * Physician Interpretation * * * * History: Cervical disc disease FINDINGS: 5 views of cervical spine have been obtained. There is no acute fracture or subluxation. There is slight anterolisthesis of C4 with respect to C5. Mild narrowing of the C5/6 and C6/7 interspaces with associated marginal spurring. Vertebral heights are maintained. Oblique views demonstrate neural foraminal narrowing on the left at the C2/3 and to a lesser degree C3/4 levels and on the right at the C3/4 and to a lesser degree the before meals C4/5 level. DIVISION OF RADIOLOGY Provider, [facility] [place] - 08/13/2022 * * *Final Report* * * DATE OF EXAM: Aug 12 2022 2:59PM WOX 5311 - XR CERVICAL 4V AP/LAT/OBL / PROCEDURE REASON: Cervical disc disease * * * * Physician Interpretation * * * * History: Cervical disc disease FINDINGS: 5 views of cervical spine have been obtained. There is no acute fracture or subluxation. There is slight anterolisthesis of C4 with respect to C5. Mild narrowing of the C5/6 and C6/7 interspaces with associated marginal spurring. Vertebral heights are maintained. Oblique views demonstrate neural foraminal narrowing on the left at the C2/3 and to a lesser degree C3/4 levels and on the right at the C3/4 and to a lesser degree the before meals C4/5 level. IMPRESSION IMPRESSION: Mild degenerative changes with neural foraminal narrowing, greater on the left. Boat Pilot: PSCB Transcribe Date/Time: Aug 13 2022 2:22P Dictated by : MARIA FERNANDA ALANIZ MD This examination was interpreted and the report reviewed and electronically signed by: MARIA FERNANDA ALANIZ MD on Aug 13 2022 3:03PM [facility] XR Cervical spine AP and Lat eral and obliqueOrdered By: [facility] Provider on 08-13-2022 [facility] XR Cervical spine AP and Lat eral and obliqueon 08-12-2022 Radiology Study observation (narrative) [facility] CNNURSEon 12-26-2020 CNNURSE Nurse Visit (COVABA) ANGELINA THEODORE ([id number]) 1960 F Date Time Provider Department 12/26/20 12:[address] [facility] COVABA During your visit today, we recorded the following information about you: Referring Provider: JADA LING JR [[id number]] Allergies As of Date: 12/26/2020 Noted Allergy Reaction CYCLOBENZAPRINE 01/02/2005 7 - Swelling 14 - Other: See Comments Comments: Mouth swelling NSAIDS (NON-STEROIDAL ANTI-INFLAM*07/31/20 20 5 - Intolerance 8 - GI Upset 11 - Vomiting Comments: Severe stomach pain ASPIRIN 07/26/2020 8 - GI Upset BEE VENOM PROTEIN (HONEY BEE) 11/29/2020 7 - Swelling LATEX 11/29/2020 2 - Rash Comments: itching and swelling LISINOPRIL 05/25/2019 3 - Cough Date Reviewed: 11/29/2020 Reviewed by: Jayden Bassett - Fully Assessed Order(s):[employer] SARS-COV-2 VACCINE 2D DOSE APPT [[id number]] Order #: [id number] AirPR COVID-19 VACCINE [[id number]] Order #: [id number] Prescriptions as of 12/26/2020 Sig: CARVEDILOL ORAL Take 25 mg by mouth twice kirk* FUROSEMIDE 40 MG TABLET Take 40 mg by mouth once myles* METHIMAZOLE 5 MG TABLET .3 x week MAGNESIUM 400 MG ( MAGNESIU* Take 400 mg by mouth once kirk* LOSARTAN 50 MG TABLET EVERY EVENING Problem List As Of Date 12/26/2020 Noted Resolved Cardiomyopathy (HCC) [I42.9] 2019 Class 1 congestive heart failure, chronic, syst*2019 Contusion of left chest wall [S20.212A] 07/31/2020 Essential hypertension [I10] 2019 Fracture of multiple ribs [S22.49XA] 07/31/2020 Hyperthyroidism [E05.90] 2019 Nicotine dependence [F17.200] 08/31/1979 Other secondary pulmonary hypertension (HCC) [I*2019 Secondary pulmonary arterial hypertension (HCC)*07/31/2020 Encounter Status:Closed by CLOSURE EPIC, ADMINISTRATIVE on 12/27/20 [facility] XR Pelvis and Hip - left AP and Lateral frogon 11-13-2020 IMPRESSION: Postsurgical changes of the left hip without evidence of complication. IMPRESSION: Degenerative changes of the included lower lumbar spine. Boat Pilot: ROMY Transcribe Date/Time: Nov 13 2020 4:16P Dictated by : MARIA FERNANDA ALANIZ MD This examination was interpreted and the report reviewed and electronically signed by: MARIA FERNANDA ALANIZ MD on Nov 13 2020 4:17PM [facility] DIVISION OF RADIOLOGY * * *Final Report* * * DATE OF EXAM: Nov 13 2020 2:44PM WOX 5351 - XR HIP 3V PELV+ AP/LAT LT / PROCEDURE REASON: multiple diagnoses * * * * Physician Interpretation * * * * History: Left hip pain FINDINGS: AP view of the pelvis and AP and lateral views of the left hip have been obtained. Patient has had prior placement of total bilateral hip arthroplasties seen in its entirety on the left and partially on the right. Visualized hardware is intact and alignment stable. No evidence of hardware loosening or acute bony abnormality is seen. Remaining osseous structures are intact. Degenerative changes of the included lower lumbar spine noted. DIVISION OF RADIOLOGY Provider, [facility] [place] - 11/13/2020 * * *Final Report* * * DATE OF EXAM: Nov 13 2020 2:44PM WOX 5351 - XR HIP 3V PELV+ AP/LAT LT / PROCEDURE REASON: multiple diagnoses * * * * Physician Interpretation * * * * History: Left hip pain FINDINGS: AP view of the pelvis and AP and lateral views of the left hip have been obtained. Patient has had prior placement of total bilateral hip arthroplasties seen in its entirety on the left and partially on the right. Visualized hardware is intact and alignment stable. No evidence of hardware loosening or acute bony abnormality is seen. Remaining osseous structures are intact. Degenerative changes of the included lower lumbar spine noted. IMPRESSION IMPRESSION: Postsurgical changes of the left hip without evidence of complication. IMPRESSION: Degenerative changes of the included lower lumbar spine. Boat Pilot: ROMY Transcribe Date/Time: Nov 13 2020 4:16P Dictated by : MARIA FERNANDA ALANIZ MD This examination was interpreted and the report reviewed and electronically signed by: MARIA FERNANDA ALANIZ MD on Nov 13 2020 4:17PM [facility] Radiology Study observation (narrative) [facility] XR Pelvis and Hip - left AP and Lateral frogOrdered By: [facility] Provider on 11-13-2020 [facility] XR Chest PA and Lateralon IMPRESSION: No acute cardiopulmonary process. Boat Pilot: ROMY Transcribe Date/Time: Aug 06 2020 12:26P Dictated by : ANNITA URBAN MD This examination was interpreted and the report reviewed and electronically signed by: ANNITA URBAN MD on Aug 06 2020 12:27PM [facility] DIVISION OF RADIOLOGY * * *Final Report* * * DATE OF EXAM: Aug 06 2020 12:08PM WOX 5291 - XR CHEST 2V FRONTAL/LAT / PROCEDURE REASON: Closed fracture of multiple ribs of left side with routine healing, subsequent e * * * * Physician Interpretation * * * * EXAMINATION: CHEST RADIOGRAPH (2 VIEW FRONTAL & LATERAL) CLINICAL HISTORY: Closed fracture of multiple ribs of left side with routine healing, subsequent encounter MQ: XC2_6 EXAM DATE/TIME: 08/06/2020 12:08 PM COMPARISON: No relevant prior studies available. RESULT: Lines, tubes, and devices: None. Lungs and pleura: Mild chronic interstitial lung changes with biapical pleural thickening and bibasilar fibrotic stranding. There is no focal consolidation or acute pleural process/fluid. There is no vascular redistribution to suggest pulmonary edema. Cardiomediastinal silhouette: The cardiac, mediastinal and hilar shadows are within normal limits. Other: The bony structures are intact DIVISION OF RADIOLOGY Provider, [facility] [place] - 08/06/2020 * * *Final Report* * * DATE OF EXAM: Aug 06 2020 12:08PM WOX 5291 - XR CHEST 2V FRONTAL/LAT / PROCEDURE REASON: Closed fracture of multiple ribs of left side with routine healing, subsequent e * * * * Physician Interpretation * * * * EXAMINATION: CHEST RADIOGRAPH (2 VIEW FRONTAL & LATERAL) CLINICAL HISTORY: Closed fracture of multiple ribs of left side with routine healing, subsequent encounter MQ: XC2_6 EXAM DATE/TIME: 08/06/2020 12:08 PM COMPARISON: No relevant prior studies available. RESULT: Lines, tubes, and devices: None. Lungs and pleura: Mild chronic interstitial lung changes with biapical pleural thickening and bibasilar fibrotic stranding. There is no focal consolidation or acute pleural process/fluid. There is no vascular redistribution to suggest pulmonary edema. Cardiomediastinal silhouette: The cardiac, mediastinal and hilar shadows are within normal limits. Other: The bony structures are intact IMPRESSION IMPRESSION: No acute cardiopulmonary process. Boat Pilot: ROMY Transcribe Date/Time: Aug 06 2020 12:26P Dictated by : ANNITA URBAN MD This examination was interpreted and the report reviewed and electronically signed by: ANNITA URBAN MD on Aug 06 2020 12:27PM EST [facility] Radiology Study observation (narrative) [facility] XR Chest PA and LateralOrder ed By: [facility] Provider on 08-06-2020 [facility] Vital Signs Date Time Vital Sign Value Performing Clinician Facility 05-04-2025 13:01-0400 Body height 165.[address] Debbie Flores MD Work Phone: [facility] 05-04-2025 13:01-0400 Body mass index (BMI) [Ratio] 35.7 kg/m2 Dr. Debbie Flores MD Work Phone: [facility] 05-04-2025 13:01-0400 Body weight 97.[address] Debbie Flores MD Work Phone: [facility] 05-04-2025 13:01-0400 Diastolic blood pressure 71 mm[Hg] Dr. Debbie Flores MD Work Phone: [facility] 05-04-2025 13:01-0400 Heart rate 65 /min Dr. Debbie Flores MD Work Phone: [facility] 05-04-2025 13:01-0400 SaO2% (BldA) [Mass fraction] 92 % Dr. Debbie Flores MD Work Phone: [facility] 05-04-2025 13:01-0400 Systolic blood pressure 117 mm[Hg] Dr. Debbie Flores MD Work Phone: [facility] 11-24-2024 11:15-0400 Body mass index (BMI) [Ratio] 36.07 kg/m2 Ya Soto APRN.CNS Work Phone: [facility] 11-24-2024 11:15-0400 Body temperature 98.01 [degF] Ya Soto HOCKEY PLAYER.STAFFING MGR Work Phone: [facility] 11-24-2024 11:15-0400 Body weight 96.8 kg Ya Soto HOCKEY PLAYER.STAFFING MGR Work Phone: [facility] 11-24-2024 11:15-0400 Diastolic blood pressure 76 mm[Hg] Ya Soto HOCKEY PLAYER.STAFFING MGR Work Phone: [facility] 11-24-2024 11:15-0400 Heart rate 74 /min Ya Soto HOCKEY PLAYER.STAFFING MGR Work Phone: [facility] 11-24-2024 11:15-0400 Respiratory rate 16 /min Ya Soto HOCKEY PLAYER.STAFFING MGR Work Phone: [facility] 11-24-2024 11:15-0400 Systolic blood pressure 125 mm[Hg] Ya Soto HOCKEY PLAYER.STAFFING MGR Work Phone: [facility] 11-10-2024 13:20-0400 Body mass index (BMI) [Ratio] 36.51 kg/m2 Ya Soto HOCKEY PLAYER.STAFFING MGR Work Phone: [facility] 11-10-2024 13:20-0400 Body weight 98 kg Ya Soto HOCKEY PLAYER.STAFFING MGR Work Phone: [facility] 11-10-2024 13:20-0400 Diastolic blood pressure 62 mm[Hg] Ya Soto HOCKEY PLAYER.STAFFING MGR Work Phone: [facility] 11-10-2024 13:20-0400 Heart rate 77 /min Ya Soto HOCKEY PLAYER.STAFFING MGR Work Phone: [facility] 11-10-2024 13:20-0400 Respiratory rate 16 /min Ya Soto HOCKEY PLAYER.STAFFING MGR Work Phone: [facility] 11-10-2024 13:20-0400 Systolic blood pressure 102 mm[Hg] Ya Soto HOCKEY PLAYER.STAFFING MGR Work Phone: [facility] 12-15-2023 16:58-0400 Body mass index (BMI) [Ratio] 37.35 kg/m2 Debbie Flores MD Work Phone: [facility] 12-15-2023 16:58-0400 Body temperature 97.7 [degF] Debbie Flores MD Work Phone: [facility] 12-15-2023 16:58-0400 Body weight 100.25 kg Debbie Flores MD Work Phone: [facility] 12-15-2023 16:58-0400 Diastolic blood pressure 78 mm[Hg] Debbie Flores MD Work Phone: [facility] 12-15-2023 16:58-0400 Heart rate 69 /min Debbie Flores MD Work Phone: [facility] 12-15-2023 16:58-0400 Respiratory rate 18 /min Debbie Flores MD Work Phone: [facility] 12-15-2023 16:58-0400 SaO2% (BldA) [Mass fraction] 92 % Debbie Flores MD Work Phone: [facility] 12-15-2023 16:58-0400 Systolic blood pressure 126 mm[Hg] Debbie Flores MD Work Phone: [facility] 08-14-2023 11:03-0500 Body height 165.[address] Debbie Flores Work Phone: [facility] 08-14-2023 11:03-0500 Body mass index (BMI) [Ratio] 36.4 kg/m2 Dr. Debbie Flores Work Phone: [facility] 08-14-2023 11:03-0500 Body weight 99.[address] Debbie Flores Work Phone: [facility] 08-14-2023 11:03-0500 Diastolic blood pressure 58 mm[Hg] Dr. Debbie Flores Work Phone: [facility] 08-14-2023 11:03-0500 Heart rate 69 /min Dr. Debbie Flores Work Phone: 6(261)854-996520 [place] [address] 08-14-2023 11:03-0500 Respiratory rate 18 /min Dr. Debbie Flores Work Phone: 2(180)564-214720 [place] [address] 08-14-2023 11:03-0500 SaO2% (BldA) [Mass fraction] 95 % Dr. Debbie Flores Work Phone: 8(687)599-553820 [place] [address] 08-14-2023 11:03-0500 Systolic blood pressure 118 mm[Hg] Dr. Debbie Flores Work Phone: 7(993)820-339220 [place] [address] 04-08-2023 11:29-0400 Body height 165.[address] Debbie Flores Work Phone: 5(860)147-673920 [place] [address] 04-08-2023 11:29-0400 Body mass index (BMI) [Ratio] 34.7 kg/m2 Dr. Debbie Flores Work Phone: 5(774)189-625320 [place] [address] 04-08-2023 11:29-0400 Body weight 94.[address] Debbie Flores Work Phone: 4(113)026-409620 [place] [address] 04-08-2023 11:29-0400 Diastolic blood pressure 77 mm[Hg] Dr. Debbie Flores Work Phone: 8(043)888-797120 [place] [address] 04-08-2023 11:29-0400 Heart rate 66 /min Dr. Debbie Flores Work Phone: 7(620)073-465320 [place] [address] 04-08-2023 11:29-0400 Respiratory rate 16 /min Dr. Debbie Flores Work Phone: 5(024)276-446520 [place] [address] 04-08-2023 11:29-0400 Systolic blood pressure 122 mm[Hg] Dr. Debbie Flores Work Phone: 8(746)545-986720 [place] [address] 02-03-2023 13:03-0400 Body mass index (BMI) [Ratio] 34.8 kg/m2 Dr. Debbie Flores Work Phone: 0(842)[phone] [place] [address] 02-03-2023 13:03-0400 Body temperature 98.2 [degF] Dr. Debbie Flores Work Phone: [facility] 02-03-2023 13:03-0400 Body weight 94.[address] Debbie Flores Work Phone: [facility] 02-03-2023 13:03-0400 Diastolic blood pressure 84 mm[Hg] Dr. Debbie Flores Work Phone: [facility] 02-03-2023 13:03-0400 Heart rate 64 /min Dr. Debbie Flores Work Phone: [facility] 02-03-2023 13:03-0400 Respiratory rate 16 /min Dr. Debbie Flores Work Phone: 3(316)505-330989 [place] [address] 02-03-2023 13:03-0400 SaO2% (BldA) [Mass fraction] 96 % Dr. Debbie Flores Work Phone: [facility] 02-03-2023 13:03-0400 Systolic blood pressure 124 mm[Hg] Dr. Debbie Flores Work Phone: [facility] 08-12-2022 13:39-0500 Body height 163.8 cm Mag Elissa HOCKEY PLAYER.STAMP PAD FINISHER Work Phone: [facility] 08-12-2022 13:39-0500 Body weight 92.08 kg Mag Elissa HOCKEY PLAYER.STAMP PAD FINISHER Work Phone: [facility] 08-12-2022 13:39-0500 Diastolic blood pressure 62 mm[Hg] Mag Elissa HOCKEY PLAYER.STAMP PAD FINISHER Work Phone: [facility] 08-12-2022 13:39-0500 Heart rate 77 /min Mag Elissa HOCKEY PLAYER.STAMP PAD FINISHER Work Phone: [facility] 08-12-2022 13:39-0500 Respiratory rate 12 /min Mag Elissa HOCKEY PLAYER.STAMP PAD FINISHER Work Phone: [facility] 08-12-2022 13:39-0500 SaO2% (BldA) [Mass fraction] 98 % Mag Bowers APRN.STAMP PAD FINISHER Work Phone: [facility] 08-12-2022 13:39-0500 Systolic blood pressure 118 mm[Hg] Mag Bowers APRN.STAMP PAD FINISHER Work Phone: [facility] Encounters Encounter Date Encounter Type Care Provider Facility Start: 07-03-2025 ambulatory Vince Gongora Facility:[facility] Start: 05-04-2025 End: 05-04-[address] Vince Gongora MD -[facility] Work Phone: Start: 05-04-2025 End: 05-04-[address] Debbie Flores MD Work Phone: -[facility] Start: 04-20-2025 End: 05-15-2025 Admission to same day surgery center Debbie Flores MD Work Phone: Ambulatory Surgery Comment on above: Outpatient [place] py (Patient is overdue for colorectal cancer screening. Has never done. Patient will need consult with Yuan Ventura CNP prior to colorectal cancer screening. ) Start: 04-20-2025 End: 05-15-2025 ambulatory Debbie Flores MD Work Phone: Ambulatory Surgery Start: 02-21-2025 End: 02-21-2025 Telephone encounter Debbie Flores MD Work Phone: [facility] [place] Comment on above: Referral Request Start: 12-23-2024 End: 12-28-2024 ambulatory Debbie Flores MD Work Phone: [facility] [place] Comment on above: More Testing Start: 12-08-2024 End: 12-08-2024 Follow-up encounter Ya Soto APRN.STAFFING MGR Work Phone: [facility] [place] Start: 12-08-2024 End: 12-09-2024 Telephone encounter Debbie Flores MD Work Phone: [facility] [place] Comment on above: MRI abd W & WO const rast approved Start: 12-07-2024 End: 12-07-2024 ambulatory Ryan Sanchez Facility:[facility] Start: 12-07-2024 End: 12-07-2024 ambulatory YA SOTO Facility:[facility] Start: 11-29-2024 End: 12-09-2024 Follow-up encounter Ya Soto APRN.STAFFING MGR Work Phone: [facility] [place] Comment on above: Results - Mri Start: 11-28-2024 End: 11-28-2024 ambulatory [facility] Facility:[facility] Start: 11-28-2024 End: 11-28-2024 Subsequent hospital visit by physician [facility] Work Phone: Radiology Comment on above: Lower abdominal pain [R10.30] Start: 11-26-2024 End: 11-28-2024 ambulatory Ya Soto HOCKEY PLAYER.STAFFING MGR Work Phone: [facility] [place] Comment on above: Update and question Start: 11-25-2024 End: 12-01-2024 Follow-up encounter Ya Soto APRN.STAFFING MGR Work Phone: [facility] [place] Start: 11-24-2024 End: 11-24-2024 ambulatory [facility] Facility:[facility] Start: 11-24-2024 End: 11-24-2024 ambulatory [facility] Facility:[facility] Start: 11-24-2024 End: 11-24-2024 Office outpatient visit 25 minutes Ya Soto HOCKEY PLAYER.STAFFING MGR Work Phone: [facility] [place] Comment on above: RUQ pain (Primary Dx ); Lower abdominal pain; UTI symptoms; Hyperthyroidism; Status post bilateral hip replacements; Mixed incontinence; Abdominal pain, right lower quadrant; Gastroesophageal reflux disease without esophagitis; Colitis; Presence of both artificial hip joints Start: 11-10-2024 End: 11-10-2024 ambulatory [facility] Facility:[facility] Start: 11-10-2024 End: 11-10-2024 Office outpatient visit 15 minutes Ya Soto HOCKEY PLAYER.STAFFING MGR Work Phone: [facility] [place] Comment on above: Skin lesion (Primary Dx); Rash and nonspecific skin eruption Start: 11-07-2024 End: 11-07-2024 ambulatory Vince Rolan Facility:[facility] Start: 08-12-2024 End: 08-12-2024 ambulatory Geovanna Dow Facility:[facility] Start: 07-19-2024 End: 07-19-2024 ambulatory [facility] Facility:[facility] Start: 05-09-2024 End: 05-12-2024 Telephone encounter Debbie Flores MD Work Phone: [facility] [place] Comment on above: Patient Question Start: 03-18-2024 Telephone encounter Debbie garcia MD Work Phone: [facility] [place] Comment on above: Patient Update Start: 12-15-2023 End: 12-15-2023 Patient encounter status Debbie Flores MD Work Phone: [facility] Work Phone: Start: 12-15-2023 End: 12-15-2023 Periodic preventive med est patient 40-64yrs Debbie Flores MD Work Phone: [facility] [place] Comment on above: Routine medical exam (Primary Dx); Asymptomatic postmenopausal status; Class 2 obesity due to excess calories with body mass index (BMI) of 37.0 to 37.9 in adult, unspecified whether serious comorbidity present; Current moderate episode of major depressive disorder, unspecified whether recurrent (HCC) Start: 12-07-2023 Admission to [facility] Debbie Flores MD Work Phone: Ambulatory Surgery Comment on above: colorectal cancer sc reening Start: 12-07-2023 ambulatory Debbie cole MD Work Phone: Ambulatory Surgery Start: 09-21-2023 End: 09-21-[address] Debbie Flores Work Phone: [facility] Work Phone: Start: 09-21-2023 End: 09-21-[address] Debbie Flores Work Phone: [facility] Work Phone: Start: 08-14-2023 End: 08-14-[address] Debbie Flores Work Phone: [facility] Work Phone: Start: 05-07-2023 Non-patient / Non-visit Dr. Nori Flores Work Phone: [facility] Start: 05-07-2023 End: 05-07-[address] Debbie Flores Work Phone: [facility] Work Phone: Start: 05-07-2023 End: 05-07-[address] [facility] Work [facility]: Start: 04-08-2023 End: 04-08-[address] Debbie Flores Work Phone: [facility] Work Phone: Start: 02-28-2023 Get Medical Advice Debbie garzon MD Work Phone: [facility] [place] Comment on above: Unexpected travel re fill Refill Request Start: 02-03-2023 End: 02-03-[address] Debbie Flores Work Phone: [facility] Work Phone: Start: 10-08-2022 End: 10-08-2022 ambulatory Avani Goff PT [facility] Comment on above: Neck pain (Primary D x); Chronic left shoulder pain; Low back pain at multiple sites Start: 09-26-2022 Telephone encounter Donya Villa [facility] Endocrin[facility] Comment on above: Endocrinology Consul t appt Start: 08-19-2022 Refill Mag Bowers APRN.STAMP PAD FINISHER Work Phone: [facility] [place] Comment on above: Med Change Request Start: 08-15-2022 ambulatory Mag Bowers HOCKEY PLAYER.STAMP PAD FINISHER Work Phone: [facility] [place] Comment on above: Results Start: 08-15-2022 E-mail encounter rosaura mueller caregiver Mag Bowers APRN.STAMP PAD FINISHER Work Phone: [facility] [place] Start: 08-12-2022 End: 08-12-2022 Subsequent hospital visit by physician Noah [facility] [place] Work Phone: Radiology Comment on above: Cervical disc diseas e [M50.90] Start: 08-12-2022 End: 08-12-2022 Patient encounter procedure Mag Bowers JYOTI.STAMP PAD FINISHER Work Phone: [facility] [place] Comment on above: Wellness examination (Primary Dx); Hyperthyroidism; Chronic systolic heart failure (HCC); Chronic left shoulder pain; Tendinitis of left infraspinatus tendon; Cervical disc disease; Tobacco use disorder; Screening for colon cancer; Obesity, Class I, BMI 30-34.9 Start: 08-12-2022 End: 08-12-2022 Patient encounter status Mag Elissa MONTES.STAMP PAD FINISHER Work Phone: Internal Medicine [place] Start: 07-31-2022 Refill Ya Soto APRN.STAFFING MGR Work Phone: Internal Medicine [place] Comment on above: Refill Request Start: 07-29-2022 Telephone encounter Debbie garcia MD Work Phone: Internal Medicine [place] Comment on above: Orders Start: 07-22-2022 ambulatory Ya Soto HOCKEY PLAYER.STAFFING MGR Work Phone: [facility] [place] Start: 07-22-2022 Patient encounter procedure Ya Soto HOCKEY PLAYER.STAFFING MGR Work Phone: Internal Medicine [place] Comment on above: Referral Start: 07-10-2022 ambulatory Ya Soto HOCKEY PLAYER.STAFFING MGR Work Phone: Internal Medicine [place] Comment on above: Recommendation Start: 11-13-2020 End: 11-13-2020 Subsequent hospital visit by physician Noah [facility] [place] Work Phone: Radiology Comment on above: Left hip pain [M25.5 52] Start: 08-06-2020 End: 08-06-2020 Subsequent hospital visit by physician Noah [facility] [place] Work Phone: Radiology Comment on above: Closed fracture of m ultiple ribs of left side with routine healing, subsequent encounter [S22.42XD] Start: 07-26-2020 End: 07-26-2020 Patient encounter procedure Yari Patrick (Rn) Antonio NURSE AGRICULTURAL ENGINEERING TEACHER Comment on above: Chest Pain (recent f all and injury to left side of chest) Procedures Date Procedure Procedure Detail Performing Clinician Start: 11-24-2024 Urnls dip stick/tabl et rgnt auto w/o microscopy Ya Soto HOCKEY PLAYER.STAFFING MGR Work Phone: Start: 12-15-2023 Adult depression scr eening assessment Ya Soto HOCKEY PLAYER.STAFFING MGR Work Phone: Start: 08-12-2022 Radex spine cervical 4 or 5 views Mag Bowers HOCKEY PLAYER.STAMP PAD FINISHER Work Phone: Start: 07-28-2022 Lipid 1996 panel - S rosendo or Plasma Debbie Flores MD Work Phone: Start: 11-13-2020 Radex hip unilateral with pelvis 2-3 views Ya Soto HOCKEY PLAYER.STAFFING MGR Work Phone: Start: 08-06-2020 Radiologic exam ches t 2 views Ya Soto HOCKEY PLAYER.STAFFING MGR Work Phone: Start: 11-21-2002 Mammography Yari sequeira Plan of Treatment Date Care Activity Detail Author Start: 11-25-2027 Diabetes Screening Diabetes Screenin g [facility] Start: 07-28-2027 Lipid panel Lipid Screening [facility] Start: 07-28-2027 LIPID SCREEN LIPID SCREEN [facility] Start: 05-27-2026 LIPID SCREEN LIPID SCREEN [facility] Start: 11-24-2025 Annual PCP Team Curb Setter xiomara Disease Visit Annual PCP Team Chronic Disease Visit [facility] Start: 11-24-2025 BP Controlled (<130/80) BP Controlle d (<130/80) [facility] Start: 11-10-2025 BP Controlled (<130/80) BP Controlle d (<130/80) [facility] Start: 07-28-2025 DIABETES SCREEN DIABETES SCREEN [facility] Start: 07-28-2025 Diabetes Screening Diabetes Screenin g [facility] Start: 05-01-2025 Influenza vaccination C [facility] Start: 03-09-2025 End: 06-08-2025 CBC W Auto Differential panel - Blood COMPLETE BLOOD COUNT AND DIFFERENTIAL Lab Routine Elevated hemoglobin Expected: 03/09/2025 (Approximate), Expires: 06/08/2025 [facility] Work Phone: Comment on above: Expected: 03/09/2025 (Approximate), Expires: 06/08/2025 Start: 12-26-2024 End: 03-27-2025 CBC W Auto Differential panel - Blood COMPLETE BLOOD COUNT AND DIFFERENTIAL Lab Routine Elevated hemoglobin Expected: 12/26/2024 (Approximate), Expires: 03/27/2025 [facility] Work Phone: Comment on above: Expected: 12/26/2024 (Approximate), Expires: 03/27/2025 Start: 12-14-2024 Annual PCP Team Curb Setter xiomara Disease Visit Annual PCP Team Chronic Disease Visit [facility] Start: 12-14-2024 Anxiety Screening Anxiety Screening [facility] Start: 12-14-2024 BP Controlled (<130/80) BP Controlle d (<130/80) [facility] Start: 12-14-2024 Depression Screening Depression Scre ening [facility] Start: 12-07-2024 End: 12-07-2024 ambulatory 12/07/2024 10:30 AM EDT Results Only [facility] Draw Station [address] [facility] [place] [address] [place] [facility] Draw Station Start: 11-25-2024 End: 11-25-2024 Patient encounter procedure 11/25/2024 11:30 AM EDT Appointment Radiology [address] [place] [address] Lower abdominal pain [R10.30] Radiology Comment on above: Lower abdominal pain [R10.30] Start: 11-24-2024 End: 02-23-2025 Amylase [Enzymatic activity/volume] in Serum or Plasma [facility] Comment on above: Expected: 11/24/2024 , Expires: 02/23/2025 Start: 11-24-2024 End: 02-23-2025 CBC W Auto Differential panel - Blood [facility] Comment on above: Expected: 11/24/2024 , Expires: 02/23/2025 Start: 11-24-2024 End: 02-23-2025 Comprehensive metabolic 2000 panel - Serum or Plasma [facility] Comment on above: Expected: 11/24/2024 , Expires: 02/23/2025 Start: 11-24-2024 End: 02-23-2025 Lipase [Enzymatic activity/volume] in Serum or Plasma [facility] Comment on above: Expected: 11/24/2024 , Expires: 02/23/2025 Start: 05-27-2024 DIABETES SCREEN DIABETES SCREEN [facility] Start: 05-01-2024 Covid-19 Vaccine () Covid-19 Vaccine () [facility] Start: 05-01-2024 Covid-19 Vaccine () Covid-19 Vaccine () [facility] Start: 05-01-2024 Influenza vaccination C [facility] Start: 08-31-2023 Behavioral Health Screening Behavioral Health Screening [facility] Start: 08-12-2023 ANNUAL PCP TEAM ELEVATOR ERECTOR XIOMARA DISEASE VISIT ANNUAL PCP TEAM CHRONIC DISEASE VISIT [facility] Start: 08-12-2023 BP CONTROLLED (<130/80) BP CONTROLLE D (<130/80) [facility] Start: 05-01-2023 Covid-19 Vaccine () Covid-19 Vaccine () [facility] Start: 05-01-2023 Influenza vaccination INFLUENZA (#1) [facility] Start: 08-31-2022 DEPRESSION ASSESSMENT DEPRESSION ASS ESSMENT [facility] Start: 07-14-2022 End: 09-13-2022 CBC W Auto Differential panel - Blood CBC + DIFF Lab Routine Essential hypertension Expected: 07/14/2022, Expires: 09/13/2022 [facility] Work Phone: Comment on above: Expected: 07/14/2022 , Expires: 09/13/2022 Start: 07-14-2022 End: 09-13-2022 Comprehensive metabolic 2000 panel - Serum or Plasma COMP METABOLIC PANEL Lab Routine Essential hypertension Expected: 07/14/2022, Expires: 09/13/2022 [facility] Work Phone: Comment on above: Expected: 07/14/2022 , Expires: 09/13/2022 Start: 07-14-2022 End: 09-13-2022 Lipid 1996 panel - Serum or Plasma LIPID PANEL BASIC Lab Routine Hyperlipidemia, unspecified hyperlipidemia type Expected: 07/14/2022, Expires: 09/13/2022 [facility] Work Phone: Comment on above: Expected: 07/14/2022 , Expires: 09/13/2022 Start: 07-14-2022 End: 09-13-2022 Thyrotropin [Units/volume] in Serum or Plasma TSH BLD Lab Routine Hyperthyroidism Expected: 07/14/2022, Expires: 09/13/2022 [facility] Work Phone: Comment on above: Expected: 07/14/2022 , Expires: 09/13/2022 Start: 06-03-2022 BP CONTROLLED (<130/80) BP CONTROLLE D (<130/80) [facility] Start: 05-01-2022 Influenza vaccination INFLUENZA (#1) [facility] Start: 11-14-2021 ANNUAL PCP TEAM ELEVATOR ERECTOR XIOMARA DISEASE VISIT ANNUAL PCP TEAM CHRONIC DISEASE VISIT [facility] Start: 08-31-2021 DEPRESSION ASSESSMENT DEPRESSION ASS ESSMENT [facility] Start: 2021 RSV Vaccine (1 - 1-d ose 60+ series) RSV Vaccine (1 - 1-dose 60+ series) [facility] Start: 2021 RSV Vaccine (1 - Ris k 60-74 years 1-dose series) RSV Vaccine (1 - Risk 60-74 years 1-dose series) [facility] Start: 02-20-2021 COVID-19 VACCINE (3 - Booster for Pfizer series) COVID-19 VACCINE (3 - Booster for Pfizer series) [facility] Start: 05-01-2020 Influenza vaccination INFLUENZA (#1) [facility] Start: 2011 COLORECTAL CANCER SCREENING,SEE MODIFIER COLORECTAL CANCER SCREENING,SEE MODIFIER [facility] Start: 2011 SHINGRIX VACCINE (1 of 2) SHINGRIX VACCINE (1 of 2) [facility] Start: 2006 COLOGUARD (FIT-DNA) COLOGUARD (FIT-D NA) [facility] Start: 2006 Colonoscopy COLONOSCOPY [facility] Start: 2006 COLORECTAL CANCER SCREENING COLORECTAL CANCER SCREENING [facility] Start: [address] COLONOGRAPHY [facility] Start: 2006 DIABETES SCREEN DIABETES SCREEN [facility] Start: 2006 FECAL OCCULT BLOOD FECAL OCCULT BLOO D [facility] Start: 2006 LIPID SCREEN LIPID SCREEN [facility] Start: 2006 Screening for malign ant neoplasm of colon [facility] Start: [address] [facility] Start: 11-22-2003 Mammography MAMMOGRAM [facility] Start: 1991 HPV TESTING HPV TESTING [facility] Start: 1982 PAP TESTING PAP TESTING [facility] Start: 1980 Pneumococcal Vaccine : 50+ (1 of 2 - PCV) Pneumococcal Vaccine: 50+ (1 of 2 - PCV) [facility] Start: 1980 Urine microalbumin profile [facility] Start: 1979 Anxiety Screening Anxiety Screening [facility] Start: 1979 Depression Screening Depression Scre ening [facility] Start: 1979 HEPATITIS C SCREENING HEPATITIS C [facility] Start: 1979 Hepatitis C screening Hepatitis C [facility] Start: 1979 HIV SCREENING HIV SCREENING [facility] Start: 1979 HIV screening HIV Screening [facility] Start: 1967 PNEUMOCOCCAL (1 - PCV) PNEUMOCOCCAL (1 - PCV) [facility] Start: 1967 Pneumococcal vaccination Pneumococcal Vaccine (1 of 2 - PCV) [facility] Bacteria identified in Urine by Culture BACTERIAL CULTURE, URINE Microbiology Routine Lower abdominal pain 11/24/2024 11:31 AM EDT [facility] End: 01-13-2025 DXA-FOREARM SKELETON DXA-FOREARM SKELETON Radiology Routine Asymptomatic postmenopausal status 1 Occurrences starting 12/15/2023 until 01/13/2025 [facility] Work Phone: Comment on above: 1 Occurrences starti ng 12/15/2023 until 01/13/2025 Hemoglobin.gastroint est inal.lower [Presence] in Stool by Immunoassay FECAL OCCULT BLOOD TEST Lab Routine Screening for colon cancer Ordered: 08/12/2022 [facility] Work Phone: Comment on above: Ordered: 08/12/2022 End: 12-31-2025 MR Biliary ducts and Pancreatic duct WO and W contrast IV MRI PANC/ANDREIA WO/W IVCON Radiology Routine Abnormal results of liver function studies Right upper quadrant pain 1 Occurrences starting 12/01/2024 until 12/31/2025 [facility] Comment on above: 1 Occurrences starti ng 12/01/2024 until 12/31/2025 End: 12-31-2025 MR Unspecified body region 3D post processing MRI 3D POST PROCESSING Radiology Routine Abnormal results of liver function studies Right upper quadrant pain Abnormal serum level of amylase Hepatic steatosis 1 Occurrences starting 12/01/2024 until 12/31/2025 [facility] Comment on above: 1 Occurrences starti ng 12/01/2024 until 12/31/2025 PT PLAN OF CARE CERTIFICATION PT PLAN OF CARE CERTIFICATION Procedures Routine Chronic left shoulder pain Neck pain Low back pain at multiple sites Ordered: 10/08/2022 [facility] Comment on above: Ordered: 10/08/2022 End: 09-11-2023 Radex spine cervical 4 or 5 views XR CERV OTHER 4V AP/LAT/OBL Radiology Routine Cervical disc disease 1 Occurrences starting 08/12/2022 until 09/11/2023 [facility] Work Phone: Comment on above: 1 Occurrences starti ng 08/12/2022 until 09/11/2023 Radex spine cervical 4 or 5 views XR CERV OTHER 4V AP/LAT/OBL Radiology Routine Cervical disc disease 08/12/2022 2:59 PM EST [facility] Work Phone: T4 free measurement [facility] T4 free measurement [facility] Thyroid stimulating hormone measurement [facility] Thyroid stimulating hormone measurement [facility] Triiodothyronine, fr ee measurement [facility] Triiodothyronine, fr ee measurement [facility] End: 12-24-2025 US Abdomen RUQ US ABD RIGHT UPPER QUADRANT Radiology Routine Lower abdominal pain RUQ pain 1 Occurrences starting 11/24/2024 until 12/24/2025 [facility] Work Phone: Comment on above: 1 Occurrences starti ng 11/24/2024 until 12/24/2025 US Abdomen RUQ US ABD RIGHT UPP ER QUADRANT Radiology Routine Lower abdominal pain RUQ pain 11/28/2024 11:52 AM EDT [facility] Work Phone: [facility] Immunizations Immunization Date Immunization Notes Care Provider Fa cili 01-07-2022 zoster vaccine recombinant Mag Elissa HOCKEY PLAYER.STAMP PAD FINISHER Work Phone: [facility] Work Phone: 08-04-2021 zoster vaccine recombinant Mag Elissa HOCKEY PLAYER.STAMP PAD FINISHER Work Phone: [facility] Work Phone: 12-26-2020 COVID-19 original vaccine, age 12+ yr, monovalent (PFIZER-BIONTECH - PURPLE TOP) Ya Soto HOCKEY PLAYER.STAFFING MGR Work Phone: [facility] 11-29-2020 COVID-19 original vaccine, age 12+ yr, monovalent (PFIZER-BIONTECH - PURPLE TOP) Ya Soto HOCKEY PLAYER.STAFFING MGR Work Phone: [facility] Payers Date Payer Category Payer Self-pay [id number] 2020 [facility] Member Subscriber Plan / Payer (Effective 2020-Present) Name: Angelina Theodore Relation to Subscriber: Self Name: Angelina Theodore Payer ID: [id number] (NAIC) Type: O Address: [place] [id number] 2020 Unknown [id number] 2019 Unknown [employer] BLUE CARD PPO [id number] 2019-Present PPO [id number] 2019 Unknown [id number] Unknown [id number] Unknown [id number] Unknown [id number] Unknown [id number] Unknown [id number] Unknown [id number] Unknown [id number] Unknown [id number] Social History Date Type Detail Facility Tobacco smoking stat us [facility] Unknown if ever smoked [facility] Sex Assigned At Not on file [facility] Start: 11-29-2020 End: 11-10-2024 Tobacco smoking status OHIS Smokes tobacco daily [facility] Work Phone: History of tobacco use Cigarette Smoker C [facility] Work Phone: Start: 11-29-2020 End: 12-11-2023 Cigarettes smoked current (pack per day) - Reported 1 [facility] Start: 11-29-2020 End: 11-10-2024 Tobacco use and exposure Smokeless tobacco non-user [facility] Work Phone: Start: 06-03-2021 End: 12-27-2024 Alcohol intake Current drinker of alcohol (finding) [facility] Start: 05-28-2021 End: 08-11-2022 History SDOH Social Connections Phone 5 [facility] Start: 05-28-2021 End: 08-11-2022 History SDOH Social Connections Get Together 2 [facility] Start: 05-28-2021 End: 08-11-2022 History SDOH Social Connections Orthodoxy 1 [facility] Start: 05-28-2021 End: 08-11-2022 History SDOH Social Connections Living 3 [facility] Start: 05-28-2021 History SDOH Physica l Activity DPW 0 [facility] Start: 05-28-2021 Education 12 [facility] Start: 1960 Sex Assigned At Female C [facility] Start: 04-08-2023 End: 08-14-2023 Tobacco smoking status NHIS Unknown if ever smoked [facility] Start: 07-26-2020 None [facility] Start: 12-11-2023 End: 11-24-2024 [facility] Has the [employer], oil, or water company threatened to shut off services in your home in past 12Mo No [facility] Are you now , , , , never or living with a partner? [facility] How often to you hav e a drink containing alcohol? 4 or more times a week [facility] How many standard drinks containing alcohol do you have on a typical day? 3 or 4 [facility] How often do you hav e 6 or more drinks on 1 occasion? Less than monthly [facility] Start: 08-01-2012 How hard is it for y ou to pay for the very basics like food, housing, medical care, and heating Not hard at all [facility] Do you feel stress - tense, restless, nervous, or anxious, or unable to sleep at night because your mind is troubled all the time - these days [OSQ] To some extent [facility] (I/We) worried whesemaj er (my/our) food would run out before (I/we) got money to buy more. Never true [facility] Start: 07-30-2020 Gender identity Identifies as female gender (finding) [facility] Start: 07-30-2020 Sexual orientation Heterosexual (fin ding) [facility] How often do you hav e 6 or more drinks on 1 occasion? Monthly [facility] Do you feel stress - tense, restless, nervous, or anxious, or unable to sleep at night because your mind is troubled all the time - these days [OSQ] Only a little [facility] Start: 07-07-2020 End: 11-13-2020 Exposure to SARS-CoV-2 (event) Not sure [facility] Clinical Notes 08-06-2020 to 05-15-2025 Trina Dumont - 05/15/2025 9:10 AM EDTSYahaira castillo - 05/06/2025 9:59 AM EDTBTrina hudson - 04/27/2025 9:31 AM EDT Note Date & Type Note Facility 05-15-2025 Note HNO ID: [id number] Author: ?, ?, ? Service: ? Author Type: ? Type: Progress Notes Filed: 05/15/2025 09:11 Note Text: 3rd attempt LVM and mailed letter [facility] 05-15-2025 History of Present illness Narrative 3rd attempt LVM and mailed letter 2nd failed attempt to contact patient / Patient due for an est wellness visit and consult for colonoscopy w/general surg 1st attempt LVM to schedule consult to gen surgery for colonoscopy documented in this encounter [facility] 05-06-2025 Note HNO ID: [id number] Author: ?, ?, ? Service: ? Author Type: ? Type: Progress Notes Filed: 05/15/2025 09:11 Note Text: 2nd failed attempt to contact patient / Patient due for an est wellness visit and consult for colonoscopy w/general surg [facility] 05-04-2025 Progress note [facility] 05-04-2025 Progress note Note Date/Time May 04, 2025 1:32pm [facility] [address] [place] [address] OFFICE VISIT Date of Service: 05/04/25 MR#: [id number] Acct: [id number] Name: ANGELINA THEODORE Rep #: [id number] : 1960 Provider: Dr. Vince Gongora MD Age/Sex: 65/F [facility] [facility] [place]: Signed Intake Vital Signs 11/07/24 13:05 12/07/24 10:51 05/04/25 13:01 Height 5 ft 5 in 5 ft 5 in 5 ft 5 in Weight: 221 lb 4 oz 219 lb 215 lb BMI 36.8 36.4 35.7 BP 129/79 H 165/83 H 117/71 Blood Pressure Location Lt radial Lt brachial Lt brachial Position Sitting Sitting Sitting Respiration 20 H Pulse 68 68 65 Pulse Source Monitor Monitor Monitor Pulse Oximetry (%) 93 97 92 Oxygen Delivery Method room air Intake Visit Reasons: 6 M FU Chief Complaint: Hyperthyroidism Hazardous Substances Engineer Required: No Accompanied by: Self Is patient in pain?: Yes (Rt Hand) Pain scale (1-10): 6 Allergies bee venom protein (honey bee) Allergy (Unknown, Verified 05/04/25 13:04) Swelling lactase (From D[employer]) Allergy (Unknown, Verified 05/04/25 13:04) Unknown aspirin Adverse Reaction (Verified 05/04/25 13:04) GI Upset cyclobenzaprine Adverse Reaction (Verified 05/04/25 13:04) mouth burning latex Adverse Reaction (Verified 05/04/25 13:04) Swelling lisinopril Adverse Reaction (Verified 05/04/25 13:04) cough NSAIDS (Non-Steroidal Anti-Inflamma Adverse Reaction (Verified 05/04/25 13:04) PT UNABLE TO RESPOND-NEEDS F/U Medications ?Medication ?Instructions ?Recorded ?Confirmed ?Type magnesium oxide 400 mg PO DAILY 12/27/1912/23 History amoxicillin 500 mg capsule 2,000 mg PO ONCE PRN 05/04/25 History Handicap Placard #1 ea 04/08/23 05/04/25 Rx furosemide 40 mg tablet 40 mg PO DAILY Dose increase d back 05/30/24 05/04/25 Rx to whole 40 mg tablet daily #90 tabs carvedilol 25 mg tablet 25 mg PO BID #180 tabs 06/1705/04/25 Rx losartan 50 mg tablet 50 mg PO QPM #90 tabs 05/04/25 Rx methimazole 5 mg tablet 5 mg PO .3 days per week #48 tabs 05/04/25 05/04/25 Rx psyllium husk 0.4 gram capsule 0.4 g PO QDAY 05/04/25 05/04/25 History (Daily Fiber) [facility] Medical History Secondary pulmonary arterial hypertension Osteoarthritis Fibromyalgia Thyroid nodule Demand ischemia (05/02/19) Chronic systolic (congestive) heart failure Non-ischemic cardiomyopathy Essential (primary) hypertension Hyperthyroidism Nicotine dependence Surgical History History of dilatation and curettage History of tubal ligation History of total hip arthroplasty Family History Father Diabetes Heart disease Mother Respiratory disease Psychiatric care Mental disorder Suicide attempt Heart failure Social History Smoking Status: Current every day smoker tobacco type: cigarettes Tobacco: How many years used: 30 alcohol intake: current alcohol intake frequency: 3 or more drinks per day Alcohol type: wine substance use type: marijuana caffeine: Yes Type: coffee Number of servings: 1 HPI HPI Chief Complaint: Hyperthyroidism Details: ANGELINA THEODORE, is a 65 F who presents to the office today for follow up. She has longstanding hyperthyroidism treated with methimazole 5 mg three times per week. She is feeing fine. She will be due for labs next month. ROS Const Constitutional: Positive for fatigue; No weakness, weight change or change in appetite Eyes Eyes: No change in vision ENT ENT: No hearing loss, nasal congestion or difficulty swallowing Cardio Cardiology: No chest pain at rest, chest pain with exertion or shortness of breath Musc Musculoskeletal: No numbness Neuro Neurology: No weakness, memory loss or numbness Psych Psychiatric: No change in appetite, No memory loss and No Thoughts of harming yourself/Others Resp Respiratory: No cough or chest congestion Gastro GI: No difficulty swallowing Genitourinary-Female: No burning urination Skin Skin: No itchy eyes or wounds Endo Endocrine: Positive for fatigue; No weight change Aller/Imm Allergy/Immunologic: No itchy eyes Exam Const General: cooperative, healthy appearing, comfortable, no acute distress, well developed and not cushingoid Nutritional Appearance: well nourished Orientation: alert, awake and oriented x3 HENMT Head: normal to inspection Ears: hearing grossly normal bilaterally Nose: external nose normal Mouth: oral mucosae normal Eyes General: appearance normal, both eyes and all related structures Alignment and Position: alignment normal Periorbital: periorbital findings normal Eyelids: eyelids normal Conjunctivae: conjunctivae normal Neck Neck: normal visual inspection Neck mass: No Thyroid: other (nodular) Lymphatic: no lymphadenopathy noted Chest Chest palpation & inspection: normal inspection of the chest Resp Effort & Inspection: normal respiratory effort, able to speak in complete sentences, symmetric chest movement, no audible wheezes and no cough Auscultation: Bilateral: Clear to Auscultation Cardio Rate: regular rate Rhythm: regular rhythm Skin General: no rashes or lesions noted Neuro General: patient alert, patient awake and patient oriented x3 Cranial Nerves: CN's II-XI intact bilaterally Cognition: normal cognition Speech: speech normal Gait: normal gait Motor: muscle tone normal throughout Psych Appearance: grossly normal Mental Status: mental status grossly normal Mood: congruent mood Affect: normal affect Speech and Movement: speech and movement normal Attitude: cooperative Thought Process: normal Thought Content: normal Judgment: judgment good Assessment and Plan Assessment and Plan (1) Hyperthyroidism: Status: Chronic Plan: Check labs. Adjust methimazole. I have spent [23] minutes today reviewing labs, records and history. Time includes coordinating care, interpretation of tests, discussion with patient's other health care providers via telephone. This also includes time I spent with the patient for exam, treatment plan and education as well as documenting clinical information. I am providing longitudinal care Orders: Orders Free T3 Today E05.90 - Thyrotoxicosis, unspecified without thyrotoxic crisis or storm Free T4 Today E05.90 - Thyrotoxicosis, unspecified without thyrotoxic crisis or storm Thyroid Stim Hormone (TSH) Today E05.90 - Thyrotoxicosis, unspecified without thyrotoxic crisis or storm Medications: Changed From methimazole 5 mg PO .3 days per week E05.90 - Thyrotoxicosis, unspecified without thyrotoxic crisis or storm To methimazole 5 mg PO .4 days per week 48 tabs 1RF E05.90 - Thyrotoxicosis, unspecified without thyrotoxic crisis or storm From methimazole 5 mg PO .4 days per week 48 tabs 1RF E05.90 - Thyrotoxicosis, unspecified without thyrotoxic crisis or storm To methimazole 5 mg PO .3 days per week 48 tabs 1RF E05.90 - Thyrotoxicosis, unspecified without thyrotoxic crisis or storm Coding Level of Care Code Off vis,est,level 3 Extra Time Spent Extra Time Spent Extra Time Spent: G2211 Diagnoses Hyperthyroidism E0590 Additional Codes Extra Time Spent - Extra Time Spent: G2211 (G2211) 05/04/25 1332 <Electronically signed by Vince Gongora MD> Date _ Vince Gongora MD Cosigner Signature: Date (if applicable) CC: Dr. Debbie Flores MD ~ [facility] [place] [facility] Work Phone: 1(629) 823-276308-28-2025 NoteHNO ID: [id number] Author: ?, ?, ? Service: ? Author Type: ? Type: Progress Notes Filed: 05/15/2025 09:11 Note Text: [facility] L[facility] NotePatient Outreach (ASWSTR) JOSEPHANGELINA ([id number]) 1960 F Date Time Provider Department 04/20/25 DEBBIE FLORES During your visit today, we recorded the following information about you: Trina Dumont 05/15/2025 9:11 AM Signed 1st attempt LVM to schedule consult to gen surgery for colonoscopy Yahaira Robin 05/15/2025 9:11 AM Signed 2nd failed attempt to contact patient / Patient due for an est wellness visit and consult for colonoscopy w/general surg Trina Dumont 05/15/2025 9:11 AM Signed 3rd attempt LVM and mailed letter Allergies As of Date: 04/20/2025 Noted Allergy Reaction CYCLOBENZAPRINE 01/02/2005 7 - [...] LISINOPRIL 05/25/2019 3 - Cough Date Reviewed: 11/24/2024 Reviewed by: Ya Soto APRN.STAFFING MGR - Fully Assessed Reason for Visit: Outpatient Colonoscopy [482] Cmt: Patient is overdue for colorectal cancer screening. Has never done. Patient will need consult with Yuan Ventura CNP prior to colorectal cancer screening. Primary Visit Diagnosis:Screening for colorectal cancer [Z12.11, Z12.12] Prescriptions as of 05/15/2025 - Amoxicillin 500 mg tablet TAKE 4 PILLS 1 HOUR PRIOR TO DENTAL PROCEDURE - pantoprazole DR (PROTONIX) 20 mg tablet Take 1 tablet by mouth once daily. For heartburn symptoms and upper abdominal discomfort - sertraline (ZOLOFT) 50 mg tablet Take 1 tablet by mouth once daily. - carvedilol (COREG) 25 mg tablet Take 1 tablet by mouth twice daily. Patient prescription now since [place] and will not be here to get refill of med when due - losartan (COZAAR) 50 mg tablet Take 1 tablet by mouth once daily. in the evening - lidocaine (LIDODERM) 5 % Apply 1 Patch as directed every 24 hours. Remove old patch prior to placing new patch. Location: left shoulder - methIMAzole (TAPAZOLE) 5 mg tablet Take 1 tablet by mouth once daily. As directed - furosemide (LASIX) 40 mg tablet Take 40 mg by mouth once daily. - magnesium oxide 400 mg magnesium cap Take 400 mg by mouth once daily. Problem List As Of Date 04/20/2025 Noted Resolved Cardiomyopathy (HCC) [I42.9] 2019 Chronic systolic heart failure (HCC) [I50.22] 2019 Contusion of left front wall of thorax [S20.212*07/31/2020 Essential hypertension [I10] 2019 Fracture of multiple ribs [S22.49XA] 07/31/2020 Hyperthyroidism [E05.90] 2019 Nicotine dependence [F17.200] 08/31/1979 Other secondary pulmonary hypertension (HCC) [I*2019 Secondary pulmonary arterial hypertension (HCC)*07/31/2020 Cervical disc disease [M50.90] 08/12/2022 Obesity, Class I, BMI 30-34.9 [E66.811] 08/12/2022 Chronic left shoulder pain [M25.512, G89.29] 10/08/2022 Neck pain [M54.2] 10/08/2022 Low back pain at multiple sites [M54.50] 10/08/2022 Encounter Status:Closed by TRINA DUMONT on 05/15/25[facility] Telephone encounter Note* Telephone Encounter - Shona Miller - 02/21/2025 4:57 PM EDT Spoke to patient for scheduling. Due to her diagnosis, [facility] is not an option for her to be seen. She declined traveling and would like to proceed scheduling with [facility]. Please send patient referral, office notes and demographics for patient. Shona Miller February 21, 2025 4:58 PM [facility]06-24-2025 Miscellaneous Notes* Telephone Encounter - Shona Miller - 02/21/2025 4:57 PM EDT Spoke to patient for scheduling. Due to her diagnosis, [facility] is not an option for her to be seen. She declined traveling and would like to proceed scheduling with [facility]. Please send patient referral, office notes and demographics for patient. Shona Miller February 21, 2025 4:58 PM * Telephone Encounter - Annita Schuster LPN - 02/21/2025 4:51 PM EDT Phoned patient aware referral in place, assisted with transfer to care team coordinator scheduler to get Ortho appt set up. * Telephone Encounter - Ya Soto APRN.CNS - 02/21/2025 4:47 PM EDT OK for consult, please schedule * Telephone Encounter - Nona Grullon RN - 02/21/2025 12:28 PM EDT In patient's last 2 encounters (12/23 and 12/08 Telephone) there was discussion about pt's two current MRI orders that were ordered by Oralia LEWIS on 12/01/24. At that time pt was uncomfortable in proceeding with the MRIs due to having bilateral hip replacement hardware. Per notes, both Oralia Soto and Dr. Flores reviewed this with the MRI personnel who deemed it safe for pt to continue with MRIorders. Of date, pt has not completed the MRIs yet. Pt calling in today to state she would prefer getting a 2nd opinion from Orthopedics to deem it safe for her to proceed with current MRI orders with the bilateral hip hardware that she has. Pt askingif Dr. Flores would place a Ortho referral order for this? Please call patient back with reply. Nona Grullon RN documented in this encounter[facility] Telephone encounter Note * Telephone Encounter - Annita Schuster LPN - 02/21/2025 4:51 PM EDT Phoned patient aware referral in place, assisted with transfer to care team coordinator scheduler to get Ortho appt set up. [facility]06-24-2025 Telephone encounter Note* Telephone Encounter - Ya Soto APRN.CNS - 02/21/2025 4:47 PM EDT OK for consult, please schedule [facility]06-24-20[facility] Telephone encounter Note* Telephone Encounter - Nona Grullon RN - 02/21/2025 12:28 PM EDT In patient's last 2 encounters (12/23 [facility] and 12/08 Telephone) there was discussion about pt's two current MRI orders that were ordered by Oralia LEWIS on 12/01/24. At that time pt was uncomfortable in proceeding with the MRIs due to having bilateral hip replacement hardware. Per notes, both Oralia Soto and Dr. Flores reviewed this with the MRI personnel who deemed it safe for pt to continue with MRIorders. Of date, pt has not completed the MRIs yet. Pt calling in today to state she would prefer getting a 2nd opinion from Orthopedics to deem it safe for her to proceed with current MRI orders with the bilateral hip hardware that she has. Pt askingif Dr. Flores would place a Ortho referral order for this? Please call patient back with reply. Nona Grullon RN [facility]04-29-2025 Telephone encounter Note* Telephone Encounter - Debbie Flores MD - 12/27/2024 1:13 AM EDT I reviewed the results of the test and that Ya had reviewed with radiology department that MRI can be done with hip replacement. Records show she had hip replacements in 2009 and 2010. See my response to patient. [facility]04-29-2025 Miscellaneous Notes* Telephone Encounter - Debbie Flores MD - 12/27/2024 1:13 AM EDT I reviewed the results of the test and that Ya had reviewed with radiology department that MRI can be done with hip replacement. Records show she had hip replacements in 2009 and 2010. See my response to patient. * Telephone Encounter - Shabana Verdin MA - 12/23/2024 4:[address] Flores please see message from pt as she's wanting your recommendation. Pt originally seen byYa Soto on 11/24/24. Shabana Verdin MA documented in this encounter[facility]04-[facility] Telephone encounter Note * Telephone Encounter - Shabana Verdin MA - 12/23/2024 4:[address] Flores please see message from pt as she's wanting your recommendation. Pt originally seen byYa Soto on 11/24/24. Shabana Verdin MA [facility]04-11-2025 Telephone encounter Note* Telephone Encounter - Ya Soto APRN.CNS - 12/09/2024 3:52 PM EDT noted [facility]04-11-2025 Miscellaneous Notes* Telephone Encounter - Ya Soto APRN.CNS - 12/09/2024 3:52 PM EDT noted * Telephone Encounter - Jagruti Ling RN - 12/09/2024 11:33 AM EDT Patient called and notified of below. Patient is still unsure if she wants to have it done. Patientwill think about this and call back to schedule. Jagruti Ling RN * Telephone Encounter - Dilcia Tucker LPN - 12/09/2024 11:18 AM EDT LEFT MESSAGE FOR PATIENT TO CALL OFFICE. * Telephone Encounter - Ya Soto APRN.CNS - 12/09/2024 10:32 AM EDT Plesae let her know that reviewed with MRI personnel that advise can complete with hip replacements. Schedule if willing. * Telephone Encounter - Ya Soto APRN.CNS - 12/09/2024 9:40 AM EDT Is there a account contact associate in MRI dept. that could review if any problem with completing MRI due to her hip replacements? * Telephone Encounter - Cindy Wyatt MA - 12/08/2024 6:57 PM EDT Unable to reach patient. Left VM to return call to office. Please read below and advise. Cindy Wyatt MA * Telephone Encounter - Ya Soto APRN.STAFFING MGR - 12/08/2024 12:33 PM EDT See below regarding approval for MRI. There is another encounter todays date indicating she was unhappy as she was told previously she could not have an MRI. I will close the other encounter and finish documentation in this phone encounter.. MRI is possible depending on the hardware used for her hip replacements. Would recommend discussing with radiology before performing MRI. Where did she have hip replacement done and when approximately? If has any records of the surgery it would be helpful. * Telephone Encounter - Jay Stephenson RN - 12/08/2024 12:17 PM EDT [facility]- reports the PA on the MRI abdomen with & without constrast has been approved. Order # [id number]. Valid 12/07/24 through 01/05/25. CPT- 93891. documented in this encounterSelect [facility]04-[facility]-2025 Telephone encounter Note * Telephone Encounter - Jagruti Ling RN - 12/09/2024 11:33 AM EDT Patient called and notified of below. Patient is still unsure if she wants to have it done. Patientwill think about this and call back to schedule. Jagruti Ling RN [facility]04-11-2025 Telephone encounter Note* Telephone Encounter - Dilcia Tucker LPN - 12/09/2024 11:18 AM EDT LEFT MESSAGE FOR PATIENT TO CALL OFFICE. [facility]04-11-2025 Telephone encounter Note* Telephone Encounter - Ya Soto APRN.CNS - 12/09/2024 10:32 AM EDT Juan Ce let her know that reviewed with MRI personnel that advise can complete with hip replacements. Schedule if willing. [facility]04-11-2025 Telephone encounter Note* Telephone Encounter - Barbara Luna MA - 12/09/2024 10:23 AM EDT See note from 12/08/24 [facility]04-11-2025 Miscellaneous Notes* Telephone Encounter - Barbara Luna MA - 12/09/2024 10:23 AM EDT See note from 12/08/24 * Telephone Encounter - Concha Corrales LPN - 12/02/2024 3:31 PM EDT No answer. Left message for patient to call office and ask to speak to a nurse regarding MRI results * Telephone Encounter - Ya Soto APRN.CNS - 12/01/2024 4:45 PM EDT Please let her know that an MRI is recommended to further evaluate the pancreas and common bile duct or gallbladder. Please schedule if willing. * Result Encounter Note - Ya Soto APRN.CNS - 12/01/2024 9:44 AM EDT Normal bilirubin, mildly dilated CBD, hepatic steatosis. Slight decrease amylase. MRCP ordered. documented in this encounter[facility]04[facility]-2025 Telephone encounter Note * Telephone Encounter - Ya Soto APRN.CNS - 12/09/2024 9:40 AM EDT Is there a account contact associate in MRI dept. that could review if any problem with completing MRI due to her hip replacements? [facility]04-10-2025 Telephone encounter Note* Telephone Encounter - Cindy Wyatt MA - 12/08/2024 6:57 PM EDT Unable to reach patient. Left VM to return call to office. Please read below and advise. Cindy Wyatt MA [facility]04-10-2025 Telephone encounter Note* Telephone Encounter - Ya Soto APRN.CNS - 12/08/2024 12:43 PM EDT I will close the other encounter and finish documentation in this phone encounter.. [facility]04-10-2025 Miscellaneous Notes* Telephone Encounter - Ya Soto APRN.CNS - 12/08/2024 12:43 PM EDT I will close the other encounter and finish documentation in this phone encounter.. * Telephone Encounter - Kerry Hall - 12/08/2024 11:51 AM EDT Called pt to schedule MRI pt was very unhappy because she has had a double hip replacement and the doctor told her she cannot have mri's done. Stated she has told us multiple times. I did not see anything in the chart about it . * Result Encounter Note - Ya Soto APRN.CNS - 12/08/2024 9:40 AM EDT Hepatic panel is normal. An MRI was recommended to further evaluate the pancreas and common bile duct or gallbladder. Pleaseschedule if willing. Thyroid labs are normal. H/H elevated, possibly secondary to smoking. Would recommend recheck in ~3 mos, if persisting recommend hematology visit for further evaluation and treatment s indicated. documented in this encounterSelect [facility]04-[facility]-2025 Telephone encounter Note * Telephone Encounter - Ya Soto APRN.CNS - 12/08/2024 12:33 PM EDT See below regarding approval for MRI. There is another encounter todays date indicating she was unhappy as she was told previously she could not have an MRI. I will close the other encounter and finish documentation in this phone encounter.. MRI is possible depending on the hardware used for her hip replacements. Would recommend discussing with radiology before performing MRI. Where did she have hip replacement done and when approximately? If has any records of the surgery it would be helpful. [facility]04-10-2025 Telephone encounter Note* Telephone Encounter - Jay Stephenson RN - 12/08/2024 12:17 PM EDT [facility]- reports the PA on the MRI abdomen with & without constrast has been approved. Order # [id number]. Valid 12/07/24 through 01/05/25. CPT- 68445. [facility]04-10-2025 Telephone encounter Note* Telephone Encounter - Kerry Hall - 12/08/2024 11:51 AM EDT Called pt to schedule MRI pt was very unhappy because she has had a double hip replacement and the doctor told her she cannot have mri's done. Stated she has told us multiple times. I did not see anything in the chart about it . [facility]04-10-2025 Progress note* Result Encounter Note - Ya Soto APRN.CNS - 12/08/2024 9:40 AM EDT Hepatic panel is normal. An MRI was recommended to further evaluate the pancreas and common bile duct or gallbladder. Pleaseschedule if willing. Thyroid labs are normal. H/H elevated, possibly secondary to smoking. Would recommend recheck in ~3 mos, if persisting recommend hematology visit for further evaluation and treatment s indicated. [facility]04-04-2025 Telephone encounter Note* Telephone Encounter - Concha Corrales LPN - 12/02/2024 3:31 PM EDT No answer. Left message for patient to call office and ask to speak to a nurse regarding MRI results [facility]04-03-2025 Telephone encounter Note* Telephone Encounter - Ya Soto APRN.CNS - 12/01/2024 4:45 PM EDT Please let her know that an MRI is recommended to further evaluate the pancreas and common bile duct or gallbladder. Please schedule if willing. [facility]04-03-2025 Progress note* Result Encounter Note - Ya Soto APRN.CNS - 12/01/2024 9:44 AM EDT Normal bilirubin, mildly dilated CBD, hepatic steatosis. Slight decrease amylase. MRCP ordered. [facility]04-03-2025 Telephone encounter Note* Telephone Encounter - Ya Soto APRN.CNS - 12/01/2024 9:30 AM EDT Decreased amylase and normal lipase. Slight elevation in ALT, normal AST, alkaline phosphatase, andbilirubin. Ultrasound shows hepatic steatosis mild dilatation of the common bile duct. Chronic EtOH use, smoking history. MRCP ordered. [facility]04-03-2025 Miscellaneous Notes* Telephone Encounter - Ya Soto APRN.CNS - 12/01/2024 9:30 AM EDT Decreased amylase and normal lipase. Slight elevation in ALT, normal AST, alkaline phosphatase, andbilirubin. Ultrasound shows hepatic steatosis mild dilatation of the common bile duct. Chronic EtOH use, smoking history. MRCP ordered. * Result Encounter Note - Ya Soto APRN.CNS - 11/28/2024 7:10 AM EDT Mixed microbiota * Result Encounter Note - Ya Soto APRN.CNS - 11/25/2024 4:13 PM EDT Metabolic panel shows ALT and glucose slightly elevated. Otherwise normal. CBC shows increased H&H. Amylase is decreased. Lipase in normal range. Right upper quadrant ultrasound is scheduled for further evaluation of right upper quadrant pain. If concern for chronic pancreatitis due to low amylase then cross-sectional imaging with high-quality CT scan using multidetector technology and a pancreatic protocol, or magnetic resonance imaging (MRI) with MRCP can establish the diagnosis of chronic pancreatitis. Mild elevation of AST, consider further evaluation pending result of RUQ US. Recheck CBC one month to trend H/H.. * Result Encounter Note - Ya Soto APRN.CNS - 11/25/2024 1:53 PM EDT Increased H/H, trending upward now with abdominal pain. Other lab results not back yet, RUQ US not yet completed. documented in this encounterSelect [facility]03-31-2025 History of Present illness Narrative* Tara Chang RDMS - 11/28/2024 11:30 AM EDT Radiology Service Progress Note PATIENT NAME: Angelina Theodore DATE OF SERVICE: November 28, 2024 TIME: 11:51 AM PATIENT IDENTITY VERIFICATION COMPLETED USING TWO (2) IDENTIFIERS: Name and Date of confirmedby patient verbally. FALL SCREENING: Has the patient had 2 falls in the last year or 1 fall with injury or currently using an Ambulatory Assistive Device (Walker, Cane, Wheelchair, Crutches, etc.)? No PATIENT GENDER DATA: Assigned female at . status: : No status:NO. PATIENT RELEVANT IMPLANT DATA REVIEWED: Not Applicable PATIENT PRESENTS WITH AN IMPLANTABLE OR ATTACHED COOK CHILL TECHNICIAN: No RADIOLOGY DEPARTMENT: Ultrasound PERIPHERAL IV DATA: Not applicable SIGNED BY: Tara Chang RDMS November 28, 2024 11:51 AM documented in this encounterSelect [facility]03-31-2025 NoteHNO ID: [id number] Author: TARA CHANG RDMS Service: ? Author Type: Gl[employer] Tile Sorter Type: Progress Notes Filed: 11/28/2024 11:51 Note Text: Radiology Service Progress Note PATIENT NAME: Angelina Theodore DATE OF SERVICE: November 28, 2024 TIME: 11:51 AM PATIENT IDENTITY VERIFICATION COMPLETED USING TWO (2) IDENTIFIERS: Name and Date of confirmed by patient verbally. FALL SCREENING: Has the patient had 2 falls in the last year or 1 fall with injury or currently using an Ambulatory Assistive Device (Walker, Cane, Wheelchair, Crutches, etc.)? No PATIENT GENDER DATA: Assigned female at . status: : No status: NO. PATIENT RELEVANT IMPLANT DATA REVIEWED: Not Applicable PATIENT PRESENTS WITH AN IMPLANTABLE OR ATTACHED COOK CHILL TECHNICIAN: No RADIOLOGY DEPARTMENT: Ultrasound PERIPHERAL IV DATA: Not applicable SIGNED BY: Tara Chang RDMS November 28, 2024 11:51 [facility]03-31-2025 Progress note* Result Encounter Note - Ya Soto APRN.CNS - 11/28/2024 7:10 AM EDT Mixed microbiota [facility]03-28-2025 Progress note* Result Encounter Note - Ya Soto APRN.CNS - 11/25/2024 4:13 PM EDT Metabolic panel shows ALT and glucose slightly elevated. Otherwise normal. CBC shows increased H&H. Amylase is decreased. Lipase in normal range. Right upper quadrant ultrasound is scheduled for further evaluation of right upper quadrant pain. If concern for chronic pancreatitis due to low amylase then cross-sectional imaging with high-quality CT scan using multidetector technology and a pancreatic protocol, or magnetic resonance imaging (MRI) with MRCP can establish the diagnosis of chronic pancreatitis. Mild elevation of AST, consider further evaluation pending result of RUQ US. Recheck CBC one month to trend H/H.. [facility]03-28-2025 Progress note* Result Encounter Note - Ya Soto APRN.CNS - 11/25/2024 1:53 PM EDT Increased H/H, trending upward now with abdominal pain. Other lab results not back yet, RUQ US not yet completed. [facility]03-27-2025 Instructions* Patient Instructions* Ya Soto APRN.CNS - 11/24/2024 12:12 PM EDT - Take Nitrofurantoin 100 mg twice daily for 5 days to treat a possible urinary tract infection (UTI); prescription sent to [facility]. - Follow a mild diet to avoid triggering abdominal pain and diarrhea. Avoid fatty, greasy, and spicy foods. - Reduce alcohol consumption to help alleviate abdominal and bladder symptoms. - Cut back on smoking to improve overall health and reduce abdominal complaints. - Schedule and complete an abdominal ultrasound to check for pancreatitis and gallbladder issues. - Complete lab work to check for pancreatitis. - Monitor symptoms and report any changes or worsening conditions. - Follow up with internal medicine or urology for incontinence issues after addressing abdominal concerns. documented in this [facility] History of Present illness Narrative* Ya Soto APRN.CNS - 11/24/2024 11:20 AM EDT Subjective Patient ID: Angelina is a 64 year old female who presents for Abdominal Pain (lower abdominal pain, bloated. On/off sharp pain. Especially after eating something she shouldn't) and UTI (Pain, couldn't urinate, urgency). HPI Presents today regarding abdominal pain x 6 months. Reports history of colitis. Right lower and upper quadrant pain, Intermittent. Colicky. Worse with greasy fried and spicy foods. Usually associated with diet, present a few times a month. Lasts a few hours at a time. Notes eating butter in food that she subsequent epigastric discomfort and diarrhea. Notes one episode only. Present for 4 hours, improved with diarrhea. Notes usually has diarrhea with this also. Abdominal Pain and Diarrhea: - Intermittent RLQ abdominal pain x6 months. - Describes pain as clenching sensation, lasting a few hours, occurring a few times a month. - Constant bloating and discomfort. - Aggravated by greasy, fried, and spicy foods. - Recent episode of severe epigastric pain after consuming butter, lasting 4 hours, accompanied by explosive diarrhea. - Chronic loose stools, 1-2 times daily, x<1 year. - Denies constipation, hematochezia, melena, nausea, or emesis. - No history of EGD or colonoscopy. - PMHx of colitis diagnosed [address] scan[address] - No history of abdominal surgeries, but had tubal ligation in 1988. - Taking methimazole x5 years for hypothyroidism. - Recent reduction in methimazole dosage to 3 times a week. - Denies taking Gas-X or Beano; previously took charcoal capsules for bloating. Urinary Symptoms: - Acute onset of urinary urgency, frequency, and pressure since last night. - Chronic urinary incontinence x15 years, associated with menopause. - Leaking occurs when heading to the bathroom and with coughing or sneezing. - Denies previous evaluation by urology. Lifestyle: - Smokes cigarettes. - Consumes approximately 4 glasses of wine daily. - Diet consists of crackers and macaroni to avoid aggravating abdominal pain. - Expresses difficulty avoiding fatty foods during October. Additional Requests: - Requests pre-medication (amoxicillin) for upcoming dental appointment due to artificial hips. Heartburn: increased Reflux: yes at back of throat. Nausea: yes Vomiting: no Diarrhea: chronic loose stools 1-2 per day for less than one year Constipation: no BRBPR: no Black tarry: no Dysuria: yes Urgency: yes Frequency: yes Notes feels like not completely emptying since yesterday. Notes trouble with urinary continence, stress and urge. Present since menopause. Reports taking charcoal tabs OTC for bloating QD to QOD x 1 month. Has not tried GasX or similar. She is also followed by endocrine, was taking methimazole in Feruary 2024 ordered by Geovanna Dow APRN.STAMP PAD FINISHER. Taking for [address] Vince Gongora [facility]. EtOH: 4 glasses of wine Smoking: current She is followed by [facility]. ROS Ears/Nose/Mouth/Throat: (+) gagging Respiratory: (+) cough Gastrointestinal: (+) right lower abdominal pain, (+) bloating, (+) nausea, (+) heartburn, (+) loose stools/diarrhea, (-) constipation, (-) blood in stool Genitourinary: (+) urinary urgency, (+) urinary frequency, (+) burning, (+) incontinence Objective BP 125/76 Pulse 74 Temp 36.7 C (98 F) Resp 16 Wt 96.8 kg (213 lb 6.5 oz) BMI 36.07 kg/m Physical Exam Vitals and nursing note reviewed. Constitutional: Appearance: Normal appearance. HENT: Head: Normocephalic and atraumatic. Eyes: Conjunctiva/sclera: Conjunctivae normal. Cardiovascular: Rate and Rhythm: Normal rate and regular rhythm. Heart sounds: Normal heart sounds. Pulmonary: Effort: Pulmonary effort is normal. Breath sounds: Normal breath sounds. Abdominal: General: Bowel sounds are normal. There is no distension. Palpations: Abdomen is soft. There is no mass. Tenderness: There is abdominal tenderness (RLQ, RUQ). There is no guarding or rebound. Negative signs include Gerardo's sign and McBurney's sign. Skin: General: Skin is warm and dry. Neurological: General: No focal deficit present. Mental Status: She is alert and oriented to person, place, and time. 1. Lower abdominal pain (R10.30) 2. Abdominal pain, right lower quadrant (R10.31) 3. RUQ pain (R10.11) - Chronic lower abdominal pain for 6 months, described as a clench or colicky sensation, exacerbated by greasy, fried, and spicy foods. - Single episode of severe RUQ pain associated with consumption of butter, followed by explosive diarrhea. - Ordered abdominal ultrasound and lab work to evaluate for potential pancreatitis and gallbladder issues. - Advised patient to follow a mild diet, avoiding fatty and spicy foods. - Patient to schedule ultrasound and lab work at the specialty center. GI upset is known adverse effect and pancreatitis a rare adverse effect of methimazole which she has been taking for 5 years. Will check lab work and ultrasound. 4. UTI symptoms (R39.9) - Recent onset of urinary urgency, frequency, and pressure. - Ordered urinalysis and urine culture to rule out UTI. - Prescribed empiric antibiotic treatment pending culture results. 5. Hyperthyroidism (E05.90) - Managed with methimazole for 5 years, currently taking three times a week. - Potential side effects of methimazole include GI upset and pancreatitis. - Monitoring for any signs of pancreatitis. Following with endocrinology Dr. Vince Gongora 6. Status post bilateral hip replacements (Z96.643) 7. Presence of both artificial hip joints (Z96.643) - Patient requires antibiotic prophylaxis prior to dental procedures. - Prescribed amoxicillin for dental prophylaxis. 8. Mixed incontinence (N39.46) - Chronic issue since menopause, with both stress and urge incontinence. - Discussed further workup and treatment with internal medicine or referral to urology for further evaluation and management. 9. Gastroesophageal reflux disease without esophagitis (K21.9) - Increased frequency of heartburn, described as a burning sensation in the back of the throat. - Advised dietary modifications to avoid trigger foods. -Recommend taking Protonix for 1 to 2 months to see if this helps with reflux and heartburn symptoms. 10. Colitis (K52.9) - History of colitis diagnosed 15 years ago. - Advised patient to avoid known dietary triggers. Assessment & Plan Lower abdominal pain Orders: US ABD RIGHT UPPER QUADRANT; Future COMPLETE BLOOD COUNT AND DIFFERENTIAL; Future COMPREHENSIVE METABOLIC PANEL; Future AMYLASE; Future LIPASE; Future UA DIP, URINE (POC) BACTERIAL CULTURE, URINE RUQ pain Orders: US ABD RIGHT UPPER QUADRANT; Future COMPLETE BLOOD COUNT AND DIFFERENTIAL; Future COMPREHENSIVE METABOLIC PANEL; Future AMYLASE; Future LIPASE; Future UTI symptoms Orders: nitrofurantoin monohydrate and macrocrystal (MACROBID) 100 mg capsule; Take 1 capsule by mouth two times a day with meals for 7 days. Take with food Hyperthyroidism Orders: AMYLASE; Future LIPASE; Future Status post bilateral hip replacements Orders: Amoxicillin 500 mg tablet; TAKE 4 PILLS 1 HOUR PRIOR TO DENTAL PROCEDURE Mixed incontinence Abdominal pain, right lower quadrant Gastroesophageal reflux disease without esophagitis Orders: pantoprazole DR (PROTONIX) 20 mg tablet; Take 1 tablet by mouth once daily. For heartburn symptoms and upper abdominal discomfort Colitis Presence of both artificial hip joints Medical Decision Making: Problems: Moderate: 1+ chronic illnesses with change Data: Unique test(s) ordered: 3+ Risk: Moderate: Drug management Medical Decision Making Level: 4 - Moderate The patient consented to the use of Spotistic software for draft documentation of the visit consistent with [facility] s Notice of Privacy Practices. documented in this encounterSelect [facility]25 NoteHNO ID: [id number] Author: YA SOTO APRN.JOSHUA Service: ? Author Type: Nurse Specialist Type: Progress Notes Filed: 11/24/2024 12:32 Note Text: Subjective Patient ID: Angelina is a 64 year old female who presents for Abdominal Pain (lower abdominal pain, bloated. On/off sharp pain. Especially after eating something she shouldn't) and UTI (Pain, couldn't urinate, urgency). HPI Presents today regarding abdominal pain x 6 months. Reports history of colitis. Right lower and upper quadrant pain, Intermittent. Colicky. Worse with greasy fried and spicy foods. Usually associated with diet, present a few times a month. Lasts a few hours at a time. Notes eating butter in food that she subsequent epigastric discomfort and diarrhea. Notes one episode only. Present for 4 hours, improved with diarrhea. Notes usually has diarrhea with this also. Abdominal Pain and Diarrhea: - Intermittent RLQ abdominal pain x6 months. - Describes pain as clenching sensation, lasting a few hours, occurring a few times a month. - Constant bloating and discomfort. - Aggravated by greasy, fried, and spicy foods. - Recent episode of severe epigastric pain after consuming butter, lasting 4 hours, accompanied by explosive diarrhea. - Chronic loose stools, 1-2 times daily, x<1 year. - Denies constipation, hematochezia, melena, nausea, or emesis. - No history of EGD or colonoscopy. - PMHx of colitis diagnosed [address] scan[address] - No history of abdominal surgeries, but had tubal ligation in 1988. - Taking methimazole x5 years for hypothyroidism. - Recent reduction in methimazole dosage to 3 times a week. - Denies taking Gas-X or Beano; previously took charcoal capsules for bloating. Urinary Symptoms: - Acute onset of urinary urgency, frequency, and pressure since last night. - Chronic urinary incontinence x15 years, associated with menopause. - Leaking occurs when heading to the bathroom and with coughing or sneezing. - Denies previous evaluation by urology. Lifestyle: - Smokes cigarettes. - Consumes approximately 4 glasses of wine daily. - Diet consists of crackers and macaroni to avoid aggravating abdominal pain. - Expresses difficulty avoiding fatty foods during October. Additional Requests: - Requests pre-medication (amoxicillin) for upcoming dental appointment due to artificial hips. Heartburn: increased Reflux: yes at back of throat. Nausea: yes Vomiting: no Diarrhea: chronic loose stools 1-2 per day for less than one year Constipation: no BRBPR: no Black tarry: no Dysuria: yes Urgency: yes Frequency: yes Notes feels like not completely emptying since yesterday. Notes trouble with urinary continence, stress and urge. Present since menopause. Reports taking charcoal tabs OTC for bloating QD to QOD x 1 month. Has not tried GasX or similar. She is also followed by endocrine, was taking methimazole in Feruary 2024 ordered by Geovanna Dow APRN.STAMP PAD FINISHER. Taking for [address] Vince Gongora [facility]. EtOH: 4 glasses of wine Smoking: current She is followed by [facility]. ROS Ears/Nose/Mouth/Throat: (+) gagging Respiratory: (+) cough Gastrointestinal: (+) right lower abdominal pain, (+) bloating, (+) nausea, (+) heartburn, (+) loose stools/diarrhea, (-) constipation, (-) blood in stool Genitourinary: (+) urinary urgency, (+) urinary frequency, (+) burning, (+) incontinence Objective BP 125/76 Pulse 74 Temp 36.7 ?C (98 ?F) Resp 16 Wt 96.8 kg (213 lb 6.5 oz) BMI 36.07 kg/m? Physical Exam Vitals and nursing note reviewed. Constitutional: Appearance: Normal appearance. HENT: Head: Normocephalic and atraumatic. Eyes: Conjunctiva/sclera: Conjunctivae normal. Cardiovascular: Rate and Rhythm: Normal rate and regular rhythm. Heart sounds: Normal heart sounds. Pulmonary: Effort: Pulmonary effort is normal. Breath sounds: Normal breath sounds. Abdominal: General: Bowel sounds are normal. There is no distension. Palpations: Abdomen is soft. There is no mass. Tenderness: There is abdominal tenderness (RLQ, RUQ). There is no guarding or rebound. Negative signs include Gerardo's sign and McBurney's sign. Skin: General: Skin is warm and dry. Neurological: General: No focal deficit present. Mental Status: She is alert and oriented to person, place, and time. 1. Lower abdominal pain (R10.30) 2. Abdominal pain, right lower quadrant (R10.31) 3. RUQ pain (R10.11) - Chronic lower abdominal pain for 6 months, described as a clench or colicky sensation, exacerbated by greasy, fried, and spicy foods. - Single episode of severe RUQ pain associated with consumption of butter, followed by explosive diarrhea. - Ordered abdominal ultrasound and lab work to evaluate for potential pancreatitis and gallbladder issues. - Advised patient to follow a mild diet, avoiding fatty and spicy foods. - Patient to schedu (more content not included)...[facility] 11-10-2024 Instructions* Patient Instructions* Ya Soto APRN.CNS - 11/10/2024 1:46 PM EDT - Wash the affected area on your leg with soap and water (such as Dial or an antibacterial soap) twice daily. Avoid using alcohol or peroxide. - Apply the prescribed antibiotic ointment to the affected area in the morning for 7 days. - Apply the prescribed steroid cream to the affected area in the evening for 7 days. - You may continue wearing light compression socks if they are comfortable and not causing irritation. - If the area feels irritated by clothing or other coverings, you may apply a bandage. - Monitor the rash for improvement. If it does not improve within a week, contact the clinic. - A prescription for Clobetasol cream has been sent to your pharmacy ([facility]) for use as needed for heat or sun rashes. - Schedule a physical exam in November; call the clinic to book a 40-minute appointment. - Complete any lab work ordered by your solutions analyst and contact and service clerks supervisor during your upcoming appointments. documented in this encounter[facility] History of Present illness Narrative* Ya Soto APRN.CNS - 11/10/2024 1:20 PM EDT Angelina Theodore is a 64-year-old female presenting for evaluation of a rash on the right lower leg. Right Lower Leg Rash: - Erythematous, rough rash on the lateral aspect of the right lower leg, x5 days. - Initially pruritic; now experiences occasional burning sensation. - Uncertain if the area is warmer than surrounding skin. - No drainage or visible breaks in the skin. - No associated fever or edema. - Recent cramp in the right calf yesterday; denies history of similar cramps. - No recent changes in activity level; maintains a steady lazy life. - Denies previous occurrences of similar rashes. - No known trauma or insect bites; rash appeared spontaneously. - Has been applying cortisone cream and Neosporin, and cleaning with witch lacie without improvement. - Wears light compression socks regularly; no discomfort reported from wearing them. Heat Rash: - Requests refill of clobetasol ointment for recurrent heat and sun-induced rashes. - Rashes are described as blotchy and very itchy, typically resolving within 2 days with clobetasol application. - Believes these rashes are a residual effect of sun poisoning experienced at age 17. Constitutional: (-) fever Musculoskeletal: (+) right calf cramp, (-) swelling Skin: (+) right lower leg rash, (+) occasional burning, (+) occasional itching, (-) drainage GENERAL: NAD, alert and oriented. SKIN: Erythematous, rough patch noted on the lateral aspect of the right lower leg ~1 diameter, [place], drainage, or breaks in the skin observed. No other rashes or lesions noted. HEAD: Normocephalic. EYES: conjunctiva clear. NECK: Supple, LUNGS: breathing easily on room air HEART: normal rate EXTREMITIES: No deformities, no skin discoloration, no edema. NEURO: Awake, alert and oriented x3, cranial nerves II-XII grossly intact, normal gait, no involuntary motions. 1. Skin lesion (L98.9) 2. Rash and nonspecific skin eruption (R21) - Erythematous, rough patch on the lateral aspect of the right lower leg, present for approximately5 days. Occasional burning sensation, no significant pruritus, no drainage or skin breakdown observed. No associated fever, edema, or history of similar lesions. - Differential diagnosis includes dermatitis and localized infection. - Initiated treatment with antibacterial ointment in the morning and a steroid cream in the eveningfor 7 days. - Advised to wash the area with soap and water, avoiding alcohol and peroxide to prevent delayed healing. - Refilled clobetasol ointment for recurrent heat and sun-induced rashes. - Scheduled follow-up in one week to assess response to treatment. - Patient to continue wearing light compression socks if comfortable, and may apply a protective bandage if the lesion is irritated by clothing. - Discussed signs of cellulitis, including warmth, swelling, fever, tenderness, skin breakdown, andoozing, and advised to report any such symptoms immediately. Due for physical, will call to schedule for November 2024, plans to get labs at [facility] for endocrinology and cardiology. Medical Decision Making: Problems: Low: Acute, uncomplicated illness or injury Risk: Moderate: Drug management Medical Decision Making Level: 3 - Low The patient consented to the use of Spotistic software for draft documentation of the visit consistent with [facility] s Notice of Privacy Practices. documented in this encounterSelect Medical [facility]03-13-2025 NoteHNO ID: [id number] Author: YA SOTO APRN.CNS Service: ? Author Type: Nurse Specialist Type: Progress Notes Filed: 11/10/2024 15:59 Note Text: Angelina Theodore is a 64-year-old female presenting for evaluation of a rash on the right lower leg. Right Lower Leg Rash: - Erythematous, rough rash on the lateral aspect of the right lower leg, x5 days. - Initially pruritic; now experiences occasional burning sensation. - Uncertain if the area is warmer than surrounding skin. - No drainage or visible breaks in the skin. - No associated fever or edema. - Recent cramp in the right calf yesterday; denies history of similar cramps. - No recent changes in activity level; maintains a steady lazy life. - Denies previous occurrences of similar rashes. - No known trauma or insect bites; rash appeared spontaneously. - Has been applying cortisone cream and Neosporin, and cleaning with witch lacie without improvement. - Wears light compression socks regularly; no discomfort reported from wearing them. Heat Rash: - Requests refill of clobetasol ointment for recurrent heat and sun-induced rashes. - Rashes are described as blotchy and very itchy, typically resolving within 2 days with clobetasol application. - Believes these rashes are a residual effect of sun poisoning experienced at age 17. Constitutional: (-) fever Musculoskeletal: (+) right calf cramp, (-) swelling Skin: (+) right lower leg rash, (+) occasional burning, (+) occasional itching, (-) drainage GENERAL: NAD, alert and oriented. SKIN: Erythematous, rough patch noted on the lateral aspect of the right lower leg ~1 diameter, No warmth, drainage, or breaks in the skin observed. No other rashes or lesions noted. HEAD: Normocephalic. EYES: conjunctiva clear. NECK: Supple, LUNGS: breathing easily on room air HEART: normal rate EXTREMITIES: No deformities, no skin discoloration, no edema. NEURO: Awake, alert and oriented x3, cranial nerves II-XII grossly intact, normal gait, no involuntary motions. 1. Skin lesion (L98.9) 2. Rash and nonspecific skin eruption (R21) - Erythematous, rough patch on the lateral aspect of the right lower leg, present for approximately 5 days. Occasional burning sensation, no significant pruritus, no drainage or skin breakdown observed. No associated fever, edema, or history of similar lesions. - Differential diagnosis includes dermatitis and localized infection. - Initiated treatment with antibacterial ointment in the morning and a steroid cream in the evening for 7 days. - Advised to wash the area with soap and water, avoiding alcohol and peroxide to prevent delayed healing. - Refilled clobetasol ointment for recurrent heat and sun-induced rashes. - Scheduled follow-up in one week to assess response to treatment. - Patient to continue wearing light compression socks if comfortable, and may apply a protective bandage if the lesion is irritated by clothing. - Discussed signs of cellulitis, including warmth, swelling, fever, tenderness, skin breakdown, and oozing, and advised to report any such symptoms immediately. Due for physical, will call to schedule for November 2024, plans to get labs at [facility] for endocrinology and cardiology. Medical Decision Making: Problems: Low: Acute, uncomplicated illness or injury Risk: Moderate: Drug management Medical Decision Making Level: 3 - Low The patient consented to the use of ambient ClarityRay software for draft documentation of the visit consistent with [facility]?s Notice of Privacy Practices. [facility]09-12-2024 Telephone encounter Note* Telephone Encounter - Yahaira Robin - 05/12/2024 2:50 PM EDT LVM for patient to call back so we can relay Karen Arnett message Yahaira Robin [facility] Work Phone: [phone]) 173-697809-12-2024 Miscellaneous Notes* Telephone Encounter - Yahaira Robin - 05/12/2024 2:50 PM EDT LVM for patient to call back so we can relay Karen Arnett message Yahaira Robin * Telephone Encounter - Karen Arnett APRN.CNP - 05/12/2024 12:19 PM EDT Unfortunately this provider is not able to accept new patient referrals at this time. Here are some additional psychiatric resources for the patient to utilize to schedule an appointment with a psychiatric provider: 1) [facility] Psychiatric Providers Call [phone] to schedule an appointment. 2)Marvel Pisano is a wonderful gold wheel blocker and polisher at a private [facility] She does inperson and virtual visits. Patient can schedule an appointment there by calling [phone] or by visiting their website. [email or web address]. 3) [facility] [address] [place] [address] 4) [facility] [address] [place] [address] 5) [id number] [address] [facility] [place], [address] * Telephone Encounter - Mag Bowers APRN.CNP - 05/11/2024 10:53 AM EDT Referral for Karen treadwell, please help with scheduling, thanks!! * Telephone Encounter - Annita Schuster LPN - 05/10/2024 2:12 PM EDT Patient returned call and went over notes from Dr Flores. Patient said she did not try taking at bedtime since she takes her magnesium and Losartan at bedtime. She is not sure if might be sleeping a little better. Patient would like the referral to Karen instead of trying this medication and that medication. * Telephone Encounter - Karol Roe RN - 05/10/2024 8:06 AM EDT Called and left a voicemail for the Patient to call back and ask for a nurse to receive the providers message. Karol Roe RN * Telephone Encounter - Debbie Flores MD - 05/09/2024 8:19 PM EDT Recommend follow up to discuss management of meds or consider referral to Karen Arnett (SENIOR IT SECURITY ANALYST with Psychiatry if still taking new patients) to help with med management if trial on another med not tolerated or effective. Recommend be seen at least every 6 months for managing meds for depression instead of just once yearly. Did she already try taking the sertraline at bedtime since was having trouble sleeping when saw herin November? Is she sleeping better at night? Consider med like Effexor since less likely to cause her to be too sleepy * Telephone Encounter - Annita Schuster LPN - 05/09/2024 3:25 PM EDT Patient calling she had increased her Sertraline dose to 50 mg back in late February. She said the Sertraline made her so sleepy, she was taking it mid morning, she takes her blood pressure medication inthe evening. She decreased the Sertraline dose back to 25 mg about 2 weeks ago. Patient said she isstill not feeling great on the medication. Patient would like to come off the Sertraline. She does have a supply at home. Patient is willing to try another medication, if it is not going to do the same thing to her. [facility] her [facility]. Please advise documented in this encounter[facility] Telephone encounter Note * Telephone Encounter - Karen Arnett APRN.CNP - 05/12/2024 12:19 PM EDT Unfortunately this provider is not able to accept new patient referrals at this time. Here are some additional psychiatric resources for the patient to utilize to schedule an appointment with a psychiatric provider: 1) [facility] General Psychiatric Providers Call [phone] to schedule an appointment. 2)Marvel Pisano is a wonderful gold wheel blocker and polisher at a private practice called [facility]. She does inperson and virtual visits. Patient can schedule an appointment there by calling [phone] or by visiting their website. [email or web address]. 3) [facility] ([facility]) [address] [place] [address] 4) [facility] [address] [place] [address] 5) [place] [phone] [place] [address], [address] [facility] Work Phone: [phone]) 631-954609-11-2024 Telephone encounter Note* Telephone Encounter - Mag Bowers APRN.CNP - 05/11/2024 10:53 AM EDT Referral for Karen treadwell, please help with scheduling, thanks!! [facility]09-10-2024 Telephone encounter Note* Telephone Encounter - Annita Schuster LPN - 05/10/2024 2:12 PM EDT Patient returned call and went over notes from Dr Flores. Patient said she did not try taking at bedtime since she takes her magnesium and Losartan at bedtime. She is not sure if might be sleeping a little better. Patient would like the referral to Karen instead of trying this medication and that medication. [facility]09-10-2024 Telephone encounter Note* Telephone Encounter - Karol Roe RN - 05/10/2024 8:06 AM EDT Called and left a voicemail for the Patient to call back and ask for a nurse to receive the providers message. Karol Roe RN T [facility]09-09-2024 Telephone encounter Note* Telephone Encounter - Debbie Flores MD - 05/09/2024 8:19 PM EDT Recommend follow up to discuss management of meds or consider referral to Karen Arnett (SENIOR IT SECURITY ANALYST with Psychiatry if still taking new patients) to help with med management if trial on another med not tolerated or effective. Recommend be seen at least every 6 months for managing meds for depression instead of just once yearly. Did she already try taking the sertraline at bedtime since was having trouble sleeping when saw herin November? Is she sleeping better at night? Consider med like Effexor since less likely to cause her to be too sleepy [facility]09-09-[facility] Telephone encounter Note* Telephone Encounter - Annita Schuster LPN - 05/09/2024 3:25 PM EDT Patient calling she had increased her Sertraline dose to 50 mg back in late February. She said the Sertraline made her so sleepy, she was taking it mid morning, she takes her blood pressure medication inthe evening. She decreased the Sertraline dose back to 25 mg about 2 weeks ago. Patient said she isstill not feeling great on the medication. Patient would like to come off the Sertraline. She does have a supply at home. Patient is willing to try another medication, if it is not going to do the same thing to her. Patient uses [facility] for her [facility]. Please advise [facility]07-22-[facility] Telephone encounter Note* Telephone Encounter - Debbie Flores MD - 03/21/2024 7:07 PM EDT The following approved medication requests have been transmitted electronically. Requested Prescriptions Signed Prescriptions Disp Refills sertraline (ZOLOFT) 50 mg tablet 90 tablet 1 Sig: Take 1 tablet by mouth once daily. Authorizing Provider: DEBBIE FLORES MD Schedule follow up [facility]07-22-2024 Miscellaneous Notes* Telephone Encounter - Debbie Flores MD - 03/21/2024 7:07 PM EDT The following approved medication requests have been transmitted electronically. Requested Prescriptions Signed Prescriptions Disp Refills sertraline (ZOLOFT) 50 mg tablet 90 tablet 1 Sig: Take 1 tablet by mouth once daily. Authorizing Provider: DEBBIE FLORES MD Schedule follow up * Telephone Encounter - Nona Grullon RN - 03/21/2024 1:38 PM EDT Patient returned call. Agreeable to increasing to 50 mg daily. Please send new script. Pended. Thank you. * Telephone Encounter - Kayla Baron LPN - 03/21/2024 9:10 AM EDT left message for patient to call office back and speak with triage nurse. Kayla Baron LPN * Telephone Encounter - Debbie Flores MD - 03/20/2024 10:57 PM EDT May increase by from 25 to 50 mg daily, but if prefers to go up by half pill increments, okay. If no improvement in 2 weeks on 37.5 mg, would increase to 50 mg as tolerated. See if needs a new RX to increase the dose. Needs follow up appointments from November 2023 (nothing scheduled yet). * Telephone Encounter - Jgaruti Ling RN - 03/18/2024 3:51 PM EDT Patient calls and states that she has taken Zoloft since November. Patient states that she has not noticed any difference. Patient asking if this can be increased by half? Patient's pharmacy is [facility] [place]. Please review and advise, Jagruti Ling RN documented in this encounterSelect [facility]07-22-2024 Telephone encounter Note * Telephone Encounter - Nona Grullon RN - 03/21/2024 1:38 PM EDT Patient returned call. Agreeable to increasing to 50 mg daily. Please send new script. Pended. Thank you. [facility]07-22-[facility] Telephone encounter Note* Telephone Encounter - Kayla Baron LPN - 03/21/2024 9:10 AM EDT left message for patient to call office back and speak with triage nurse. Kayla Baron LPN [facility] Telephone encounter Note* Telephone Encounter - Debbie Flores MD - 03/20/2024 10:57 PM EDT May increase by from 25 to 50 mg daily, but if prefers to go up by half pill increments, okay. If no improvement in 2 weeks on 37.5 mg, would increase to 50 mg as tolerated. See if needs a new RX to increase the dose. Needs follow up appointments from November 2023 (nothing scheduled yet). [facility]-19[facility] Telephone encounter Note* Telephone Encounter - Jagruti Ling RN - 03/18/2024 3:51 PM EDT Patient calls and states that she has taken Zoloft since November. Patient states that she has not noticed any difference. Patient asking if this can be increased by half? Patient's pharmacy is [facility] [place]. Please review and advise, Jagruti Ling RN [facility]04-16-[facility] Instructions* Patient Instructions* Debbie Flores MD - 12/15/2023 5:36 PM EDT BONE MINERAL DENSITY PATIENT INSTRUCTIONS Bone mineral density testing measures the amount of calcium in certain parts of your bones. This information determines how strong your bones are. The test is used to detect osteoporosis, a disease in which the bone's mineral content and density are low, increasing a person's risk of fractures. Thelumbar spine (lower back) and the hip are the skeletal sites usually examined. For the test, remember that: 1. You cannot take this test if you are . 2. Eat a normal diet on the day of the test. 3. Take your medications as you normally would. 4. DO NOT take calcium supplements (such as Tums) for 24 hours before the test. 5. On the day of the test, leave valuables (jewelry or credit cards) at home. 6. The test should be performed prior to oral, rectal or IV contrast studies, or at least 7 days after any of these studies. For the test, you may be asked to wear a hospital gown. You will lie on your back, on a padded table, in a comfortable position. Generally, you can resume your usual activities immediately. BONE MINERAL DENSITY PATIENT INSTRUCTIONS Bone mineral density testing measures the amount of calcium in certain parts of your bones. This information determines how strong your bones are. The test is used to detect osteoporosis, a disease in which the bone's mineral content and density are low, increasing a person's risk of fractures. Thelumbar spine (lower back) and the hip are the skeletal sites usually examined. For the test, remember that: 1. You cannot take this test if you are . 2. Eat a normal diet on the day of the test. 3. Take your medications as you normally would. 4. DO NOT take calcium supplements (such as Tums) for 24 hours before the test. 5. On the day of the test, leave valuables (jewelry or credit cards) at home. 6. The test should be performed prior to oral, rectal or IV contrast studies, or at least 7 days after any of these studies. For the test, you may be asked to wear a hospital gown. You will lie on your back, on a padded table, in a comfortable position. Generally, you can resume your usual activities immediately. documented in this encounterSelect [facility]04-16-2024 History of Present illness Narrative* Debbie Flores MD - 12/15/2023 5:03 PM EDT This note was created using iogynriter. Subjective Angelina Theodore is a 63 year old female. HISTORY Angelina Theodore is a 63 year old lady here for yearly exam and follow up appointment. Depression symptoms worse Not sleeping well. Once wakes up after 3 hours, cannot get back to sleep. Takes nap in the day. Goes to bed between 11 and 12. Ongoing issue for years. Few glasses of wine (3 to 4) . Not too bad with hot flashes. Poor bladder control. Also on Lasix. Does Kegel's. Taking Vitamin D did not help. Gas and bloating noted. PHQ-9 05/28/2021 08/11/2022 08/12/2022 12/11/2023 PHQ-9 Scores Little interest or pleasure in doing things Not at all Not at all Not at all More than half the days Feeling down, depressed, or hopeless Not at all Not at all Not at all More than half the days Trouble falling or staying asleep, or sleeping too much - Several days - More than half the days Feeling tired or having little energy - Several days - Nearly every day Poor appetite or overeating - Not at all - More than half the days Feeling bad about yourself - or that you are a failure or have let yourself or your family down - Not at all - More than half the days Trouble concentrating on things, such as reading the newspaper or watching television - Not at all - Several days Moving or speaking so slowly that other people could have noticed. Or the opposite - being so fidgety or restless that you have been moving around a lot more than usual - Not at all - Several days Thoughts that you would be better off , or of hurting yourself in some way - Not at all - Not at all PHQ-9 Score - 2 - 15 PAST MEDICAL HISTORY Diagnosis Date Cervical disc disease Congestive heart failure (HCC) Essential hypertension Primary generalized (osteo)arthritis Current Outpatient Medications Medication Sig carvedilol (COREG) 25 mg tablet Take 1 tablet by mouth twice daily. Patient prescription now since [place] be [place] of [place] and will not be here to get refill of med when due losartan (COZAAR) 50 mg tablet Take 1 tablet by mouth once daily. in the evening lidocaine (LIDODERM) 5 % Apply 1 Patch as directed every 24 hours. Remove old patch prior to placing new patch. Location: left shoulder methIMAzole (TAPAZOLE) 5 mg tablet Take 1 tablet by mouth once daily. As directed Amoxicillin 500 mg tablet TAKE 4 PILLS 1 HOUR PRIOR TO DENTAL PROCEDURE furosemide (LASIX) 40 mg tablet Take 40 mg by mouth once daily. magnesium oxide 400 mg magnesium cap Take 400 mg by mouth once daily. losartan (COZAAR) 50 mg tablet EVERY EVENING diclofenac (VOLTAREN ARTHRITIS PAIN) 1 % topical gel Apply 4 g to affected area four times daily. No current facility-administered medications for this visit. ALLERGIES Allergen Reactions Cyclobenzaprine Swelling, Other: See Comments Mouth swelling Nsaids (Non-Steroid* Intolerance, GI Upset, Vomiting Severe stomach pain Aspirin GI Upset Bee Venom Protein (* Swelling Dairy Aid [Lactase] Unknown Latex Rash itching and swelling Lisinopril Cough FAMILY HISTORY Problem Relation Age of Onset Heart Failure Mother other (congestive heart failure) Father Diabetes Father Social History Tobacco Use Smoking status: Every Day Packs/day: 1.00 Years: 40.00 Additional pack years: 0.00 Total pack years: 40.00 Types: Cigarettes Smokeless tobacco: Never Substance Use Topics Alcohol use: Yes Alcohol/week: 14.0 standard drinks of alcohol Types: 14 Glasses of Wine (5oz) per week Drug use: Yes Frequency: 3.0 times per week Types: Marijuana Review of Systems Objective BP 126/78 Pulse 69 Temp 36.5 C (97.7 F) Resp 18 Wt 100.2 kg (221 lb) SpO2 92% BMI 37.35kg/m Physical Exam Vitals reviewed. Constitutional: Appearance: She is well-developed. HENT: Head: Normocephalic and atraumatic. Right Ear: External ear normal. Left Ear: External ear normal. Nose: Nose normal. Eyes: Conjunctiva/sclera: Conjunctivae normal. Neck: Thyroid: No thyromegaly. Cardiovascular: Rate and Rhythm: Normal rate and regular rhythm. Pulses: Normal pulses. Heart sounds: Normal heart sounds. No murmur heard. No friction rub. No gallop. Pulmonary: Effort: Pulmonary effort is normal. Breath sounds: Normal breath sounds. Abdominal: General: Bowel sounds are normal. There is no distension. Palpations: Abdomen is soft. There is no mass. Tenderness: There is no abdominal tenderness. Musculoskeletal: General: No deformity. Normal range of motion. Lymphadenopathy: Cervical: No cervical adenopathy. Skin: General: Skin is warm and dry. Coloration: Skin is not jaundiced or pale. Findings: No rash. Neurological: General: No focal deficit present. Mental Status: She is alert and oriented to person, place, and time. Cranial Nerves: No cranial nerve deficit. Sensory: No sensory deficit. Motor: No abnormal muscle tone. Coordination: Coordination normal. Deep Tendon Reflexes: Reflexes normal. Psychiatric: Mood and Affect: Mood normal. Behavior: Behavior normal. Thought Content: Thought content normal. Judgment: Judgment normal. Assessment and Plan Encounter Diagnosis ICD-10-CM 1. Routine medical exam Z00.00 2. Asymptomatic postmenopausal status Z78.0 DXA-FOREARM SKELETON CANCELED: DXA-AXIAL SKELETON WITH VFA CANCELED: BD DXA TRABECULAR BONE SCORE (TBS) 3. Class 2 obesity due to excess calories with body mass index (BMI) of 37.0 to 37.9 in adult, unspecified whether serious comorbidity present E66.09 Z68.37 4. Current moderate episode of major depressive disorder, unspecified whether recurrent (HCC) F32.1 Patient here for yearly exam and follow up. Above issues addressed with patient. Patient involved in shared decision making for management of medical issues. History and medications reviewed. Epic updated as needed Refills taken care of and meds adjusted as indicated after reviewed history, exam and labs. Health Maintenance reviewed. Updated record and/or ordered tests as recorded. Encouraged on efforts at healthy diet and regular exercise and adequate sleep. Needs to keep working on diet and exercise with lifestyle changes for effective weight loss as well as control of DM, and control of BP and lipids. Debbie Flores MD * Debbie Flores MD - 12/15/2023 5:03 PM EDT PHQ-9 Score: 15 (Moderately Severe Depression) Medication management * Debbie Flores MD - 12/15/2023 5:02 PM EDT PHQ-9 Score: 15 (Moderately Severe Depression) medication management See counselor and/or psychiatrist for follow up as indicated. Debbie Flores MD documented in this encounterSelect [facility]04-08-2024 History of Present illness Narrative* Florecita Palmer RN - 12/07/2023 7:40 AM EDT COLONOSCOPY PATIENT OUTREACH Action/FYI Colonoscopy Recall Patient identified by Name and : Yes. --- OUTREACH OUTCOME ACTION: Consult- Telephone Call- Pt is overdue for screening colonoscopy. Pt needs consult due to medical history and/or medications. Please call patient and schedule appointment with General Surgery Provider. (No colorectal cancer screening history noted on record). Florecita Palmer RN documented in this encounterSelect [facility]07-03-2023 Miscellaneous Notes* Telephone Encounter - TODD Kelley - 03/02/2023 2:17 PM EDT MC message sent to patient with providers message and number for scheduling provided. TODD Kelley * Telephone Encounter - Debbie Flores MD - 02/28/2023 2:23 PM EDT Make sure get at least yearly follow [...] of med when due Authorizing Provider: DEBBIE FLORES MD * Telephone Encounter - Dilcia Tucker LPN - 02/28/2023 10:58 AM EDT Per patient's My Chart message: Garret, My daughter needs me in [place] for a few weeks starting 03/09. I'll reschedule my naun with Dr Sneed on the but my Carvedilol won't last. Could you please give me a 30 day holdover? Thank you documented in this encounterSelect [facility]02-08-2023 History of Present illness Narrative* Avani Goff, PT - 10/08/2022 11:27 AM EST Episode Visit Count: 1 Therapist That Will Accept/Oversee The Plan Of Care: Avani Goff Start of Care Date: 10/08/22 Onset Date: 05/08/22 Plan of Care Certification Date: 10/08/22 Next Certification Due Date: 11/12/22 Patient Identified by Name and Date of : Yes REHABILITATION AND SPORTS THERAPY PHYSICAL THERAPY EVALUATION PLAN OF CARE: Assessment: Angelina Theodore presents with diagnosis of chronic left shoulder pain, neck pain, low back pain at multiple sites that interferes with sleeping, driving . She presents with impairments inADL's, flexibility, independence in exercise, joint mobility, overall [...] limitation with R side flexion and L rotationof the cervical spine to allow for ADLs. [...] Planned: 5 Planned Treatment Interventions: Therapeutic exercise (92530), Self-longterm management (15858) PLAN FOR NEXT VISIT: Assess symptom response to repeated cervical retraction and postural correction. Consider cervical and scapular isometrics Patient demonstrates good understanding of plan of care and treatment. The above goals and plan of care were discussed and agreed upon by patient/family. SUBJECTIVE: Angelina Theodore is a 62 year old female seen today for for neck and back pain that radiates to the L shoulder but does not radiate down the arm. Pt. makes the statement: I am completely atrophied throughout my whole body. Pt. reports the pain does not reduce below a 6.5/10. Pt. statesthat she may not get authorization for an MRI unless she does PT first. Patient Goals: to reduce neck and L shoulder pain, improve cervical rotation for driving Functional Limitations: sleeping, driving Prior Level of Function: Independent without limitations Relevant History Past Relevant Medical Conditions: Cardiac, Hypertension Preferred Language: Beninese Right or Left Handed: Right Employment: Retired Hobbies / Interests: We just moved here in 2019 and have been locked in. reading Home Environment Patient Lives With: Spouse Intake Information: Prescription present Previous Treatment: Heat , Topicals (lidocaine patches help. tylenol 2x/day) Falls Interview: No positive findings with falls interview Red Flags Vertebral Fracture Red Flags: Female Vertebral Fracture Clinical Reasoning: Proceed with caution due to the above (1- 2) risk factors Cancer Red Flags: Age >50 [...] falling asleep Pain: Pain Pain Level: 7 (I live between a 6.5 and a 7 every single day.) Pain Location: Neck, Shoulder - Left Post [...] : Limitation AROM Cervical Protrusion AROM: Normal (doesn't hurt the shoulder blade as much.) Cervical Retraction AROM: Produces, Peripheralizing Cervical Flexion [...] Education TREATMENT: PT Treatment Interventions: Therapeutic Exercise, Self-Mcfp Management Evaluation Therapeutic Exercise: 1: *seated cervical [...] and function . Patient education as noted. Self-M[facility] Management: 1: *postural education 2: *discussed use of towel roll when side lying or supine to support lordotic curve of the cervicalspine 3: *discussed the benefit of complaince with [...] 10 Total Treatment Time Minutes (timed/untimed): 45 Avani Goff PT documented in this encounterSelect [facility]01-27-2023 Miscellaneous Notes* Telephone Encounter - MARK Curtis - 09/26/2022 5:12 PM EST Spoke with pt to schedule Endocrinology Consult appt; declined to schedule at this time; will call back documented in this encounterSelect Medical [facility]12-21-2022 Miscellaneous Notes* Telephone Encounter - Sandy Hou LPN - 08/20/2022 3:21 PM EST Left message on Patient's identifed vm. Called pharmacy w/response. Sandy Hou LPN * Telephone Encounter - Debbie Flores MD - 08/20/2022 1:06 PM EST Check with patient if wants replacement. Looks like lidocaine patches not covered. She can get out of pocket if wants. * Telephone Encounter - Shelli Sims LPN - 08/20/2022 7:35 AM EST Pharmacy requesting alternative medication for pt. Prescription below not covered by insurance. Shelli Sims LPN documented in this [facility]12-13-2022 History of Present illness Narrative* Tamika Peters RT(R) - 08/12/2022 2:50 PM EST Radiology Service Progress Note PATIENT NAME: Angelina Theodore DATE OF SERVICE: August 12, 2022 TIME: 2:47 PM PATIENT IDENTITY VERIFICATION COMPLETED USING TWO (2) IDENTIFIERS: Name and Date of confirmedby patient verbally. FALL SCREENING: Has the patient [...] RT Kelle(R) August 12, 2022 2:47 PM documented in this [facility]12-13-2022 Instructions* Patient Instructions* Mag Bowers APRN.CNP - 08/12/2022 2:09 PM EST 2000 units of vitamin D3 documented in this [facility]12-13-2022 History of Present illness Narrative* Mag Bowers APRN.CNP - 08/12/2022 1:40 PM EST CHIEF COMPLAINT: Patient presents with: Physical Pain: in lower back and neck that radiates down into left shoulder have symptoms of gurgling in right calf but no pain HISTORY: Angelina Theodore is a 62 year old female who presents 08/12/2022 for her Yearly Physical Exam. They are here today for a wellness exam. Feels like her health is fair. Generally feels well and does nothave complaints. Is able to complete ADL's with [...] ETOH: 3-4 glasses of wine most nights GI PHYSICIAN History: LMP: No LMP recorded. Patient is [...] No swelling, deformity, effusion, laceration, bony tenderness orcrepitus. Decreased range of motion. Normal strength. Normal [...] diet of 1000 mg/day for under 50, 1200- 1500 mg/day for 50+ - Pap declined - [...] her shoulder issues but on exam this appearsto be more muscular. Will check a neck xray to ensure no worsening of her cervical disc issues thatcould be contributing to her pain. - XR [...] from today's visit and in agreement with treatmentplan. Questions answered. Agrees to call the office [...] as well as compliance with taking medications. Age- appropriate health preventative measures were discussed. . Return in about 1 year (around 08/12/2023) for Wellness physical.. Mag Bowers APRN-MARIA C documented in this [facility] Miscellaneous Notes* Telephone Encounter - Brittnee Pradhan LPN - 08/05/2022 1:49 PM EST Pt notified of provider message. Pt reports she will start with 1 tablet daily and see how she does. Brittnee Pradhan LPN * Telephone Encounter - Dilcia Tucker LPN - 08/05/2022 12:47 PM EST LEFT MESSAGE FOR PATIENT TO CALL OFFICE. * Telephone Encounter - Zahra Esposito Pss - 08/05/2022 9:47 AM EST Please call patient anytime now; she is available now at: [phone]. * Telephone Encounter - Dilcia Tucker LPN - 08/05/2022 9:32 AM EST LEFT MESSAGE FOR PATIENT TO CALL OFFICE. * Telephone Encounter - Debbie Flores MD - 08/04/2022 7:04 PM EST Below noted Dose listed on computer was [...] since TSH may take time to adjust. * Telephone Encounter - Nakita Romano [facility] - 08/04/2022 2:56 PM EST Patient returned call. Message given as stated below. She said she had stopped taking the medication for 2-3 months to see how she would do without it. Said she scheduled appt with Dr. Gongora in October. * Telephone Encounter - Padmini Peraza Ma - 08/04/2022 2:39 PM EST Left message for patient to call office * Telephone Encounter - Debbie Flores MD - 08/04/2022 1:52 PM EST TSH suppressed. Verify dose she has been taking of tapazole. Has she missed doses? Prior records shows 3 times weekly. Also, has she been able to get appointment with Dr. Gongora? * Telephone Encounter - Nona Rivas Pss - 08/04/2022 11:19 AM EST Patient schedule with Mag 08/12 for physical. Medications attached unable to close * Telephone Encounter - Antonette Osborne LPN - 07/31/2022 4:42 PM EST Last appt with SENIOR IT SECURITY ANALYST 06/20/21. Please call pt to arrange routine appt. * Telephone Encounter - Gail Cristina - 07/31/2022 11:58 AM EST Patient has been identified by name and [...] Thank you. Gail Cristina documented in this encounter[facility]11-30-2022 Miscellaneous Notes* Telephone Encounter - Dilcia Tucker LPN - 07/30/2022 10:20 AM EST Order and records faxed to Dr. Gongora's office as requested. PATIENT NOTIFIED OF SAME. * Telephone Encounter - Mag Bowers APRN.CNP - 07/30/2022 9:14 AM EST New order placed. * Telephone Encounter - Dilcia Tucker LPN - 07/30/2022 8:44 AM EST Needs a new order the original has /cancelled. * Telephone Encounter - Geovanna Gold Pss - 07/29/2022 12:05 PM EST Patient is unable to schedule with endo provider within [facility] due to insurance, please send referral to [facility]-Dr. Vince Gongora. Please advise. documented in this encounter[facility]11-14-2022 Miscellaneous Notes* Telephone Encounter - Ya Soto APRN.STAFFING MGR - 07/14/2022 7:56 AM EST Please schedule visit with me or Debbie Flores MD at earliest convenience with labs prior. Schedule with solutions analyst for hyperthyroid follow up .at earliest convenience. documented in this encounterSelect [facility]12-07-2020 History of Present illness Narrative* Suzette Rea (Rt), Tech - 08/06/2020 11:30 AM EST Radiology Service Progress Note PATIENT NAME: Angelina Theodore DATE OF SERVICE: August 06, 2020 TIME: 12:09 PM PATIENT IDENTITY VERIFICATION COMPLETED USING TWO (2) IDENTIFIERS: Name and Date of confirmedby patient verbally. FALL SCREENING: Has the patient had 2 falls in the last year or 1 fall with injury or currently using an Ambulatory Assistive Device (Walker, Cane, Wheelchair, Crutches, etc.)? No PATIENT GENDER DATA: Female. status: : No status: NO. PATIENT RELEVANT IMPLANT DATA REVIEWED: Not Applicable RADIOLOGY DEPARTMENT: General X-ray: Exam(s) Completed: Chest X-Ray PERIPHERAL IV DATA: Not applicable SIGNED BY: RT Jenny August 06, 2020 12:09 PM [facility] Diagnosis Hyperthyroidism- Primary Thyrotoxicosis without mention of goiter or other cause, without mention of thyrotoxic crisis or storm Essential hypertension Unspecified essential hypertension Hyperlipidemia, unspecified hyperlipidemia type [facility]* Diagnosis Hyperthyroidism- Primary Thyrotoxicosis without mention of goiter or other cause, without mention of thyrotoxic crisis or storm [facility]* Diagnosis Wellness examination- Primary Hyperthyroidism Thyrotoxicosis [...] 30-34.9 Obesity, unspecified documented [facility]* Diagnosis Personal history of spinal narrowing- Primary Personal history of other musculoskeletal disorders Chronic left shoulder pain Pain in joint, shoulder region Tendinitis of left infraspinatus tendon Cervical disc disease Other and unspecified disc disorder of cervical region documented in [facility]* Diagnosis Personal history of spinal narrowing Personal history of other musculoskeletal disorders Chronic left shoulder pain Pain in joint, shoulder region Tendinitis of left infraspinatus tendon Cervical disc disease Other and unspecified disc disorder of cervical region documented [facility]* Diagnosis Neck pain- Primary Cervicalgia Chronic left shoulder pain Pain in joint, shoulder region Low back pain at multiple sites documented [facility]* Diagnosis Onset Date Resolution Status Hyperthyroidism chronic Non-ischemic cardiomyopathy [facility] Work Phone: Evaluation note* Diagnosis Onset Date Resolution Status Essential (primary) hypertension chronic Nicotine dependence chronic Non-ischemic cardiomyopathy chronic [facility] Work Phone: Evaluation note* Diagnosis Routine medical exam- Primary Routine general medical examination at a health care facility Asymptomatic postmenopausal status Class 2 obesity due to excess calories with body mass index (BMI) of 37.0 to 37.9 in adult, unspecified whether serious comorbidity present Current moderate episode of major depressive disorder, unspecified whether recurrent (HCC) [facility]* Diagnosis Current moderate episode of major depressive disorder, unspecified whether recurrent (HCC)- Primary [facility]* Diagnosis Current moderate episode of major depressive disorder, unspecified whether recurrent (HCC)- Primary [facility]* Diagnosis Cervical disc disease Other and unspecified disc disorder of cervical region [facility]* Diagnosis Closed fracture of multiple ribs of left side with routine healing, subsequent encounter [facility] Diagnosis Left hip pain Pain in joint, pelvic region and thigh History of left hip replacement documented [facility] encounter [facility]* Diagnosis Skin lesion- Primary Unspecified disorder of skin and subcutaneous tissue Rash and nonspecific skin eruption Rash and other nonspecific skin eruption [facility]* Diagnosis RUQ pain- Primary Abdominal pain, right upper quadrant Lower abdominal pain Abdominal pain, other specified site UTI symptoms Other symptoms involving urinary system Hyperthyroidism Thyrotoxicosis without mention of goiter or other cause, without mention of thyrotoxic crisis or storm Status post bilateral hip replacements Hip joint replacement by other means Mixed incontinence Mixed incontinence urge and stress (male)(female) Abdominal pain, right lower quadrant Gastroesophageal reflux disease without esophagitis Esophageal reflux Colitis Other and unspecified noninfectious gastroenteritis and colitis Presence of both artificial hip joints Hip joint replacement by other means * Assessment & Plan Note - Ya Soto APRN.CNS - 11/24/2024 12:31 PM EDT Associated Problem(s): Hyperthyroidism Orders: AMYLASE; Future LIPASE; Future [facility]* Diagnosis RUQ pain- Primary Abdominal pain, right upper quadrant Lower abdominal pain Abdominal pain, other specified site UTI symptoms Other symptoms involving urinary system Hyperthyroidism Thyrotoxicosis without mention of goiter or other cause, without mention of thyrotoxic crisis or storm Status post bilateral hip replacements Hip joint replacement by other means Mixed incontinence Mixed incontinence urge and stress (male)(female) Abdominal pain, right lower quadrant Gastroesophageal reflux disease without esophagitis Esophageal reflux Colitis Other and unspecified noninfectious gastroenteritis and colitis Presence of both artificial hip joints Hip joint replacement by other means Lower abdominal pain Abdominal pain, other specified site RUQ pain Abdominal pain, right upper quadrant documented [facility]* Diagnosis RUQ pain- Primary Abdominal pain, right upper quadrant Lower abdominal pain Abdominal pain, other specified site UTI symptoms Other symptoms involving urinary system Hyperthyroidism Thyrotoxicosis without mention of goiter or other cause, without mention of thyrotoxic crisis or storm Status post bilateral hip replacements Hip joint replacement by other means Mixed incontinence Mixed incontinence urge and stress (male)(female) Abdominal pain, right lower quadrant Gastroesophageal reflux disease without esophagitis Esophageal reflux Colitis Other and unspecified noninfectious gastroenteritis and colitis Presence of both artificial hip joints Hip joint replacement by other means Elevated hemoglobin- Primary Other hemoglobinopathies Abnormal results of liver function studies Nonspecific abnormal results of liver function study Right upper quadrant pain Abdominal pain, right upper quadrant Abnormal serum level of amylase Other nonspecific abnormal serum enzyme levels Hepatic steatosis Other chronic nonalcoholic liver disease documented [facility]* Diagnosis RUQ pain- Primary Abdominal pain, right upper quadrant Lower abdominal pain Abdominal pain, other specified site UTI symptoms Other symptoms involving urinary system Hyperthyroidism Thyrotoxicosis without mention of goiter or other cause, without mention of thyrotoxic crisis or storm Status post bilateral hip replacements Hip joint replacement by other means Mixed incontinence Mixed incontinence urge and stress (male)(female) Abdominal pain, right lower quadrant Gastroesophageal reflux disease without esophagitis Esophageal reflux Colitis Other and unspecified noninfectious gastroenteritis and colitis Presence of both artificial hip joints Hip joint replacement by other means Elevated hemoglobin- Primary Other hemoglobinopathies documented in [facility]* Diagnosis RUQ pain- Primary Abdominal pain, right upper quadrant Lower abdominal pain Abdominal pain, other specified site UTI symptoms Other symptoms involving urinary system Hyperthyroidism Thyrotoxicosis without mention of goiter or other cause, without mention of thyrotoxic crisis or storm Status post bilateral hip replacements Hip joint replacement by other means Mixed incontinence Mixed incontinence urge and stress (male)(female) Abdominal pain, right lower quadrant Gastroesophageal reflux disease without esophagitis Esophageal reflux Colitis Other and unspecified noninfectious gastroenteritis and colitis Presence of both artificial hip joints Hip joint replacement by other means RUQ pain- Primary Abdominal pain, right upper quadrant [facility]* Diagnosis RUQ pain- Primary Abdominal pain, right upper quadrant Lower abdominal pain Abdominal pain, other specified site UTI symptoms Other symptoms involving urinary system Hyperthyroidism Thyrotoxicosis without mention of goiter or other cause, without mention of thyrotoxic crisis or storm Status post bilateral hip replacements Hip joint replacement by other means Mixed incontinence Mixed incontinence urge and stress (male)(female) Abdominal pain, right lower quadrant Gastroesophageal reflux disease without esophagitis Esophageal reflux Colitis Other and unspecified noninfectious gastroenteritis and colitis Presence of both artificial hip joints Hip joint replacement by other means H/O bilateral hip replacements- Primary Hip joint replacement by other means [facility]* Diagnosis Onset Date Resolution Status Admit Date Hyperthyroidism chronic May 04, 2025 1:02pm [facility] Work Phone: Evaluation note* Diagnosis RUQ pain- Primary Abdominal pain, right upper quadrant Lower abdominal pain Abdominal pain, other specified site UTI symptoms Other symptoms involving urinary system Hyperthyroidism Thyrotoxicosis without mention of goiter or other cause, without mention of thyrotoxic crisis or storm Status post bilateral hip replacements Hip joint replacement by other means Mixed incontinence Mixed incontinence urge and stress (male)(female) Abdominal pain, right lower quadrant Gastroesophageal reflux disease without esophagitis Esophageal reflux Colitis Other and unspecified noninfectious gastroenteritis and colitis Presence of both artificial hip joints Hip joint replacement by other means Screening for colorectal cancer- Primary Special screening for malignant neoplasms, colon documented in this encounter [facility] for referral (narrative)* Diagnostic Procedure Only (Routine) - Closed Specialty Diagnoses / Procedures Referred By Jodi t Referred To Contact XR IMAGING Diagnoses Cervical disc disease Procedures XR CERV OTHER 4V AP/LAT/OBL RADEX SPINE CERVICAL 4 OR 5 VIEWS Mag Bowers APRN.STAMP PAD FINISHER [address] [place] [address] Xr Imaging Referral ID Status Reason Start Date Expiration Date V isits Requested Visits Authorized [id number] Closed Auto-Generate d Referral 08/12/2022 09/11/2023 1 1 [facility] for referral (narrative)* Diagnostic Procedure Only (Routine) - Closed Specialty Diagnoses / Procedures Referred By Contac t Referred To Contact XR IMAGING Diagnoses Asymptomatic postmenopausal status Procedures DXA-FOREARM SKELETON DXA BONE DENSITY STUDY SITES APPENDICLR Debbie Duque MD [address] [place], [place] [id number] [place] [address] Referral ID Status Reason Start Date Expiration Date Visits Requested Visits Authorized [id number] Closed Auto-Generated Referral OON Notification Letter 12/15/2023 01/13/2025 1 0 [facility] for referral (narrative)* Diagnostic Procedure Only (Routine) - Closed Specialty Diagnoses / Procedures Referred By Contac t Referred To Contact XR IMAGING Diagnoses Cervical disc disease Procedures XR CERV OTHER 4V AP/LAT/OBL RADEX SPINE CERVICAL 4 OR 5 VIEWS Mag Bowers APRN.CNP [address] [place] [address] [place] [address] Referral ID Status Reason Start Date Expiration Date V isits Requested Visits Authorized [id number] Closed Auto-Generate d Referral 08/12/2022 09/11/2023 1 1 [facility] for referral (narrative)No reason for referral information availableWitham Health Services Services Work Phone: Reason for visit Narrative* Diagnostic Procedure Only (Routine) - Closed Specialty Diagnoses / Procedures Referred By Contac t Referred To Contact XR IMAGING Diagnoses Cervical disc disease Procedures XR CERV OTHER 4V AP/LAT/OBL RADEX SPINE CERVICAL 4 OR 5 VIEWS Mag Bowers APRN.CNP [address] [place] [address] [place] [address] Referral ID Status Reason Start Date Expiration Date V isits Requested Visits Authorized [id number] Closed Auto-Generate d Referral 08/12/2022 09/11/2023 1 1 [facility] N[facility]* Diagnostic Procedure Only (Routine) - Closed Specialty Diagnoses / Procedures Referred By Jodi t Referred To Contact [facility] Diagnoses Pain in left hip Presence of left artificial hip joint Left hip pain [M25.552] History of left hip replacement [Z96.642] Procedures RADEX HIP UNILATERAL WITH PELVIS 2-3 VIEWS xray Ya Soto, HOCKEY PLAYER.STAFFING MGR [address] [place] [address] [facility] [address] [address] [place] [address] Referral ID Status Reason Start Date Expiration Date Visits Re quested Visits Authorized [id number] Closed 11/13/2020 08/30/2021 20 20 [facility] Summary Purpose Family History No Family History Records Found Relationship Condition Age at Onset Recorded Date/T mayur father Diabetes mellitus Unknown Cardiac disease Unknown mother Disorder of respiratory system Unknown Psychiatric care Unknown Mental disorder Unknown Attempted suicide Unknown Heart failure Unknown Advance Directives No Advanced Directives Records Found Advance Directive Response Recorded Date/ Time Living Will No July 26 10:17am Power of Concrete Crusher Loader Operator No July 26, 2020 10:17am Advance Directive Response Recorded Date/ Time Living Will No July 26 9:17am Power of Concrete Crusher Loader Operator No July 26, 2020 9:17am Reason for Referral Specialty Diagnoses / Procedures Referred By Jodi t Referred To Contact Diagnoses Hyperthyroidism Procedures CONSULT TO ENDOCRINOLOGY OFFICE/OUTPATIENT [facility] 60-74 MINUTES Mag Bowers, HOCKEY PLAYER.STAMP PAD FINISHER [address] [place] [address] Vince Gongora MD [address] [facility] [address] [place] [address] Referral ID Status Reason Start Date Expiration Date Visits Requested Visits Authorized [id number] Pending Review PCP Requested Referral 2 07/30/2023 1 1 Specialty Diagnoses / Procedures Referred By Contac t Referred To Contact [facility] Diagnoses Chronic left shoulder pain Neck pain Low back pain at multiple sites Procedures PT REHAB FOLLOW UP ORDER THERAPEUTIC EXERCISES RE, EA [address]vani Goff, [facility] [place] [address] [place] [address] Referral ID Status Reason Start Date Expiration Date Visits Requested Visits Authorized [id number] Pending Review PCP Requested Referral Auto-Generate d Referral 10/08/2022 01/06/2023 1 1 Specialty Diagnoses / Procedures Referred By Contac t Referred To Contact Diagnoses Current moderate episode of major depressive disorder, unspecified whether recurrent (HCC) Procedures CONSULT TO PSYCHIATRY OFFICE/OUTPATIENT [facility] 60 MINUTES Mag Bowers APRN.STAMP PAD FINISHER [address] [place] [address] Referral ID Status Reason Start Date Expiration Date Visits Requested Visits Authorized [id number] Pending Review PCP Requested Referral 05/11/2024 05/11/2025 1 1 Chief Complaint and Reason for Visit Chief Complaint 4 M FU RE-EST / MED REFILL (SELF) CARDIOMYOPATHIES Reason for Visit Hyperthyroidism Non-ischemic cardiomyopathy Chief Complaint 6 wk FU 2 ORDERING DRS/BOTH E ORDERS Reason for Visit Essential (primary) hypertension Nicotine dependence Non-ischemic cardiomyopathy Chief Complaint Admit Date 6 M FU May 04, 2025 1:02pm Reason for Visit Admit Date Hyperthyroidism May 04, 2025 1:02pm Additional Source Comments Source Comments (unrecognize d section and content) In the event this informatio n is protected by the Federal Confidentiality of Alcohol and Drug Abuse Patient Records regulations: The Federal rules restrict any use of the information to criminally investigate or prosecute any alcohol or drug abuse patient.[facility] HospitalIn the event this information is protected by the Federal Confidentiality of Alcohol and Drug Abuse Patient Records regulations: The Federal rules restrict any use of the information to criminally investigate or prosecute any alcohol or drug abuse patient.[facility] Hospital[facility] the event this information is protected by the Federal Confidentiality of Alcohol and Drug Abuse Patient Records regulations: The Federal rules restrict any use of the information to criminally investigate or prosecute any alcohol or drug abuse patient.[facility] HospitalIn the event this information is protected by the Federal Confidentiality of Alcohol and Drug Abuse Patient Records regulations: The Federal rules restrict any use of the information to criminally investigate or prosecute any alcohol or drug abuse patient.[facility] HospitalIn the event this information is protected by the Federal Confidentiality of Alcohol and Drug Abuse Patient Records regulations: The Federal rules restrict any use of the information to criminally investigate or prosecute any alcohol or drug abuse patient.[facility] HospitalIn the event this information is protected by the Federal Confidentiality of Alcohol and Drug Abuse Patient Records regulations: The Federal rules restrict any use of the information to criminally investigate or prosecute any alcohol or drug abuse patient.[facility] HospitalIn the event this information is protected by the Federal Confidentiality of Alcohol and Drug Abuse Patient Records regulations: The Federal rules restrict any use of the information to criminally investigate or prosecute any alcohol or drug abuse patient.[facility] HospitalIn the event this information is protected by the Federal Confidentiality of Alcohol and Drug Abuse Patient Records regulations: The Federal rules restrict any use of the information to criminally investigate or prosecute any alcohol or drug abuse patient.[facility] HospitalIn the event this information is protected by the Federal Confidentiality of Alcohol and Drug Abuse Patient Records regulations: The Federal rules restrict any use of the information to criminally investigate or prosecute any alcohol or drug abuse patient.[facility] HospitalIn the event this information is protected by the Federal Confidentiality of Alcohol and Drug Abuse Patient Records regulations: The Federal rules restrict any use of the information to criminally investigate or prosecute any alcohol or drug abuse patient.[facility] HospitalIn the event this information is protected by the Federal Confidentiality of Alcohol and Drug Abuse Patient Records regulations: The Federal rules restrict any use of the information to criminally investigate or prosecute any alcohol or drug abuse patient.[facility] HospitalIn the event this information is protected by the Federal Confidentiality of Alcohol and Drug Abuse Patient Records regulations: The Federal rules restrict any use of the information to criminally investigate or prosecute any alcohol or drug abuse patient.[facility] HospitalIn the event this information is protected by the Federal Confidentiality of Alcohol and Drug Abuse Patient Records regulations: The Federal rules restrict any use of the information to criminally investigate or prosecute any alcohol or drug abuse patient.[facility] HospitalIn the event this information is protected by the Federal Confidentiality of Alcohol and Drug Abuse Patient Records regulations: The Federal rules restrict any use of the information to criminally investigate or prosecute any alcohol or drug abuse patient.[facility] HospitalIn the event this information is protected by the Federal Confidentiality of Alcohol and Drug Abuse Patient Records regulations: The Federal rules restrict any use of the information to criminally investigate or prosecute any alcohol or drug abuse patient.[facility] HospitalIn the event this information is protected by the Federal Confidentiality of Alcohol and Drug Abuse Patient Records regulations: The Federal rules restrict any use of the information to criminally investigate or prosecute any alcohol or drug abuse patient.[facility] HospitalIn the event this information is protected by the Federal Confidentiality of Alcohol and Drug Abuse Patient Records regulations: The Federal rules restrict any use of the information to criminally investigate or prosecute any alcohol or drug abuse patient.[facility] HospitalIn the event this information is protected by the Federal Confidentiality of Alcohol and Drug Abuse Patient Records regulations: The Federal rules restrict any use of the information to criminally investigate or prosecute any alcohol or drug abuse patient.[facility] HospitalIn the event this information is protected by the Federal Confidentiality of Alcohol and Drug Abuse Patient Records regulations: The Federal rules restrict any use of the information to criminally investigate or prosecute any alcohol or drug abuse patient.[facility] HospitalIn the event this information is protected by the Federal Confidentiality of Alcohol and Drug Abuse Patient Records regulations: The Federal rules restrict any use of the information to criminally investigate or prosecute any alcohol or drug abuse patient.[facility] HospitalIn the event this information is protected by the Federal Confidentiality of Alcohol and Drug Abuse Patient Records regulations: The Federal rules restrict any use of the information to criminally investigate or prosecute any alcohol or drug abuse patient.[facility] HospitalIn the event this information is protected by the Federal Confidentiality of Alcohol and Drug Abuse Patient Records regulations: The Federal rules restrict any use of the information to criminally investigate or prosecute any alcohol or drug abuse patient.[facility] HospitalIn the event this information is protected by the Federal Confidentiality of Alcohol and Drug Abuse Patient Records regulations: The Federal rules restrict any use of the information to criminally investigate or prosecute any alcohol or drug abuse patient.[facility] HospitalIn the event this information is protected by the Federal Confidentiality of Alcohol and Drug Abuse Patient Records regulations: The Federal rules restrict any use of the information to criminally investigate or prosecute any alcohol or drug abuse patient.[facility] HospitalIn the event this information is protected by the Federal Confidentiality of Alcohol and Drug Abuse Patient Records regulations: The Federal rules restrict any use of the information to criminally investigate or prosecute any alcohol or drug abuse patient.[facility] HospitalIn the event this information is protected by the Federal Confidentiality of Alcohol and Drug Abuse Patient Records regulations: The Federal rules restrict any use of the information to criminally investigate or prosecute any alcohol or drug abuse patient.[facility] HospitalIn the event this information is protected by the Federal Confidentiality of Alcohol and Drug Abuse Patient Records regulations: The Federal rules restrict any use of the information to criminally investigate or prosecute any alcohol or drug abuse patient.[facility] HospitalIn the event this information is protected by the Federal Confidentiality of Alcohol and Drug Abuse Patient Records regulations: The Federal rules restrict any use of the information to criminally investigate or prosecute any alcohol or drug abuse patient.[facility] HospitalIn the event this information is protected by the Federal Confidentiality of Alcohol and Drug Abuse Patient Records regulations: The Federal rules restrict any use of the information to criminally investigate or prosecute any alcohol or drug abuse patient.[facility] HospitalIn the event this information is protected by the Federal Confidentiality of Alcohol and Drug Abuse Patient Records regulations: The Federal rules restrict any use of the information to criminally investigate or prosecute any alcohol or drug abuse patient.[facility] Reason for Visit (unrecogniz ed section and content) Reason Onset Date Comments Chest Pain 07/26/2020 recent fall and injury to left side of chest Reason Comments Orders Reason Onset Date Comments Refill Request 07/31/2022 Reason Comments Physical Pain in lower back and ne ck that radiates down into left shoulderhave symptoms of gurgling in right calf but no pain Reason Comments Med Change Request Reason Comments Endocrinology Consult appt Reason Comments PT Eval Specialty Diagnoses / Procedures Referred By Giac t Referred To Contact [facility] Diagnoses Chronic left shoulder pain Neck pain Low back pain at multiple sites Procedures CONSULT TO PHYSICAL THERAPY PHYSICAL THERAPY EVALUATION HIGH COMPLEX 45 MINS Mag Bowers APRN.STAMP PAD FINISHER [address] [place] [address] [facility] [place] [address] [place] [id number] Referral ID Status Reason Start Date Expiration Date Visits Requested Visits Authorized [id number] Pending Review Auto-Generat ed Referral OON/Self Pay Override 09/30/2022 09/30/2023 1 1 Reason Onset Date Comments Refill Request 02/28/2023 Reason Onset Date Comments colorectal cancer screening 12/07/2023 Reason Comments Physical Specialty Diagnoses / Procedures Referred By Contac t Referred To Contact [facility] Diagnoses physical Procedures physical Self Intm [facility] [address] [place] [address] Referral ID Status Reason Start Date Expiration Date Visits Requested Visits Authorized [id number] Outside PCP OON/Self Pay Override 04/17/2023 02/12/2024 1 1 Reason Comments Patient Update Reason Comments Patient Question Reason Comments Rash R leg Specialty Diagnoses / Procedures Referred By Contac t Referred To Contact [facility]IC[facility] Diagnoses RASH Procedures Consult, Test, Treat Self [address] [place] [id number] Referral ID Status Reason Start Date Expiration Date Visits Requested Visits Authorized [id number] Pending Review OON/Self Pay Override 11/09/2024 02/17/2026 1 1 Reason Comments Abdominal Pain lower abdominal pain , bloated. On/off sharp pain. Especially after eating something she shouldn't UTI Pain, couldn't urina te, urgency Specialty Diagnoses / Procedures Referred By Contac t Referred To Contact [facility] Diagnoses not oon at scheduled location Procedures not oon Debbie Flores MD [address] [place] [address] Phone: tel: fax: [address] [place] [phone] Referral ID Status Reason Start Date Expiration Date Visits Requested Visits Authorized [id number] New Request OON/Self Pay Override 11/22/2024 03/02/2026 1 1 Reason Comments Radiology US Specialty Diagnoses / Procedures Referred By Contac t Referred To Contact [facility] Diagnoses Lower abdominal pain RUQ pain Procedures US ABD RIGHT UPPER QUADRANT US ABDOMINAL REAL TIME W/IMAGE LIMITED Ya Soto APRN.STAFFING MGR [address] [place] [address] Phone: tel: fax: [place] [address] Referral ID Status Reason Start Date Expiration Date V isits Requested Visits Authorized [id number] Closed Auto-Generate d Referral OON/Self Pay Override 11/24/2024 12/24/2025 1 1 Reason Onset Date Comments Results - Mri 11/29/2024 Reason Comments MRI abd W & WO constrast approved Reason Comments Referral Request Reason Onset Date Comments Outpatient Colonoscopy 04/20/2025 Patient i s overdue for colorectal cancer screening. Has never done. Patient will need consult with Yuan Ventura CNP prior to colorectal cancer screening. Telephone Encounter - Yari AlvarezRn), RN - 07/26/2020 8:23 AM EST Miscellaneous Notes (unrecog nized section and content) Reason for call: Severe chest pain Outcome: Patient verbalizes understanding to GO TO ED NOW recommendation and of Care Advice provided. Reviewed ED's near her, not sure where she will go. Reason for Disposition SEVERE chest pain Protocols used: CHEST [id number] Talked with Angelina, she has worsening left sided chest pain since a recent fall and recent ED visit. She rates her pain 13 on 1-10 pain scale. Advised to go to the ED. She was seen for a follow up 2 days ago, declines to speak with production control expediter for that physician. Advised to go to the ED. documented in this encounter INFORMATION SOURCE (unrecogn ized section and content) DATE CREATED AUTHOR 12/31/2020 [facility] DATE CREATED AUTHOR AUTHOR'S ORGANIZ ATION 05/16/2025 [facility] DATE CREATED AUTHOR AUTHOR'S ORGANIZ ATION 07/04/2025 [facility] Care Teams (unrecognized sec tion and content) Director Of Quality Relationship Specialty Start Date End Date Debbie Flores MD [address] [place], [place] [id number] PCP - General Internal Medicine 12/11/20 Director Of Quality Relationship Specialty Start Date End Date Debbie Flores MD [address] [place], [place] [id number] PCP - General Internal Medicine 12/11/20 Director Of Quality Relationship Specialty Start Date End Date Debbie Flores MD [address] [place], [place] [id number] PCP - General Internal Medicine 12/11/20 Director Of Quality Relationship Specialty Start Date End Date Debbie Flores MD [address] [facility] [place] [address] PCP - General Internal Medicine 12/11/20 Director Of Quality Relationship Specialty Start Date End Date Debbie Flores MD [address] [facility] [place] [address] PCP - General Internal Medicine 12/11/20 Director Of Quality Relationship Specialty Start Date End Date Debbie Flores MD [address] [facility] [place] [address] PCP - General Internal Medicine 12/11/20 Director Of Quality Relationship Specialty Start Date End Date Debbie Flores MD [address] [facility] [place] [address] PCP - General Internal Medicine 12/11/20 Director Of Quality Relationship Specialty Start Date End Date Debbie Flores MD [address] [facility] [place] [address] PCP - General Internal Medicine 12/11/20 Director Of Quality Relationship Specialty Start Date End Date Debbie Flores MD [address] [facility] [place] [address] PCP - General Internal Medicine 12/11/20 Team Status: Active Member Role Status Dates Dr. Debbie Flores MD Primary Care Provider Active Team Status: Inactive Member Role Status Dates Dr. Debbie Flores MD Primary Care Provider, Referr ing Provider Active Dr. Vince Gongora MD Attending Provider Active Team Status: Inactive Member Role Status Dates Dr. Debbie Flores MD Primary Care Provider, Referr ing Provider Active Dr. Kalin Sneed MD Attending Provider Active Team Status: Active Member Role Status Dates Dr. Debbie Flores MD Primary Care Provider Active Dr. Kalin Sneed MD Attending Provider Active Team Status: Inactive Member Role Status Dates Dr. Debbie Flores MD Primary Care Provider Active Dr. Kalin Sneed MD Attending Provider, Referring Pro vider Active Team Status: Inactive Member Role Status Dates Arabella Andersen SENIOR IT SECURITY ANALYST, SENIOR IT SECURITY ANALYST-C Active Ryan Sanchez SENIOR IT SECURITY ANALYST, SENIOR IT SECURITY ANALYST-C Attending Provider Active Dr. Debbie Flores MD Primary Care Provider, Referr ing Provider Active Team Status: Inactive Member Role Status Dates Dr. Debbie Flores MD Primary Care Provider Active Geovanna Dow SENIOR IT SECURITY ANALYST-C Attending Provider, Referring Pr ovider Active Ryan Sanchez SENIOR IT SECURITY ANALYST, SENIOR IT SECURITY ANALYST-C Other Provider Active Director Of Quality Relationship Specialty Start Date End Date Debbie Flores MD [address] [place] [address] PCP - General Internal Medicine 12/11/20 Director Of Quality Relationship Specialty Start Date End Date Debbie Flores MD [address] [place] [address] PCP - General Internal Medicine 12/11/20 Director Of Quality Relationship Specialty Start Date End Date Debbie Flores MD [address] [place] [address] PCP - General Internal Medicine 12/11/20 Director Of Quality Relationship Specialty Start Date End Date Debbie Flores MD [address] [place] [address] PCP - General Internal Medicine 12/11/20 Director Of Quality Relationship Specialty Start Date End Date Debbie Flores MD [address] [place], [place] [id number] PCP - General Internal Medicine 12/11/20 Director Of Quality Relationship Specialty Start Date End Date Debbie Flores MD [address] [place] [address] PCP - General Internal Medicine 12/11/20 Ya Soto, HOCKEY PLAYER.STAFFING MGR [address] [place] [address] [facility] Internal Medicine 08/08/24 Mag Bowers HOCKEY PLAYER.STAMP PAD FINISHER [address] [place] [address] [facility] Internal Medicine 08/08/24 Director Of Quality Relationship Specialty Start Date End Date Debbie Flores MD [address] [place] [address] PCP - General Internal Medicine 12/11/20 Ya Soto, HOCKEY PLAYER.STAFFING MGR [address] [place] [address] [employer] Internal Medicine 08/08/24 Mag Bowers HOCKEY PLAYER.STAMP PAD FINISHER [address] [place] [address] [facility] Internal Medicine 11/22/24 Director Of Quality Relationship Specialty Start Date End Date Debbie Flores MD [address] [place] [address] PCP - General Internal Medicine 12/11/20 Ya Soto, HOCKEY PLAYER.STAFFING MGR [address] [place] [address] [facility] Internal Medicine 08/08/24 Mag Bowers HOCKEY PLAYER.STAMP PAD FINISHER [address] [place] [address] [employer] Internal Medicine 11/22/24 Director Of Quality Relationship Specialty Start Date End Date Debbie Flores MD [address] [facility] [place] [address] PCP - General Internal Medicine 12/11/20 Ya Soto, HOCKEY PLAYER.STAFFING MGR [address] [facility] [place] [place] [address] Fuse Sp[employer]er Internal Medicine 08/08/24 Mag Bowers HOCKEY PLAYER.STAMP PAD FINISHER [address] [facility] [place] [address] Fuse Spooler Internal Medicine 11/22/24 Director Of Quality Relationship Specialty Start Date End Date Debbie Flores MD [address] [place] [address] PCP - General Internal Medicine 12/11/20 Ya Soto, HOCKEY PLAYER.STAFFING MGR [address] [place] [address] Fuse Sp[employer]er Internal Medicine 08/08/24 Mag Bowers HOCKEY PLAYER.STAMP PAD FINISHER [address] [place] [address] [employer] Sp[employer]er Internal Medicine 11/22/24 Director Of Quality Relationship Specialty Start Date End Date Debbie Flores MD [address] [facility] [place] [address] PCP - General Internal Medicine 12/11/20 Ya Soto, HOCKEY PLAYER.STAFFING MGR [address] [place] [address] Fuse Sp[employer]er Internal Medicine 08/08/24 Mag Bowers HOCKEY PLAYER.STAMP PAD FINISHER [address] [facility] [place] [address] Fuse Sp[employer]er Internal Medicine 11/22/24 Director Of Quality Relationship Specialty Start Date End Date Debbie Flores MD [address] [place] [address] PCP - General Internal Medicine 12/11/20 Ya Soto HOCKEY PLAYER.STAFFING MGR [address] [facility] [place] [address] Fuse Spooler Internal Medicine 08/08/24 Mag Bowers HOCKEY PLAYER.STAMP PAD FINISHER [address] [place] [address] [employer] Sp[employer]er Internal Medicine 11/22/24 Director Of Quality Relationship Specialty Start Date End Date Debbie Flores MD [address] [place] [address] PCP - General Internal Medicine 12/11/20 Mag Bowers HOCKEY PLAYER.STAMP PAD FINISHER [address] [place] [address] [facility] Sp[employer]er Internal Medicine 11/22/24 Ya Soto, HOCKEY PLAYER.STAFFING MGR [address] [place] [address] [facility] Medicine 01/18/25 Team Status: Active Member Role/Relationship Status Dates Dr. Debbie Flores MD Primary Care Provider Active Team Status: Inactive Member Role/Relationship Status Dates Dr. Debbie Flores MD Primary Care Provider Active Start: May 04, 2025 End: May 04, 2025 Dr. Debbie Flores MD Referring Provider Active Start: May 04, 2025 End: May 04, 2025 Dr. Vince Gongora MD Attending Provider Active Sta rt: May 04, 2025 End: May 04, 2025 Director Of Quality Relationship Specialty Start Date End Date Debbie Flores MD [address] [place], [place] [address] PCP - General Internal Medicine 12/11/20 Mag Bowers APRN.STAMP PAD FINISHER [address] [place], [place] [id number] [facility] Internal Medicine 11/22/24 Ya Soto APRN.STAFFING MGR [address] [place], [place] [id number] [facility] Internal Medicine 01/18/25 Goals (unrecognized section and content) Goals may be documented in a n alternate sectionGoals may be documented in an alternate sectionGoals may be documented in an alternate section FOR RECORDS PERTAINING TO PATIENTS WHO ARE [...] BE BASED ON THE PRIMARY CLINICAL RECORDS. [facility] [employer] provides no warranty or guarantee of the accuracy or completeness of information in this document.
[2025-08-22 04:30] LABS: Hematocrit 43.9 % (37-47); Hemoglobin 14.8 g/dL (12.0-15.0); Immature Granulocytes Count 0.050 X10^3/uL (0.0-0.0); Mean Corp Hgb Conc 33.7 g/dL (32-36); Mean Corpuscular Volume 98.7 fL (81-99); Mean Platelet Vol. 9.2 fl (6.2-12.0); NRBC Flagged by Analyzer 0 % (0-5); Platelet Count 460 K/mm3 (150-450); RBC Distribution Width CV 11.7 % (11.6-14.6); RBC Distribution Width SD 42.2 fl (35.1-43.9); Red Blood Count 4.45 M/mm3 (4.2-5.4); White Blood Count 9.0 K/mm3 (4.4-11.0)
--- NOTE | 2025-08-22 04:55 | RAD_ITS ---
PROCEDURE: TIBIA FIBULA 2 VIEWS 08/22/2025 REASON FOR EXAM: POSTREDUCTION Pain TECHNIQUE: Procedure Code: RADTF Modality: DX Procedure: TIBIA FIBULA 2 VIEWS COMPARISON: 03/22/2025 FINDINGS: Splinted views of the left lower leg demonstrate improved alignment of the displaced distal left tibial and fibular diaphyseal fractures. Ankle mortise is intact. A proximal left fibular diaphyseal fracture is also noted. Evaluation of fine osseous and soft tissue details limited due to overlying splinting material. RAD/Tibia & Fibula 2 Views IMPRESSION: Splinted 2 part left fibular and distal left tibial fracture in improved alignm ent. Reading Location: [facility]
--- NOTE | 2025-08-22 05:12 | PCM.HP.STD ---
[facility] - [facility] Date of Admission: 08/22/25 Chief Complaint: Fall and left leg fracture [facility] Narrative JULIO RUIZ, is a 65 F with past medical history significant for nonischemic cardiomyopathy improved with medical therapy, hyperthyroidism on maintenance methimazole, daily alcohol use and tobacco/marijuana smoker presents to the ED after she fell at home after she lost her balance while turning in the kitchen and described the incident as a misstep, she denies any preceding dizziness, lightheadedness, fainting or palpitations and denies any subsequent head injuries, loss of consciousness, change in vision or focal neurologic deficits. Not on antiplatelets or anticoagulants. She developed localized pain to the middle of the left leg and was unable to stand or bear weight on it. No tingling or numbness in the left foot In the ED she was found to have acute displaced tibial and fibular fractures with associated soft tissue swelling. She received IV narcotics and has a manual reduction by ED physician. Patient states that she was recently diagnosed with pneumonia and she completed amoxicillin and azithromycin few days ago, she felt significant improvement with antibiotics but she still have shortness of breath on exertion and cough. On physical exam her left lower lobe has diminished air entry that improved with coughing Of note, she had some oxygen desaturation after she received IV narcotics including morphine 4 mg and Dilaudid 1 mg but no other sedative agents. At baseline, patient has no CHF symptoms and she is compliant to her Coreg, Lasix and losartan. EF improved to 65% on repeat echo in 2022 from 15% in the past only with medical therapy. Unknown etiology of CHF but is nonischemic. Compliant to metamizole 5 mg 3 times a week on Thursday, Thursday, Thursday. No symptoms of thyrotoxicosis. She denies alcohol withdrawal with significant periods of abstinence in the past. Currently she drinks 4 glasses of wine every evening. She still smokes around 1 pack a day both tobacco and marijuana. She is otherwise functional and healthy appearing. [facility] Medical History Secondary pulmonary arterial hypertension Osteoarthritis Fibromyalgia Thyroid nodule Demand ischemia (05/02/19) Chronic systolic (congestive) heart failure Non-ischemic cardiomyopathy Essential (primary) hypertension Hyperthyroidism Nicotine dependence Home Medications ?Medication ?Instructions ?Recorded ?Last Taken ?Type magnesium oxide 400 mg PO DAILY 12/27/19 Unknown History Handicap Placard #1 ea 04/08/23 Unknown Rx losartan 50 mg tablet 50 mg PO QPM #90 tabs 12/13/24 Unknown Rx methimazole 5 mg tablet 5 mg PO .3 days per week #48 tabs 05/04/25 Unknown Rx psyllium husk 0.4 gram capsule 0.4 g PO QDAY 05/04/25 Unknown History (Daily Fiber) furosemide 40 mg tablet 40 mg PO DAILY Dose increased back 06/15/25 Unknown Rx to whole 40 mg tablet daily #90 tabs carvedilol 25 mg tablet 25 mg PO BID #180 tabs 06/16/25 Unknown Rx Allergy/AdvReac Type Severity Reaction Status Date / Time bee venom protein (honey bee) Allergy Unknown Swelling Verified 08/22/25 02:47 lactase (From Dairy Aid) Allergy Unknown Unknown Verified 08/22/25 02:47 aspirin AdvReac GI Upset Verified 08/22/25 02:47 cyclobenzaprine AdvReac mouth Verified 08/22/25 02:47 burning latex AdvReac Swelling Verified 08/22/25 02:47 lisinopril AdvReac cough Verified 08/22/25 02:47 NSAIDS (Non-Steroidal AdvReac PT UNABLE Verified 08/22/25 02:47 Anti-Inflamma TO RESPOND-NEEDS F/U Family History Father Diabetes Heart disease Mother Respiratory disease Psychiatric care Mental disorder Suicide attempt Heart failure Surgical History History of dilatation and curettage History of tubal ligation History of total hip arthroplasty Social History Smoking Status: Current every day smoker tobacco type: cigarettes Tobacco: How many years used: 30 alcohol intake: current alcohol intake frequency: 3 or more drinks per day Alcohol type: wine substance use type: marijuana caffeine: Yes Type: coffee Number of servings: 1 ROS Constitutional Constitutional: Denies fever(s) or poor appetite ENT HEENT: Reports none Cardiovascular Cardiovascular: Denies chest pain or dyspnea Respiratory/Chest Respiratory/Chest: Denies cough or wheezing Gastrointestinal Gastrointestinal: Denies abdominal pain or change in bowel habits Genitourinary Genitourinary: Denies change in urinary stream or dysuria Musculoskeletal Musculoskeletal: Denies arthralgias or myalgias Integumentary Integumentary: Reports none Neurologic Neurologic: Denies abnormal speech, dizziness, focal weakness, loss of vision or numbness Hematologic/Lymphatic Hematologic/Lymphatic: Reports none Patient's Goals Of Care . What would you like to achieve or improve as a result of your hospital stay?: Fix left leg fracture Vital Signs Vital Signs Vital Signs: 08/22/25 02:43 08/22/25 02:47 08/22/25 03:00 Temperature 97.7 F L Temperature Source Oral Pulse Rate 87 81 Respiratory Rate 18 19 H Respiratory Effort Normal Respiratory Depth Normal Respiratory Pattern Normal Blood Pressure 111/41 L 131/66 H Blood Pressure Mean 64 87 Pulse Ox 99 95 Oxygen Delivery Method Room Air Oxygen Flow Rate (L/min) 08/22/25 04:25 08/22/25 04:53 Temperature Temperature Source Pulse Rate 78 Respiratory Rate 18 Respiratory Effort Respiratory Depth Respiratory Pattern Blood Pressure 121/55 H Blood Pressure Mean 77 Pulse Ox 83 94 Oxygen Delivery Method Room Air Nasal Cannula Oxygen Flow Rate (L/min) 2 Weight Weight: 101.741 kg Body Mass Index (BMI) 37.3 Physical Exam Const alert and oriented x3 HEENT normocephalic and head/scalp atraumatic Eyes EOMs intact bilaterally; Negative for no scleral icterus Neck supple Resp normal respiratory effort Resp Narrative: Diminished breath sounds on the left lower lobe, transiently improved with coughing Cardio regular rate and regular rhythm; Negative for no murmurs GI normal to inspection, nondistended, normoactive bowel sounds; Negative for non-tender no CVA tenderness Extremity Extremity Narrative: Left leg wrapped after manual reduction. Left foot is warm, with intact sensations and movements. Skin no rashes or lesions noted Neuro oriented x3 and moves all extremities Results Lab / Micro Data 08/22/25 04:25 08/22/25 04:25 Labs: Laboratory Results - last 24 hr 08/22/25 04:25: WBC 9.0, RBC 4.45, Hgb 14.8, Hct 43.9, MCV 98.7, MCH 33.3 H, MCHC 33.7, RDW Std Deviation 42.2, RDW Coeff of [place]sa 11.7, Plt Count 460 H, MPV 9.2, Immature Gran % (Auto) 0.600, Neut % (Auto) 69.2, Lymph % (Auto) 20.5, [place] % (Auto) 6.2, Eos % (Auto) 2.5, Baso % (Auto) 1.0, Absolute Neuts (auto) 6.3, Absolute Lymphs (auto) 1.85, Nucleated RBC % 0 Imaging Radiology Impression Tibia/Fibula X-Ray 08/22/25 03:30 IMPRESSION: Acute displaced tibial and fibular fractures with associated soft tissue swelling as detailed above. Reading Location: [place] [id number] Assessment & Plan Assessment/Plan (1) Hypoxemia: (2) Closed traumatic minimally displaced fracture of shaft of left fibula: QUALIFIERS: Encounter type: initial encounter Qualified Code(s): S82.402A - Unspecified fracture of shaft of left fibula, initial encounter for closed fracture (3) Closed traumatic displaced fracture of shaft of left tibia: QUALIFIERS: Encounter type: initial encounter Qualified Code(s): S82.202A - Unspecified fracture of shaft of left tibia, initial encounter for closed fracture (4) Non-ischemic cardiomyopathy: (5) Hyperthyroidism: (6) Nicotine dependence: QUALIFIERS: Nicotine product type: cigarettes Substance use status: uncomplicated Qualified Code(s): F17.210 - Nicotine dependence, cigarettes, uncomplicated (7) Fall on same level from tripping: (8) Alcohol use: (9) Cigarette smoker: PLAN: Plan Admission [facility] Orthopedic consultation Left foot neurovascular check Moderate to high risk for general anesthesia given her pneumonia symptoms, left lung exam findings from recent pneumonia and rapid desaturation with IV narcotics. Also she is a chronic smoker. CHF appears very compensated continue beta-suellen and oral maintenance Lasix. Hold losartan to avoid perioperative hypotension Check TSH and free T4, must be normal before any surgery. Clinically appears euthyroid, she is compliant to methimazole. If prolonged n.p.o., switch to rectal methimazole postoperatively Watch for alcohol withdrawal although she denies history of it. She appears well-nourished. Analgesia Heparin every 8 hours for VTE prophylaxis, she is high risk Charges/Coding Visit Charges Inpatient E&M: 21214 Init Hosp L3
[2025-08-22 05:23] LABS: Anion Gap 16 (7-18); BUN 14 mg/dL (4-19); BUN/Creat Ratio 23.5 RATIO (10-20); Calcium,Total 9.0 mg/dL (7.6-11.0); Carbon Dioxide 21.5 mmol/L (20.0-29.0); Chloride 103 mmol/L (96-106); Estimated Creatinine Clearance 115.86 ml/min (50-250); Glucose 143 mg/dL (70-99); Potassium 4.5 mmol/L (3.5-5.1)
--- OUTSIDE RECORDS SUMMARY | 2025-08-22 05:49 | XMS RPT_ITS | CCD ---
Author Organization [facility] Care Team Providers Care Culinary Director Name Role Phone Unavailable Primary Care Provider Debbie Hanson MD Primary Care Provider Debbie Flores MD Primary Care Provider Dr. Debbie Flores Primary Care Provider Dr. Debbie Flores Referring Provider Dr. Vince Gongora Attending Provider Dr. Kalin Sneed Attending Provider [facility] MACHINE TURNER, MACHINE TURNER-Sara Brito Attending Provider Dr. Debbie Flores Primary Care Provider Dr. Debbie Flores Referring Provider Debbie Flores MD Primary Care Provider Unavailable Primary Care Provider Unavailyessenia Soto CREATIVE INTERN.FURNACE SETTER, Ya Unavailable Elissa CREATIVE INTERN.CERTIFIED ADAPTIVE PHYSICAL EDUCATOR, Mag Unavailable Elissa CREATIVE INTERN.CERTIFIED ADAPTIVE PHYSICAL EDUCATOR, Mag Unavailable Soto CREATIVE INTERN.FURNACE SETTER, Ya Unavailable Dr. Debbie Flores MD Primary Care Provider Dr. Debbie Flores MD Referring Provider Dr. [...] [ASPIRIN] Drug Allergy 07-26-20 20 GI Upset [facility] Work Phone: (20 sources) cyclobenzaprine; Translations: [CYCLOBENZAPRINE] Drug Allergy 01-03-20 05 Swelling, Other: See Comments [facility] Work Phone: (20 sources) Lactase; Translations: [LACTASE] Drug Allergy 06-03-20 21 Unknown [facility] Work Phone: [phone] (20 sources) Latex; Translations: [LATEX] Drug Allergy 11-30-19 21 Rash [facility] Work Phone: [phone] (20 sources) Lisinopril; Translations: [LISINOPRIL] Drug Allergy 05-25-20 19 Cough [facility] Work Phone: [phone] (20 sources) Non-steroidal anti-inflammatory agent; Translations: [NSAIDS (NON-STEROIDAL ANTI-INFLAMMATORY DRUG)] Drug Intolerance 07-31-20 20 Intolerance, GI Upset, Vomiting [facility] Work Phone: (20 sources) Bee Venom Protein (Honey Bee); Translations: [BEE VENOM PROTEIN (HONEY BEE)] Drug Allergy 11-30-19 21 Swelling [facility] Work Phone: [phone] (3 sources) Nonsteroidal Anti-inflammatory Compounds Propensity to adverse reactions 04-08-20 PT UNABLE TO RESPOND-NEEDS F/U [facility] Comment on above: EATS A HOLE IN MY T UMMY (1 source) Non-steroidal anti-inflammatory agent Drug Intolerance 07-31-20 Intolerance, GI Upset, Vomiting [facility] (1 source) Aspirin Drug Allergy 05-04-20 [facility] Repository (1 source) cyclobenzaprine Drug Allergy 05-04-20 [facility] Repository (1 source) Lactase Drug Allergy 05-04-20 [facility] Repository (1 source) Latex Drug allergy (disorder) 05-04-20 [facility] Repository (1 source) Lisinopril Drug Allergy 05-04-20 [facility] Rep[facility] (1 source) NSAIDs Drug allergy (disorder) 05-04-20 [facility] Repository (1 source) bee venom protein (honey bee) Drug allergy (disorder) 05-04-20 [facility] Repository Medications Current Medications Medication Drug Class(es) Dates Sig (Normalized) Sig (Original) amoxicillin 500 mg oral tablet (20 sources) Penicillin-class Antibacterial Start: 04-02-2023 take 4 capsules by mouth once as needed Amoxicillin 500 mg capsule Active 2000 mg PO ONCE as needed April 02, 2023 12:00am Start: 04-02-2023 take 2000 mg by mouth once [place] xicillin Active 2000 MG PO ONCE April [...] Free T3 [Mass/Vol] 3.2 pg/mL Normal 2.18-3.98 [facility] Comment on above: Performed By: #### L 506.0400, L501.9520, L501.16858 #### [facility] [address] [place], [address] T4 Free Directon 07-03-2025 T4 FREE DIRECT 1.10 ng/dL Normal 0.76-1.46 [facility] Comment on above: Performed By: #### L 506.0400, L501.9520, L501.10774 #### [facility] [address] [place], [address] Thyroid Stim Hormone (TSH)on 07-03-2025 TSH 0.959 uIU/mL Normal 0.300-4.200 [facility] Comment on above: Performed By: #### L 506.0400, L501.9520, L501.49684 #### [facility] [address] [place], [address] CNCOon 05-15-2025 CNCO Letter Text Normal [facility] Endocrinology Visit Reporton 05-04-2025 Endocrinology Visit Report [facility] [address] [place], [place] [address] OFFICE VISIT Date of Service: 05/04/25 MR#: [id number] Acct: [id number] Name: ANGELINA THEODORE Rep #: [id number] : 1960 Provider: Jay Harper Age/Sex: 65/F [place] [facility] [place] Status: Signed Intake Vital Signs 11/07/24 13:05 [...] Reasons: 6 M FU Chief Complaint: Hyperthyroidism [employer] Required: No Accompanied by: Self Is patient [...] Periorbital: periorbit (more content not included)... Normal [facility] 02-21-2025 [facility] Telephone (INTMWS) ANGELINA THEODORE ([id number]) 1960 F Date Time Provider Department 02/21/25 [...] patient back with reply. MARLI Lopes Terri, APRN.FURNACE SETTER 02/21/2025 4:47 PM Signed OK for consult, please schedule Annita Schuster LPN 02/21/2025 4:51 PM Signed Phoned patient aware referral in place, assisted with transfer to production control scheduler to get Ortho appt set up. Shona Miller 02/21/2025 4:58 PM Signed Spoke to patient for scheduling. Due to her diagnosis, [facility] is not an option for her to be seen. She declined traveling and would like to proceed scheduling with [facility]. Please send patient referral, office notes and demographics for patient. Shona Miller February 21, 2025 4:58 PM Annita Schuster LPN 02/22/2025 9:36 AM Signed Printed referral, face sheet, insurance card copy and faxed to [facility] at [phone] as requested. Allergies As of Date: 02/21/2025 [...] Date Reviewed: 11/24/2024 Reviewed by: Ya Soto APRN.FURNACE SETTER - Fully Assessed Reason for Visit: Referral Request [Other] Primary Visit Diagnosis:H/O bilateral hip replacements [Z96.643] Order(s):CONSULT TO ORTHOPAEDICS [9026] Order #: [id number]: 1 FUTURE Prescriptions as of 02/22/2025 - [...] Encounter Status:Closed by ANNITA SCHUSTER on 02/21/25 [facility] ANGEL[facility] THEODORE ([id number]) 1960 F Date Time Provider Department 12/08/24 DEBBIE FLORES INTMWS During your visit today, we recorded the following information about you: Jay Stephenson, RN 12/08/2024 12:19 PM Signed [facility] Mgmt- reports the PA on the MRI abdomen with AND without constrast has been approved. Order # [id number]. Valid 12/07/24 through 01/05/25. CPT- 35751. Ya Soto APRN.JOSHUA 12/08/2024 12:43 PM Signed [...] read below and advise. AMOS Tan Terri, APRN.FURNACE SETTER 12/09/2024 9:41 AM Signed Is there a contact lens inspector in MRI dept. that could review if [...] call back to schedule. MARLI Deng Terri, JYOTI.FURNACE SETTER 12/09/2024 3:53 PM Signed noted Allergies As [...] Date Reviewed: 11/24/2024 Reviewed by: Ya Soto APRN.FURNACE SETTER - Fully Assessed Reason for Visit: MRI [...] Status:Closed by YA SOTO on 12/09/24 Normal [facility] Hepatic function 2000 panelo n 12-08-2024 Albumin [Mass/Vol] 4.2 g/dL 3.9 - 4.9 g/dL [facility] ALP [Catalytic activity/Vol] 91 U/L 34 - 123 U/L [facility] ALT [Catalytic activity/Vol] 28 U/L 7 - 38 U/L [facility] AST [Catalytic activity/Vol] 26 U/L 13 - 35 U/L [facility] Bilirubin [Mass/Vol] 0.3 mg/dL 0.2 - 1 .3 mg/dL [facility] Bilirubin.conjugated [Mass/Vol] mg/dL NINF - 0.3 mg/dL [facility] Interpretation and review of laboratory results Normal [facility] Protein [Mass/Vol] 6.5 g/dL 6.3 - 8.0 g/dL [facility] CBC W Auto Differential pane l (Bld)on 12-07-2024 Basophils (Bld) [#/Vol] 0.07 10*3/uL Normal <0.11 [facility] Comment on above: Order Comment: Speci men Type: BLOOD SPECIMENOrdering Facility: [facility] Address: [address] [place] [address] Performed By: #### 5 7021-8 ####[facility] LABCLIA [id number] [place] [address] [place] [facility] Basophils/100 WBC (Bld) 1.1 % Normal [facility] Comment on above: Order Comment: Speci men Type: BLOOD SPECIMENOrdering Facility: [facility] Address: [address] [place] [address] Performed By: #### 5 7021-8 ####[facility] LABCLIA [id number] [address] [place] Differential cell count method Nom (Bld) Auto Normal [facility] Comment on above: Order Comment: Speci men Type: BLOOD SPECIMENOrdering Facility: [facility] Address: [address] [place] [address] Performed By: #### 5 7021-8 ####[facility] LABCLIA [id number] [place] [address] [place] Eosinophils (Bld) [#/Vol] 0.30 10*3/uL Normal <0.46 [facility] Comment on above: Order Comment: Speci men Type: BLOOD SPECIMENOrdering Facility: [facility] Address: [address] [place] [address] Performed By: #### 5 7021-8 ####[facility] LABCLIA [id number] [place] [address] [place] Eosinophils/100 WBC (Bld) 4.7 % Normal [facility] Comment on above: Order Comment: Speci men Type: BLOOD SPECIMENOrdering Facility: [facility] Address: [address] [place] [address] Performed By: #### 5 7021-8 ####[facility] LABCLIA [id number] [place] [address] [place] Erythrocyte distribution width (RBC) [Ratio] 12.0 % Normal 11.5-15.0 [facility] Comment on above: Order Comment: Speci men Type: BLOOD SPECIMENOrdering Facility: [facility] Address: [address] [place] [address] Performed By: #### 5 7021-8 ####[facility] LABCLIA [id number] [place] [address] [place] Hematocrit (Bld) [Volume fraction] 49.9 % High 36.0-46.0 [facility] Comment on above: Order Comment: Speci men Type: BLOOD SPECIMENOrdering Facility: [facility] Address: [address] [place], [place] [address] Performed By: #### 5 7021-8 ####[facility] LABCLIA [id number] [address], [place] [address] [place] Hemoglobin (Bld) [Mass/Vol] 17.1 g/dL High 11.5-15.5 [facility] Comment on above: Order Comment: Speci men Type: BLOOD SPECIMENOrdering Facility: [facility] Address: [address] [place] [address] Performed By: #### 5 7021-8 ####[facility] LABCLIA [id number] [address], [place] [address] [place] Immature granulocytes (Bld) [#/Vol] 10*3/uL Normal <0.10 [facility] Comment on above: Order Comment: Speci men Type: BLOOD SPECIMENOrdering Facility: [facility] Address: [address] [place] [address] Performed By: #### 5 7021-8 ####[facility] LABCLIA [id number] [address], [place] [address] [place] Immature granulocytes/100 WBC (Bld) 0.3 % Normal [facility] Comment on above: Order Comment: Speci men Type: BLOOD SPECIMENOrdering Facility: [facility] Address: [address] [place] [address] Performed By: #### 5 7021-8 ####[facility] LABCLIA [id number] [address], [facility] [place] Lymphocytes (Bld) [#/Vol] 1.76 10*3/uL Normal 1.00-4.00 [facility] Comment on above: Order Comment: Speci men Type: BLOOD SPECIMENOrdering Facility: [facility] Address: [address] [place] [address] Performed By: #### 5 7021-8 ####[facility] LABCLIA [id number] [address] [place] Lymphocytes/100 WBC (Bld) 27.7 % Normal [facility] Comment on above: Order Comment: Speci men Type: BLOOD SPECIMENOrdering Facility: [facility] Address: [address] [place] [address] Performed By: #### 5 7021-8 ####[facility] LABIA [id number] [place] [address] [place] MCH (RBC) [Entitic mass] 33.3 pg Normal 26.0-34.0 [facility] Comment on above: Order Comment: Speci men Type: BLOOD SPECIMENOrdering Facility: [facility] Address: [address] [place] [address] Performed By: #### 5 7021-8 ####[facility] LABIA [id number] [place] [address] [place] MCHC (RBC) [Mass/Vol] 34.3 g/dL Normal 30.5-36.0 [facility] Comment on above: Order Comment: Speci men Type: BLOOD SPECIMENOrdering Facility: [facility] Address: [address] [place] [address] Performed By: #### 5 7021-8 ####[facility] LABIA [id number] [place] [address] [place] MCV (RBC) [Entitic vol] 97.1 fL Normal 80.0-100.0 [facility] Comment on above: Order Comment: Speci men Type: BLOOD SPECIMENOrdering Facility: [facility] Address: [address] [place] [address] Performed By: #### 5 7021-8 ####[facility] LABIA [id number] [place] [address] [place] Monocytes (Bld) [#/Vol] 0.47 10*3/uL Normal <0.87 [facility] Comment on above: Order Comment: Speci men Type: BLOOD SPECIMENOrdering Facility: [facility] Address: [address] [place] [address] Performed By: #### 5 7021-8 ####[facility] LABCLIA [id number] [place] [address] [place] Monocytes/100 WBC (Bld) 7.4 % Normal [facility] Comment on above: Order Comment: Speci men Type: BLOOD SPECIMENOrdering Facility: [facility] Address: [address] [place] [address] Performed By: #### 5 7021-8 ####[facility] LABCLIA [id number] [place] [address] [place] Neutrophils (Bld) [#/Vol] 3.73 10*3/uL Normal 1.45-7.50 [facility] Comment on above: Order Comment: Speci men Type: BLOOD SPECIMENOrdering Facility: [facility] Address: [address] [place] [address] Performed By: #### 5 7021-8 ####[facility] LABIA [id number] [place] [address] [place] Neutrophils/100 WBC (Bld) 58.8 % Normal [facility] Comment on above: Order Comment: Speci men Type: BLOOD SPECIMENOrdering Facility: [facility] Address: [address] [place] [address] Performed By: #### 5 7021-8 ####[facility] LABCLIA [id number] [place] [address] [place] Nucleated RBC (Bld) [#/Vol] 10*3/uL Normal <0.01 [facility] Comment on above: Order Comment: Speci men Type: BLOOD SPECIMENOrdering Facility: [facility] Address: [address] [place] [address] Performed By: #### 5 7021-8 ####[facility] LABCLIA [id number] [place] [address] [place] Nucleated RBC/100 WBC (Bld) [Ratio] 0.0 /100 WBC Normal [facility] Comment on above: Order Comment: Speci men Type: BLOOD SPECIMENOrdering Facility: [facility] Address: [address] [place] [address] Performed By: #### 5 7021-8 ####[facility] LABCLIA [id number] [place] [address] [place] Platelet mean volume (Bld) [Entitic vol] 10.6 fL Normal 9.0-12.7 [facility] Comment on above: Order Comment: Speci men Type: BLOOD SPECIMENOrdering Facility: [facility] Address: [address] [place] [address] Performed By: #### 5 7021-8 ####[facility] LABCLIA [id number] [place] [address] [place] Platelets (Bld) [#/Vol] 253 10*3/uL Normal 150-400 [facility] Comment on above: Order Comment: Speci men Type: BLOOD SPECIMENOrdering Facility: [facility] Address: [address] [place] [address] Performed By: #### 5 7021-8 ####[facility] LABCLIA [id number] [place] [address] [place] RBC (Bld) [#/Vol] 5.14 10*6/uL Normal 3.90-5.20 [facility] Comment on above: Order Comment: Speci men Type: BLOOD SPECIMENOrdering Facility: [facility] Address: [address] [place] [address] Performed By: #### 5 7021-8 ####[facility] LABCLIA [id number] [place] [address] [place] WBC (Bld) [#/Vol] 6.35 10*3/uL Normal 3.70-11.00 [facility] Comment on above: Order Comment: Speci men Type: BLOOD SPECIMENOrdering Facility: [facility] Address: [address] [place] [address] Performed By: #### 5 7021-8 ####[facility] LABCLIA [id number] [place] CERVANTES [id number] [place] [address] [place] Cardiology Visit Reporton Cardiology Visit Report [facility] [address] [place] [address] OFFICE VISIT Date of Service: 12/07/24 MR#: [id number] Acct: [id number] Name: ANGELINA THEODORE Rep #: [id number] : 1960 Provider: LIZZY stanley Age/Sex: 64/F [place] [facility] Status: Signed HPI HPI History of Present Illness Details: 64-year-old lady who presents for a cardiovascular patient follow-up. She has been a lifelong tobacco user and had presented with heart failure in [place]. Apparently an echocardiogram was performed which had [...] 97 Intake Visit Reasons: 1 Y FU [employer] Required: No Is patient in pain?: No [...] the past year?: No PFSH Medical History Secondary pulmonary arterial hypertension [...] stools or (more content not included)... Normal [facility] Hepatic function 2000 panelo n 12-07-2024 Albumin [Mass/Vol] 4.2 g/dL Normal 3.9-4.9 [facility] Comment on above: Order Comment: Speci men Type: BLOOD SPECIMENOrdering Facility: [facility] Address: [address] [place] [address] Performed By: #### 3 016-3, 48679-0, 305-0, 3027 ####[facility] LABCLIA [id number] [address] [address] [place] ALP [Catalytic activity/Vol] 91 U/L Normal 34-123 [facility] Comment on above: Order Comment: Speci men Type: BLOOD SPECIMENOrdering Facility: [facility] Address: [address] [place] [address] Performed By: #### 3 016-3, 21577-0, 3051-0, 302-7 ####[facility] LABCLIA [id number] [address] [address] [place] ALT [Catalytic activity/Vol] 28 U/L Normal 7-38 [facility] Comment on above: Order Comment: Speci men Type: BLOOD SPECIMENOrdering Facility: [facility] Address: [address] [place] [address] Performed By: #### 3 016-3, 62243-6, 0, 7 ####[facility] LABCLIA [id number] [place] [address] [place] AST [Catalytic activity/Vol] 26 U/L Normal 13-35 [facility] Comment on above: Order Comment: Speci men Type: BLOOD SPECIMENOrdering Facility: [facility] Address: [address] [place] [address] Performed By: #### 3 016-3, 00726-6, 0, 7 ####[facility] LABCLIA [id number] [place] [address] [place] Bilirubin [Mass/Vol] 0.3 mg/dL Normal 0.2-1.3 [facility] Comment on above: Order Comment: Speci men Type: BLOOD SPECIMENOrdering Facility: [facility] Address: [address] [place] [address] Performed By: #### 3 016-3, 34271-2, 0, 3024-02 ####[facility] LABCLIA [id number] [place] [address] [place] Bilirubin.conjugated [Mass/Vol] mg/dL Normal <0.3 [facility] Comment on above: Order Comment: Speci men Type: BLOOD SPECIMENOrdering Facility: [facility] Address: [address] [place] [address] Performed By: #### 3 016-3, 61864-3, 305-0, 7 ####[facility] LABCLIA [id number] [address] [address] [place] Protein [Mass/Vol] 6.5 g/dL Normal 6.3-8.0 [facility] Comment on above: Order Comment: Speci men Type: BLOOD SPECIMENOrdering Facility: [facility] Address: [address] [place] [address] Performed By: #### 3 016-3, 15316-0, 3051-0, 3024-7 ####[facility] LABIA [id number] [address] [address] [place] T3Free SerPl-mCncon 12-08-19 25 Free T3 [Mass/Vol] 3.1 pg/mL Normal 2.3-4.1 [facility] Comment on above: Order Comment: Speci men Type: BLOOD SPECIMENOrdering Facility: [facility] Address: [address] [place] [address], [place] [id number] Performed By: #### 3 016-3, 99770-2, 3051-0, 3024-7 ####[facility] [id number] [place] [address] [place] T4 Free SerPl-mCncon 025 Free T4 [Mass/Vol] 1.0 ng/dL Normal 0.9-1.7 [facility] Comment on above: Order Comment: Speci men Type: BLOOD SPECIMENOrdering Facility: [facility] Address: [address] [place] [address], [place] [address] Performed By: #### 3 016-3, 10676-1, 3051-0, 3024-7 ####[facility] [id number] [place] [address] [place] TSH SerPl-aCncon 12-07-2024 TSH Qn 1.270 m[IU]/L Normal 0.270-4.200 [facility] Comment on above: Order Comment: Speci men Type: BLOOD SPECIMENOrdering Facility: [facility] Address: [address] [place] [id number] Performed By: #### 3 016-3, 19473-2, 3051-0, 3024-7 ####[facility] LABCLIA [id number] [place] [address] [place] US ABD RIGHT [...] be communicated with the ordering provider via [employer] staff message or phone message by [employer] within 2 business days of report finalization. --END OF FINDING-- Group Fitness Instructor: ROMY Transcribe Date/Time: Nov 29 2024 2:49P Dictated by : JOSE MIGUEL CONLEY MD This examination was interpreted and the report reviewed and electronically signed by: JOSE MIGUEL CONLEY MD on Nov 29 2024 2:55PM EST [id number] CN ACTIONABLE Invalid Interpretation Code [facility] US ABD SPLEEN -NBon 11-29-19 25 US [...] be communicated with the ordering provider via [employer] staff message or phone message by [employer] within 2 business days of report finalization. --END OF FINDING-- [employer] Instructor: ROMY Transcribe Date/Time: Nov 29 2024 2:49P Dictated by : JOSE MIGUEL CONLEY MD This examination was interpreted and the report reviewed and electronically signed by: JOSE MIGUEL CONLEY MD on Nov 29 2024 2:55PM EST [id number] CN ACTIONABLE Invalid Interpretation Code [facility] Amylase SerPl-cCncon 025 Amylase [Catalytic activity/Vol] 27 U/L Low 30-104 [facility] Comment on above: Order Comment: Speci men Type: BLOOD SPECIMENOrdering Facility: [facility] Address: [address] [place] [address] Performed By: #### 1 798-8, 3040-3, 04287-9 ####[facility] LABORATORYCLIA [id number] [place] [address] [place] Bacteria Ur Culton [...] technique or straight catheterization for???urine???collec tion. Normal [facility] Comment on above: Performed By: #### 6 30-4 ####[facility] LABCLIA [id number] [place] [address] [place] CBC W Auto Differential pane l (Bld)on 11-24-2024 Basophils (Bld) [#/Vol] 0.07 10*3/uL Normal <0.11 [facility] Comment on above: Order Comment: Speci men Type: BLOOD SPECIMENOrdering Facility: [facility] Address: [address] [place] [address] Performed By: #### 5 7021-8 ####[facility] LABCLIA [id number] [place] [address] [place] Basophils/100 WBC (Bld) 0.9 % Normal [facility] Comment on above: Order Comment: Speci men Type: BLOOD SPECIMENOrdering Facility: [facility] Address: [address] [place] [address] Performed By: #### 5 7021-8 ####[facility] LABCLIA [id number] [place] [address] [place] Differential cell count method Nom (Bld) Auto Normal [facility] Comment on above: Order Comment: Speci men Type: BLOOD SPECIMENOrdering Facility: [facility] Address: [address] [place] [address] Performed By: #### 5 7021-8 ####[facility] LABCLIA [id number] [address], [place] [address] [place] Eosinophils (Bld) [#/Vol] 0.26 10*3/uL Normal <0.46 [facility] Comment on above: Order Comment: Speci men Type: BLOOD SPECIMENOrdering Facility: [facility] Address: [address] [place] [address] Performed By: #### 5 7021-8 ####[facility] LABIA [id number] [address], [place] [address] [place] Eosinophils/100 WBC (Bld) 3.2 % Normal [facility] Comment on above: Order Comment: Speci men Type: BLOOD SPECIMENOrdering Facility: [facility] Address: [address] [place] [address] Performed By: #### 5 7021-8 ####[facility] LABIA [id number] [address] [place] Erythrocyte distribution width (RBC) [Ratio] 11.9 % Normal 11.5-15.0 [facility] Comment on above: Order Comment: Speci men Type: BLOOD SPECIMENOrdering Facility: [facility] Address: [address] [place] [address] Performed By: #### 5 7021-8 ####[facility] LABCLIA [id number] [address] [place] Hematocrit (Bld) [Volume fraction] 50.4 % High 36.0-46.0 [facility] Comment on above: Order Comment: Speci men Type: BLOOD SPECIMENOrdering Facility: [facility] Address: [address] [place] [address] Performed By: #### 5 7021-8 ####[facility] LABCLIA [id number] [address], [place] [address] [place] Hemoglobin (Bld) [Mass/Vol] 17.2 g/dL High 11.5-15.5 [facility] Comment on above: Order Comment: Speci men Type: BLOOD SPECIMENOrdering Facility: [facility] Address: [address] [place] [address] Performed By: #### 5 7021-8 ####[facility] LABCLIA [id number] [address], [facility] [place] Immature granulocytes (Bld) [#/Vol] 10*3/uL Normal <0.10 [facility] Comment on above: Order Comment: Speci men Type: BLOOD SPECIMENOrdering Facility: [facility] Address: [address] [place] [address] Performed By: #### 5 7021-8 ####[facility] LABCLIA [id number] [address], [place] [address] [place] Immature granulocytes/100 WBC (Bld) 0.2 % Normal [facility] Comment on above: Order Comment: Speci men Type: BLOOD SPECIMENOrdering Facility: [facility] Address: [address] [place] [address] Performed By: #### 5 7021-8 ####[facility] LABCLIA [id number] [address], [facility] [place] Lymphocytes (Bld) [#/Vol] 2.20 10*3/uL Normal 1.00-4.00 [facility] Comment on above: Order Comment: Speci men Type: BLOOD SPECIMENOrdering Facility: [facility] Address: [address] [place] [address] Performed By: #### 5 7021-8 ####[facility] LABCLIA [id number] [address] [place] [address] [place] Lymphocytes/100 WBC (Bld) 27.2 % Normal [facility] Comment on above: Order Comment: Speci men Type: BLOOD SPECIMENOrdering Facility: [facility] Address: [address] [place] [address] Performed By: #### 5 7021-8 ####[facility] LABIA [id number] [place] [address] [place] MCH (RBC) [Entitic mass] 32.7 pg Normal 26.0-34.0 [facility] Comment on above: Order Comment: Speci men Type: BLOOD SPECIMENOrdering Facility: [facility] Address: [address] [place] [address] Performed By: #### 5 7021-8 ####[facility] LABIA [id number] [place] [address] [place] MCHC (RBC) [Mass/Vol] 34.1 g/dL Normal 30.5-36.0 [facility] Comment on above: Order Comment: Speci men Type: BLOOD SPECIMENOrdering Facility: [facility] Address: [address] [place] [address] Performed By: #### 5 7021-8 ####[facility] LABIA [id number] [place] [address] [place] MCV (RBC) [Entitic vol] 95.8 fL Normal 80.0-100.0 [facility] Comment on above: Order Comment: Speci men Type: BLOOD SPECIMENOrdering Facility: [facility] Address: [address] [place] [address] Performed By: #### 5 7021-8 ####[facility] LABIA [id number] [place] [address] [place] Monocytes (Bld) [#/Vol] 0.85 10*3/uL Normal <0.87 [facility] Comment on above: Order Comment: Speci men Type: BLOOD SPECIMENOrdering Facility: [facility] Address: [address] [place] [address] Performed By: #### 5 7021-8 ####[facility] LABCLIA [id number] [place] [address] [place] Monocytes/100 WBC (Bld) 10.5 % Normal [facility] Comment on above: Order Comment: Speci men Type: BLOOD SPECIMENOrdering Facility: [facility] Address: [address] [place] [address] Performed By: #### 5 7021-8 ####[facility] LABCLIA [id number] [place] [address] [place] Neutrophils (Bld) [#/Vol] 4.68 10*3/uL Normal 1.45-7.50 [facility] Comment on above: Order Comment: Speci men Type: BLOOD SPECIMENOrdering Facility: [facility] Address: [address] [place] [address] Performed By: #### 5 7021-8 ####[facility] LABIA [id number] [place] [address] [place] Neutrophils/100 WBC (Bld) 58.0 % Normal [facility] Comment on above: Order Comment: Speci men Type: BLOOD SPECIMENOrdering Facility: [facility] Address: [address] [place] [address] Performed By: #### 5 7021-8 ####[facility] LABCLIA [id number] [place] [id number] [place] Nucleated RBC (Bld) [#/Vol] 10*3/uL Normal <0.01 [facility] Comment on above: Order Comment: Speci men Type: BLOOD SPECIMENOrdering Facility: [facility] Address: [address] [place] [address] Performed By: #### 5 7021-8 ####[facility] LABCLIA [id number] [place] [address] [place] Nucleated RBC/100 WBC (Bld) [Ratio] 0.0 /100 WBC Normal [facility] Comment on above: Order Comment: Speci men Type: BLOOD SPECIMENOrdering Facility: [facility] Address: [address] [place] [address] Performed By: #### 5 7021-8 ####[facility] LABCLIA [id number] [place] [address] [place] Platelet mean volume (Bld) [Entitic vol] 10.7 fL Normal 9.0-12.7 [facility] Comment on above: Order Comment: Speci men Type: BLOOD SPECIMENOrdering Facility: [facility] Address: [address] [place] [address] Performed By: #### 5 7021-8 ####[facility] LABCLIA [id number] [place] [address] [place] Platelets (Bld) [#/Vol] 264 10*3/uL Normal 150-400 [facility] Comment on above: Order Comment: Speci men Type: BLOOD SPECIMENOrdering Facility: [facility] Address: [address] [place] [address] Performed By: #### 5 7021-8 ####[facility] LABCLIA [id number] [place] [address] [place] RBC (Bld) [#/Vol] 5.26 10*6/uL High 3.90-5.20 [facility] Comment on above: Order Comment: Speci men Type: BLOOD SPECIMENOrdering Facility: [facility] Address: [address] [place] [address] Performed By: #### 5 7021-8 ####[facility] LABCLIA [id number] [place] [id number] [place] WBC (Bld) [#/Vol] 8.08 10*3/uL Normal 3.70-11.00 [facility] Comment on above: Order Comment: Speci men Type: BLOOD SPECIMENOrdering Facility: [facility] Address: [address] [place] [address] Performed By: #### 5 7021-8 ####[facility] LABCLBRYAN [id number] NASEEM CERVANTES [id number] [place] [address] [place] [facility] CNOVon 11-24-2024 CNOV Office Visit (INTMWS) ANGELINA THEODORE ([id number]) 1960 F Date Time Provider Department 11/24/24 11:20 AM YA SOTO INTMWS During your visit today, we recorded the following information about you: Temperature Pulse Respiration Blood pressure 98 degrees 74/minute 16/minute 125/76 Weight 96.8 kg Ya Soto, JYOTI.FURNACE SETTER 11/24/2024 12:32 PM Signed Subjective Patient ID: [...] in Feruary 2024 ordered by Geovanna Dow APRN.CERTIFIED ADAPTIVE PHYSICAL EDUCATOR. Taking for [address] Vince Gongora [facility]. EtOH: 4 glasses of wine Smoking: current [...] of se (more content not included)... Normal [facility] Comprehensive metabolic 2000 panelon 11-24-2024 Albumin [Mass/Vol] 4.5 g/dL Normal 3.9-4.9 [facility] Comment on above: Order Comment: Speci men Type: BLOOD SPECIMENOrdering Facility: [facility] Address: [address] [place] [address] Performed By: #### 1 798-8, 3040-3, 64914-7 ####[facility] [id number] [place] [id number] [place] ALP [Catalytic activity/Vol] 85 U/L Normal 34-123 [facility] Comment on above: Order Comment: Speci men Type: BLOOD SPECIMENOrdering Facility: [facility] Address: [address] [place] [address] Performed By: #### 1 798-8, 3040-3, 66505-6 ####[facility] LABORATORYCLIA [id number] [place] [id number] [place] ALT [Catalytic activity/Vol] 40 U/L High 7-38 [facility] Comment on above: Order Comment: Speci men Type: BLOOD SPECIMENOrdering Facility: [facility] Address: [address] [place] [address] Performed By: #### 1 798-8, 3040-3, 56385-2 ####[facility] LABORATORYCLIA [id number] [place] [id number] [place] Anion gap [Moles/Vol] 13 mmol/L Normal 8-15 [facility] Comment on above: Order Comment: Speci men Type: BLOOD SPECIMENOrdering Facility: [facility] Address: [address] [place] [address] Performed By: #### 1 798-8, 3039-3, 12911-6 ####[facility] LABORATORYCLIA [id number] [place] [id number] [place] AST [Catalytic activity/Vol] 35 U/L Normal 13-35 [facility] Comment on above: Order Comment: Speci men Type: BLOOD SPECIMENOrdering Facility: [facility] Address: [address] [place] [address] Performed By: #### 1 798-8, 3040-3, 78803-1 ####[facility]ORATORYCLIA [id number] [place] [id number] [place] Bilirubin [Mass/Vol] 0.5 mg/dL Normal 0.2-1.3 [facility] Comment on above: Order Comment: Speci men Type: BLOOD SPECIMENOrdering Facility: [facility] Address: [address] [place] [address] Performed By: #### 1 798-8, 3040-3, 93170-4 ####[facility] LABORATORYCLIA [id number] [place] [address] [place] Calcium [Mass/Vol] 10.0 mg/dL Normal 8.5-10.2 [facility] Comment on above: Order Comment: Speci men Type: BLOOD SPECIMENOrdering Facility: [facility] Address: [address] [place] [address] Performed By: #### 1 798-8, 3039-3, ####[facility] LABORATORYCLIA [id number] [place] [id number] [place] Chloride [Moles/Vol] 102 mmol/L Normal 98-107 [facility] Comment on above: Order Comment: Speci men Type: BLOOD SPECIMENOrdering Facility: [facility] Address: [address] [place] [address] Performed By: #### 1 798-8, 3, ####[facility] LABORATORYCLIA [id number] [place] [id number] [place] CO2 [Moles/Vol] 24 mmol/L Normal 22-30 [facility] Comment on above: Order Comment: Speci men Type: BLOOD SPECIMENOrdering Facility: [facility] Address: [address] [place] [address] Performed By: #### 1 798-8, 3, 62901-3 ####[facility] LABORATORYCLIA [id number] [place] [address] [place] Creatinine [Mass/Vol] 0.62 mg/dL Normal 0.58-0.96 [facility] Comment on above: Order Comment: Speci men Type: BLOOD SPECIMENOrdering Facility: [facility] Address: [address] [place] [address] Performed By: #### 1 798-8, 0-3, 35951-3 ####[facility] LABORATORYCLIA [id number] [place] [id number] [place] Creatinine and Glomerular filtration rate.predicted panel (S/P/Bld) 100 mL/min/1.73m??? Normal >=60 [facility] Comment on above: Order Comment: Pb newberry Type: BLOOD SPECIMENOrdering Facility: [facility] Address: [address] [place] [address] Result Comment: Mercedes mated Glomerular Filtration Rate [...] GFR. Performed By: #### 1 798-8, 3040-3, 72131-1 ####[facility] LABORATORYCLIA [id number] [place] [id number] [place] Glucose [Mass/Vol] 115 mg/dL High 74-99 [facility] Comment on above: Order Comment: Pb newberry Type: BLOOD SPECIMENOrdering Facility: [facility] Address: [address] [place] [address] Result Comment: The [place] [employer] (ADA) provides guidance for cutoff [...] Standards of Medical Care in Diabetes 2016, [place] [employer]. Diabetes Care. 2016.39(Suppl 1). Performed By: #### 1 798-8, 3040-3, 39554-7 ####[facility] LABORATORYCLIA [id number] [place] [id number] [place] Potassium [Moles/Vol] 4.4 mmol/L Normal 3.7-5.1 [facility] Comment on above: Order Comment: Speci men Type: BLOOD SPECIMENOrdering Facility: [facility] Address: [address] [place] [address] Performed By: #### 1 798-8, 3040-3, 80998-5 ####[facility]ORATORYCLIA [id number] [place] [id number] [place] Protein [Mass/Vol] 7.2 g/dL Normal 6.3-8.0 [facility] Comment on above: Order Comment: Speci men Type: BLOOD SPECIMENOrdering Facility: [facility] Address: [address] [place] [address] Performed By: #### 1 798-8, 0-3, 40232-7 ####[facility] LABORATORYCLIA [id number] [place] [id number] [place] Sodium [Moles/Vol] 139 mmol/L Normal 136-144 [facility] Comment on above: Order Comment: Speci men Type: BLOOD SPECIMENOrdering Facility: [facility] Address: [address] [place] [address] Performed By: #### 1 798-8, 0-3, 77289-7 ####[facility] LABORATORYCLIA [id number] [place] [id number] [place] Urea nitrogen [Mass/Vol] 14 mg/dL Normal 7-21 [facility] Comment on above: Order Comment: Speci men Type: BLOOD SPECIMENOrdering Facility: [facility] Address: [address] [place], [place] [address] Performed By: #### 1 798-8, 3040-3, 96727-3 ####[facility] LABORATORYCLIA [id number] [place] [address] [place] Lipase SerPl-cCncon 11-24-20 25 Lipase [Catalytic activity/Vol] 35 U/L Normal 16-61 [facility] Comment on above: Order Comment: Speci men Type: BLOOD SPECIMENOrdering Facility: [facility] Address: [address] [place] [address] Performed By: #### 1 798-8, 3040-3, 63539-1 ####[facility] LABORATORYIA [id number] [place] [address] [place] UA DIP, URINE (POC)on 2024 BILIRUBIN UA (POCT) Small Abnormal Negative [facility] CLARITY UA (POCT) Clear [facility] COLOR UA (POCT) Yellow [facility] GLUCOSE UA (POCT) Negative Negative mg/dL [facility] Hemoglobin Ql (U) Negative Negative [facility] Interpretation and review of laboratory results Abnormal [facility] KETONE UA (POCT) Trace Negative mg/dL [facility] LEUKOCYTES UA (POCT) Trace Abnormal Negative [facility] NITRITE UA (POCT) Negative Negative [facility] PH UA (POCT) 6 4.5 - 8.0 [facility] Protein Ql (U) 30 mg/dL Abnormal Negative [facility] SPECIFIC GRAVITY UA (POCT) 1.02 1.005 - 1.030 [facility] UROBILINOGEN UA (POCT) 0.2 Natasha l E.U./dL [facility] Location:[address], [id number] [place] [address] POINT OF CARE [facility] CNOVon 11-10-2024 CNOV Office Visit (INTMWS) ANGELINA THEODORE ([id number]) 1960 F Date Time Provider Department 11/10/24 1:20 PM YA SOTO INTJayWS During your visit today, we recorded the following information about you: Pulse Respiration Blood pressure Weight 77/minute 16/minute 102/62 98 kg Ya Soto APRN.FURNACE SETTER 11/10/2024 3:59 PM Addendum Angelina Theodore is [...] November 2024, plans to get labs at [facility] for endocrinology and cardiology. Medical Decision Making: Problems: Low: Acute, uncomplicated illness or injury Risk: Moderate: Drug management Medical Decision Making Level: 3 - Low The patient consented to the use of [employer] software for draft documentation of the visit consistent with [facility]?s Notice of Privacy Practices. Ya Soto, JYOTI.FURNACE SETTER 11/10/2024 1:46 PM Signed - Wash the [...] cream has been sent to your pharmacy ([facility]) for use as needed for heat or sun rashes. - Schedule a physical exam in November; call the clinic to book a 40-minute appointment. - Complete any lab work ordered by your council member and residential energy auditor during your upcoming appointments. Referring Provider: SELF [200] Allergies As of Date: 11/10/2024 Noted Allergy Reaction CYCLOBENZAPRINE 01/02/2005 7 (more content not included)... Normal [facility] Endocrinology Visit Reporton 11-07-2024 Endocrinology Visit Report [facility] [address] [place], [place] [address] OFFICE VISIT Date of Service: 11/07/24 MR#: [id number] Acct: [id number] Name: ANGELINA THEODORE Rep #: [id number] : 1960 Provider: Jay Harper Age/Sex: 64/F Location: [facility] Status: Signed Intake Vital Signs 04/12/24 13:00 [...] Psych Appearan (more content not included)... Normal [facility] Free T3on 08-12-2024 Free T3 [Mass/Vol] 3.2 pg/mL Normal 2.18-3.98 [facility] Comment on above: Performed By: #### L 501.91399 #### [facility] [address] [place], [address] T4 Free Directon 08-12-2024 T4 FREE DIRECT 1.01 ng/dL Normal 0.76-1.46 [facility] Comment on above: Performed By: #### L 501.9520, L506.0400 ####[facility] [address] [place], [address] Thyroid Stim Hormone (TSH)on 08-12-2024 TSH 1.890 uIU/mL Normal 0.358-3.740 [facility] Comment on above: Performed By: #### L 501.9520, L506.0400 ####[facility] [address] [place], [address] Free T3on 07-19-2024 Free T3 [Mass/Vol] 2.9 pg/mL Normal 2.18-3.98 [facility] Comment on above: Performed By: #### L 506.0400, L501.9520, L501.90098 #### [facility] [address] [place], [address] T4 Free Directon 07-19-2024 T4 FREE DIRECT 0.78 ng/dL Normal 0.76-1.46 [facility] Comment on above: Performed By: #### L 506.0400, L501.9520, L501.20885 #### [facility] [address] [place], [place], [address] Thyroid Stim Hormone (TSH)on 07-19-2024 TSH 8.970 uIU/mL High 0.358-3.740 [facility] Comment on above: Performed By: #### L 506.0400, L501.9520, L501.98135 #### [facility] [address] [place], [address] Basophil percentageOrdered B y: Ryan Sanchez on 09-21-2023 Chloride [Moles/Vol] 105 mmol/L 98-107 [facility] Glucose [Mass/Vol] 143 mg/dL 74-106 [facility] Comment on above: Fasting Glucose resu lt greater than or equal to 126 mg/dL suggests DIABETES MELLITUS per A.D.A. criteria. Potassium [Moles/Vol] 4.3 mmol/L 3.5-5.1 [facility] Sodium [Moles/Vol] 138 mmol/L 136-145 [facility] - Chemistry and C hemistry - challengeOrdered By: Ryan Sanchez on 09-21-2023 CO2 [Moles/Vol] 28.0 mmol/L 21.0-32.0 [facility] Urea nitrogen/Creatinine [Mass ratio] 26.3 mg/mg 10-20 [facility] No Panel InformationOrdered By: Ryan Sanchez on 09-21-2023 Estimated GFR (MDRD) Amer 89 mL/min >60 [facility] Comment on above: GFR Calc Estimated GFR (MDRD) Non-Af Amer 73 mL/min >60 [facility] Comment on above: Non- GFR Calc No Panel InformationOrdered By: Vince Gongora on 09-21-2023 Free Triiodothyronine (T3) pg/dL 2.2 pg/mL 2.18-3.98 [facility] Serum or plasma calcium adry urement (mass/volume)Ordered By: Ryan Sanchez on 09-21-2023 Calcium [Mass/Vol] 9.8 mg/dL 8.5-10.1 [facility] Serum or plasma creatinine m easurement (mass/volume)Ordered By: Ryan Sanchez on 09-21-2023 Creatinine [Mass/Vol] 0.84 mg/dL 0.55-1.02 [facility] Comment on above: The validity of the calculated GFR & GFRAA in patients over 70 years has not been determined. Clinical correlation is essential. Serum or plasma thyroid stim ulating hormone (TSH) measurement (units/volume)Ordered By: Vince Gongora on 09-21-2023 TSH Qn 2.96 uIU/mL 0.358-3.74 [facility] Serum or plasma urea nitroge n measurement (mass/volume)Ordered By: Ryan Sanchez on 09-21-2023 Urea nitrogen [Mass/Vol] 22 mg/dL 7-18 [facility] Thin prep Papanicolaou smear with manual screeningOrdered By: Ryan Sanchez on 09-21-2023 Thin prep Papanicolaou smear with manual screening 5 5-15 [facility] Thin prep Papanicolaou smear with manual screeningOrdered By: Vince Gongora on 09-21-2023 Thin prep Papanicolaou smear with manual screening 0.77 ng/dL 0.76-1.46 [facility] XR Cervical spine AP and Lat eral and obliqueon 08-13-2022 IMPRESSION: Mild degenerative changes with neural foraminal narrowing, greater on the left. Group Fitness Instructor: ROMY Transcribe Date/Time: Aug 13 2022 2:22P Dictated by : MARIA FERNANDA ALANIZ MD This examination was interpreted and the report reviewed and electronically signed by: MARIA FERNANDA ALANIZ MD on Aug 13 2022 3:03PM [facility] DIVISION OF RADIOLOGY * * *Final Report* [...] meals C4/5 level. DIVISION OF RADIOLOGY Provider, [facility] [place] - 08/13/2022 * * *Final Report* * [...] neural foraminal narrowing, greater on the left. Group Fitness Instructor: PSCB Transcribe Date/Time: Aug 13 2022 2:22P Dictated by : MARIA FERNANDA ALANIZ MD This examination was interpreted and the report reviewed and electronically signed by: MARIA FERNANDA ALANIZ MD on Aug 13 2022 3:03PM [facility] XR Cervical spine AP and Lat eral and obliqueOrdered By: [facility] Provider on 08-13-2022 [facility] XR Cervical spine AP and Lat eral and obliqueon 08-12-2022 Radiology Study observation (narrative) [facility] CNNURSEon 12-26-2020 CNNURSE Nurse Visit (COVABA) ANGELINA THEODORE ([id number]) 1960 F Date Time Provider Department 12/26/20 12:10 PM COVID VACCINE [facility] COVABA During your visit today, we recorded the following information about you: Referring Provider: JADA LING JR [[id number]] Allergies As of Date: 12/26/2020 Noted Allergy [...] Reviewed by: Jayden Bassett - Fully Assessed Order(s):[facility] [place] SARS-COV-2 VACCINE 2D DOSE APPT [[id number]] Order #: [id number] [place] COVID-19 VACCINE [[id number]] Order #: [id number] Prescriptions as of 12/26/2020 Sig: CARVEDILOL ORAL [...] Status:Closed by CLOSURE EPIC, ADMINISTRATIVE on 12/27/20 [facility] XR Pelvis and Hip - left AP and Lateral frogon 11-13-2020 IMPRESSION: Postsurgical changes of the left hip without evidence of complication. IMPRESSION: Degenerative changes of the included lower lumbar spine. Group Fitness Instructor: ROMY Transcribe Date/Time: Nov 13 2020 4:16P Dictated by : MARIA FERNANDA ALANIZ MD This examination was interpreted and the report reviewed and electronically signed by: MARIA FERNANDA ALANIZ MD on Nov 13 2020 4:17PM [facility] DIVISION OF RADIOLOGY * * *Final Report* [...] lumbar spine noted. DIVISION OF RADIOLOGY Provider, [facility] [place] - 11/13/2020 * * *Final Report* * [...] changes of the included lower lumbar spine. Group Fitness Instructor: ROMY Transcribe Date/Time: Nov 13 2020 4:16P Dictated by : MARIA FERNANDA ALANIZ MD This examination was interpreted and the report reviewed and electronically signed by: MARIA FERNANDA ALANIZ MD on Nov 13 2020 4:17PM [facility] Radiology Study observation (narrative) [facility] XR Pelvis and Hip - left AP and Lateral frogOrdered By: [facility] Provider on 11-13-2020 [facility] XR Chest PA and Lateralon IMPRESSION: No acute cardiopulmonary process. Group Fitness Instructor: ROMY Transcribe Date/Time: Aug 06 2020 12:26P Dictated by : ANNITA URBAN MD This examination was interpreted and the report reviewed and electronically signed by: ANNITA URBAN MD on Aug 06 2020 12:27PM [facility] DIVISION OF RADIOLOGY * * *Final Report* [...] structures are intact DIVISION OF RADIOLOGY Provider, [facility] [place] - 08/06/2020 * * *Final Report* * [...] intact IMPRESSION IMPRESSION: No acute cardiopulmonary process. Group Fitness Instructor: ROMY Transcribe Date/Time: Aug 06 2020 12:26P Dictated by : ANNITA URBAN MD This examination was interpreted and the report reviewed and electronically signed by: ANNITA URBAN MD on Aug 06 2020 12:27PM EST [facility] Radiology Study observation (narrative) [facility] XR Chest PA and LateralOrder ed By: [facility] Provider on 08-06-2020 [facility] Vital Signs Date Time Vital Sign Value Performing Clinician Facility 05-04-2025 13:01-0400 Body height 165.[address] Debbie Flores MD Work Phone: [facility] 05-04-2025 13:01-0400 Body mass index (BMI) [Ratio] 35.7 kg/m2 Dr. Debbie Flores MD Work Phone: [facility] 05-04-2025 13:01-0400 Body weight 97.[address] Debbie Flores MD Work Phone: [facility] 05-04-2025 13:01-0400 Diastolic blood pressure 71 mm[Hg] Dr. Debbie Flores MD Work Phone: [facility] 05-04-2025 13:01-0400 Heart rate 65 /min Dr. Debbie Flores MD Work Phone: [facility] 05-04-2025 13:01-0400 SaO2% (BldA) [Mass fraction] 92 % Dr. Debbie Flores MD Work Phone: [facility] 05-04-2025 13:01-0400 Systolic blood pressure 117 mm[Hg] Dr. Debbie Flores MD Work Phone: [facility] 11-24-2024 11:15-0400 Body mass index (BMI) [Ratio] 36.07 kg/m2 Ya Soto APRN.CNS Work Phone: [facility] 11-24-2024 11:15-0400 Body temperature 98.01 [degF] Ya Soto CREATIVE INTERN.FURNACE SETTER Work Phone: [facility] 11-24-2024 11:15-0400 Body weight 96.8 kg Ya Soto CREATIVE INTERN.FURNACE SETTER Work Phone: [facility] 11-24-2024 11:15-0400 Diastolic blood pressure 76 mm[Hg] Ya Soto CREATIVE INTERN.FURNACE SETTER Work Phone: [facility] 11-24-2024 11:15-0400 Heart rate 74 /min Ya Soto CREATIVE INTERN.FURNACE SETTER Work Phone: [facility] 11-24-2024 11:15-0400 Respiratory rate 16 /min Ya Soto CREATIVE INTERN.FURNACE SETTER Work Phone: [facility] 11-24-2024 11:15-0400 Systolic blood pressure 125 mm[Hg] Ya Soto CREATIVE INTERN.FURNACE SETTER Work Phone: [facility] 11-10-2024 13:20-0400 Body mass index (BMI) [Ratio] 36.51 kg/m2 Ya Soto CREATIVE INTERN.FURNACE SETTER Work Phone: [facility] 11-10-2024 13:20-0400 Body weight 98 kg Ya Soto CREATIVE INTERN.FURNACE SETTER Work Phone: [facility] 11-10-2024 13:20-0400 Diastolic blood pressure 62 mm[Hg] Ya Soto CREATIVE INTERN.FURNACE SETTER Work Phone: [facility] 11-10-2024 13:20-0400 Heart rate 77 /min Ya Soto CREATIVE INTERN.FURNACE SETTER Work Phone: [facility] 11-10-2024 13:20-0400 Respiratory rate 16 /min Ya Soto CREATIVE INTERN.FURNACE SETTER Work Phone: [facility] 11-10-2024 13:20-0400 Systolic blood pressure 102 mm[Hg] Ya Soto CREATIVE INTERN.FURNACE SETTER Work Phone: [facility] 12-15-2023 16:58-0400 Body mass index (BMI) [Ratio] 37.35 kg/m2 Debbie Flores MD Work Phone: [facility] 12-15-2023 16:58-0400 Body temperature 97.7 [degF] Debbie Flores MD Work Phone: [facility] 12-15-2023 16:58-0400 Body weight 100.25 kg Debbie Flores MD Work Phone: [facility] 12-15-2023 16:58-0400 Diastolic blood pressure 78 mm[Hg] Debbie Flores MD Work Phone: [facility] 12-15-2023 16:58-0400 Heart rate 69 /min Debbie Flores MD Work Phone: [facility] 12-15-2023 16:58-0400 Respiratory rate 18 /min Debbie Flores MD Work Phone: [facility] 12-15-2023 16:58-0400 SaO2% (BldA) [Mass fraction] 92 % Debbie Flores MD Work Phone: [facility] 12-15-2023 16:58-0400 Systolic blood pressure 126 mm[Hg] Debbie Flores MD Work Phone: [facility] 08-14-2023 11:03-0500 Body height 165.[address] Debbie Flores Work Phone: [facility] 08-14-2023 11:03-0500 Body mass index (BMI) [Ratio] 36.4 kg/m2 Dr. Debbie Flores Work Phone: [facility] 08-14-2023 11:03-0500 Body weight 99.[address] Debbie Flores Work Phone: [facility] 08-14-2023 11:03-0500 Diastolic blood pressure 58 mm[Hg] Dr. Debbie Flores Work Phone: [facility] 08-14-2023 11:03-0500 Heart rate 69 /min Dr. Debbie Flores Work Phone: 6(367)106-133998 [place] [address] 08-14-2023 11:03-0500 Respiratory rate 18 /min Dr. Debbie Flores Work Phone: 1(479)334-688498 [place] [address] 08-14-2023 11:03-0500 SaO2% (BldA) [Mass fraction] 95 % Dr. Debbie Flores Work Phone: 3(589)930-955098 [place] [address] 08-14-2023 11:03-0500 Systolic blood pressure 118 mm[Hg] Dr. Debbie Flores Work Phone: 9(021)242-627898 [place] [address] 04-08-2023 11:29-0400 Body height 165.[address] Debbie Flores Work Phone: 5(598)092-537498 [place] [address] 04-08-2023 11:29-0400 Body mass index (BMI) [Ratio] 34.7 kg/m2 Dr. Debbie Flores Work Phone: 6(280)815-666998 [place] [address] 04-08-2023 11:29-0400 Body weight 94.[address] Debbie Flores Work Phone: 3(507)729-718898 [place] [address] 04-08-2023 11:29-0400 Diastolic blood pressure 77 mm[Hg] Dr. Debbie Flores Work Phone: 9(298)853-997398 [place] [address] 04-08-2023 11:29-0400 Heart rate 66 /min Dr. Debbie Flores Work Phone: 6(727)884-360098 [place] [address] 04-08-2023 11:29-0400 Respiratory rate 16 /min Dr. Debbie Flores Work Phone: 5(394)803-107198 [place] [address] 04-08-2023 11:29-0400 Systolic blood pressure 122 mm[Hg] Dr. Debbie Flores Work Phone: 0(199)879-404298 [place] [address] 02-03-2023 13:03-0400 Body mass index (BMI) [Ratio] 34.8 kg/m2 Dr. Debbie Flores Work Phone: 9(801)693-817598 [place] [address] 02-03-2023 13:03-0400 Body temperature 98.2 [degF] Dr. Debbie Flores Work Phone: [facility] 02-03-2023 13:03-0400 Body weight 94.[address] Debbie Flores Work Phone: [facility] 02-03-2023 13:03-0400 Diastolic blood pressure 84 mm[Hg] Dr. Debbie Flores Work Phone: [facility] 02-03-2023 13:03-0400 Heart rate 64 /min Dr. Debbie Flores Work Phone: [facility] 02-03-2023 13:03-0400 Respiratory rate 16 /min Dr. Debbie Flores Work Phone: 1(399)867-421319 [place] [address] 02-03-2023 13:03-0400 SaO2% (BldA) [Mass fraction] 96 % Dr. Debbie Flores Work Phone: [facility] 02-03-2023 13:03-0400 Systolic blood pressure 124 mm[Hg] Dr. Debbie Flores Work Phone: [facility] 08-12-2022 13:39-0500 Body height 163.8 cm Mag Elissa CREATIVE INTERN.CERTIFIED ADAPTIVE PHYSICAL EDUCATOR Work Phone: [facility] 08-12-2022 13:39-0500 Body weight 92.08 kg Mag Elissa CREATIVE INTERN.CERTIFIED ADAPTIVE PHYSICAL EDUCATOR Work Phone: [facility] 08-12-2022 13:39-0500 Diastolic blood pressure 62 mm[Hg] Mag Elissa CREATIVE INTERN.CERTIFIED ADAPTIVE PHYSICAL EDUCATOR Work Phone: [facility] 08-12-2022 13:39-0500 Heart rate 77 /min Mag Elissa CREATIVE INTERN.CERTIFIED ADAPTIVE PHYSICAL EDUCATOR Work Phone: [facility] 08-12-2022 13:39-0500 Respiratory rate 12 /min Mag Elissa CREATIVE INTERN.CERTIFIED ADAPTIVE PHYSICAL EDUCATOR Work Phone: [facility] 08-12-2022 13:39-0500 SaO2% (BldA) [Mass fraction] 98 % Mag Bowers APRN.CERTIFIED ADAPTIVE PHYSICAL EDUCATOR Work Phone: [facility] 08-12-2022 13:39-0500 Systolic blood pressure 118 mm[Hg] Mag Bowers APRN.CERTIFIED ADAPTIVE PHYSICAL EDUCATOR Work Phone: [facility] Encounters Encounter Date Encounter Type Care Provider Facility Start: 07-03-2025 ambulatory Vince Gongora Facility:[facility] Start: 05-04-2025 End: 05-04-[address] Vince Gongora MD -[facility] Work Phone: Start: 05-04-2025 End: 05-04-[address] Debbie Flores MD Work Phone: -[facility] Start: 04-20-2025 End: 05-15-2025 Admission to [...] Debbie Flores MD Work Phone: [facility] [place] Comment on above: More Testing Start: 12-08-2024 End: 12-08-2024 Follow-up encounter Ya Soto APRN.FURNACE SETTER Work Phone: [facility] [place] Start: 12-08-2024 End: 12-09-2024 Telephone encounter Debbie Flores MD Work Phone: [facility] [place] Comment on above: MRI abd W & WO const rast approved Start: 12-07-2024 End: 12-07-2024 ambulatory Ryan Sanchez [place] Start: 12-07-2024 End: 12-07-2024 ambulatory YA SOTO Facility:[facility] Start: 11-29-2024 End: 12-09-2024 Follow-up encounter Ya Soto APRN.FURNACE SETTER Work Phone: [facility] [place] Comment on above: Results - Mri Start: 11-28-2024 End: 11-28-2024 ambulatory [facility] Facility:[facility] Start: 11-28-2024 End: 11-28-2024 Subsequent hospital visit by physician [facility] Work Phone: Radiology Comment on above: Lower abdominal pain [R10.30] Start: 11-26-2024 End: 11-28-2024 ambulatory Ya Soto CREATIVE INTERN.FURNACE SETTER Work Phone: [facility] [place] Comment on above: Update and question Start: 11-25-2024 End: 12-01-2024 Follow-up encounter Ya Soto APRN.FURNACE SETTER Work Phone: [facility] [place] Start: 11-24-2024 End: 11-24-2024 ambulatory [facility] Facility:[facility] Start: 11-24-2024 End: 11-24-2024 ambulatory [facility] Facility:[facility] Start: 11-24-2024 End: 11-24-2024 Office outpatient visit 25 minutes Ya Soto CREATIVE INTERN.FURNACE SETTER Work Phone: [facility] [place] Comment on above: RUQ pain (Primary Dx ); Lower abdominal pain; UTI symptoms; Hyperthyroidism; Status post bilateral hip replacements; Mixed incontinence; Abdominal pain, right lower quadrant; Gastroesophageal reflux disease without esophagitis; Colitis; Presence of both artificial hip joints Start: 11-10-2024 End: 11-10-2024 ambulatory [facility] Facility:[facility] Start: 11-10-2024 End: 11-10-2024 Office outpatient visit 15 minutes Ya Soto CREATIVE INTERN.FURNACE SETTER Work Phone: [facility] [place] Comment on above: Skin lesion (Primary Dx); Rash and nonspecific skin eruption Start: 11-07-2024 End: 11-07-2024 ambulatory Vince Rolan [place] Start: 08-12-2024 End: 08-12-2024 ambulatory Geovanna Dow Facility:[facility] Start: 07-19-2024 End: 07-19-2024 ambulatory [facility] Facility:[facility] Start: 05-09-2024 End: 05-12-2024 Telephone encounter Debbie Flores MD Work Phone: [facility] [place] Comment on above: Patient Question Start: 03-18-2024 Telephone encounter Debbie garcia MD Work Phone: [facility] [place] Comment on above: Patient Update Start: 12-15-2023 End: 12-15-2023 Patient encounter status Debbie Flores MD Work Phone: [facility] Work Phone: Start: 12-15-2023 End: 12-15-2023 Periodic preventive med est patient 40-64yrs Debbie Flores MD Work Phone: [facility] [place] Comment on above: Routine medical exam (Primary Dx); Asymptomatic postmenopausal status; Class 2 obesity due to excess calories with body mass index (BMI) of 37.0 to 37.9 in adult, unspecified whether serious comorbidity present; Current moderate episode of major depressive disorder, unspecified whether recurrent (HCC) Start: 12-07-2023 Admission to [facility] Debbie Flores MD Work Phone: Ambulatory Surgery Comment on above: colorectal cancer sc reening Start: 12-07-2023 ambulatory Debbie cole MD Work Phone: Ambulatory Surgery Start: 09-21-2023 End: 09-21-[address] Debbie Flores Work Phone: [facility] Work Phone: Start: 09-21-2023 End: 09-21-[address] Debbie Flores Work Phone: [facility] Work Phone: Start: 08-14-2023 End: 08-14-[address] Debbie Flores Work Phone: [facility] Work Phone: Start: 05-07-2023 Non-patient / Non-visit Dr. Nori Flores Work Phone: [facility] Start: 05-07-2023 End: 05-07-[address] Debbie Flores Work Phone: [facility] Work Phone: Start: 05-07-2023 End: 05-07-[address] [facility] Work [facility]: Start: 04-08-2023 End: 04-08-[address] Debbie Flores Work Phone: [facility] Work Phone: Start: 02-28-2023 Get Medical Advice Debbie garzon MD Work Phone: [facility] [place] Comment on above: Unexpected travel re fill Refill Request Start: 02-03-2023 End: 02-03-[address] Debbie Flores Work Phone: [facility] Work Phone: Start: 10-08-2022 End: 10-08-2022 ambulatory Avani Goff PT [facility] Comment on above: Neck pain (Primary D x); Chronic left shoulder pain; Low back pain at multiple sites Start: 09-26-2022 Telephone encounter Donya Villa [facility] Comment on above: Endocrinology Consul t appt Start: 08-19-2022 Refill Mag Bowers APRN.CERTIFIED ADAPTIVE PHYSICAL EDUCATOR Work Phone: [facility] [place] Comment on above: Med Change Request Start: 08-15-2022 ambulatory Mag Bowers CREATIVE INTERN.CERTIFIED ADAPTIVE PHYSICAL EDUCATOR Work Phone: [facility] [place] Comment on above: Results Start: 08-15-2022 E-mail encounter rosaura mueller caregiver Mag Bowers APRN.CERTIFIED ADAPTIVE PHYSICAL EDUCATOR Work Phone: [facility] [place] Start: 08-12-2022 End: 08-12-2022 Subsequent hospital visit by physician Noah [facility] [place] Work Phone: Radiology Comment on above: Cervical disc diseas e [M50.90] Start: 08-12-2022 End: 08-12-2022 Patient encounter procedure Mag Bowers JYOTI.CERTIFIED ADAPTIVE PHYSICAL EDUCATOR Work Phone: [facility] [place] Comment on above: Wellness examination (Primary Dx); Hyperthyroidism; Chronic systolic heart failure (HCC); Chronic left shoulder pain; Tendinitis of left infraspinatus tendon; Cervical disc disease; Tobacco use disorder; Screening for colon cancer; Obesity, Class I, BMI 30-34.9 Start: 08-12-2022 End: 08-12-2022 Patient encounter status Mag [place] MONTES.CERTIFIED ADAPTIVE PHYSICAL EDUCATOR Work Phone: [facility] [place] Start: 07-31-2022 Refill Ya Soto APRN.FURNACE SETTER Work Phone: [facility] [place] Comment on above: Refill Request Start: 07-29-2022 Telephone encounter Debbie garcia MD Work Phone: [facility] [place] Comment on above: Orders Start: 07-22-2022 ambulatory Ya Soto CREATIVE INTERN.FURNACE SETTER Work Phone: [facility] [place] Start: 07-22-2022 Patient encounter procedure Ya Soto CREATIVE INTERN.FURNACE SETTER Work Phone: [facility] [place] Comment on above: Referral Start: 07-10-2022 ambulatory Ya Soto CREATIVE INTERN.FURNACE SETTER Work Phone: [facility] [place] Comment on above: Recommendation Start: 11-13-2020 End: 11-13-2020 Subsequent hospital visit by physician Noah [facility] [place] Work Phone: Radiology Comment on above: Left hip pain [M25.5 52] Start: 08-06-2020 End: 08-06-2020 Subsequent hospital visit by physician Noah [facility] [place] Work Phone: Radiology Comment on above: Closed fracture of m ultiple ribs of left side with routine healing, subsequent encounter [S22.42XD] Start: 07-26-2020 End: 07-26-2020 Patient encounter procedure Yari Patrick (Rn) [place] NURSE SENIOR MEDICAL TRANSCRIPTIONIST Comment on above: Chest Pain (recent f all and injury to left side of chest) Procedures Date Procedure Procedure Detail Performing Clinician Start: 11-24-2024 Urnls dip stick/tabl et rgnt auto w/o microscopy Ya Soto CREATIVE INTERN.FURNACE SETTER Work Phone: Start: 12-15-2023 Adult depression scr eening assessment Ya Soto CREATIVE INTERN.FURNACE SETTER Work Phone: Start: 08-12-2022 Radex spine cervical 4 or 5 views Mag Bowers CREATIVE INTERN.CERTIFIED ADAPTIVE PHYSICAL EDUCATOR Work Phone: Start: 07-28-2022 Lipid 1996 panel - S rosendo or Plasma Debbie Flores MD Work Phone: Start: 11-13-2020 Radex hip unilateral with pelvis 2-3 views Ya Soto CREATIVE INTERN.FURNACE SETTER Work Phone: Start: 08-06-2020 Radiologic exam ches t 2 views Ya Soto CREATIVE INTERN.FURNACE SETTER Work Phone: Start: 11-21-2002 Mammography Yari sequeira Plan of Treatment Date Care Activity Detail Author Start: 11-25-2027 Diabetes Screening Diabetes Screenin g [facility] Start: 07-28-2027 Lipid panel Lipid Screening [facility] Start: 07-28-2027 LIPID SCREEN LIPID SCREEN [facility] Start: 05-27-2026 LIPID SCREEN LIPID SCREEN [facility] Start: 11-24-2025 Annual PCP Team Range Ecologist xiomara Disease Visit Annual PCP Team Chronic Disease Visit [facility] Start: 11-24-2025 BP Controlled (<130/80) BP Controlle d (<130/80) [facility] Start: 11-10-2025 BP Controlled (<130/80) BP Controlle d (<130/80) [facility] Start: 07-28-2025 DIABETES SCREEN DIABETES SCREEN Clev [facility] Start: 07-28-2025 Diabetes Screening Diabetes Screenin g [facility] Start: 05-01-2025 Influenza vaccination C [facility] Start: 03-09-2025 End: 06-08-2025 CBC W Auto Differential panel - Blood COMPLETE BLOOD COUNT AND DIFFERENTIAL Lab Routine Elevated hemoglobin Expected: 03/09/2025 (Approximate), Expires: 06/08/2025 [facility] Work Phone: Comment on above: Expected: 03/09/2025 (Approximate), Expires: 06/08/2025 Start: 12-26-2024 End: 03-27-2025 CBC W Auto Differential panel - Blood COMPLETE BLOOD COUNT AND DIFFERENTIAL Lab Routine Elevated hemoglobin Expected: 12/26/2024 (Approximate), Expires: 03/27/2025 [facility] Work Phone: Comment on above: Expected: 12/26/2024 (Approximate), Expires: 03/27/2025 Start: 12-14-2024 Annual PCP Team Range Ecologist xiomara Disease Visit Annual PCP Team Chronic Disease Visit [facility] Start: 12-14-2024 Anxiety Screening Anxiety Screening [facility] Start: 12-14-2024 BP Controlled (<130/80) BP Controlle d (<130/80) [facility] Start: 12-14-2024 Depression Screening Depression Scre ening [facility] Start: 12-07-2024 End: 12-07-2024 ambulatory 12/07/2024 10:30 AM EDT Results Only [facility] [address] [facility] [place] [address] [place] [facility] Start: 11-25-2024 End: 11-25-2024 Patient encounter procedure 11/25/2024 11:30 AM EDT Appointment Radiology [address] [place] [address] Lower abdominal pain [R10.30] Radiology Comment on above: Lower abdominal pain [R10.30] Start: 11-24-2024 End: 02-23-2025 Amylase [Enzymatic activity/volume] in Serum or Plasma [facility] Comment on above: Expected: 11/24/2024 , Expires: 02/23/2025 Start: 11-24-2024 End: 02-23-2025 CBC W Auto Differential panel - Blood [facility] Comment on above: Expected: 11/24/2024 , Expires: 02/23/2025 Start: 11-24-2024 End: 02-23-2025 Comprehensive metabolic 2000 panel - Serum or Plasma [facility] Comment on above: Expected: 11/24/2024 , Expires: 02/23/2025 Start: 11-24-2024 End: 02-23-2025 Lipase [Enzymatic activity/volume] in Serum or Plasma [facility] Comment on above: Expected: 11/24/2024 , Expires: 02/23/2025 Start: 05-27-2024 DIABETES SCREEN DIABETES SCREEN [facility] Start: 05-01-2024 Covid-19 Vaccine () Covid-19 Vaccine () [facility] Start: 05-01-2024 Covid-19 Vaccine () Covid-19 Vaccine () [facility] Start: 05-01-2024 Influenza vaccination C [facility] Start: 08-31-2023 Behavioral Health Screening Behavioral Health Screening [facility] Start: 08-12-2023 ANNUAL PCP TEAM NEWBORN PHOTOGRAPHER XIOMARA DISEASE VISIT ANNUAL PCP TEAM CHRONIC DISEASE VISIT [facility] Start: 08-12-2023 BP CONTROLLED (<130/80) BP CONTROLLE D (<130/80) [facility] Start: 05-01-2023 Covid-19 Vaccine () Covid-19 Vaccine () [facility] Start: 05-01-2023 Influenza vaccination INFLUENZA (#1) [facility] Start: 08-31-2022 DEPRESSION ASSESSMENT DEPRESSION ASS ESSMENT [facility] Start: 07-14-2022 End: 09-13-2022 CBC W Auto Differential panel - Blood CBC + DIFF Lab Routine Essential hypertension Expected: 07/14/2022, Expires: 09/13/2022 [facility] Work Phone: Comment on above: Expected: 07/14/2022 , Expires: 09/13/2022 Start: 07-14-2022 End: 09-13-2022 Comprehensive metabolic 2000 panel - Serum or Plasma COMP METABOLIC PANEL Lab Routine Essential hypertension Expected: 07/14/2022, Expires: 09/13/2022 [facility] Work Phone: Comment on above: Expected: 07/14/2022 , Expires: 09/13/2022 Start: 07-14-2022 End: 09-13-2022 Lipid 1996 panel - Serum or Plasma LIPID PANEL BASIC Lab Routine Hyperlipidemia, unspecified hyperlipidemia type Expected: 07/14/2022, Expires: 09/13/2022 [facility] Work Phone: Comment on above: Expected: 07/14/2022 , Expires: 09/13/2022 Start: 07-14-2022 End: 09-13-2022 Thyrotropin [Units/volume] in Serum or Plasma TSH BLD Lab Routine Hyperthyroidism Expected: 07/14/2022, Expires: 09/13/2022 [facility] Work Phone: Comment on above: Expected: 07/14/2022 , Expires: 09/13/2022 Start: 06-03-2022 BP CONTROLLED (<130/80) BP CONTROLLE D (<130/80) [facility] Start: 05-01-2022 Influenza vaccination INFLUENZA (#1) [facility] Start: 11-14-2021 ANNUAL PCP TEAM NEWBORN PHOTOGRAPHER XIOMARA DISEASE VISIT ANNUAL PCP TEAM CHRONIC DISEASE VISIT [facility] Start: 08-31-2021 DEPRESSION ASSESSMENT DEPRESSION ASS ESSMENT [facility] Start: 2021 RSV Vaccine (1 - 1-d ose 60+ series) RSV Vaccine (1 - 1-dose 60+ series) [facility] Start: 2021 RSV Vaccine (1 - Ris k 60-74 years 1-dose series) RSV Vaccine (1 - Risk 60-74 years 1-dose series) [facility] Start: 02-20-2021 COVID-19 VACCINE (3 - Booster for Pfizer series) COVID-19 VACCINE (3 - Booster for Pfizer series) [facility] Start: 05-01-2020 Influenza vaccination INFLUENZA (#1) [facility] Start: 2011 COLORECTAL CANCER SCREENING,SEE MODIFIER COLORECTAL CANCER SCREENING,SEE MODIFIER [facility] Start: 2011 SHINGRIX VACCINE (1 of 2) SHINGRIX VACCINE (1 of 2) [facility] Start: 2006 COLOGUARD (FIT-DNA) COLOGUARD (FIT-D NA) [facility] Start: 2006 Colonoscopy COLONOSCOPY [facility] Start: 2006 COLORECTAL CANCER SCREENING COLORECTAL CANCER SCREENING [facility] Start: [address] COLONOGRAPHY [facility] Start: 2006 DIABETES SCREEN DIABETES SCREEN [facility] Start: 2006 FECAL OCCULT BLOOD FECAL OCCULT BLOO D [facility] Start: 2006 LIPID SCREEN LIPID SCREEN [facility] Start: 2006 Screening for malign ant neoplasm of colon [facility] Start: 2006 SIGMOIDOSCOPY SIGMOIDOSCOPY [facility] Start: 11-22-2003 Mammography MAMMOGRAM [facility] Start: 1991 HPV TESTING HPV TESTING [facility] Start: 1982 PAP TESTING PAP TESTING [facility] Start: 1980 Pneumococcal Vaccine : 50+ (1 of 2 - PCV) Pneumococcal Vaccine: 50+ (1 of 2 - PCV) [facility] Start: 1980 Urine microalbumin profile [facility] Start: 1979 Anxiety Screening Anxiety Screening [facility] Start: 1979 Depression Screening Depression Scre ening [facility] Start: 1979 HEPATITIS C SCREENING HEPATITIS C [facility] Start: 1979 Hepatitis C screening Hepatitis C [facility] Start: 1979 HIV SCREENING HIV SCREENING [facility] Start: 1979 HIV screening HIV Screening [facility] Start: 1967 PNEUMOCOCCAL (1 - PCV) PNEUMOCOCCAL (1 - PCV) [facility] Start: 1967 Pneumococcal vaccination Pneumococcal Vaccine (1 of 2 - PCV) [facility] Bacteria identified in Urine by Culture BACTERIAL CULTURE, URINE Microbiology Routine Lower abdominal pain 11/24/2024 11:31 AM EDT [facility] End: 01-13-2025 DXA-FOREARM SKELETON DXA-FOREARM SKELETON Radiology Routine Asymptomatic postmenopausal status 1 Occurrences starting 12/15/2023 until 01/13/2025 [facility] Work Phone: Comment on above: 1 Occurrences starti ng 12/15/2023 until 01/13/2025 Hemoglobin.gastroint est inal.lower [Presence] in Stool by Immunoassay FECAL OCCULT BLOOD TEST Lab Routine Screening for colon cancer Ordered: 08/12/2022 [facility] Work Phone: Comment on above: Ordered: 08/12/2022 End: 12-31-2025 MR Biliary ducts and Pancreatic duct WO and W contrast IV MRI PANC/ANDREIA WO/W IVCON Radiology Routine Abnormal results of liver function studies Right upper quadrant pain 1 Occurrences starting 12/01/2024 until 12/31/2025 [facility] Comment on above: 1 Occurrences starti ng 12/01/2024 until 12/31/2025 End: 12-31-2025 MR Unspecified body region 3D post processing MRI 3D POST PROCESSING Radiology Routine Abnormal results of liver function studies Right upper quadrant pain Abnormal serum level of amylase Hepatic steatosis 1 Occurrences starting 12/01/2024 until 12/31/2025 [facility] Comment on above: 1 Occurrences starti ng 12/01/2024 until 12/31/2025 PT PLAN OF CARE CERTIFICATION PT PLAN OF CARE CERTIFICATION Procedures Routine Chronic left shoulder pain Neck pain Low back pain at multiple sites Ordered: 10/08/2022 [facility] Comment on above: Ordered: 10/08/2022 End: 09-11-2023 Radex spine cervical 4 or 5 views XR CERV OTHER 4V AP/LAT/OBL Radiology Routine Cervical disc disease 1 Occurrences starting 08/12/2022 until 09/11/2023 [facility] Work Phone: Comment on above: 1 Occurrences starti ng 08/12/2022 until 09/11/2023 Radex spine cervical 4 or 5 views XR CERV OTHER 4V AP/LAT/OBL Radiology Routine Cervical disc disease 08/12/2022 2:59 PM EST [facility] Work Phone: T4 free measurement [facility] T4 free measurement [facility] Thyroid stimulating hormone measurement [facility] Thyroid stimulating hormone measurement [facility] Triiodothyronine, fr ee measurement [facility] Triiodothyronine, fr ee measurement [facility] End: 12-24-2025 US Abdomen RUQ US ABD RIGHT UPPER QUADRANT Radiology Routine Lower abdominal pain RUQ pain 1 Occurrences starting 11/24/2024 until 12/24/2025 [facility] Work Phone: Comment on above: 1 Occurrences starti ng 11/24/2024 until 12/24/2025 US Abdomen RUQ US ABD RIGHT UPP ER QUADRANT Radiology Routine Lower abdominal pain RUQ pain 11/28/2024 11:52 AM EDT [facility] Work Phone: [facility] Immunizations Immunization Date Immunization Notes Care Provider Fa cili 01-07-2022 zoster vaccine recombinant Mag Elissa CREATIVE INTERN.CERTIFIED ADAPTIVE PHYSICAL EDUCATOR Work Phone: [facility] Work Phone: 08-04-2021 zoster vaccine recombinant Mag Elissa CREATIVE INTERN.CERTIFIED ADAPTIVE PHYSICAL EDUCATOR Work Phone: [facility] Work Phone: 12-26-2020 COVID-19 original vaccine, age 12+ yr, monovalent (PFIZER-BIONTECH - PURPLE TOP) Ya Soto CREATIVE INTERN.FURNACE SETTER Work Phone: [facility] 11-29-2020 COVID-19 original vaccine, age 12+ yr, monovalent (PFIZER-BIONTECH - PURPLE TOP) Ya Soto CREATIVE INTERN.FURNACE SETTER Work Phone: [facility] Payers Date Payer Category Payer Self-pay [id number] 2020 [email or web address]AYLA [facility] Member Subscriber Plan / Payer (Effective 2020-Present) Name: Angelina Theodore Relation to Subscriber: Self Name: Angelina Theodore Payer ID: [id number] (NAIC) Type: O Address: [place] [id number] 2020 Unknown [id number] 2019 Unknown GAYLA BLUE CARD PPO [id number] 2019-Present PPO [id number] 2019 Unknown [id number] Unknown [id number] Unknown [id number] Unknown [id number] Unknown [id number] Unknown [id number] Unknown [id number] Unknown [id number] Unknown [id number] Social History Date Type Detail Facility Tobacco smoking stat us [facility] Unknown if ever smoked [facility] Sex Assigned At Not on file [facility] Start: 11-29-2020 End: 11-10-2024 Tobacco smoking status PRIS Smokes tobacco daily [facility] Work Phone: History of tobacco use Cigarette Smoker C [facility] Work Phone: Start: 11-29-2020 End: 12-11-2023 Cigarettes smoked current (pack per day) - Reported 1 [facility] Start: 11-29-2020 End: 11-10-2024 Tobacco use and exposure Smokeless tobacco non-user [facility] Work Phone: Start: 06-03-2021 End: 12-27-2024 Alcohol intake Current drinker of alcohol (finding) [facility] Start: 05-28-2021 End: 08-11-2022 History SDOH Social Connections Phone 5 [facility] Start: 05-28-2021 End: 08-11-2022 History SDOH Social Connections Get Together 2 [facility] Start: 05-28-2021 End: 08-11-2022 History SDOH Social Connections Yazidism 1 [facility] Start: 05-28-2021 End: 08-11-2022 History SDOH Social Connections Living 3 [facility] Start: 05-28-2021 History SDOH Physica l Activity DPW 0 [facility] Start: 05-28-2021 Education 12 [facility] Start: 1960 Sex Assigned At Female C [facility] Start: 04-08-2023 End: 08-14-2023 Tobacco smoking status NHIS Unknown if ever smoked [facility] Start: 07-26-[address] [facility] Start: 12-11-2023 End: 11-24-2024 [facility] Has the [employer], oil, or water company threatened to shut off services in your home in past 12Mo No [facility] Are you now , , , , never or living with a partner? [facility] How often to you hav e a drink containing alcohol? 4 or more times a week [facility] How many standard drinks containing alcohol do you have on a typical day? 3 or 4 [facility] How often do you hav e 6 or more drinks on 1 occasion? Less than monthly [facility] Start: 08-01-2012 How hard is it for y ou to pay for the very basics like food, housing, medical care, and heating Not hard at all [facility] Do you feel stress - tense, restless, nervous, or anxious, or unable to sleep at night because your mind is troubled all the time - these days [OSQ] To some extent [facility] (I/We) worried whesemaj er (my/our) food would run out before (I/we) got money to buy more. Never true [facility] Start: 07-30-2020 Gender identity Identifies as female gender (finding) [facility] Start: 07-30-2020 Sexual orientation Heterosexual (fin ding) [facility] How often do you hav e 6 or more drinks on 1 occasion? Monthly [facility] Do you feel stress - tense, restless, nervous, or anxious, or unable to sleep at night because your mind is troubled all the time - these days [OSQ] Only a little [facility] Start: 07-07-2020 End: 11-13-2020 Exposure to SARS-CoV-2 (event) Not sure [facility] Clinical Notes 08-06-2020 to 05-15-2025 Trina Dumont - 05/15/2025 9:10 AM EDTSYahaira castillo - 05/06/2025 9:59 AM EDTBTrina hudson - 04/27/2025 9:31 AM EDT Note Date & Type Note Facility 05-15-2025 Note HNO ID: [id number] Author: ?, ?, ? Service: ? Author Type: ? Type: Progress Notes Filed: 05/15/2025 09:11 Note Text: 3rd attempt LVM and mailed letter [facility] 05-15-2025 History of Present illness Narrative 3rd attempt LVM and mailed letter 2nd failed attempt to contact patient / Patient due for an est wellness visit and consult for colonoscopy w/general surg 1st attempt LVM to schedule consult to gen surgery for colonoscopy documented in this encounter [facility] 05-06-2025 Note HNO ID: [id number] Author: ?, ?, ? Service: ? Author Type: ? Type: Progress Notes Filed: 05/15/2025 09:11 Note Text: 2nd failed attempt to contact patient / Patient due for an est wellness visit and consult for colonoscopy w/general surg [facility] 05-04-2025 Progress note [facility] [place]-04-2025 Progress note Note Date/Time May 04, 2025 1:32pm [facility] [address] [place] [address] OFFICE VISIT Date of Service: 05/04/25 MR#: [id number] Acct: [id number] Name: ANGELINA THEODORE Rep #: [id number] : 1960 Provider: Dr. Vince Gongora MD Age/Sex: 65/F [place] [facility] Status: Signed Intake Vital Signs 11/07/24 13:05 [...] Reasons: 6 M FU Chief Complaint: Hyperthyroidism [employer] Required: No Accompanied by: Self Is patient [...] PO QDAY 05/04/25 05/04/25 History (Daily Fiber) [facility] Medical History Secondary pulmonary arterial hypertension Osteoarthritis [...] applicable) CC: Dr. Debbie Flores MD ~ [facility] [employer] Work Phone: 1(760) 962-476208-28-2025 NoteHNO ID: [id number] Author: ?, ?, ? Service: ? Author Type: ? Type: Progress Notes Filed: 05/15/2025 09:11 Note Text: 1st attempt LVM [facility] NotePatient Outreach (ASWSTR) JOSEPHANGELINA ([id number]) 1960 F Date Time Provider Department 04/20/25 [...] Date Reviewed: 11/24/2024 Reviewed by: Ya Soto APRN.FURNACE SETTER - Fully Assessed Reason for Visit: Outpatient [...] 10/08/2022 Encounter Status:Closed by TRINA DUMONT on 05/15/25[facility] Telephone encounter Note* Telephone Encounter - Shona Miller - 02/21/2025 4:57 PM EDT Spoke to patient for scheduling. Due to her diagnosis, [facility] is not an option for her to be seen. She declined traveling and would like to proceed scheduling with [facility]. Please send patient referral, office notes and demographics for patient. Shona Miller February 21, 2025 4:58 PM [facility]06-24-2025 Miscellaneous Notes* Telephone Encounter - Shona Miller - 02/21/2025 4:57 PM EDT Spoke to patient for scheduling. Due to her diagnosis, [facility] is not an option for her to be seen. She declined traveling and would like to proceed scheduling with [facility]. Please send patient referral, office notes and demographics for patient. Shona Miller February 21, 2025 4:58 PM * Telephone Encounter - Annita Schuster LPN - 02/21/2025 4:51 PM EDT Phoned patient aware referral in place, assisted with transfer to production control scheduler to get Ortho appt set up. [...] reply. Nona Grullon RN documented in this encounterMary[facility]06-[facility]25 Telephone encounter Note * Telephone Encounter - Annita Schuster LPN - 02/21/2025 4:51 PM EDT Phoned patient aware referral in place, assisted with transfer to production control scheduler to get Ortho appt set up. [facility]06-24-2025 Telephone encounter Note* Telephone Encounter - Ya Soto APRN.CNS - 02/21/2025 4:47 PM EDT OK for consult, please schedule [facility]06-24-2025 Telephone encounter Note* Telephone Encounter - [...] patient back with reply. Nona Grullon RN [facility]04-29-2025 Telephone encounter Note* Telephone Encounter - Debbie Flores MD - 12/27/2024 1:13 AM EDT I reviewed the results of the test and that Ya had reviewed with radiology department that MRI can be done with hip replacement. Records show she had hip replacements in 2009 and 2010. See my response to patient. [facility]04-29-2025 Miscellaneous Notes* Telephone Encounter - Debbie [...] 11/24/24. Shabana Verdin MA documented in this encounterMarymount Hospital04-25-2025 Telephone encounter Note * Telephone Encounter - Shabana Verdin MA - 12/23/2024 4:[address] Flores please see message from pt as she's wanting your recommendation. Pt originally seen byYa Soto on 11/24/24. Shabana Verdin MA [facility]04-11-2025 Telephone encounter Note* Telephone Encounter - Ya Soto APRN.CNS - 12/09/2024 3:52 PM EDT noted [facility]04-11-2025 Miscellaneous Notes* Telephone Encounter - Ya [...] 12/09/2024 9:40 AM EDT Is there a contact lens inspector in MRI dept. that could review if any problem with completing MRI due to her hip replacements? * Telephone Encounter - Cindy Wyatt MA - 12/08/2024 6:57 PM EDT Unable to reach patient. Left VM to return call to office. Please read below and advise. Cindy Wyatt MA * Telephone Encounter - Ya Soto APRN.FURNACE SETTER - 12/08/2024 12:33 PM EDT See below [...] Stephenson RN - 12/08/2024 12:17 PM EDT [facility]- reports the PA on the MRI abdomen with & without constrast has been approved. Order # [id number]. Valid 12/07/24 through 01/05/25. CPT- 07013. documented in this encounterMarymount Hospital04-11-2025 Telephone encounter Note * Telephone Encounter - Jagruti Ling RN - 12/09/2024 11:33 AM EDT Patient called and notified of below. Patient is still unsure if she wants to have it done. Patientwill think about this and call back to schedule. Jagruti Ling RN [facility]04-11-2025 Telephone encounter Note* Telephone Encounter - Dilcia Tucker LPN - 12/09/2024 11:18 AM EDT LEFT MESSAGE FOR PATIENT TO CALL OFFICE. [facility]04-11-2025 Telephone encounter Note* Telephone Encounter - Ya Soto APRN.CNS - 12/09/2024 10:32 AM EDT Juan Ce let her know that reviewed with MRI personnel that advise can complete with hip replacements. Schedule if willing. [facility]04-11-2025 Telephone encounter Note* Telephone Encounter - Barbara Luna MA - 12/09/2024 10:23 AM EDT See note from 12/08/24 [facility]04-11-2025 Miscellaneous Notes* Telephone Encounter - Barbara [...] decrease amylase. MRCP ordered. documented in this encounterMarymount Hospital04-11-2025 Telephone encounter Note * Telephone Encounter - Ya Soto APRN.CNS - 12/09/2024 9:40 AM EDT Is there a contact lens inspector in MRI dept. that could review if any problem with completing MRI due to her hip replacements? [facility]04-10-2025 Telephone encounter Note* Telephone Encounter - Cindy Wyatt MA - 12/08/2024 6:57 PM EDT Unable to reach patient. Left VM to return call to office. Please read below and advise. Cindy Wyatt MA [facility]04-10-2025 Telephone encounter Note* Telephone Encounter - Ya Soto APRN.CNS - 12/08/2024 12:43 PM EDT I will close the other encounter and finish documentation in this phone encounter.. [facility]04-10-2025 Miscellaneous Notes* Telephone Encounter - Ya [...] and treatment s indicated. documented in this encounterMarymount Hospital04-10-2025 Telephone encounter Note * Telephone Encounter [...] of the surgery it would be helpful. [facility]04-10-2025 Telephone encounter Note* Telephone Encounter - Jay Stephenson RN - 12/08/2024 12:17 PM EDT [facility]- reports the PA on the MRI abdomen with & without constrast has been approved. Order # [id number]. Valid 12/07/24 through 01/05/25. CPT- 22357. [facility]04-10-2025 Telephone encounter Note* Telephone Encounter - Kerry Hall - 12/08/2024 11:51 AM EDT Called pt to schedule MRI pt was very unhappy because she has had a double hip replacement and the doctor told her she cannot have mri's done. Stated she has told us multiple times. I did not see anything in the chart about it . [facility]04-10-2025 Progress note* Result Encounter Note - [...] for further evaluation and treatment s indicated. [facility]04-04-2025 Telephone encounter Note* Telephone Encounter - Concha Corrales LPN - 12/02/2024 3:31 PM EDT No answer. Left message for patient to call office and ask to speak to a nurse regarding MRI results [facility]04-03-2025 Telephone encounter Note* Telephone Encounter - Ya Soto APRN.CNS - 12/01/2024 4:45 PM EDT Please let her know that an MRI is recommended to further evaluate the pancreas and common bile duct or gallbladder. Please schedule if willing. [facility]04-03-2025 Progress note* Result Encounter Note - Ya Soto APRN.CNS - 12/01/2024 9:44 AM EDT Normal bilirubin, mildly dilated CBD, hepatic steatosis. Slight decrease amylase. MRCP ordered. [facility]04-03-2025 Telephone encounter Note* Telephone Encounter - Ya Soto APRN.CNS - 12/01/2024 9:30 AM EDT Decreased amylase and normal lipase. Slight elevation in ALT, normal AST, alkaline phosphatase, andbilirubin. Ultrasound shows hepatic steatosis mild dilatation of the common bile duct. Chronic EtOH use, smoking history. MRCP ordered. [facility]04-03-2025 Miscellaneous Notes* Telephone Encounter - Ya [...] US not yet completed. documented in this encounterMarymount Hospital03-31-2025 History of Present illness Narrative* Tara [...] PATIENT PRESENTS WITH AN IMPLANTABLE OR ATTACHED PRACTICAL NURSING FACULTY: No RADIOLOGY DEPARTMENT: Ultrasound PERIPHERAL IV DATA: Not applicable SIGNED BY: Tara Chang RDMS November 28, 2024 11:51 AM documented in this encounterMarymount Hospital03-31-2025 NoteHNO ID: [id number] Author: TARA CHANG RDMS Service: ? Author Type: Chemical Technician Type: Progress Notes Filed: 11/28/2024 11:51 Note [...] PATIENT PRESENTS WITH AN IMPLANTABLE OR ATTACHED PRACTICAL NURSING FACULTY: No RADIOLOGY DEPARTMENT: Ultrasound PERIPHERAL IV DATA: Not applicable SIGNED BY: Tara Chang RDMS November 28, 2024 11:51 [facility]03-31-2025 Progress note* Result Encounter Note - Ya Soto APRN.CNS - 11/28/2024 7:10 AM EDT Mixed microbiota [facility]03-28-2025 Progress note* Result Encounter Note - [...] Recheck CBC one month to trend H/H.. [facility]03-28-2025 Progress note* Result Encounter Note - Ya Soto APRN.CNS - 11/25/2024 1:53 PM EDT Increased H/H, trending upward now with abdominal pain. Other lab results not back yet, RUQ US not yet completed. [facility]03-27-2025 Instructions* Patient Instructions* Ya Soto APRN.CNS - 11/24/2024 12:12 PM EDT - Take Nitrofurantoin 100 mg twice daily for 5 days to treat a possible urinary tract infection (UTI); prescription sent to [facility] [place]. - Follow a mild diet to [...] after addressing abdominal concerns. documented in this encounterMarymount Hospital03-27-2025 History of Present illness Narrative* Ya [...] methimazole in Feruary 2024 ordered by Geovanna oDw APRN.CERTIFIED ADAPTIVE PHYSICAL EDUCATOR. Taking for [address] Vince Gongora [facility]. EtOH: 4 glasses of wine Smoking: current She is followed by [facility] cardiology. ROS Ears/Nose/Mouth/Throat: (+) gagging [...] The patient consented to the use of [employer] software for draft documentation of the visit consistent with [facility] s Notice of Privacy Practices. documented in this encounterMarymount Hospital03-27-2025 NoteHNO ID: [id number] Author: YA SOTO APRN.JOSHUA Service: ? Author [...] in Feruary 2024 ordered by Geovanna Dow APRN.CERTIFIED ADAPTIVE PHYSICAL EDUCATOR. Taking for [address] Vince Gongora [facility]. EtOH: 4 glasses of wine Smoking: current She is followed by [facility]. ROS Ears/Nose/Mouth/Throat: (+) gagging [...] - Patient to schedu (more content not included)...[facility] 11-10-2024 Instructions* Patient Instructions* Ya Soto APRN.CNS [...] cream has been sent to your pharmacy ([facility]) for use as needed for heat or sun rashes. - Schedule a physical exam in November; call the clinic to book a 40-minute appointment. - Complete any lab work ordered by your council member and residential energy auditor during your upcoming appointments. documented in [facility]03-[facility] History of Present illness Narrative* Ya [...] November 2024, plans to get labs at [facility] for endocrinology and cardiology. Medical Decision Making: Problems: Low: Acute, uncomplicated illness or injury Risk: Moderate: Drug management Medical Decision Making Level: 3 - Low The patient consented to the use of [employer] Risk Management software for draft documentation of the visit consistent with [facility] s Notice of Privacy Practices. documented in this encounterMarymount Hospital03-13-2025 NoteHNO ID: [id number] Author: YA SOTO APRN.CNS Service: ? Author [...] November 2024, plans to get labs at [facility] for endocrinology and cardiology. Medical Decision Making: Problems: Low: Acute, uncomplicated illness or injury Risk: Moderate: Drug management Medical Decision Making Level: 3 - Low The patient consented to the use of ambient [employer]and[employer] software for draft documentation of the visit consistent with [facility]?s Notice of Privacy Practices. [facility]09-12-2024 Telephone encounter Note* Telephone Encounter - Yahaira Robin - 05/12/2024 2:50 PM EDT LVM for patient to call back so we can relay Karen Arnett message Yahaira Robin [facility] Work Phone: [phone] Miscellaneous Notes* Telephone Encounter - Yahaira Robin - 05/12/2024 2:50 PM EDT LVM for patient to call back so we can relay Karne Arnett message Yahaira Robin * Telephone Encounter - Karen Arnett APRN.CNP - 05/12/2024 12:19 PM EDT Unfortunately this provider is not able to accept new patient referrals at this time. Here are some additional psychiatric resources for the patient to utilize to schedule an appointment with a psychiatric provider: 1) [facility] Prov[facility] Call [phone] to schedule an appointment. 2)Marvel Pisano is a wonderful journey lineman at a private practice [facility]. She does inperson and virtual visits. Patient can schedule an appointment there by calling [phone] or by visiting their website. [employer]. 3) [facility]) [address] [place] [address] 4) [facility] [address] [place] [address] 5) [id number] [address] [facility] [place] [address] * Telephone Encounter - Mag Bowers APRN.CNP [...] meds or consider referral to Karen Arnett (MACHINE TURNER with Psychiatry if still taking new patients) [...] the same thing to her. Patient uses [facility] for her pharmacy. Please advise documented in this encounterMarymount Hospital09-12-2024 Telephone encounter Note * Telephone Encounter - Karen Arnett APRN.CNP - 05/12/2024 12:19 PM EDT Unfortunately this provider is not able to accept new patient referrals at this time. Here are some additional psychiatric resources for the patient to utilize to schedule an appointment with a psychiatric provider: 1) [facility] Call [phone] to schedule an appointment. 2)Marvel Pisano is a wonderful journey lineman at a private practice called [facility]. She does inperson and virtual visits. Patient can schedule an appointment there by calling [phone] or by visiting their website. [employer]. 3) [facility]) [address] [place] [address] 4) [facility] [address] [place] [address] 5) [place] [address] [place] [address], [address] [facility] Work Phone: 1(796) 286-146809-11-2024 Telephone encounter Note* Telephone Encounter - Mag Bowers APRN.CNP - 05/11/2024 10:53 AM EDT Referral for Karen treadwell, please help with scheduling, thanks!! [facility]09-10-2024 Telephone encounter Note* Telephone Encounter - [...] of trying this medication and that medication. [facility]09-10-2024 Telephone encounter Note* Telephone Encounter - Karol Roe RN - 05/10/2024 8:06 AM EDT Called and left a voicemail for the Patient to call back and ask for a nurse to receive the providers message. Karol Roe RN T [facility]09-09-2024 Telephone encounter Note* Telephone Encounter - Debbie Flores MD - 05/09/2024 8:19 PM EDT Recommend follow up to discuss management of meds or consider referral to Karen Arnett (MACHINE TURNER with Psychiatry if still taking new patients) [...] to cause her to be too sleepy [facility]09-09-2024 Telephone encounter Note* Telephone Encounter - [...] the same thing to her. Patient uses [facility] for her pharmacy. Please advise [facility]07-22-2024 Telephone encounter Note* Telephone Encounter - Debbie Flores MD - 03/21/2024 7:07 PM EDT The following approved medication requests have been transmitted electronically. Requested Prescriptions Signed Prescriptions Disp Refills sertraline (ZOLOFT) 50 mg tablet 90 tablet 1 Sig: Take 1 tablet by mouth once daily. Authorizing Provider: DEBBIE FLORES MD Schedule follow up [facility]07-22-2024 Miscellaneous Notes* Telephone Encounter - Debbie [...] (nothing scheduled yet). * Telephone Encounter - Jarguti Ling RN - 03/18/2024 3:51 PM EDT Patient calls and states that she has taken Zoloft since November. Patient states that she has not noticed any difference. Patient asking if this can be increased by half? Patient's pharmacy is [facility] [place]. Please review and advise, Jagruti Ling RN documented in this encounterMarymount Hospital07-22-2024 Telephone encounter Note * Telephone Encounter - Nona Grullon RN - 03/21/2024 1:38 PM EDT Patient returned call. Agreeable to increasing to 50 mg daily. Please send new script. Pended. Thank you. [facility]07-22-2024 Telephone encounter Note* Telephone Encounter - Kayla Baron LPN - 03/21/2024 9:10 AM EDT left message for patient to call office back and speak with triage nurse. Kayla Baron LPN [facility]07-21-2024 Telephone encounter Note* Telephone Encounter - [...] appointments from November 2023 (nothing scheduled yet). [facility]07-19-2024 Telephone encounter Note* Telephone Encounter - Jagruti Ling RN - 03/18/2024 3:51 PM EDT Patient calls and states that she has taken Zoloft since November. Patient states that she has not noticed any difference. Patient asking if this can be increased by half? Patient's pharmacy is [facility] [place]. Please review and advise, Jagruti Ling RN [facility]04-16-2024 Instructions* Patient Instructions* Debbie Flores MD [...] your usual activities immediately. documented in this encounterMarymount Hospital04-16-2024 History of Present illness Narrative* Debbie Flores MD - 12/15/2023 5:03 PM EDT This note was created using J2D BioMedicalriter. Subjective Angelina Theodore is a 63 year [...] indicated. Debbie Flores MD documented in this encounterMarymount Hospital04-08-2024 History of Present illness Narrative* Florecita [...] record). Florecita Palmer RN documented in this encounterMarymount Hospital07-03-2023 Miscellaneous Notes* Telephone Encounter - TODD [...] message: Garret, My daughter needs me in [place] for a few weeks starting 03/09. I'll reschedule my naun with Dr Sneed on the but my Carvedilol won't last. Could you please give me a 30 day holdover? Thank you documented in this encounterMarymount Hospital02-08-2023 History of Present illness Narrative* Avani [...] Planned: 5 Planned Treatment Interventions: Therapeutic exercise (29207), Self-mcfp management (11402) PLAN FOR NEXT VISIT: Assess symptom response [...] Relevant Medical Conditions: Cardiac, Hypertension Preferred Language: Vietnamese Right or Left Handed: Right Employment: Retired [...] Education TREATMENT: PT Treatment Interventions: Therapeutic Exercise, Self-Residential Management Evaluation Therapeutic Exercise: 1: *seated cervical [...] and function . Patient education as noted. Self-Residential Management: 1: *postural education 2: *discussed use [...] 45 Avani Goff PT documented in this encounterMarymount Hospital01-27-2023 Miscellaneous Notes* Telephone Encounter - MARK Curtis - 09/26/2022 5:12 PM EST Spoke with pt to schedule Endocrinology Consult appt; declined to schedule at this time; will call back documented in this encounterMarymount Hospital12-21-2022 Miscellaneous Notes* Telephone Encounter - Sandy [...] insurance. Shelli Sims LPN documented in this [facility] History of Present illness Narrative* Tamika [...] 12, 2022 2:47 PM documented in this [facility]12-13-2022 Instructions* Patient Instructions* Mag Bowers APRN.CNP - 08/12/2022 2:09 PM EST 2000 units of vitamin D3 documented in this [facility]12-13-2022 History of Present illness Narrative* Mag [...] ETOH: 3-4 glasses of wine most nights SPECIAL EVENT ASSISTANT History: LMP: No LMP recorded. Patient is [...] Mag Bowers APRN-MARIA C documented in this encounterMarymount Hospital12-06-2022 Miscellaneous Notes* Telephone Encounter - Brittnee [...] anytime now; she is available now at: [phone]. * Telephone Encounter - Dilcia Tucker LPN [...] adjust. * Telephone Encounter - Nakita Romano [facility] - 08/04/2022 2:56 PM EST Patient returned [...] call office * Telephone Encounter - Debbie Florse MD - 08/04/2022 1:52 PM EST TSH [...] 07/31/2022 4:42 PM EST Last appt with MACHINE TURNER 06/20/21. Please call pt to arrange routine [...] Thank you. Gail Cristina documented in this encounterMarymount Hospital11-30-2022 Miscellaneous Notes* Telephone Encounter - Dilcia [...] due to insurance, please send referral to [facility]-Dr. Vince Gongora. Please advise. documented in this encounterMarymount Hospital11-14-2022 Miscellaneous Notes* Telephone Encounter - Ya Soto APRN.FURNACE SETTER - 07/14/2022 7:56 AM EST Please schedule visit with me or Debbie Flores MD at earliest convenience with labs prior. Schedule with council member for hyperthyroid follow up .at earliest convenience. documented in this encounterMarymount Hospital12-07-2020 History of Present illness Narrative* Suzette [...] 06, 2020 12:09 PM [facility] Diagnosis Hyperthyroidism- Primary Thyrotoxicosis without mention of goiter or other cause, without mention of thyrotoxic crisis or storm Essential hypertension Unspecified essential hypertension Hyperlipidemia, unspecified hyperlipidemia type documented in this encounter [facility] note* Diagnosis Hyperthyroidism- Primary Thyrotoxicosis without mention of goiter or other cause, without mention of thyrotoxic crisis or storm [facility]* Diagnosis Wellness examination- Primary Hyperthyroidism Thyrotoxicosis [...] 30-34.9 Obesity, unspecified documented in this encounter [facility] note* Diagnosis Personal history of spinal narrowing- Primary Personal history of other musculoskeletal disorders Chronic left shoulder pain Pain in joint, shoulder region Tendinitis of left infraspinatus tendon Cervical disc disease Other and unspecified disc disorder of cervical region documented in this encounter [facility] note* Diagnosis Personal history of spinal narrowing Personal history of other musculoskeletal disorders Chronic left shoulder pain Pain in joint, shoulder region Tendinitis of left infraspinatus tendon Cervical disc disease Other and unspecified disc disorder of cervical region documented in this encounter [facility] note* Diagnosis Neck pain- Primary Cervicalgia Chronic left shoulder pain Pain in joint, shoulder region Low back pain at multiple sites documented in this encounter [facility] note* Diagnosis Onset Date Resolution Status Hyperthyroidism chronic Non-ischemic cardiomyopathy [facility] Work Phone: Evaluation note* Diagnosis Onset Date Resolution Status Essential (primary) hypertension chronic Nicotine dependence chronic Non-ischemic cardiomyopathy chronic [facility] Work Phone: Evaluation note* Diagnosis Routine medical exam- Primary Routine general medical examination at a health care facility Asymptomatic postmenopausal status Class 2 obesity due to excess calories with body mass index (BMI) of 37.0 to 37.9 in adult, unspecified whether serious comorbidity present Current moderate episode of major depressive disorder, unspecified whether recurrent (HCC) documented in this encounter [facility]* Diagnosis Current moderate episode of major depressive disorder, unspecified whether recurrent (HCC)- Primary documented in this encounter [facility]* Diagnosis Current moderate episode of major depressive disorder, unspecified whether recurrent (HCC)- Primary documented in this encounter [facility]* Diagnosis Cervical disc disease Other and unspecified disc disorder of cervical region documented in this encounter [facility]* Diagnosis Closed fracture of multiple ribs of left side with routine healing, subsequent encounter [facility]* Diagnosis Left hip pain Pain in joint, pelvic region and thigh History of left hip replacement documented in this [facility]* Diagnosis Skin lesion- Primary Unspecified disorder of skin and subcutaneous tissue Rash and nonspecific skin eruption Rash and other nonspecific skin eruption documented in this encounter [facility]* Diagnosis RUQ pain- Primary Abdominal pain, [...] Future LIPASE; Future documented in this encounter [facility]* Diagnosis RUQ pain- Primary Abdominal pain, [...] right upper quadrant documented in this encounter [facility] note* Diagnosis RUQ pain- Primary Abdominal pain, [...] nonalcoholic liver disease documented in this encounter [facility] note* Diagnosis RUQ pain- Primary Abdominal pain, [...] Primary Other hemoglobinopathies documented in this encounter [facility] note* Diagnosis RUQ pain- Primary Abdominal pain, [...] right upper quadrant documented in this encounter [facility]* Diagnosis RUQ pain- Primary Abdominal pain, [...] by other means documented in this encounter [facility] note* Diagnosis Onset Date Resolution Status Admit Date Hyperthyroidism chronic May 04, 2025 1:02pm [employer] Work Phone: Evaluation note* Diagnosis RUQ [...] malignant neoplasms, colon documented in this encounter [facility] for referral (narrative)* Diagnostic Procedure Only (Routine) - Closed Specialty Diagnoses / Procedures Referred By Jodi t Referred To Contact XR IMAGING Diagnoses Cervical disc disease Procedures XR CERV OTHER 4V AP/LAT/OBL RADEX SPINE CERVICAL 4 OR 5 VIEWS Mag Bowers APRN.CERTIFIED ADAPTIVE PHYSICAL EDUCATOR [address] [place] [address] Xr Imaging Referral ID Status Reason Start Date Expiration Date V isits Requested Visits Authorized [id number] Closed Auto-Generate d Referral 08/12/2022 09/11/2023 1 1 [facility] for referral (narrative)* Diagnostic Procedure Only (Routine) - Closed Specialty Diagnoses / Procedures Referred By Contac t Referred To Contact XR IMAGING Diagnoses Asymptomatic postmenopausal status Procedures DXA-FOREARM SKELETON DXA BONE DENSITY STUDY SITES APPENDICLR Debbie Duque MD [address] [place], [place] [id number] [place] [address] Referral ID Status Reason Start Date Expiration Date Visits Requested Visits Authorized [id number] Closed Auto-Generated Referral OON Notification Letter 12/15/2023 01/13/2025 1 0 [facility] for referral (narrative)* Diagnostic Procedure Only (Routine) - Closed Specialty Diagnoses / Procedures Referred By Contac t Referred To Contact XR IMAGING Diagnoses Cervical disc disease Procedures XR CERV OTHER 4V AP/LAT/OBL RADEX SPINE CERVICAL 4 OR 5 VIEWS Mag Bowers APRN.CNP [address] [place] [address] [place] [address] Referral ID Status Reason Start Date Expiration Date V isits Requested Visits Authorized [id number] Closed Auto-Generate d Referral 08/12/2022 09/11/2023 1 1 [facility] for referral (narrative)No reason for referral information [facility] Work Phone: Reason for visit Narrative* Diagnostic Procedure Only (Routine) - Closed Specialty Diagnoses / Procedures Referred By Contac t Referred To Contact XR IMAGING Diagnoses Cervical disc disease Procedures XR CERV OTHER 4V AP/LAT/OBL RADEX SPINE CERVICAL 4 OR 5 VIEWS Mag Bowers APRN.CNP [address] [place] [address] [place] [address] Referral ID Status Reason Start Date Expiration Date V isits Requested Visits Authorized [id number] Closed Auto-Generate d Referral 08/12/2022 09/11/2023 1 1 [facility] N[facility]ative* Diagnostic Procedure Only (Routine) - Closed Specialty Diagnoses / Procedures Referred By Jodi t Referred To Contact [facility] Diagnoses Pain in left hip Presence of left artificial hip joint Left hip pain [M25.552] History of left hip replacement [Z96.642] Procedures RADEX HIP UNILATERAL WITH PELVIS 2-3 VIEWS xray Ya Soto, CREATIVE INTERN.FURNACE SETTER [address] [place] [address] [facility] [address] [place] [address] Referral ID Status Reason Start Date Expiration Date Visits Re quested Visits Authorized [id number] Closed 11/13/2020 08/30/2021 20 20 [facility] Summary Purpose Family History No Family [...] Will No July 26 10:17am Power of Hoister No July 26, 2020 10:17am Advance Directive Response Recorded Date/ Time Living Will No July 26 9:17am Power of Hoister No July 26, 2020 9:17am Reason for Referral Specialty Diagnoses / Procedures Referred By Jodi t Referred To Contact Diagnoses Hyperthyroidism Procedures CONSULT TO ENDOCRINOLOGY OFFICE/OUTPATIENT [facility] 60-74 MINUTES Mag Bowers, CREATIVE INTERN.CERTIFIED ADAPTIVE PHYSICAL EDUCATOR [address] [place] [address] Vince Gongora MD [address] [facility] [address] [place] [address] Referral ID Status Reason Start Date Expiration Date Visits Requested Visits Authorized [id number] Pending Review PCP Requested Referral 2 07/30/2023 1 1 Specialty Diagnoses / Procedures Referred By Contac t Referred To Contact [facility] Diagnoses Chronic left shoulder pain Neck pain Low back pain at multiple sites Procedures PT REHAB FOLLOW UP ORDER THERAPEUTIC EXERCISES RE, EA 15 MIN[address] Avani Goff, [facility] [place] [address] [place] [address] Referral ID Status Reason Start Date Expiration Date Visits Requested Visits Authorized [id number] Pending Review PCP Requested Referral Auto-Generate d Referral 10/08/2022 01/06/2023 1 1 Specialty Diagnoses / Procedures Referred By Contac t Referred To Contact Diagnoses Current moderate episode of major depressive disorder, unspecified whether recurrent (HCC) Procedures CONSULT TO PSYCHIATRY OFFICE/OUTPATIENT [facility] 60 MINUTES Mag Bowers APRN.CERTIFIED ADAPTIVE PHYSICAL EDUCATOR [address] [place] [address] Referral ID Status Reason Start Date Expiration Date Visits Requested Visits Authorized [id number] Pending Review PCP Requested Referral 05/11/2024 05/11/2025 [...] or prosecute any alcohol or drug abuse patient.[facility] HospitalIn the event this information is protected by the Federal Confidentiality of Alcohol and Drug Abuse Patient Records regulations: The Federal rules restrict any use of the information to criminally investigate or prosecute any alcohol or drug abuse patient.[facility] HospitalIn the event this information is protected by the Federal Confidentiality of Alcohol and Drug Abuse Patient Records regulations: The Federal rules restrict any use of the information to criminally investigate or prosecute any alcohol or drug abuse patient.[facility] HospitalIn the event this information is protected by the Federal Confidentiality of Alcohol and Drug Abuse Patient Records regulations: The Federal rules restrict any use of the information to criminally investigate or prosecute any alcohol or drug abuse patient.[facility] HospitalIn the event this information is protected by the Federal Confidentiality of Alcohol and Drug Abuse Patient Records regulations: The Federal rules restrict any use of the information to criminally investigate or prosecute any alcohol or drug abuse patient.[facility] HospitalIn the event this information is protected by the Federal Confidentiality of Alcohol and Drug Abuse Patient Records regulations: The Federal rules restrict any use of the information to criminally investigate or prosecute any alcohol or drug abuse patient.[facility] HospitalIn the event this information is protected by the Federal Confidentiality of Alcohol and Drug Abuse Patient Records regulations: The Federal rules restrict any use of the information to criminally investigate or prosecute any alcohol or drug abuse patient.[facility] HospitalIn the event this information is protected by the Federal Confidentiality of Alcohol and Drug Abuse Patient Records regulations: The Federal rules restrict any use of the information to criminally investigate or prosecute any alcohol or drug abuse patient.[facility] HospitalIn the event this information is protected by the Federal Confidentiality of Alcohol and Drug Abuse Patient Records regulations: The Federal rules restrict any use of the information to criminally investigate or prosecute any alcohol or drug abuse patient.[facility] HospitalIn the event this information is protected by the Federal Confidentiality of Alcohol and Drug Abuse Patient Records regulations: The Federal rules restrict any use of the information to criminally investigate or prosecute any alcohol or drug abuse patient.[facility] HospitalIn the event this information is protected by the Federal Confidentiality of Alcohol and Drug Abuse Patient Records regulations: The Federal rules restrict any use of the information to criminally investigate or prosecute any alcohol or drug abuse patient.[facility] HospitalIn the event this information is protected by the Federal Confidentiality of Alcohol and Drug Abuse Patient Records regulations: The Federal rules restrict any use of the information to criminally investigate or prosecute any alcohol or drug abuse patient.[facility] HospitalIn the event this information is protected by the Federal Confidentiality of Alcohol and Drug Abuse Patient Records regulations: The Federal rules restrict any use of the information to criminally investigate or prosecute any alcohol or drug abuse patient.[facility] HospitalIn the event this information is protected by the Federal Confidentiality of Alcohol and Drug Abuse Patient Records regulations: The Federal rules restrict any use of the information to criminally investigate or prosecute any alcohol or drug abuse patient.[facility] HospitalIn the event this information is protected by the Federal Confidentiality of Alcohol and Drug Abuse Patient Records regulations: The Federal rules restrict any use of the information to criminally investigate or prosecute any alcohol or drug abuse patient.[facility] HospitalIn the event this information is protected by the Federal Confidentiality of Alcohol and Drug Abuse Patient Records regulations: The Federal rules restrict any use of the information to criminally investigate or prosecute any alcohol or drug abuse patient.[facility] HospitalIn the event this information is protected by the Federal Confidentiality of Alcohol and Drug Abuse Patient Records regulations: The Federal rules restrict any use of the information to criminally investigate or prosecute any alcohol or drug abuse patient.[facility] HospitalIn the event this information is protected by the Federal Confidentiality of Alcohol and Drug Abuse Patient Records regulations: The Federal rules restrict any use of the information to criminally investigate or prosecute any alcohol or drug abuse patient.[facility] HospitalIn the event this information is protected by the Federal Confidentiality of Alcohol and Drug Abuse Patient Records regulations: The Federal rules restrict any use of the information to criminally investigate or prosecute any alcohol or drug abuse patient.[facility] HospitalIn the event this information is protected by the Federal Confidentiality of Alcohol and Drug Abuse Patient Records regulations: The Federal rules restrict any use of the information to criminally investigate or prosecute any alcohol or drug abuse patient.[facility] HospitalIn the event this information is protected by the Federal Confidentiality of Alcohol and Drug Abuse Patient Records regulations: The Federal rules restrict any use of the information to criminally investigate or prosecute any alcohol or drug abuse patient.[facility] HospitalIn the event this information is protected by the Federal Confidentiality of Alcohol and Drug Abuse Patient Records regulations: The Federal rules restrict any use of the information to criminally investigate or prosecute any alcohol or drug abuse patient.[facility] HospitalIn the event this information is protected by the Federal Confidentiality of Alcohol and Drug Abuse Patient Records regulations: The Federal rules restrict any use of the information to criminally investigate or prosecute any alcohol or drug abuse patient.[facility] HospitalIn the event this information is protected by the Federal Confidentiality of Alcohol and Drug Abuse Patient Records regulations: The Federal rules restrict any use of the information to criminally investigate or prosecute any alcohol or drug abuse patient.[facility] HospitalIn the event this information is protected by the Federal Confidentiality of Alcohol and Drug Abuse Patient Records regulations: The Federal rules restrict any use of the information to criminally investigate or prosecute any alcohol or drug abuse patient.[facility] HospitalIn the event this information is protected by the Federal Confidentiality of Alcohol and Drug Abuse Patient Records regulations: The Federal rules restrict any use of the information to criminally investigate or prosecute any alcohol or drug abuse patient.[facility] HospitalIn the event this information is protected by the Federal Confidentiality of Alcohol and Drug Abuse Patient Records regulations: The Federal rules restrict any use of the information to criminally investigate or prosecute any alcohol or drug abuse patient.[facility] HospitalIn the event this information is protected by the Federal Confidentiality of Alcohol and Drug Abuse Patient Records regulations: The Federal rules restrict any use of the information to criminally investigate or prosecute any alcohol or drug abuse patient.[facility] HospitalIn the event this information is protected by the Federal Confidentiality of Alcohol and Drug Abuse Patient Records regulations: The Federal rules restrict any use of the information to criminally investigate or prosecute any alcohol or drug abuse patient.[facility] HospitalIn the event this information is protected by the Federal Confidentiality of Alcohol and Drug Abuse Patient Records regulations: The Federal rules restrict any use of the information to criminally investigate or prosecute any alcohol or drug abuse patient.[facility] Reason for Visit (unrecogniz ed section [...] EVALUATION HIGH COMPLEX 45 MINS Mag Bowers APRN.CERTIFIED ADAPTIVE PHYSICAL EDUCATOR [address] [place] [address] [facility] [address] [place] [id number] Referral ID Status Reason Start Date Expiration Date Visits Requested Visits Authorized [id number] Pending Review Auto-Generat ed Referral OON/Self Pay Override 09/30/2022 09/30/2023 1 1 Reason Onset Date Comments Refill Request 02/28/2023 Reason Onset Date Comments colorectal cancer screening 12/07/2023 Reason Comments Physical Specialty Diagnoses / Procedures Referred By Contac t Referred To Contact INTERNAL MEDICINE Diagnoses physical Procedures physical Self Intm [facility] [address] [place] [address] Referral ID Status Reason Start Date Expiration Date Visits Requested Visits Authorized [id number] Outside PCP OON/Self Pay Override 04/17/2023 02/12/2024 1 1 Reason Comments Patient Update Reason Comments Patient Question Reason Comments Rash R leg Specialty Diagnoses / Procedures Referred By Contac t Referred To Contact INTERNAL MEDICINE Diagnoses RASH Procedures Consult, Test, Treat Self [address] [place] [address] Referral ID Status Reason Start Date Expiration Date Visits Requested Visits Authorized [id number] Pending Review OON/Self Pay Override 11/09/2024 02/17/2026 1 1 Reason Comments Abdominal Pain lower abdominal pain , bloated. On/off sharp pain. Especially after eating something she shouldn't UTI Pain, couldn't urina te, urgency Specialty Diagnoses / Procedures Referred By Contac t Referred To Contact INTERNAL MEDICINE Diagnoses not oon at scheduled location Procedures not oon Debbie Flores MD [address] [place] [address] Phone: tel: fax: [address] [place] [address] Referral ID Status Reason Start Date Expiration Date Visits Requested Visits Authorized [id number] New Request OON/Self Pay Override 11/22/2024 03/02/2026 1 1 Reason Comments Radiology US Specialty Diagnoses / Procedures Referred By Contac t Referred To Contact US IMAGING Diagnoses Lower abdominal pain RUQ pain Procedures US ABD RIGHT UPPER QUADRANT US ABDOMINAL REAL TIME W/IMAGE LIMITED Ya Soto APRN.FURNACE SETTER [address] [place] [address] Phone: tel: fax: [place] [phone] Referral ID Status Reason Start Date Expiration Date V isits Requested Visits Authorized [id number] Closed Auto-Generate d Referral OON/Self Pay Override [...] Disposition SEVERE chest pain Protocols used: CHEST [id number] Talked with Angelina, she has worsening left sided chest pain since a recent fall and recent ED visit. She rates her pain 13 on 1-10 pain scale. Advised to go to the ED. She was seen for a follow up 2 days ago, declines to speak with online producer for that physician. Advised to go to the ED. documented in this encounter INFORMATION SOURCE (unrecogn ized section and content) DATE CREATED AUTHOR 12/31/2020 [facility] DATE CREATED AUTHOR AUTHOR'S ORGANIZ ATION 05/16/2025 [facility] DATE CREATED AUTHOR AUTHOR'S ORGANIZ ATION 07/04/2025 [facility] Care Teams (unrecognized sec tion and content) Culinary Director Relationship Specialty Start Date End Date Debbie Flores MD [address] [place], [place] [id number] PCP - General Internal Medicine 12/11/20 Culinary Director Relationship Specialty Start Date End Date Debbie Flores MD [address] [place], [place] [id number] PCP - General Internal Medicine 12/11/20 Culinary Director Relationship Specialty Start Date End Date Debbie Flores MD [address] [place], [place] [id number] PCP - General Internal Medicine 12/11/20 Culinary Director Relationship Specialty Start Date End Date Debbie Flores MD [address] [facility] [address] PCP - General Internal Medicine 12/11/20 Culinary Director Relationship Specialty Start Date End Date Debbie Flores MD [address] [facility] [place] [address] PCP - General Internal Medicine 12/11/20 Culinary Director Relationship Specialty Start Date End Date Debbie Flores MD [address] [facility] [place] [address] PCP - General Internal Medicine 12/11/20 Culinary Director Relationship Specialty Start Date End Date Debbie Flores MD [address] [facility] [place] [address] PCP - General Internal Medicine 12/11/20 Culinary Director Relationship Specialty Start Date End Date Debbie Flores MD [address] [facility] [place] [address] PCP - General Internal Medicine 12/11/20 Culinary Director Relationship Specialty Start Date End Date Debbie Flores MD [address] [facility] [place] [address] PCP - General Internal Medicine 12/11/20 Team [...] Inactive Member Role Status Dates Arabella Andersen MACHINE TURNER, MACHINE TURNER-C Active Ryan Sanchez MACHINE TURNER, MACHINE TURNER-C Attending Provider Active Dr. Debbie Flores MD Primary Care Provider, Referr ing Provider Active Team Status: Inactive Member Role Status Dates Dr. Debbie Flores MD Primary Care Provider Active Geovanna Dow MACHINE TURNER-C Attending Provider, Referring Pr ovider Active Ryan Sanchez MACHINE TURNER, MACHINE TURNER-C Other Provider Active Culinary Director Relationship Specialty Start Date End Date Debbie Flores MD [address] [place] [address] PCP - General Internal Medicine 12/11/20 Culinary Director Relationship Specialty Start Date End Date Debbie Flores MD [address] [place] [address] PCP - General Internal Medicine 12/11/20 Culinary Director Relationship Specialty Start Date End Date Debbie Flores MD [address] [place] [address] PCP - General Internal Medicine 12/11/20 Culinary Director Relationship Specialty Start Date End Date Debbie Flores MD [address] [place] [address] PCP - General Internal Medicine 12/11/20 Culinary Director Relationship Specialty Start Date End Date Debbie Flores MD [address] [place], [place] [id number] PCP - General Internal Medicine 12/11/20 Culinary Director Relationship Specialty Start Date End Date Debbie Flores MD [address] [place] [address] PCP - General Internal Medicine 12/11/20 Ya Soto, CREATIVE INTERN.FURNACE SETTER [address] [place] [address] Web Operations Specialist Internal Medicine 08/08/24 Mag Bowers CREATIVE INTERN.CERTIFIED ADAPTIVE PHYSICAL EDUCATOR [address] [place] [address] Web Operations Specialist Internal Medicine 08/08/24 Culinary Director Relationship Specialty Start Date End Date Debbie Flores MD [address] [place] [address] PCP - General Internal Medicine 12/11/20 Ya Soto, CREATIVE INTERN.FURNACE SETTER [address] [place] [address] Web Operations Specialist Internal Medicine 08/08/24 Mag Bowers CREATIVE INTERN.CERTIFIED ADAPTIVE PHYSICAL EDUCATOR [address] [place] [address] Web Operations Specialist Internal Medicine 11/22/24 Culinary Director Relationship Specialty Start Date End Date Debbie Flores MD [address] [place] [address] PCP - General Internal Medicine 12/11/20 Ya Soto, CREATIVE INTERN.FURNACE SETTER [address] [place] [address] Web Operations Specialist Internal Medicine 08/08/24 Mag Bowers CREATIVE INTERN.CERTIFIED ADAPTIVE PHYSICAL EDUCATOR [address] [place] [address] Web Operations Specialist Internal Medicine 11/22/24 Culinary Director Relationship Specialty Start Date End Date Debbie Flores MD [address] [facility] [address] PCP - General Internal Medicine 12/11/20 Ya Soto, CREATIVE INTERN.FURNACE SETTER [address] [facility] [place] [address] Web Operations Specialist Internal Medicine 08/08/24 Mag Bowers CREATIVE INTERN.CERTIFIED ADAPTIVE PHYSICAL EDUCATOR [address] [facility] [address] Web Operations Specialist Internal Medicine 11/22/24 Culinary Director Relationship Specialty Start Date End Date Debbie Flores MD [address] [facility] [address] [place] [address] PCP - General Internal Medicine 12/11/20 Ya Soto, CREATIVE INTERN.FURNACE SETTER [address] [facility] [place] [address] Web Operations Specialist Internal Medicine 08/08/24 Mag Bowers CREATIVE INTERN.CERTIFIED ADAPTIVE PHYSICAL EDUCATOR [address] [facility] [address] [place] [address] Web Operations Specialist Internal Medicine 11/22/24 Culinary Director Relationship Specialty Start Date End Date Debbie Flores MD [address] [facility] [address] PCP - General Internal Medicine 12/11/20 Ya Soto, CREATIVE INTERN.FURNACE SETTER [address] [facility] [place] [address] Web Operations Specialist Internal Medicine 08/08/24 Mag Bowers CREATIVE INTERN.CERTIFIED ADAPTIVE PHYSICAL EDUCATOR [address] [facility] [address] Web Operations Specialist Internal Medicine 11/22/24 Culinary Director Relationship Specialty Start Date End Date Debbie Flores MD [address] [place] [address] PCP - General Internal Medicine 12/11/20 Ya Soto CREATIVE INTERN.FURNACE SETTER [address] [facility] [address] Web Operations Specialist Internal Medicine 08/08/24 Mag Bowers CREATIVE INTERN.CERTIFIED ADAPTIVE PHYSICAL EDUCATOR [address] [place] [address] Web Operations Specialist Internal Medicine 11/22/24 Culinary Director Relationship Specialty Start Date End Date Debbie Flores MD [address] [place] [address] PCP - General Internal Medicine 12/11/20 Mag Bowers CREATIVE INTERN.CERTIFIED ADAPTIVE PHYSICAL EDUCATOR [address] [place] [address] Web Operations Specialist Internal Medicine 11/22/24 Ya Soto, CREATIVE INTERN.FURNACE SETTER [address] [place] [address] Web Operations Specialist Internal Medicine 01/18/25 Team Status: Active Member [...] May 04, 2025 End: May 04, 2025 Culinary Director Relationship Specialty Start Date End Date Debbie Flores MD [address] [place], [place] [address] PCP - General Internal Medicine 12/11/20 Mag Bowers APRN.CERTIFIED ADAPTIVE PHYSICAL EDUCATOR [address] [place], [place] [id number] Web Operations Specialist Internal Medicine 11/22/24 Ya Soto APRN.FURNACE SETTER [address] [place], [place] [id number] [facility] Internal Medicine 01/18/25 Goals (unrecognized section and [...] BE BASED ON THE PRIMARY CLINICAL RECORDS. [facility] [employer] provides no warranty or guarantee of the accuracy or completeness of information in this document.
--- NOTE | 2025-08-22 05:50 | RAD_ITS ---
PROCEDURE: CHEST 1 VIEW (PORTABLE) 08/22/2025 REASON FOR EXAM: LEFT-SIDED PNEUMONIA, HYPOXIA TECHNIQUE: Frontal view of the chest. COMPARISON: July 26, 2020 FINDINGS: The lungs are adequately aerated bilaterally without pleural effusion or pneumothorax. Patchy left basilar airspace disease. Atheromatous changes of the aorta without cardiomegaly. Degenerative changes of the shoulders and spine. RAD/Chest 1 View (Portable) IMPRESSION: Patchy left basilar airspace disease for which pneumonias consideration. Recom mend repeat radiographs in 1-2 weeks to document resolution. Reading Location: [id number]
[2025-08-22] MEDS: 0.9% Saline Lock 10 ML Syringe IV ×2 (06:35→09:55)
[2025-08-22] MEDS: Heparin Injection (Vial) 5,000 UNIT/ML VIAL 5000 UNIT SC ×3 (06:42→21:29)
--- NOTE | 2025-08-22 07:08 | PN.HOSP_ITS ---
Reason for Visit Chief Complaint: Fall and left leg fracture Subjective Subjective Patient is a 65-year-old lady who presented to the emergency department following a fall with subsequent leg pain. Imaging studies obtained did show Acute displaced tibial and fibular fractures with associated soft tissue swelling Objective Data Objective Data Vital Signs: Vital Signs Temp Pulse Resp BP Pulse Ox O2 Del Method O2 Flow Rate 97.6 F L 82 20 H 156/72 H 94 Nasal Cannula 2 08/22/25 06:19 08/22/25 06:19 08/22/25 06:19 08/22/25 06:19 08/22/25 06:19 08/22/25 06:50 08/22/25 06:50 Oxygen Flow Rate (L/min) 2 Oxygen Delivery Method Nasal Cannula Weight: 97.5 kg Body Mass Index (BMI) 36.8 Intake & Output: Intake and Output for Last 24 Hours 08/20/25 08/21/25 08/22/25 23:59 23:59 23:59 Intake Total 100 / 100 Balance 100 / 100 Lab / Micro Data 08/22/25 04:25 08/22/25 04:25 Labs: Laboratory Results - last 24 hr 08/22/25 04:25: WBC 9.0, RBC 4.45, Hgb 14.8, Hct 43.9, MCV 98.7, MCH 33.3 H, MCHC 33.7, RDW Std Deviation 42.2, RDW Coeff of Lyssa 11.7, Plt Count 460 H, MPV 9.2, Immature Gran % (Auto) 0.600, Neut % (Auto) 69.2, Lymph % (Auto) 20.5, Waller % (Auto) 6.2, Eos % (Auto) 2.5, Baso % (Auto) 1.0, Absolute Neuts (auto) 6.3, Absolute Lymphs (auto) 1.85, Nucleated RBC % 0, Sodium 140, Potassium 4.5, Chloride 103, Carbon Dioxide 21.5, Anion Gap 16, BUN 14, Creatinine 0.58 L, Estim Creat Clear Calc 115.86, Est GFR (MDRD) Non-Af 101, BUN/Creatinine Ratio 23.5 H, Glucose 143 H, Calcium 9.0, TSH 0.172 L, Free T4 1.40 Radiography Diagnostic Testing: Radiology Impression Tibia/Fibula X-Ray 08/22/25 03:30 IMPRESSION: Acute displaced tibial and fibular fractures with associated soft tissue swelling as detailed above. Reading [id number] Tibia/Fibula X-Ray 08/22/25 04:55 IMPRESSION: Splinted 2 part left fibular and distal left tibial fracture in improved alignment. Reading Location: [facility] Chest X-Ray 08/22/25 05:50 IMPRESSION: Patchy left basilar airspace disease for which pneumonias consideration. Recommend repeat radiographs in 1-2 weeks to document resolution. Reading Location: [facility] Physical Exam Narrative GENERAL: cooperative HEENT: Atraumatic; normocephalic EYES; Anicteric, Normal Conjunctiva NECK; supple, normal thyroid, RESPIRATORY: Diminished to auscultation CARDIOVASCULAR: Regular S1 S2, GI: soft, normoactive bowel sounds, : No Renal angle tenderness; EXTREMITIES: No edema, no clubbing, MUSCULOSKELETAL: Left lower extremity immobilized NEURO: Awake; no lateralizing signs. SKIN: No Rash PSYCH; Flat affect Assessment & Plan Assessment/Plan (1) Hypoxemia: (2) Closed traumatic minimally displaced fracture of shaft of left fibula: QUALIFIERS: Encounter type: initial encounter Qualified Code(s): S82.402A - Unspecified fracture of shaft of left fibula, initial encounter for closed fracture (3) Closed traumatic displaced fracture of shaft of left tibia: QUALIFIERS: Encounter type: initial encounter Qualified Code(s): S82.202A - Unspecified fracture of shaft of left tibia, initial encounter for closed fracture (4) Non-ischemic cardiomyopathy: (5) Hyperthyroidism: (6) Nicotine dependence: QUALIFIERS: Nicotine product type: cigarettes Substance use status: uncomplicated Qualified Code(s): F17.210 - Nicotine dependence, cigarettes, uncomplicated (7) Fall on same level from tripping: (8) Alcohol use: (9) Cigarette smoker: PLAN: Plan Patient is a 65-year-old lady who presented to the emergency department following a fall with subsequent leg pain. Imaging studies obtained did show Acute displaced tibial and fibular fractures with associated soft tissue swelling 1. Fall with acute displaced tibia and fibula fracture ? Patient has been admitted to regular nursing floor manage with pain meds immobilization with consultation placed orthopedic surgery. Patient risk for surgical intervention as documented by H&P 2. Abnormal chest x-ray Patient was recently treated for pneumonia and finished antibiotics 3 days prior to her admission. Imaging studies on admission did show patchy left basilar airspace disease patient currently denies any fever no cough no chills and has no leukocytosis we will continue with monitoring 3. Hypertension ? Blood pressure controlled, home medications continued with dose adjustment as needed 4. Chronic alcohol use ? Patient admitted to drinking 4 glasses of wine almost every evening. Patient will be monitored for possible withdrawal 5. Hypothyroidism ? Patient is on methimazole 6. Class II obesity with BMI of 37 ? Complicating care weight loss advised 7. Tobacco dependence ? Counseled on cessation, offered nicotine patch for tobacco cravings 8. DVT prophylaxis ? Subcu heparin Charges/Coding Visit Charges Inpatient E&M: 42230 Subs Hosp L2
--- NOTE | 2025-08-22 07:23 | CT_ITS ---
PROCEDURE: EXTREMITY LOWER WITHOUT CONTRA 08/22/2025 REASON FOR EXAM: ASSESS INTRA ARTICULAR EXTENSION OF FRACTURE TECHNIQUE: Procedure Code: CTELWO Modality: CT Procedure: EXTREMITY LOWER WITHOUT CONTRA Contiguous axial scans of 1.75 mm slice thicknesses. Sagittal and coronal reconstruction images were obtained. One or more dose reduction techniques were used (e.g., automated exposure control, adjustment of mA and/or kv according to patient size, use of iterative reconstruction technique). CONTRAST: Not given VOLUME: 0 mL RADIATION DOSE SUMMARY: CTDlvol: 15.35 mGy DLP: 511.11 mGycm COMPARISON: Plain films of the tibia and fibula dated 1222 2024. FINDINGS: Bones: A vertical hairline fracture extends through the posterior malleolus extending to the articular surface of the tibia. Oblique fracture through the distal diaphysis of the fibula with distal fracture fragment displaced anteriorly by approximately 5 mm. Comminuted oblique fracture through the distal tibial diaphysis, medial offset of the distal fracture fragments by approximately 8 mm. Posterior displacement of the distal fracture fragments by approximately 7 mm. Oblique fracture through the medial malleolus extending through the articular surface. No other fractures involving the ankle. Plantar and dorsal calcaneal spurs. Joints: Ankle mortise is intact.. Soft tissues: Soft tissue swelling and edema surrounds the ankle. CT/Extremity Lower without Contra IMPRESSION: Acute fractures of the distal tibia and fibula as detailed above. Displacement of the fracture fragments detailed above. The medial and posterior malleolar fracture lines extend to the articular surfa ce of the tibia. Calcaneal spurs. Reading Location: [place] [address]
[2025-08-22] MEDS: Nicotine (PBKC) 21 MG Patch TD (09:54)
--- NOTE | 2025-08-22 11:45 | CASEMGMT ---
MARLI DHILLON Assessment Face to Face with patient for initial transition planning/care coordination assessment. MARLI DHILLON introduced self and role at [facility], pt voices understanding. Pt is A&Ox4 and is resting comfortably in bed and is calm. Care providers, pharmacy, and demographics verified. Admitting dx: Left Tibia Fracture LACE Strata: 1 PCP: Mary Lou Gutierrez Specialists: MONTY, Yoni Endocrinology. Dr Simms with Ortho is consulted Preferred Pharmacy: [facility] Insurance: [employer] Prescription Benefit: Yes LNOK: Ray (H) Living Arrangements: Pt lives with her in a single story home with 2 steps to enter ADLs/IADLs: Pt states that she is indep at baseline. However, pt recently had a fall and was admitted for a left tibia fracture. Surgery is pending with Dr. Simms. Noted that the surgery is scheduled for 08/25 in [facility]. Inquired with the pt's RN and the MS Charge nurse to confirm if this is accurate. Pt's RN states that he plans to call surgery to confirm when surgery is as the pt is NPO at this time. Current 6-Click score is 12 and PT to eval once appropriate. Transportation: Self, DME: Pt denies wanting medical alert resources. Pt has a FWW from previous surgeries as well as a shower chair. Noted that the pt was 94% on 3L of oxygen. A verbal list of local in-network DME companies were provided to the pt at this time. Pt prefers [facility]. HHC/SNF: Report HH history x 15 years ago. Denies SNF history EtOH/ Smoking/ Illicit Drug use: Pt states that she drinks about 4 glasses of wine daily, smokes 1 pack of cigarettes per day, and smokes THC daily. Pt offered SW follow up and/ or cessation resources. However, pt declines. Pt?s goal: TBD Plan: TBD. CM to follow PT eval s/p surgery and follow up with the pt in regards to safe DC planning. Pt denies further questions or concerns at this time. Report given to MOISES CALLES CM. Edward Man RN, CM
--- NOTE | 2025-08-22 16:25 | CON.PCM.OR_ITS ---
HPI Consult Data Date of Consult: 08/22/25 HPI Narrative HPI Narrative: JULIO RUIZ, is a 65 F who presents with a right distal tibia fracture with intra-articular extension. The patient tripped and twisted the leg fell at home. Smoker. ambulates independently lives at home with her . Seen in the emergency department and placed into a splint and had a CT of the ankle. No knee pain. Pain is controlled currently with narcotics seen on the [place] [address]. [facility] Medical History Secondary pulmonary arterial hypertension Osteoarthritis Fibromyalgia Thyroid nodule Demand ischemia (05/02/19) Chronic systolic (congestive) heart failure Non-ischemic cardiomyopathy Essential (primary) hypertension Hyperthyroidism Nicotine dependence Home Medications ?Medication ?Instructions ?Recorded ?Last Taken ?Type magnesium oxide 400 mg PO DAILY extension associate 12/27/19 08/21/25 History ordered Handicap Placard #1 ea 04/08/23 Unknown Rx losartan 50 mg tablet 50 mg PO QPM #90 tabs 08/20/25 Rx methimazole 5 mg tablet 5 mg PO .3 days per week #48 tabs 05/04/25 Unknown Rx psyllium husk 0.4 gram capsule 0.4 g PO QDAY regularit y 05/04/25 08/21/25 History (Daily Fiber) furosemide 40 mg tablet 40 mg PO DAILY Dose increase d back 06/15/25 08/21/25 Rx to whole 40 mg tablet daily #90 tabs carvedilol 25 mg tablet 25 mg PO BID #180 tabs 06/1608/21/25 Rx Allergy/AdvReac Type Severity Reaction Status Date / Time bee venom protein (honey bee) Allergy Unknown Swelling Verified 08/22/25 02:47 lactase (From Dairy Aid) Allergy Unknown Unknown Verified 08/22/25 02:47 aspirin AdvReac GI Upset Verified 08/22/25 02:47 cyclobenzaprine AdvReac mouth Verified 08/22/25 02:47 burning latex AdvReac Swelling Verified 08/22/25 02:47 lisinopril AdvReac cough Verified 08/22/25 02:47 NSAIDS (Non-Steroidal AdvReac PT UNABLE Verified 08/22/25 02:47 Anti-Inflamma TO RESPOND-NEEDS F/U Family History Father Diabetes Heart disease Mother Respiratory disease Psychiatric care Mental disorder Suicide attempt Heart failure Surgical History History of dilatation and curettage History of tubal ligation History of total hip arthroplasty Social History Smoking Status: Current every day smoker tobacco type: cigarettes Tobacco: How many years used: 30 alcohol intake: current alcohol intake frequency: 3 or more drinks per day Alcohol type: wine substance use type: marijuana caffeine: Yes Type: coffee Number of servings: 1 Vital Signs Vital Signs Vital Signs: 08/22/25 02:43 08/22/25 02:47 08/22/25 03:00 Temperature 97.7 F L Temperature Source Oral Pulse Rate 87 81 Respiratory Rate 18 19 H Respiratory Effort Normal Respiratory Depth Normal Respiratory Pattern Normal Blood Pressure 111/41 L 131/66 H Blood Pressure Mean 64 87 Blood Pressure Source Blood Pressure Position Blood Pressure Location Pulse Ox 99 95 Oxygen Delivery Method Room Air Oxygen Flow Rate (L/min) 08/22/25 04:25 08/22/25 04:53 08/22/25 05:17 Temperature 97.7 F L Temperature Source Pulse Rate 78 78 Respiratory Rate 18 18 Respiratory Effort Respiratory Depth Respiratory Pattern Blood Pressure 121/55 H 121/55 H Blood Pressure Mean 77 77 Blood Pressure Source Blood Pressure Position Blood Pressure Location Pulse Ox 83 94 94 Oxygen Delivery Method Room Air Nasal Cannula Oxygen Flow Rate (L/min) 2 08/22/25 06:19 08/22/25 06:50 08/22/25 10:44 Temperature 97.6 F L Temperature Source Oral Pulse Rate 82 Respiratory Rate 20 H Respiratory Effort Normal Non-Labored Respiratory Depth Normal Respiratory Pattern Normal Blood Pressure 156/72 H Blood Pressure Mean 100 Blood Pressure Source Monitor Blood Pressure Position Semi-Fowlers Blood Pressure Location Right Arm Pulse Ox 94 Oxygen Delivery Method Nasal Cannula Nasal Cannula Nasal Cannula Oxygen Flow Rate (L/min) 3 2 2 08/22/25 12:00 Temperature 97.9 F Temperature Source Oral Pulse Rate 77 Respiratory Rate 18 Respiratory Effort Respiratory Depth Respiratory Pattern Blood Pressure 144/65 H Blood Pressure Mean 91 Blood Pressure Source Monitor Blood Pressure Position Supine Blood Pressure Location Right Arm Pulse Ox 95 Oxygen Delivery Method Nasal Cannula Oxygen Flow Rate (L/min) 3 Weight Weight: 214 lb 15.211 oz Body Mass Index (BMI) 36.8 Physical Exam Const alert, oriented x3, no apparent distress and well nourished General Appearance: cooperative Extremity Extremity Narrative: In a splint the foot is warm and well-perfused able to wiggle the toes normal sensation throughout the foot. No pain over the knee. No pain on passive stretch. Patient appears comfortable. Lab / Micro Data 08/22/25 04:25 08/22/25 04:25 Labs: Laboratory Results - last 24 hr 08/22/25 04:25: WBC 9.0, RBC 4.45, Hgb 14.8, Hct 43.9, MCV 98.7, MCH 33.3 H, MCHC 33.7, RDW Std Deviation 42.2, RDW Coeff of Lyssa 11.7, Plt Count 460 H, MPV 9.2, Immature Gran % (Auto) 0.600, Neut % (Auto) 69.2, Lymph % (Auto) 20.5, [place] % (Auto) 6.2, Eos % (Auto) 2.5, Baso % (Auto) 1.0, Absolute Neuts (auto) 6.3, Absolute Lymphs (auto) 1.85, Nucleated RBC % 0, Sodium 140, Potassium 4.5, Chloride 103, Carbon Dioxide 21.5, Anion Gap 16, BUN 14, Creatinine 0.58 L, Estim Creat Clear Calc 115.86, Est GFR (MDRD) Non-Af 101, BUN/Creatinine Ratio 23.5 H, Glucose 143 H, Calcium 9.0, TSH 0.172 L, Free T4 1.40 Imaging Radiology Impression Tibia/Fibula X-Ray 08/22/25 03:30 IMPRESSION: Acute displaced tibial and fibular fractures with associated soft tissue swelling as detailed above. Reading Location: [facility] Tibia/Fibula X-Ray 08/22/25 04:55 IMPRESSION: Splinted 2 part left fibular and distal left tibial fracture in improved alignment. Reading Location: [id number] Chest X-Ray 08/22/25 05:50 IMPRESSION: Patchy left basilar airspace disease for which pneumonias consideration. Recommend repeat radiographs in 1-2 weeks to document resolution. Reading Location: [id number] Lower Extremity CT 08/22/25 07:23 IMPRESSION: Acute fractures of the distal tibia and fibula as detailed above. Displacement of the fracture fragments detailed above. The medial and posterior malleolar fracture lines extend to the articular surface of the tibia. Calcaneal spurs. Reading Location: [place] [id number] There is a spiral distal third tibia shaft fracture with intra-articular extension small posterior malleolus fragment coronal split as well as a sagittal split to the medial malleolus. Assessment & Plan Assessment/Plan (1) Closed traumatic displaced fracture of shaft of left tibia: QUALIFIERS: Encounter type: initial encounter Qualified Code(s): S82.202A - Unspecified fracture of shaft of left tibia, initial encounter for closed fracture PLAN: 65-year-old female with Left distal third tibia and fibula fracture with intra-articular displacement and involvement of the medial malleolus and small posterior malleolus coronal split fragment. Recommend open reduction internal fixation though I did discuss nonoperative management high risk of malunion and delayed union. That being said due to the smoking chance she is high risk of complications overall like infection delayed or nonunion I encouraged her to quit or cut back. For now splint diet as tolerated n.p.o. at midnight for planned surgery Thursday anesthesia aware as well as placed onto the board for an add-on case likely second case of the day. In the meantime VTE prophylaxis rest ice elevate the leg. Neurovascular checks. Discussed the pros and cons risks and benefits of surgery including but not limited to infection pain stiffness bleeding VTE and . Likely plan for suprapatellar nailing as well as medial buttress plate possibly to partially-threaded screws for the medial malleolus and possibly an anterior to posterior screw for the posterior coronal split fragment. Likely just partial weightbearing after with immediate range of motion of the ankle. The patient understands no further questions or concerns and will be made n.p.o. at midnight for left tibia and fibula ORIF. Pros and cons risks and benefits were discussed with the patient including but not limited to infection, pain, stiffness, bleeding, damage to surrounding structures, neurovascular injury, recurrence or retear, failure or wear of hardware or fixation, instability, fracture, deep vein thrombosis and pulmonary embolism, anesthetic risks, , patient dissatisfaction, need for further surgery and other risks. Patient understood and wished to proceed with surgery, and signed the informed consent documentation.
[2025-08-23] VITALS (9 sets, daily range): BP systolic 117–140; BP diastolic 60–83; PULSE 70–84; RESP 16–20; TEMP 36.2–36.9; O2SAT 90–98
[2025-08-23] MEDS: 0.9% Saline Lock 10 ML Syringe IV ×4 (00:58→13:29)
[2025-08-23 06:36] LABS: Hematocrit 40.7 % (37-47); Hemoglobin 13.8 g/dL (12.0-15.0); Immature Granulocytes Count 0.040 X10^3/uL (0.0-0.0); Mean Corp Hgb Conc 33.9 g/dL (32-36); Mean Corpuscular Volume 101.5 fL (81-99); Mean Platelet Vol. 9.4 fl (6.2-12.0); NRBC Flagged by Analyzer 0 % (0-5); Platelet Count 444 K/mm3 (150-450); RBC Distribution Width CV 11.7 % (11.6-14.6); RBC Distribution Width SD 42.4 fl (35.1-43.9); Red Blood Count 4.01 M/mm3 (4.2-5.4); White Blood Count 11.3 K/mm3 (4.4-11.0)
[2025-08-23 06:42] LABS: Anion Gap 9 (7-18); BUN 17 mg/dL (4-19); BUN/Creat Ratio 29.7 RATIO (10-20); Calcium,Total 8.9 mg/dL (7.6-11.0); Carbon Dioxide 27.9 mmol/L (20.0-29.0); Chloride 98 mmol/L (96-106); Estimated Creatinine Clearance 109.22 ml/min (50-250); Glucose 168 mg/dL (70-99); Magnesium 2.1 mg/dL (1.5-2.2); Potassium 3.8 mmol/L (3.5-5.1)
[2025-08-23] MEDS: Heparin Injection (Vial) 5,000 UNIT/ML VIAL 5000 UNIT SC ×3 (06:58→20:49)
--- NOTE | 2025-08-23 07:06 | PCM.PN.HOSP ---
Reason for Visit Chief Complaint: Fall and left leg fracture Subjective Subjective Patient seen still complains of pain in the left lower extremity. Scheduled to undergo ORIF on 08/25/2025 Objective Data Objective Data Vital Signs: Vital Signs Temp Pulse Resp BP Pulse Ox O2 Del Method O2 Flow Rate 98.4 F 84 20 H 140/77 H 93 Nasal Cannula 4 08/23/25 04:06 08/23/25 04:06 08/23/25 04:06 08/23/25 04:06 08/23/25 04:06 08/23/25 04:13 08/23/25 04:13 Oxygen Flow Rate (L/min) 4 Oxygen Delivery Method Nasal Cannula Weight: 97.5 kg Body Mass Index (BMI) 36.8 Intake & Output: Intake and Output for Last 24 Hours 08/21/25 08/22/25 08/23/25 23:59 23:59 23:59 Intake Total 100 / 100 Output Total 1100 / 1100 700 / 700 Balance -1000 / -1000 -700 / -700 Lab / Micro Data 08/23/25 05:58 08/23/25 05:58 Labs: Laboratory Results - last 24 hr 08/23/25 05:58: WBC 11.3 H, RBC 4.01 L, Hgb 13.8, Hct 40.7, MCV 101.5 H, MCH 34.4 H, MCHC 33.9, RDW Std Deviation 42.4, RDW Coeff of Lyssa 11.7, Plt Count 444, MPV 9.4, Immature Gran % (Auto) 0.400, Neut % (Auto) 75.0 H, Lymph % (Auto) 16.2 L, [place] % (Auto) 6.4, Eos % (Auto) 1.6, Baso % (Auto) 0.4, Absolute Neuts (auto) 8.5 H, Absolute Lymphs (auto) 1.83, Nucleated RBC % 0, Sodium 135, Potassium 3.8, Chloride 98, Carbon Dioxide 27.9, Anion Gap 9, BUN 17, Creatinine 0.59 L, Estim Creat Clear Calc 109.22, Est GFR (MDRD) Non-Af 101, BUN/Creatinine Ratio 29.7 H, Glucose 168 H, Calcium 8.9, Phosphorus 2.8, Magnesium 2.1, TSH 0.142 L Radiography Diagnostic Testing: Radiology Impression Lower Extremity CT 08/22/25 07:23 IMPRESSION: Acute fractures of the distal tibia and fibula as detailed above. Displacement of the fracture fragments detailed above. The medial and posterior malleolar fracture lines extend to the articular surface of the tibia. Calcaneal spurs. Reading Location: [place] [address] Physical Exam Narrative GENERAL: cooperative HEENT: Atraumatic; normocephalic EYES; Anicteric, Normal Conjunctiva NECK; supple, normal thyroid, RESPIRATORY: Diminished to auscultation CARDIOVASCULAR: Regular S1 S2, GI: soft, normoactive bowel sounds, : No Renal angle tenderness; EXTREMITIES: No edema, no clubbing, MUSCULOSKELETAL: Left lower extremity immobilized NEURO: Awake; no lateralizing signs. SKIN: No Rash PSYCH; Flat affect Assessment & Plan Assessment/Plan (1) Hypoxemia: (2) Closed traumatic minimally displaced fracture of shaft of left fibula: QUALIFIERS: Encounter type: initial encounter Qualified Code(s): S82.402A - Unspecified fracture of shaft of left fibula, initial encounter for closed fracture (3) Closed traumatic displaced fracture of shaft of left tibia: QUALIFIERS: Encounter type: initial encounter Qualified Code(s): S82.202A - Unspecified fracture of shaft of left tibia, initial encounter for closed fracture (4) Non-ischemic cardiomyopathy: (5) Hyperthyroidism: (6) Nicotine dependence: QUALIFIERS: Nicotine product type: cigarettes Substance use status: uncomplicated Qualified Code(s): F17.210 - Nicotine dependence, cigarettes, uncomplicated (7) Fall on same level from tripping: (8) Alcohol use: (9) Cigarette smoker: PLAN: Plan Patient is a 65-year-old lady who presented to the emergency department following a fall with subsequent leg pain. Imaging studies obtained did show Acute displaced tibial and fibular fractures with associated soft tissue swelling 1. Fall with acute displaced tibia and fibula fracture ? Patient has been admitted to regular nursing floor manage with pain meds immobilization with consultation placed orthopedic surgery. Patient risk for surgical intervention as documented by H&P ? 08/19/2025; patient was seen in consultation by orthopedic surgery case discussed with Dr. Simms, plan is for patient to undergo ORIF on 08/25/2025 2. Abnormal chest x-ray Patient was recently treated for pneumonia and finished antibiotics 3 days prior to her admission. Imaging studies on admission did show patchy left basilar airspace disease patient currently denies any fever no cough no chills and has no leukocytosis we will continue with monitoring 3. Hypertension ? Blood pressure controlled, home medications continued with dose adjustment as needed 4. Chronic alcohol use ? Patient admitted to drinking 4 glasses of wine almost every evening. Patient will be monitored for possible withdrawal 5. Hypothyroidism ? Patient is on methimazole 6. Class II obesity with BMI of 37 ? Complicating care weight loss advised 7. Tobacco dependence ? Counseled on cessation, offered nicotine patch for tobacco cravings 8. DVT prophylaxis ? Subcu heparin 9. Constipation ? Patient started on stool softener Time spent in the patient's overall evaluation,decision-making process, review of diagnostic data, adjustment of management, discussion with other providers, nursing nursing and ancillary staff involved in patient's care documentation, 38 Minutes Charges/Coding Visit Charges Inpatient E&M: 93340 Subs Hosp L2
[2025-08-23] MEDS: Senna/Docusate Sodium 1 Tablet 2 TABLET PO (11:20)
[2025-08-23] MEDS: Nicotine (PBKC) 21 MG Patch TD (11:20)
[2025-08-24] VITALS (8 sets, daily range): BP systolic 105–153; BP diastolic 63–77; PULSE 63–77; RESP 15–16; TEMP 36.6–37.2; O2SAT 92–99
[2025-08-24] MEDS: 0.9% Saline Lock 10 ML Syringe IV ×3 (00:03→23:41)
[2025-08-24 04:48] LABS: Hematocrit 41.5 % (37-47); Hemoglobin 13.7 g/dL (12.0-15.0); Immature Granulocytes Count 0.030 X10^3/uL (0.0-0.0); Mean Corp Hgb Conc 33.0 g/dL (32-36); Mean Corpuscular Volume 102.2 fL (81-99); Mean Platelet Vol. 9.5 fl (6.2-12.0); NRBC Flagged by Analyzer 0 % (0-5); Platelet Count 325 K/mm3 (150-450); RBC Distribution Width CV 11.6 % (11.6-14.6); RBC Distribution Width SD 43.7 fl (35.1-43.9); Red Blood Count 4.06 M/mm3 (4.2-5.4); White Blood Count 8.9 K/mm3 (4.4-11.0)
[2025-08-24] MEDS: Heparin Injection (Vial) 5,000 UNIT/ML VIAL 5000 UNIT SC ×3 (05:07→22:20)
[2025-08-24 05:36] LABS: Anion Gap 13 (7-18); BUN 15 mg/dL (4-19); BUN/Creat Ratio 25.7 RATIO (10-20); Calcium,Total 9.1 mg/dL (7.6-11.0); Carbon Dioxide 20.6 mmol/L (20.0-29.0); Chloride 103 mmol/L (96-106); Estimated Creatinine Clearance 111.10 ml/min (50-250); Glucose 158 mg/dL (70-99); Potassium 4.3 mmol/L (3.5-5.1)
--- NOTE | 2025-08-24 07:42 | PN.HOSP_ITS ---
Reason for Visit Chief Complaint: Fall and left leg fracture Subjective Subjective Patient seen still complains of significant pain. Further adjustment made to patient pain regimen with discontinuation of morphine and initiation of Dilaudid. Objective Data Objective Data Vital Signs: Vital Signs Temp Pulse Resp BP Pulse Ox O2 Del Method O2 Flow Rate 97.9 F 77 16 131/66 H 95 Nasal Cannula 3 08/24/25 03:00 08/24/25 03:00 08/24/25 03:00 08/24/25 03:00 08/24/25 03:07 08/24/25 03:07 08/24/25 03:07 Oxygen Flow Rate (L/min) 3 Oxygen Delivery Method Nasal Cannula Weight: 97.5 kg Body Mass Index (BMI) 36.8 Intake & Output: Intake and Output for Last 24 Hours 08/22/25 08/23/25 08/24/25 23:59 23:59 23:59 Intake Total 100 / 100 760 / 1210 450 / 450 Output Total 1100 / 1100 1200 / 1200 450 / 450 Balance -1000 / -1000 -440 / 10 0 / 0 Lab / Micro Data 08/24/25 04:19 08/24/25 04:19 Labs: Laboratory Results - last 24 hr 08/24/25 04:19: WBC 8.9, RBC 4.06 L, Hgb 13.7, Hct 41.5, MCV 102.2 H, MCH 33.7 H , MCHC 33.0, RDW Std Deviation 43.7, RDW Coeff of Lyssa 11.6, Plt Count 325, MPV 9.5, Immature Gran % (Auto) 0.300, Neut % (Auto) 67.2, Lymph % (Auto) 21.2, [place] % (Auto) 8.1, Eos % (Auto) 2.7, Baso % (Auto) 0.5, Absolute Neuts (auto) 6.0, Absolute Lymphs (auto) 1.88, Nucleated RBC % 0, Sodium 136, Potassium 4.3, Chloride 103, Carbon Dioxide 20.6, Anion Gap 13, BUN 15, Creatinine 0.58 L, Estim Creat Clear Calc 111.10, Est GFR (MDRD) Non-Af 101, BUN/Creatinine Ratio 25.7 H, Glucose 158 H, Calcium 9.1 Physical Exam Narrative GENERAL: cooperative HEENT: Atraumatic; normocephalic EYES; Anicteric, Normal Conjunctiva NECK; supple, normal thyroid, RESPIRATORY: Diminished to auscultation CARDIOVASCULAR: Regular S1 S2, GI: soft, normoactive bowel sounds, : No Renal angle tenderness; EXTREMITIES: No edema, no clubbing, MUSCULOSKELETAL: Left lower extremity immobilized NEURO: Awake; no lateralizing signs. SKIN: No Rash PSYCH; Flat affect Assessment & Plan Assessment/Plan (1) Hypoxemia: (2) Closed traumatic minimally displaced fracture of shaft of left fibula: QUALIFIERS: Encounter type: initial encounter Qualified Code(s): S82.402A - Unspecified fracture of shaft of left fibula, initial encounter for closed fracture (3) Closed traumatic displaced fracture of shaft of left tibia: QUALIFIERS: Encounter type: initial encounter Qualified Code(s): S82.202A - Unspecified fracture of shaft of left tibia, initial encounter for closed fracture (4) Non-ischemic cardiomyopathy: (5) Hyperthyroidism: (6) Nicotine dependence: QUALIFIERS: Nicotine product type: cigarettes Substance use status: uncomplicated Qualified Code(s): F17.210 - Nicotine dependence, cigarettes, uncomplicated (7) Fall on same level from tripping: (8) Alcohol use: (9) Cigarette smoker: PLAN: Plan Patient is a 65-year-old lady who presented to the emergency department following a fall with subsequent leg pain. Imaging studies obtained did show Acute displaced tibial and fibular fractures with associated soft tissue swelling 1. Fall with acute displaced tibia and fibula fracture ? Patient has been admitted to regular nursing floor manage with pain meds immobilization with consultation placed orthopedic surgery. Patient risk for surgical intervention as documented by H&P ? 08/19/2025; patient was seen in consultation by orthopedic surgery case discussed with Dr. Simms, plan is for patient to undergo ORIF on 08/25/2025 08/24/2025;Patient seen still complains of significant pain. Further adjustment made to patient pain regimen with discontinuation of morphine and initiation of Dilaudid. 2. Abnormal chest x-ray Patient was recently treated for pneumonia and finished antibiotics 3 days prior to her admission. Imaging studies on admission did show patchy left basilar airspace disease patient currently denies any fever no cough no chills and has no leukocytosis we will continue with monitoring ? 08/24/2025; patient has productive cough but no fever with no leukocytosis will continue with symptomatic with antitussives 3. Hypertension ? Blood pressure controlled, home medications continued with dose adjustment as needed 4. Chronic alcohol use ? Patient admitted to drinking 4 glasses of wine almost every evening. Patient will be monitored for possible withdrawal 5. Hypothyroidism ? Patient is on methimazole 6. Class II obesity with BMI of 37 ? Complicating care weight loss advised 7. Tobacco dependence ? Counseled on cessation, offered nicotine patch for tobacco cravings 8. DVT prophylaxis ? Subcu heparin 9. Constipation ? Patient started on stool softener Time spent in the patient's overall evaluation,decision-making process, review of diagnostic data, adjustment of management, discussion with other providers, nursing nursing and ancillary staff involved in patient's care documentation, 36 Minutes Charges/Coding Visit Charges Inpatient E&M: 93032 Subs Hosp L2
[2025-08-24] MEDS: Nicotine (PBKC) 21 MG Patch TD (08:31)
[2025-08-25] VITALS (23 sets, daily range): BP systolic 104–164; BP diastolic 51–84; PULSE 67–94; RESP 15–20; TEMP 36.2–36.9; O2SAT 80–97; BMI 36.8
[2025-08-25] MEDS: 0.9% Saline Lock 10 ML Syringe IV ×2 (04:43→15:06)
--- NOTE | 2025-08-25 05:00 | EKG12_ITS ---
Test Reason : AM EKG Blood Pressure : */* mmHG Vent. Rate : 69 BPM Atrial Rate : 69 BPM P-R Int : 212 ms QRS Dur : 74 ms QT Int : 390 ms P-R-T Axes : 79 14 46 degrees QTcB Int : 417 ms Sinus rhythm with 1st degree A-V block ST & T wave abnormality, consider lateral ischemia Abnormal ECG No previous ECGs available Poor quality Confirmed by Lukas Mae [id number]), copy editor JANNY SANTANA ([id number]) on 08/25/2025 12:59:19 PM Referred By: KANNAN Confirmed By: Lukas Mae
[2025-08-25 07:10] LABS: Hematocrit 41.5 % (37-47); Hemoglobin 14.3 g/dL (12.0-15.0); Immature Granulocytes Count 0.030 X10^3/uL (0.0-0.0); Mean Corp Hgb Conc 34.5 g/dL (32-36); Mean Corpuscular Volume 97.6 fL (81-99); Mean Platelet Vol. 9.6 fl (6.2-12.0); NRBC Flagged by Analyzer 0 % (0-5); Platelet Count 407 K/mm3 (150-450); RBC Distribution Width CV 11.7 % (11.6-14.6); RBC Distribution Width SD 41.7 fl (35.1-43.9); Red Blood Count 4.25 M/mm3 (4.2-5.4); White Blood Count 7.2 K/mm3 (4.4-11.0)
--- NOTE | 2025-08-25 07:44 | PCM.PN.HOSP ---
Reason for Visit Chief Complaint: Fall and left leg fracture Subjective Subjective Patient seen pain did improve with adjustment made the day prior. Patient is scheduled to undergo surgical intervention Objective Data Objective Data Vital Signs: Vital Signs Temp Pulse Resp BP Pulse Ox O2 Del Method O2 Flow Rate 97.7 F L 70 16 128/55 H 96 Nasal Cannula 3 08/25/25 07:21 08/25/25 07:21 08/25/25 07:21 08/25/25 07:21 08/25/25 07:21 08/25/25 07:28 08/25/25 07:28 Oxygen Flow Rate (L/min) 3 Oxygen Delivery Method Nasal Cannula Weight: 97.5 kg Body Mass Index (BMI) 36.8 Intake & Output: Intake and Output for Last 24 Hours 08/23/25 08/24/25 08/25/25 23:59 23:59 23:59 Intake Total 760 / 1210 450 / 450 Output Total 1200 / 1200 1650 / 1650 150 / 150 Balance -440 / 10 -1200 / -1200 -150 / -150 Lab / Micro Data 08/25/25 06:05 08/24/25 04:19 Labs: Laboratory Results - last 24 hr 08/25/25 06:05: WBC 7.2, RBC 4.25, Hgb 14.3, Hct 41.5, MCV 97.6, MCH 33.6 H, MCHC 34.5, RDW Std Deviation 41.7, RDW Coeff of Lyssa 11.7, Plt Count 407, MPV 9.6, Immature Gran % (Auto) 0.400, Neut % (Auto) 64.9, Lymph % (Auto) 19.5, [place] % (Auto) 10.8 H, Eos % (Auto) 3.8, Baso % (Auto) 0.6, Absolute Neuts (auto) 4.7, Absolute Lymphs (auto) 1.40, Nucleated RBC % 0 Physical Exam Narrative GENERAL: cooperative HEENT: Atraumatic; normocephalic EYES; Anicteric, Normal Conjunctiva NECK; supple, normal thyroid, RESPIRATORY: Diminished to auscultation CARDIOVASCULAR: Regular S1 S2, GI: soft, normoactive bowel sounds, : No Renal angle tenderness; EXTREMITIES: No edema, no clubbing, MUSCULOSKELETAL: Left lower extremity immobilized NEURO: Awake; no lateralizing signs. SKIN: No Rash PSYCH; Flat affect Assessment & Plan Assessment/Plan (1) Hypoxemia: (2) Closed traumatic minimally displaced fracture of shaft of left fibula: QUALIFIERS: Encounter type: initial encounter Qualified Code(s): S82.402A - Unspecified fracture of shaft of left fibula, initial encounter for closed fracture (3) Closed traumatic displaced fracture of shaft of left tibia: QUALIFIERS: Encounter type: initial encounter Qualified Code(s): S82.202A - Unspecified fracture of shaft of left tibia, initial encounter for closed fracture (4) Non-ischemic cardiomyopathy: (5) Hyperthyroidism: (6) Nicotine dependence: QUALIFIERS: Nicotine product type: cigarettes Substance use status: uncomplicated Qualified Code(s): F17.210 - Nicotine dependence, cigarettes, uncomplicated (7) Fall on same level from tripping: (8) Alcohol use: (9) Cigarette smoker: PLAN: Plan Patient is a 65-year-old lady who presented to the emergency department following a fall with subsequent leg pain. Imaging studies obtained did show Acute displaced tibial and fibular fractures with associated soft tissue swelling 1. Fall with acute displaced tibia and fibula fracture ? Patient has been admitted to regular nursing floor manage with pain meds immobilization with consultation placed orthopedic surgery. Patient risk for surgical intervention as documented by H&P ? 08/19/2025; patient was seen in consultation by orthopedic surgery case discussed with Dr. Simms, plan is for patient to undergo ORIF on 08/25/2025 08/24/2025;Patient seen still complains of significant pain. Further adjustment made to patient pain regimen with discontinuation of morphine and initiation of Dilaudid. ? 08/25/2025; patient pain did improve with adjustment made the day prior. Was kept n.p.o. in anticipation of her ORIF today 2. Abnormal chest x-ray Patient was recently treated for pneumonia and finished antibiotics 3 days prior to her admission. Imaging studies on admission did show patchy left basilar airspace disease patient currently denies any fever no cough no chills and has no leukocytosis we will continue with monitoring ? 08/24/2025; patient has productive cough but no fever with no leukocytosis will continue with symptomatic with antitussives 3. Hypertension ? Blood pressure controlled, home medications continued with dose adjustment as needed 4. Chronic alcohol use ? Patient admitted to drinking 4 glasses of wine almost every evening. Patient will be monitored for possible withdrawal 5. Hypothyroidism ? Patient is on methimazole 6. Class II obesity with BMI of 37 ? Complicating care weight loss advised 7. Tobacco dependence ? Counseled on cessation, offered nicotine patch for tobacco cravings 8. DVT prophylaxis ? Subcu heparin 9. Constipation ? Patient started on stool softener Time spent in the patient's overall evaluation,decision-making process, review of diagnostic data, adjustment of management, discussion with other providers, nursing nursing and ancillary staff involved in patient's care documentation, 35 Minutes Charges/Coding Visit Charges Inpatient E&M: 14654 Subs Hosp L2
[2025-08-25 08:04] LABS: Anion Gap 11 (7-18); BUN 15 mg/dL (4-19); BUN/Creat Ratio 30.1 RATIO (10-20); Calcium,Total 9.7 mg/dL (7.6-11.0); Carbon Dioxide 29.2 mmol/L (20.0-29.0); Chloride 99 mmol/L (96-106); Estimated Creatinine Clearance 126.35 ml/min (50-250); Glucose 149 mg/dL (70-99); Potassium 3.7 mmol/L (3.5-5.1)
--- NOTE | 2025-08-25 08:23 | PN.ORTHO_ITS ---
Subjective Subjective Patient seen preoperative holding plan for left tibia and fibula open reduction internal fixation IM rodding close operative fixation likely for posterior and medial malleolus fragments. Objective Data Objective Data Vital Signs: Vital Signs Temp Pulse Resp BP Pulse Ox O2 Del Method O2 Flow Rate 97.7 F L 70 16 128/55 H 96 Nasal Cannula 3 08/25/25 07:21 08/25/25 07:21 08/25/25 07:21 08/25/25 07:21 08/25/25 07:21 08/25/25 07:28 08/25/25 07:28 Oxygen Flow Rate (L/min) 3 Oxygen Delivery Method Nasal Cannula Weight: 214 lb 15.211 oz Body Mass Index (BMI) 36.8 Intake & Output: Intake and Output for Last 24 Hours 08/23/25 08/24/25 08/25/25 23:59 23:59 23:59 Intake Total 760 / 1210 450 / 450 Output Total 1200 / 1200 1650 / 1650 150 / 150 Balance -440 / 10 -1200 / -1200 -150 / -150 Lab / Micro Data 08/25/25 06:05 08/25/25 06:05 Labs: Laboratory Results - last 24 hr 08/25/25 06:05: WBC 7.2, RBC 4.25, Hgb 14.3, Hct 41.5, MCV 97.6, MCH 33.6 H, MCHC 34.5, RDW Std Deviation 41.7, RDW Coeff of Lyssa 11.7, Plt Count 407, MPV 9.6, Immature Gran % (Auto) 0.400, Neut % (Auto) 64.9, Lymph % (Auto) 19.5, [place] % (Auto) 10.8 H, Eos % (Auto) 3.8, Baso % (Auto) 0.6, Absolute Neuts (auto) 4.7, Absolute Lymphs (auto) 1.40, Nucleated RBC % 0, Sodium 139, Potassium 3.7, Chloride 99, Carbon Dioxide 29.2 H, Anion Gap 11, BUN 15, Creatinine 0.51 L, Estim Creat Clear Calc 126.35, Est GFR (MDRD) Non-Af 104, BUN/Creatinine Ratio 30.1 H, Glucose 149 H, Calcium 9.7 Physical Exam Const alert, oriented x3 and no apparent distress Extremity Extremity Narrative: Left lower extremity in a splint left foot marked. Assessment & Plan Assessment/Plan (1) Closed traumatic displaced fracture of shaft of left tibia: QUALIFIERS: Encounter type: initial encounter Qualified Code(s): S82.202A - Unspecified fracture of shaft of left tibia, initial encounter for closed fracture PLAN: 65-year-old female with distal third intra-articular distal tibia and fibula fracture. Okay to proceed fasting no further questions or concerns.
[2025-08-25] MEDS: Lactated Ringers 1,000 ML 15 ML IV ×2 (08:25→12:24)
--- NOTE | 2025-08-25 08:32 | PRE.ANES_ITS ---
ASA Classification* ASA Classification ASA Classification: 3 Assessment & Plan Anesthesia* Anesthesia Assessment Anesthesia Assessment: Discussed sedation and/or anesthesia options, risks, benefits, and alternatives with patient/parents/legal guardian/POA. Questions invited. The patient/parents/legal guardian/POA seems to understand and agrees to proceed with anesthesia plan. Reviewed the physical assessment, medical history, allergy history and patient home medications list prior to surgery/procedure/anesthetic and documented any changes. Performed airway and anesthesia risk assessments. Anesthesia Type Anesthesia Type: General and Block (Postop pain block if necessary was discussed with the patient. She has consented.) History Source History Obtained from:: Patient and Chart Anesthesia Focused Assessment* Temperature: 97.7 F Pulse Rate: 70 Blood Pressure: 128/55 Respiratory Rate: 16 Pulse Ox: 96 Oxygen Delivery Method: Nasal Cannula Oxygen Flow Rate (L/min): 3 Airway Assessment Mouth opens: >3 cm Mallampati Score: III Teeth Condition: Caps/Crowns (Patient has several crowns. They are all tight.) Neck Range of motion (ROM): Limited ROM (Somewhat Decreased) Labs Anesthesia Preop lab: CBC WBC, (4.4-11.0) 7.2 K/mm3 Today, 06:05 RBC, (4.2-5.4) 4.25 M/mm3 Today, 06:05 Hgb, (12.0-15.0) 14.3 g/dL Today, 06:05 Hct, (37-47) 41.5 % Today, 06:05 Plt Count, (150-450) 407 K/mm3 Today, 06:05 CHEMISTRY Potassium, (3.5-5.1) 3.7 mmol/L Today, 06:05 Sodium, (135-145) 139 mmol/L Today, 06:05 Magnesium, (1.5-2.2) 2.1 mg/dL 08/23/25, 05:58 Phosphorus, (2.7-4.5) 2.8 mg/dL 08/23/25, 05:58 BUN, (4-19) 15 mg/dL Today, 06:05 Creatinine, (0.70-1.20) 0.51 mg/dL L Today, 06:05 Glucose, (70-99) 149 mg/dL H Today, 06:05 TSH, (0.300-4.200) 0.142 uIU/mL L 08/23/25, 05:58 COAG Pre-Assessment Diagnosis/Proposed Procedure Planned Operative Procedure(s): IM rodding tibia on the left. Anesthesia History Anesthesia History - interface developer: Anesthesia History - interface developer Hx Hospitalization Any Problems With Anesthesia No 08/24/25 20:43 Cholinesterase deficiency No 08/24/25 20:43 You/Your Family Experience No 08/24/25 20:43 fever (hyperthermia) with Relationship Recent Exposure to Contagious No 08/24/25 20:43 Disease Does patient have nerve No 08/24/25 20:43 stimulator Patient instructed to have device shut off --Does patient have Pacemaker No 08/25/25 07:21 or ICD? When Was Last Pacemaker Check QUESTION #4 FULL TEXT: You/Your Family Experience fever (hyperthermia) with Anesthesia Last Oral Intake Last Oral intake: Last Oral Intake NPO since 00:00 08/25/25 07:21 Meds taken in AM with sips of water? Meds patient instructed to take am of surgery PONV PONV - interface developer: PONV - interface developer Female HX of Motion Sickness HX of N/V After Surgery Non-Smoker Duration of Surgery greater than 60 minutes Number of Risk Factors PONV Score Height & Weight Height & Weight: Anesthesia: Height & Weight Height 5 ft 4 in 08/25/25 07:21 Weight: 97.5 kg 08/25/25 07:21 Body Mass Index (BMI) 36.8 08/25/25 07:21 Respiratory Assessment Respiratory Assessment - interface developer: Respiratory Tract Infection Hx - interface developer Hx Respiratory Tract Infection No 08/24/25 20:43 Any additional information?: Yes Hx Respiratory Tract Infection: Yes History of Anesthesia Respiratory Infection details: Patient had recent pneumonia. Course of antibiotics was completed 6 days ago. STOP Sleep Apnea STOP Sleep Apnea - interface developer: STOP Sleep Apnea - interface developer Hx Hypertension Yes 08/24/25 09:28 Hx Sleep Apnea No 08/22/25 05:58 CPAP BIPAP Do you snore loudly (louder No 08/22/25 05:58 than talking or can be heard Do you often feel tired/ Yes 08/22/25 05:58 fatigued/ sleepy during daytime? Has anyone observed you stop No 08/22/25 05:58 breathing during sleep? STOP Results Positive 08/22/25 05:58 QUESTION #5 FULL TEXT : Do you snore loudly (louder than talking or can be heard through closed doors)? Tobacco Use History Tobacco Use History - interface developer: Tobacco Use History - interface developer Tobacco Use Smoking Status Current every day smoker 08/22/25 20:04 Hx Tobacco Use Yes 08/22/25 05:58 Years Smoking 50 08/22/25 05:58 Packs Smoked per Day 1 08/22/25 05:58 Smoking Cessation Date was within the last 15 years Hx Smoking Cessation Date Hx Smoking Cessation Counseling Hematologic Medial History Hematologic Hx - interface developer: Hematologic Medical Hx - mate relief Hx of Blood Transfusion No 08/22/25 05:58 Hx of Transfusion in last 3 No 08/22/25 05:58 Months Date of Last Transfusion (if within last 3 months) Ever experience any problems No 08/22/25 05:58 with transfusion(s)? Specify any problems Hx of Preganancy in last 3 No 08/22/25 05:58 Months Nurse Filling Out Transfusion EVIZZO 08/22/25 05:58 & Questions: Date: 08/22/25 08/22/25 05:58 Time: 06:25 08/22/25 05:58 Patient unable to answer at this time (ie. confused, unrespo /Reproduction History /Reproductive History - interface developer: /Reproductive Hx- interface developer Hx Now No 08/22/25 07:05 Gestational Age (in weeks): EDC: Hx Hx Para Hx Section SAB No 08/22/25 07:05 Does the father of the baby or his family experience fever w Father of the baby Malignant Hypertension history comment Active Medications Active Medications: Current Medications Generic Name Dose Route Start Last Admin Trade Name Freq PRN Reason Stop Dose Admin Acetaminophen 650 mg 08/22/25 06:16 08/24/25 22:20 Acetaminophen 325 Mg Tablet PO 650 mg Q6H PRN PRN Administration Pain 1-10 Or Fever>100.7 Al Hydrox/Mg Hydrox/Simethicone 30 ml 08/23/25 10:15 Mag /Aluminum/Simeth Wch Udc 30 Ml Oral.Susp PO Q6H PRN PRN Gastric Burning Albuterol Sulfate 2.5 mg 08/23/25 10:15 Albuterol 2.5 Mg/3 Ml Vial.Neb. INHALATION Q2H PRN PRN SOB &/OR WHEEZING Carvedilol 25 mg 08/22/25 08:00 08/24/25 16:06 Carvedilol 25 Mg Tablet PO 25 mg BIDCM PARAS Administration Protocol Furosemide 40 mg 08/22/25 10:00 08/24/25 08:31 Furosemide 40 Mg Tablet PO 40 mg DAILY PARAS Administration Protocol Guaifenesin 20 ml 08/23/25 10:15 Guaifenesin 10 Ml Udc (200mg/10ml) PO Q4H PRN PRN COUGH Heparin Sodium (Porcine) 5,000 unit 08/22/25 06:16 08/25/25 04:41 Heparin Injection (Vial) 5,000 Unit/Ml Vial SC Not Given Q8 PARAS Hydromorphone HCl 0.5 - 1 mg 08/24/25 08:13 Hydromorphone 0.5 Mg/0.5 Ml Syringe IV Q3H PRN PRN Pain Score 1-10 Hydromorphone HCl 0.5 - 1 mg 08/24/25 08:27 08/25/25 04:42 Hydromorphone 1 Mg/Ml Syringe IV 1 mg Q3H PRN PRN Administration Pain Score 1-10 Sodium Chloride 250 mls @ 15 mls/hr 08/22/25 05:59 IV .[id number] PRN Saline Flush Sodium Chloride 250 mls @ 15 mls/hr 08/22/25 05:59 IV .[id number] PRN Additional IVPB Infusion Lactated Ringer's 1,000 mls @ 15 mls/hr 08/25/25 08:30 08/25/25 08:25 IV 15 mls/hr .Q48H PARAS Administration Melatonin 10 mg 08/23/25 10:15 Melatonin 10 Mg Tablet PO QHS PRN PRN INSOMNIA Methimazole 5 mg 08/23/25 06:00 08/25/25 04:42 Methimazole 5 Mg Tablet PO Not Given [id number] PARAS Nicotine 21 mg 08/23/25 10:55 08/24/25 08:31 Nicotine (Pbkc) 21 Mg Patch TD 21 mg DAILY PARAS Administration Ondansetron HCl 4 mg 08/23/25 10:15 Ondansetron 4 Mg/2 Ml Vial IV Q8H PRN PRN NAUSEA/VOMITING Senna/Docusate Sodium 2 tablet 08/23/25 10:30 08/24/25 22:19 Senna/Docusate Sodium 1 Tablet PO Not Given BID PARAS Sodium Chloride 10 - 40 ml 08/22/25 05:59 08/25/25 04:43 0.9% Saline Lock 10 Ml Syringe IV 10 ml UD PRN Administration SALINE FLUSH Tizanidine HCl 4 mg 08/22/25 06:16 08/24/25 16:06 Tizanidine Hcl 2 Mg Tablet PO 4 mg Q8H PRN PRN Administration Muscle Spasms/Musculoskeletal Pain PFSH Medical History Secondary pulmonary arterial hypertension Osteoarthritis Fibromyalgia Thyroid nodule Demand ischemia (05/02/19) Chronic systolic (congestive) heart failure Non-ischemic cardiomyopathy Essential (primary) hypertension Hyperthyroidism Nicotine dependence Home Medications ?Medication ?Instructions ?Recorded ?Last Taken ?Type 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 12/27/19 08/21/25 History ordered Handicap Placard #1 ea 04/08/23 Unknown Rx losartan 50 mg tablet 50 mg PO QPM #90 tabs 08/20/25 Rx methimazole 5 mg tablet 5 mg PO .3 days per week #48 tabs 05/04/25 Unknown Rx psyllium husk 0.4 gram capsule 0.4 g PO QDAY regularit y 05/04/25 08/21/25 History (Daily Fiber) furosemide 40 mg tablet 40 mg PO DAILY Dose increase d back 06/15/25 08/21/25 Rx to whole 40 mg tablet daily #90 tabs carvedilol 25 mg tablet 25 mg PO BID #180 tabs 06/1608/21/25 Rx Allergy/AdvReac Type Severity Reaction Status Date / Time bee venom protein (honey bee) Allergy Unknown Swelling Verified 08/25/25 08:20 lactase (From Dairy Aid) Allergy Unknown Unknown Verified 08/25/25 08:20 aspirin AdvReac GI Upset Verified 08/25/25 08:20 cyclobenzaprine AdvReac mouth Verified 08/25/25 08:20 burning latex AdvReac Swelling Verified 08/25/25 08:20 lisinopril AdvReac cough Verified 08/25/25 08:20 NSAIDS (Non-Steroidal AdvReac PT UNABLE Verified 08/25/25 08:20 Anti-Inflamma TO RESPOND-NEEDS F/U Family History Father Diabetes Heart disease Mother Respiratory disease Psychiatric care Mental disorder Suicide attempt Heart failure Surgical History History of dilatation and curettage History of tubal ligation History of total hip arthroplasty Social History Smoking Status: Current every day smoker tobacco type: cigarettes Tobacco: How many years used: 30 alcohol intake: current alcohol intake frequency: 3 or more drinks per day Alcohol type: wine substance use type: marijuana caffeine: Yes Type: coffee Number of servings: 1 Review of Systems (Anesthesia) ROS Narrative System reviewed and no additional complaints, except as documented.
--- NOTE | 2025-08-25 08:55 | RAD_ITS ---
PROCEDURE: TIBIA FIBULA 2 VIEWS 08/25/2025 REASON FOR EXAM: IM RODDING TIBIA Intraoperative fluoroscopy images were obtained. MGy: 11.8. A total of 124.8 seconds of fluoroscopy time was performed. TECHNIQUE: Procedure Code: RADTF Modality: DX Procedure: TIBIA FIBULA 2 VIEWS COMPARISON: Tibia and fibula views dated 08/22/2025 FINDINGS: An intramedullary stuart is seen in the femur. Radiopaque plates and screws are projected over the distal tibia and fibula and appear to be in satisfactory position. There is no fracture or loosening of the radiopaque hardware. The distal tibia and fibula fractures appear to be in near anatomic alignment. RAD/Tibia & Fibula 2 Views IMPRESSION: An intramedullary stuart is seen in the femur. Radiopaque plates and screws are p rojected over the distal tibia and fibula and appear to be in satisfactory position. There is no fracture or loosening of the radiopaque hardware. The distal tibia and fibula fractures appear to be in near anatomic alignment. Reading Location: [id number]
[2025-08-25] MEDS: Albuterol 2.5 MG/3 ML VIAL.NEB. INHALATION (09:00)
[2025-08-25] MEDS: Lidocaine 1% (5 ml sdv) 5 ML Vial IV (09:12)
[2025-08-25] MEDS: fentaNYL 100 MCG/2 ML Ampul IV (09:25)
[2025-08-25] MEDS: Cefazolin 1 GM/5 ML Vial 2 GM IV (09:30)
[2025-08-25] MEDS: dexMEDEtomidine 200 MCG/2 ML ML 8 MCG IV (11:50)
--- NOTE | 2025-08-25 11:54 | PCM.OPRPT ---
Procedures Musculoskeletal [id number]: Other Procedure See Report Operative Report (Standard) Operative Information Date of Procedure: 08/25/25 Pre-Operative Diagnosis: Left distal tibia and fibula fracture Post-Operative Diagnosis: Same Surgery/Procedure Performed: Left tibia IM rodding, separate open incision medial malleolus open reduction internal fixation, separate incision distal fibula fracture certified travel counselor: Yes Raiser Helper: reyna Tasks completed by automotive service assistant: Retracting Additional assistant coach?: No Type of Anesthesia: Block,Regional and General RN Documented Start/Stop Times: Operation Date: 08/25/25 09:00 Case Time Into Pre-Op 08/25/25 08:16 Out of Pre-Op 08/25/25 09:05 Anesthesia Start 08/25/25 09:07 Into Room 08/25/25 09:07 Procedure Start 08/25/25 09:37 Procedure End 08/25/25 11:51 Procedure Start Time: 09:37 Procedure Stop Time: 11:51 Select all DRAINS/GRAFTS/IMPLANTS that apply: Implanted device Implanted device details: See below Estimated Blood Loss: 50 Specimen collected: No Description of surgery: Patient brought to the operating room theater. Placed supine on the table. General anesthesia induced. 2 g IV Ancef ministered prior to the start of the procedure. Bump under the left hip. Tourniquet applied to left thigh appropriately padded. Lower extremity prepped and draped in the usual sterile fashion with chlorhexidine-based prep solution allowing over 3 minutes drying time prior to draping. SCD on the nonoperative leg. Preoperative timeout performed confirm the site patient and surgery. Began by elevating limb inflating the tourniquet to 250 mmHg. Passed 2 guidewires at the medial malleolus but the fracture appeared quite vertical so I switched fixation tactics towards buttress plating to prevent vertical shear fracture from worsening. I made open incision over the medial malleolus carried dissection down through skin subcutaneous tissue achieved meticulous hemostasis. Protected the tibialis posterior tendon. Protected the saphenous vein. Identified the fracture site irrigated any fracture hematoma and remove any periosteum achieved preliminary reduction using fracture forceps across the fracture site. Selected a Arthrex precontoured medial malleolus specific fragment plate to prevent the vertical shear fracture in a antiglide fashion. Fixated this proximally and distally using locking screws made sure the screws were out of the joint. Next turned my attention towards tibia fracture, used a clamp at the fracture the fracture ended up in valgus even without clamping across this so I decided to fix the fibula to get that out to length as well as to prevent valgus at the fracture site. I made incision directly over the lateral aspect of the fibula carried the dissection down through skin and subcutaneous tissue to meticulous hemostasis. Ensured to protect the superficial peroneal nerve. Dissected down onto the fracture fragments elevate the periosteum removing any fracture hematoma clamped across the fracture used a reconstruction plate from the Arthrex set. Under contoured this. Placed 4 proximal screws and 3 distal screws across the fracture fully threaded cortical screws to achieve a good reduction at the fibula and achieve a good rotation length and alignment at the tibia fracture. Then clamped across the tibia fracture ensured that the foot was lined up appropriately. Next made a small longitudinal incision over the distal quadriceps tendon and carried the dissection down through skin and subcutaneous tissue achieved meticulous hemostasis and incised the quadriceps tendon in line with the skin incision. Using soft tissue sleeve passed the 3.2 mm guidewire just medial to the lateral tibial spine and at the eminence on the lateral radiographs. I overreamed this past the guidewire down to an appropriate depth at the physeal scar. Reamed over this all the way up to a size 1 above the good chatter at the isthmus. Passed a tibial nail Synthes 9 mm diameter 315 mm length. To an appropriate depth. Inserted 2 locking screws distally 1 from anterior to posterior 1 from medial to lateral. I then filled the rest of the screws up in the medial plate and the medial antiglide plate I put 1 screw through the plate and then through the nail as well. I then placed 2 proximal locking screws opposite directions proximally. This achieved good length alignment rotation of the fracture site confirm this took off the aiming arm final radiographs saved AP and lateral at proximal distally as well as at the fracture site. AP lateral mortise views achieved at the ankle good alignment to the fracture site and the periarticular nature of the fracture was well reduced the small posterior malleolus fracture was stable syndesmosis was well aligned negative hook test and negative syndesmosis stress test no syndesmosis instability. Tourniquet let down meticulous hemostasis achieved wound thoroughly irrigated subcutaneous tissue closed with 2-0 Vicryl suture and skin with amita. Skin cleaned with wet dry dressing publication of a Xeroform 4 x 4 gauze ABD dressing sterile cast padding with a posterior splint fashion with the foot and ankle in neutral overwrapped gently with an Cisco bandage. Patient woken up from the general anesthetic transferred off the operating table taken to postanesthetic care unit in stable condition. All sponge needle and instrument counts are correct no complications plan to the patient they can be discharged home when they clear PT OT and social work a partial weightbearing lower extremity and follow-up in the office in 2 weeks time. CPT 70493 IM rodding tibia [id number] modifier 59 medial malleolus fixation for separate medial incision the medial malleolus fragment is anatomically reduced and fixated. [id number] modifier 59 lateral malleolus fixation for separate lateral incision the lateral malleolus fragment is anatomically reduced and fixated. CPT 82326 apply short posterior leg splint Surgical Findings: As above Complications Complications: No Admit VTE Documentation VTE Present on Admission: No VTE Mechan Device Prophylaxis: SCD's VTE Pharm Prophylaxis ordered?: Yes
--- NOTE | 2025-08-25 12:08 | PCM.POST.ANE ---
Anesthesia: Postop Eval I Current Vital Signs Temperature: 98.4 F Pulse Rate: 93 Blood Pressure: 157/78 Respiratory Rate: 16 Pulse Ox: 93 Oxygen Delivery Method: Nasal Cannula Oxygen Flow Rate (L/min): 3 Assessment Airway patent: Yes Spontaneous unlabored respirations: Yes Mental status: Awake and Calm nausea: No Vomiting: No Anesthesia Complication: No Fluid Hydration Crystalloid volume administer (ml): 900 Total IV fluid infused: 900 Progress Note Anesthesia document: Postop Eval 1 completed: Yes
--- NOTE | 2025-08-25 14:53 | CASEMGMT ---
Discharge Planning A list of?SNF providers including quality and resource use data and consistent with the patient's preferred geographic region, medical needs, and insurance network was created in [facility].? This list was provided to the RN JACQUIE. Kendra Baeza, Discharge Planning Asst.
[2025-08-25] MEDS: Nicotine (PBKC) 21 MG Patch TD (14:57)
--- NOTE | 2025-08-25 16:11 | POSTOPAN2_ITS ---
Anesthesia Postop Eval I Sum Postop Eval Completion status Anesthesia document: Postop Eval 1 completed: Yes Anesthesia Postop Eval I Summary Anesthesia Postop Eval I Summary: Anesthesia Postop Eval I: Assessment Summary Airway patent Yes 08/25/25 12:09 INDUSTRIAL MACHINE SYSTEM TECHNICIAN.[email or web address] Spontaneous unlabored Yes 08/25/25 12:09 INDUSTRIAL MACHINE SYSTEM TECHNICIAN.JDEF respirations Mental status Awake,Calm 08/25/25 12:09 INDUSTRIAL MACHINE SYSTEM TECHNICIAN.JDEF nausea No 08/25/25 12:09 INDUSTRIAL MACHINE SYSTEM TECHNICIAN.JDEF Vomiting No 08/25/25 12:09 INDUSTRIAL MACHINE SYSTEM TECHNICIAN.JDEF Anesthesia Postop Eval I: Fluid Summary Crystalloid volume administer 900 08/25/25 12:09 INDUSTRIAL MACHINE SYSTEM TECHNICIAN.JDEF (ml) Colloids volume administered ( ml) Blood Product volume administered (ml) Total IV fluid infused 900 08/25/25 12:09 INDUSTRIAL MACHINE SYSTEM TECHNICIAN.JDEF Anesthesia Postop Eval I: Summary Notes Anesthesia Complication No 08/25/25 12:09 INDUSTRIAL MACHINE SYSTEM TECHNICIAN.JDEF Anesthesia Complication Comment: Post-operative progress note Anesthesia: Postop Eval II Evaluation Mental status: Awake Pain Level: 2 nausea: No Vomiting: No
--- NOTE | 2025-08-25 16:11 | PCM.POSTANE2 ---
Anesthesia Postop Eval I Sum Postop Eval Completion status Anesthesia document: Postop Eval 1 completed: Yes Anesthesia Postop Eval I Summary Anesthesia Postop Eval I Summary: Anesthesia Postop Eval I: Assessment Summary Airway patent Yes 08/25/25 12:09 FURNACE PROCESS SUPERVISOR.JDEF Spontaneous unlabored Yes 08/25/25 12:09 FURNACE PROCESS SUPERVISOR.JDEF respirations Mental status Awake,Calm 08/25/25 12:09 FURNACE PROCESS SUPERVISOR.JDEF nausea No 08/25/25 12:09 FURNACE PROCESS SUPERVISOR.JDEF Vomiting No 08/25/25 12:09 FURNACE PROCESS SUPERVISOR.JDEF Anesthesia Postop Eval I: Fluid Summary Crystalloid volume administer 900 08/25/25 12:09 FURNACE PROCESS SUPERVISOR.JDEF (ml) Colloids volume administered ( ml) Blood Product volume administered (ml) Total IV fluid infused 900 08/25/25 12:09 FURNACE PROCESS SUPERVISOR.JDEF Anesthesia Postop Eval I: Summary Notes Anesthesia Complication No 08/25/25 12:09 FURNACE PROCESS SUPERVISOR.JDEF Anesthesia Complication Comment: Post-operative progress note Anesthesia: Postop Eval II Evaluation Mental status: Awake Pain Level: 2 nausea: No Vomiting: No
[2025-08-26] VITALS (10 sets, daily range): BP systolic 113–130; BP diastolic 52–69; PULSE 73–91; RESP 16–18; TEMP 36.4–37.1; O2SAT 85–99
[2025-08-26] MEDS: Nicotine (PBKC) 21 MG Patch TD (08:05)
--- NOTE | 2025-08-26 08:13 | PN.HOSP_ITS ---
Reason for Visit Chief Complaint: Fall and left leg fracture Subjective Subjective Patient underwent Left tibia IM rodding, separate open incision medial malleolus open reduction internal fixation, separate incision distal fibula fracture on 08/25/2025. Subsequently ordered PT/OT Objective Data Objective Data Vital Signs: Vital Signs Temp Pulse Resp BP Pulse Ox O2 Del Method O2 Flow Rate 98.0 F 82 18 128/69 H 98 Nasal Cannula 3 08/26/25 07:51 08/26/25 07:51 08/26/25 07:51 08/26/25 07:51 08/26/25 07:51 08/26/25 07:59 08/26/25 07:59 Oxygen Flow Rate (L/min) 3 Oxygen Delivery Method Nasal Cannula Weight: 97.5 kg Body Mass Index (BMI) 36.8 Intake & Output: Intake and Output for Last 24 Hours 08/24/25 08/25/25 08/26/25 23:59 23:59 23:59 Intake Total 450 / 450 1623.75 / 1823.75 400 / 400 Output Total 1650 / 1650 200 / 200 Balance -1200 / -1200 1423.75 / 1623.75 400 / 400 Lab / Micro Data 08/25/25 06:05 08/25/25 06:05 Radiography Diagnostic Testing: Radiology Impression Tibia/Fibula X-Ray 08/25/25 08:55 IMPRESSION: An intramedullary stuart is seen in the femur. Radiopaque plates and screws are projected over the distal tibia and fibula and appear to be in satisfactory position. There is no fracture or loosening of the radiopaque hardware. The distal tibia and fibula fractures appear to be in near anatomic alignment. Reading Location: [facility] [place][NOTE 3] Physical Exam Narrative GENERAL: cooperative HEENT: Atraumatic; normocephalic EYES; Anicteric, Normal Conjunctiva NECK; supple, normal thyroid, RESPIRATORY: Diminished to auscultation CARDIOVASCULAR: Regular S1 S2, GI: soft, normoactive bowel sounds, : No Renal angle tenderness; EXTREMITIES: No edema, no clubbing, MUSCULOSKELETAL: Left lower extremity immobilized NEURO: Awake; no lateralizing signs. SKIN: No Rash PSYCH; Flat affect Assessment & Plan Assessment/Plan (1) Hypoxemia: (2) Closed traumatic minimally displaced fracture of shaft of left fibula: QUALIFIERS: Encounter type: initial encounter Qualified Code(s): S82.402A - Unspecified fracture of shaft of left fibula, initial encounter for closed fracture (3) Closed traumatic displaced fracture of shaft of left tibia: QUALIFIERS: Encounter type: initial encounter Qualified Code(s): S82.202A - Unspecified fracture of shaft of left tibia, initial encounter for closed fracture (4) Non-ischemic cardiomyopathy: (5) Hyperthyroidism: (6) Nicotine dependence: QUALIFIERS: Nicotine product type: cigarettes Substance use status: uncomplicated Qualified Code(s): F17.210 - Nicotine dependence, cigarettes, uncomplicated (7) Fall on same level from tripping: (8) Alcohol use: (9) Cigarette smoker: PLAN: Plan Patient is a 65-year-old lady who presented to the emergency department following a fall with subsequent leg pain. Imaging studies obtained did show Acute displaced tibial and fibular fractures with associated soft tissue swelling 1. Fall with acute displaced tibia and fibula fracture ? Patient has been admitted to regular nursing floor manage with pain meds immobilization with consultation placed orthopedic surgery. Patient risk for surgical intervention as documented by H&P ? 08/19/2025; patient was seen in consultation by orthopedic surgery case discussed with Dr. Simms, plan is for patient to undergo ORIF on 08/25/2025 08/24/2025;Patient seen still complains of significant pain. Further adjustment made to patient pain regimen with discontinuation of morphine and initiation of Dilaudid. ? 08/25/2025; patient pain did improve with adjustment made the day prior. Was kept n.p.o. in anticipation of her ORIF today ? 08/26/2025; patient underwent Left tibia IM rodding, separate open incision medial malleolus open reduction internal fixation, separate incision distal fibula fracture on 08/25/2025. Subsequently ordered PT/OT 2. Abnormal chest x-ray Patient was recently treated for pneumonia and finished antibiotics 3 days prior to her admission. Imaging studies on admission did show patchy left basilar airspace disease patient currently denies any fever no cough no chills and has no leukocytosis we will continue with monitoring ? 08/24/2025; patient has productive cough but no fever with no leukocytosis will continue with symptomatic with antitussives 3. Hypertension ? Blood pressure controlled, home medications continued with dose adjustment as needed 4. Chronic alcohol use ? Patient admitted to drinking 4 glasses of wine almost every evening. Patient will be monitored for possible withdrawal 5. Hypothyroidism ? Patient is on methimazole 6. Class II obesity with BMI of 37 ? Complicating care weight loss advised 7. Tobacco dependence ? Counseled on cessation, offered nicotine patch for tobacco cravings 8. DVT prophylaxis ? Subcu heparin 9. Constipation ? Patient started on stool softener Time spent in the patient's overall evaluation,decision-making process, review of diagnostic data, adjustment of management, discussion with other providers, nursing nursing and ancillary staff involved in patient's care documentation, 38 Minutes Charges/Coding Visit Charges Inpatient E&M: 81362 Subs Hosp L2
[2025-08-26 09:52] LABS: Hematocrit 38.2 % (37-47); Hemoglobin 12.6 g/dL (12.0-15.0); Mean Corp Hgb Conc 33.0 g/dL (32-36); Mean Corpuscular Volume 99.5 fL (81-99); Mean Platelet Vol. 9.3 fl (6.2-12.0); Platelet Count 364 K/mm3 (150-450); RBC Distribution Width CV 11.7 % (11.6-14.6); RBC Distribution Width SD 42.7 fl (35.1-43.9); Red Blood Count 3.84 M/mm3 (4.2-5.4); White Blood Count 8.2 K/mm3 (4.4-11.0)
[2025-08-26 10:25] LABS: AST(SGOT) 36 U/L (<=31); Alanine Aminotransfer ALT/SGPT 36 U/L (<=34); Albumin, Serum 3.3 g/dL (3.4-4.8); Alkaline Phosphatase 66 U/L (35-104); Anion Gap 7 (7-18); BUN 11 mg/dL (4-19); BUN/Creat Ratio 20.7 RATIO (10-20); Calcium,Total 9.2 mg/dL (7.6-11.0); Carbon Dioxide 30.4 mmol/L (20.0-29.0); Chloride 99 mmol/L (96-106); Estimated Creatinine Clearance 117.16 ml/min (50-250); Globulin 2.6 g/dL (2.2-4.2); Glucose 177 mg/dL (70-99); Magnesium 2.1 mg/dL (1.5-2.2); Potassium 4.0 mmol/L (3.5-5.1)
[2025-08-26] MEDS: 0.9% Saline Lock 10 ML Syringe IV ×4 (12:18→23:30)
[2025-08-26] MEDS: Senna/Docusate Sodium 1 Tablet 2 TABLET PO ×2 (12:18→21:25)
--- NOTE | 2025-08-26 16:25 | CASEMGMT ---
MARLI DHILLON into pt room to discuss DC plan. RN JACQUIE discussed SNF, Pt adamantly denies wanting to go to SNF. MARLI DHILLON discussed HHC, Pt agreeable. MARLI DHILLON offered list of local providers, Pt denied wanting list of HHC agencies and asked for [facility]. MARLI DHILLON informed Pt will send a referral on Thursday to see if they are able to accept. If not, MARLI DHILLON will provide a list of HHC agencies covered by insurance.
[2025-08-27 05:32] VITALS: BP 129/63; PULSE 82; RESP 18; TEMP 36.5; O2SAT 97
[2025-08-27] MEDS: 0.9% Saline Lock 10 ML Syringe IV (05:34)
[2025-08-27 07:41] LABS: Hematocrit 38.9 % (37-47); Hemoglobin 13.1 g/dL (12.0-15.0); Immature Granulocytes Count 0.040 X10^3/uL (0.0-0.0); Mean Corp Hgb Conc 33.7 g/dL (32-36); Mean Corpuscular Volume 98.0 fL (81-99); Mean Platelet Vol. 9.7 fl (6.2-12.0); NRBC Flagged by Analyzer 0 % (0-5); Platelet Count 428 K/mm3 (150-450); RBC Distribution Width CV 11.8 % (11.6-14.6); RBC Distribution Width SD 42.5 fl (35.1-43.9); Red Blood Count 3.97 M/mm3 (4.2-5.4); White Blood Count 9.8 K/mm3 (4.4-11.0)
[2025-08-27 08:04] LABS: Anion Gap 11 (7-18); BUN 12 mg/dL (4-19); BUN/Creat Ratio 23.1 RATIO (10-20); Calcium,Total 9.6 mg/dL (7.6-11.0); Carbon Dioxide 29.5 mmol/L (20.0-29.0); Chloride 99 mmol/L (96-106); Estimated Creatinine Clearance 123.92 ml/min (50-250); Glucose 176 mg/dL (70-99); Potassium 3.8 mmol/L (3.5-5.1)
[2025-08-27 08:42] VITALS: BP 131/58; PULSE 82; RESP 16; TEMP 36.6; O2SAT 100; O2SAT 88
[2025-08-27] MEDS: Senna/Docusate Sodium 1 Tablet 2 TABLET PO ×2 (08:47→22:49)
[2025-08-27] MEDS: Nicotine (PBKC) 21 MG Patch TD (08:48)
--- NOTE | 2025-08-27 09:17 | NURSING ---
pt reports for 5 years i was on Morphine ER 90mg three times a day for my arthritis until i had surgery. then i weaned myself off of it and that was awful. discussion on risks/ramifications/alternatives to pain control/management. pt reports pain is 7/10 and is tolerable
[2025-08-27 13:40] VITALS: BP 124/66; PULSE 82; RESP 16; TEMP 36.7; O2SAT 92
--- NOTE | 2025-08-27 13:47 | PCM.PROGNOTE ---
Subjective Subjective Patient seen and examined with her nurse by bedside. Her was by bedside also. She complained of pain in her left lower extremity. She is asking for refill of her medications as her pain is not well-controlled. Review of systems otherwise negative. She has otherwise remained hemodynamically stable. Objective Data Objective Data Vital Signs: Vital Signs Temp Pulse Resp BP Pulse Ox O2 Del Method O2 Flow Rate 97.8 F 82 16 131/58 H 100 Nasal Cannula 2 08/27/25 08:42 08/27/25 08:42 08/27/25 08:42 08/27/25 08:42 08/27/25 08:42 08/27/25 08:42 08/27/25 08:42 Oxygen Flow Rate (L/min) 2 Oxygen Delivery Method Nasal Cannula Weight: 214 lb 15.211 oz Body Mass Index (BMI) 36.8 Intake & Output: Intake and Output for Last 24 Hours 08/25/25 08/26/25 08/27/25 23:59 23:59 23:59 Intake Total 1623.75 / 1823.75 400 / 400 Output Total 200 / 200 200 / 200 400 / 400 Balance 1423.75 / 1623.75 200 / 200 -400 / -400 Lab / Micro Data 08/27/25 06:39 08/27/25 06:39 Labs: Laboratory Results - last 24 hr 08/27/25 06:39: WBC 9.8, RBC 3.97 L, Hgb 13.1, Hct 38.9, MCV 98.0, MCH 33.0 H, MCHC 33.7, RDW Std Deviation 42.5, RDW Coeff of Lyssa 11.8, Plt Count 428, MPV 9.7, Immature Gran % (Auto) 0.400, Neut % (Auto) 70.1 H, Lymph % (Auto) 14.1 L, [place] % (Auto) 11.3 H, Eos % (Auto) 3.7, Baso % (Auto) 0.4, Absolute Neuts (auto) 6.9, Absolute Lymphs (auto) 1.38, Nucleated RBC % 0, Sodium 139, Potassium 3.8, Chloride 99, Carbon Dioxide 29.5 H, Anion Gap 11, BUN 12, Creatinine 0.52 L, Estim Creat Clear Calc 123.92, Est GFR (MDRD) Non-Af 104, BUN/Creatinine Ratio 23.1 H, Glucose 176 H, Calcium 9.6 Physical Exam Const alert, oriented x3 and no apparent distress General Appearance: cooperative and well developed HEENT normocephalic, head/scalp atraumatic, moist oral mucous membranes and oropharynx normal Eyes EOMs intact bilaterally Neck supple and no JVD Lymph Lymphatic: no lymphedema noted Resp normal respiratory effort, normal air movement and clear to auscultation bilaterally Resp Narrative: on room air. Cardio regular rate, regular rhythm, S1 normal heart sound, S2 normal heart sound and no murmurs GI normal to inspection, nondistended, normoactive bowel sounds, soft to palpation and non-tender Extremity Extremity Narrative: LLE wrapped in cast and bandage Skin General Skin Exam: no breakdown Neuro no focal motor deficits Motor Exam: general weakness Psych thought process normal, cooperative and affect normal Appearance: appropriate Assessment & Plan Assessment/Plan (1) Closed traumatic minimally displaced fracture of shaft of left fibula: QUALIFIERS: Encounter type: initial encounter Qualified Code(s): S82.402A - Unspecified fracture of shaft of left fibula, initial encounter for closed fracture PLAN: Plan #Left tibia and fibula fracture due to mechanical fall Orthopedics on board. She is s/p reduction and internal fixation with left tibia IM rodding on 08/25/2025. Today's postop day 2. Management as per orthopedics. Says her pain is not well-controlled. On Dilaudid. P.o. oxycodone as needed added on. Goal is to try to wean her off the Dilaudid. On p.o. Tylenol also. #Hypertension: Continue current blood pressure medications-carvedilol #Chronic alcohol use disorder: Says she drinks about 4 glasses of wine every evening. Has no symptoms of withdrawal. Will monitor closely #Hyperthyroidism: On methimazole #Class II obesity: BMI is 37. Complicates acute care, expected recovery and prognosis. #Nicotine dependence: Counseled on cessation. Nicotine patch as needed DVT prophylaxis: On Xarelto as per orthopedics. To be on Xarelto for 30 days as per orthopedics Disposition: PT OT on board and case management on board to help facilitate placement if needed. Charges/Coding Visit Charges Inpatient E&M: 77793 Subs Hosp L2
[2025-08-27] MEDS: Psyllium 1 PACKET PO (16:33)
[2025-08-27 22:45] VITALS: BP 142/61; PULSE 80; RESP 18; TEMP 36.6; O2SAT 99
[2025-08-27] MEDS: Magnesium Chloride 64 MG Delay Rel.Tablet 128 MG PO (22:50)
[2025-08-28 00:56] VITALS: BP 122/56; PULSE 84; RESP 16; TEMP 36.5; O2SAT 92
[2025-08-28 05:59] VITALS: BP 105/59; PULSE 96; RESP 18; TEMP 36.6; O2SAT 94
[2025-08-28 06:49] LABS: Anion Gap 9 (7-18); BUN 12 mg/dL (4-19); BUN/Creat Ratio 26.2 RATIO (10-20); Calcium,Total 9.6 mg/dL (7.6-11.0); Carbon Dioxide 29.2 mmol/L (20.0-29.0); Chloride 100 mmol/L (96-106); Estimated Creatinine Clearance 143.20 ml/min (50-250); Glucose 162 mg/dL (70-99); Potassium 3.4 mmol/L (3.5-5.1)
[2025-08-28 06:58] LABS: Hematocrit 38.3 % (37-47); Hemoglobin 12.8 g/dL (12.0-15.0); Immature Granulocytes Count 0.030 X10^3/uL (0.0-0.0); Mean Corp Hgb Conc 33.4 g/dL (32-36); Mean Corpuscular Volume 98.5 fL (81-99); Mean Platelet Vol. 9.8 fl (6.2-12.0); NRBC Flagged by Analyzer 0 % (0-5); Platelet Count 462 K/mm3 (150-450); RBC Distribution Width CV 11.8 % (11.6-14.6); RBC Distribution Width SD 42.3 fl (35.1-43.9); Red Blood Count 3.89 M/mm3 (4.2-5.4); White Blood Count 8.1 K/mm3 (4.4-11.0)
[2025-08-28 08:02] VITALS: BP 129/73; PULSE 89; RESP 16; TEMP 36.7; O2SAT 93
[2025-08-28] MEDS: Potassium Chloride Oral Tablet 20 MEQ 40 MEQ PO (08:17)
[2025-08-28] MEDS: Nicotine (PBKC) 21 MG Patch TD (10:17)
[2025-08-28] MEDS: Senna/Docusate Sodium 1 Tablet 2 TABLET PO (10:17)
--- NOTE | 2025-08-28 10:24 | CASEMGMT ---
Addendum entered by Sandra Shelton 08/28/25 15:48: Spoke with pt nurse who will give second dose of xarelto prior to dc'ing. MARLI DHILLON into pt room, she is aware of cost of medication and states this is affordable to her. Provided her with a savings card and explanation provided. Pt denies further needs. Addendum entered by Sandra Shelton 08/28/25 15:18: TC to [facility] pharmacy, pt cost is $158.91 for xarelto. They will order in and will be available for tomorrow. Addendum entered by Sandra Shelton 08/28/25 14:00: Received tc from Luanne at [facility], they can accept pt for SOC on Thursday as long as pt is agreeable to paying her deductible of $6000 prior to visits being covered at 30% until her max oop is met of $9200. MARLI DHILLON into pt room with [facility] on the phone, pt is agreeable to this. Pt is aware of the per visit cost for therapy. Pt is aware that [facility] will be out on Thursday. Updated hospitalist. Pt denies further needs at this time. Original Note: TC to [facility], spoke with Luanne, made referral for PT and OT. Will await decision to accept.
--- NOTE | 2025-08-28 12:51 | PCM.PN.ORT ---
Subjective Subjective Postop day 3 left tibia IM nailing open reduction internal fixation patient doing a lot better today pain is settling down on oral pain medications now Objective Data Objective Data Vital Signs: Vital Signs Temp Pulse Resp BP Pulse Ox O2 Del Method O2 Flow Rate 98.1 F 89 16 129/73 H 93 Room Air 3 08/28/25 08:02 08/28/25 08:02 08/28/25 08:02 08/28/25 08:02 08/28/25 08:02 08/28/25 08:02 08/28/25 07:52 Oxygen Flow Rate (L/min) 3 Oxygen Delivery Method Room Air Weight: 214 lb 15.211 oz Body Mass Index (BMI) 36.8 Intake & Output: Intake and Output for Last 24 Hours 08/26/25 08/27/25 08/28/25 23:59 23:59 23:59 Intake Total 400 / 400 300 / 300 400 / 400 Output Total 200 / 200 400 / 400 Balance 200 / 200 -100 / -100 400 / 400 Lab / Micro Data 08/28/25 06:08 08/28/25 06:08 Labs: Laboratory Results - last 24 hr 08/28/25 06:08: WBC 8.1, RBC 3.89 L, Hgb 12.8, Hct 38.3, MCV 98.5, MCH 32.9 H, MCHC 33.4, RDW Std Deviation 42.3, RDW Coeff of Lyssa 11.8, Plt Count 462 H, MPV 9.8, Immature Gran % (Auto) 0.400, Neut % (Auto) 61.9, Lymph % (Auto) 22.5, [place] % (Auto) 10.0, Eos % (Auto) 4.6, Baso % (Auto) 0.6, Absolute Neuts (auto) 5.0, Absolute Lymphs (auto) 1.83, Nucleated RBC % 0, Sodium 138, Potassium 3.4 L, Chloride 100, Carbon Dioxide 29.2 H, Anion Gap 9, BUN 12, Creatinine 0.45 L, Estim Creat Clear Calc 143.20, Est GFR (MDRD) Non-Af 107, BUN/Creatinine Ratio 26.2 H, Glucose 162 H, Calcium 9.6 Physical Exam Const alert, oriented x3, no apparent distress and well nourished Extremity Extremity Narrative: Splint intact able to wiggle the toes normal sensation throughout the foot foot warm and well-perfused. No strikethrough on the dressing Cisco bandage intact. Assessment & Plan Assessment/Plan (1) Closed traumatic displaced fracture of shaft of left tibia: QUALIFIERS: Encounter type: initial encounter Qualified Code(s): S82.202A - Unspecified fracture of shaft of left tibia, initial encounter for closed fracture PLAN: 65-year-old female postop day 3 left tibia open reduction internal fixation IM nailing and periarticular plating patient's doing well okay to discharge home as long as they are safe per physical therapy and Occupational Therapy. Follow-up in the office in 2 weeks time and leave the dressing on until then. Understood no further questions or concerns. (2) Closed traumatic minimally displaced fracture of shaft of left fibula: QUALIFIERS: Encounter type: initial encounter Qualified Code(s): S82.402A - Unspecified fracture of shaft of left fibula, initial encounter for closed fracture
[2025-08-28 14:39] VITALS: BP 153/69; PULSE 73; RESP 16; TEMP 36.6; O2SAT 96
--- NOTE | 2025-08-28 15:01 | PCM.DC.SUM ---
Providers Date of Admission: 08/22/25 Date of Discharge: 08/28/25 Primary Care Physician: Dr. Mary Lou Gutierrez MD Consultations 08/22/25 06:16 Consult: Orthopedics Routine Consulting Provider: Dave Simms Reason for Consult: Left displaced tibia fibula fracture EMERGENT Consult: Yes MD Notified: Yes Date Notified: 08/22/25 Time Notified: 06:04 Method of Notification: ED Physician Initiated Reason For Visit: LEFT TIBIA FRACTURE Diagnosis Discharge Diagnosis (1) Closed traumatic displaced fracture of shaft of left tibia: Status: Acute Code(s): S82.202A - Unspecified fracture of shaft of left tibia, initial encounter for closed fracture Qualifiers: Encounter type: initial encounter Qualified Code(s): S82.202A - Unspecified fracture of shaft of left tibia, initial encounter for closed fracture (2) Closed traumatic minimally displaced fracture of shaft of left fibula: Status: Acute Code(s): S82.402A - Unspecified fracture of shaft of left fibula, initial encounter for closed fracture Qualifiers: Encounter type: initial encounter Qualified Code(s): S82.402A - Unspecified fracture of shaft of left fibula, initial encounter for closed fracture Plan #Left tibia and fibula fracture due to mechanical fall Orthopedics on board. She is s/p reduction and internal fixation with left tibia IM rodding on 08/25/2025. Today's postop day 2. Management as per orthopedics. Says her pain is not well-controlled. On Dilaudid. P.o. oxycodone as needed added on. Goal is to try to wean her off the Dilaudid. On p.o. Tylenol also. #Hypertension: Continue current blood pressure medications-carvedilol #Chronic alcohol use disorder: Says she drinks about 4 glasses of wine every evening. Has no symptoms of withdrawal. Will monitor closely #Hyperthyroidism: On methimazole #Class II obesity: BMI is 37. Complicates acute care, expected recovery and prognosis. #Nicotine dependence: Counseled on cessation. Nicotine patch as needed DVT prophylaxis: On Xarelto as per orthopedics. To be on Xarelto for 30 days as per orthopedics Disposition: PT OT on board and case management on board to help facilitate placement if needed. 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 ordered 12/27/19 Handicap Placard #1 ea 04/08/23 losartan 50 mg tablet 50 mg PO QPM #90 tabs 12/13/24 methimazole 5 mg tablet 5 mg PO .3 days per week #48 tabs 05/04/25 psyllium husk 0.4 gram capsule (Daily Fiber) 0.4 g PO QDAY regularity 05/04/25 furosemide 40 mg tablet 40 mg PO DAILY Dose increased back to whole 40 mg tablet daily #90 tabs 06/15/25 carvedilol 25 mg tablet 25 mg PO BID #180 tabs 06/16/25 acetaminophen 325 mg tablet 650 mg (2 x 325 mg) PO Q6H PRN PRN Pain 1-10 Or Fever>100.7 #30 tabs 08/28/25 oxycodone 5 mg tablet 5 mg PO Q6H PRN PRN Pain Score 4-10 5 days #20 tabs 08/28/25 rivaroxaban 2.5 mg tablet (Xarelto) 2.5 mg PO BID #60 tabs 08/28/25 tizanidine 2 mg tablet 4 mg (2 x 2 mg) PO Q8H PRN PRN Muscle Spasms/Musculoskeletal Pain #30 tabs 08/28/25 Hospital Course Operations - (left tibia IM nailing and ORIF) Procedures None Summary of Care Provided Minutes Spent on Discharge: 45 Hospital Course: Patient is a 65-year-old female with past medical history as outlined was admitted through the ED on 08/22/2025 with complaint of mechanical fall. She lost her balance while standing in the kitchen and fell. She denied any dizziness or lightheadedness, fainting or palpitations or loss of consciousness. Review of systems otherwise negative. She could not weight-bear on the left leg and had localized pain to the middle of the left leg. In the ED imaging done showed acute displaced tibial and fibular fractures with associated soft tissue swelling. She was admitted and managed for debility due to mechanical fall with resultant left tibial and fibula fracture. Orthopedic surgery was consulted. She had open reduction and internal fixation with tibial rodding on 08/25/2025. Postop course was noncomplicated. Orthopedic she was placed on Xarelto 2.5 mg twice daily for 30 days for DVT prophylaxis. She was placed on IV Dilaudid and oral pain meds. She was eventually weaned off of the Dilaudid. Pain was controlled on the oral pain meds. She worked with physical therapy and was deemed as being able to go home with home physical therapy. She was therefore discharged on 08/28/2025. She was discharged with a prescription for p.o. oxycodone 5 mg every 6 hours as needed for total of 20 tablets for 5 days. She was also discharged on tizanidine and Tylenol. Of note OARRS score was checked and no red flags were seen. She is follow-up with her primary care doctor and follow-up with orthopedic surgery within 1 to 2 weeks. Patient was seen and examined prior to discharge. She had no active complaints. Review of systems otherwise negative. Labs and vitals reviewed. Home medication reviewed and reconciled. Physical Exam Const alert, oriented x3 and no apparent distress General Appearance: cooperative, comfortable and well developed HEENT normocephalic, head/scalp atraumatic, hearing grossly normal bilaterally, moist oral mucous membranes and oropharynx normal Mouth: oral and palatal mucosa normal Eyes EOMs intact bilaterally; Negative for no scleral icterus Neck supple and no JVD Lymph Lymphatic: no lymphedema noted Resp normal respiratory effort, normal air movement and clear to auscultation bilaterally Resp Narrative: on room air. Cardio regular rate, regular rhythm, S1 normal heart sound, S2 normal heart sound and no murmurs GI normal to inspection, nondistended, normoactive bowel sounds, soft to palpation and non-tender no CVA tenderness Extremity Extremity Narrative: LLE wrapped in cast and bandage Skin no rashes or lesions noted General Skin Exam: no breakdown Neuro oriented x3, moves all extremities and no focal motor deficits Motor Exam: general weakness Psych thought process normal, cooperative and affect normal Appearance: appropriate Weight / BMI Weight Weight: 214 lb 15.211 oz Body Mass Index (BMI) 36.8 ABG / Lab / Microbiology Data 08/28/25 06:08 08/28/25 06:08 Laboratory: Laboratory Results - last 24 hr 08/28/25 06:08: WBC 8.1, RBC 3.89 L, Hgb 12.8, Hct 38.3, MCV 98.5, MCH 32.9 H, MCHC 33.4, RDW Std Deviation 42.3, RDW Coeff of Lyssa 11.8, Plt Count 462 H, MPV 9.8, Immature Gran % (Auto) 0.400, Neut % (Auto) 61.9, Lymph % (Auto) 22.5, [place] % (Auto) 10.0, Eos % (Auto) 4.6, Baso % (Auto) 0.6, Absolute Neuts (auto) 5.0, Absolute Lymphs (auto) 1.83, Nucleated RBC % 0, Sodium 138, Potassium 3.4 L, Chloride 100, Carbon Dioxide 29.2 H, Anion Gap 9, BUN 12, Creatinine 0.45 L, Estim Creat Clear Calc 143.20, Est GFR (MDRD) Non-Af 107, BUN/Creatinine Ratio 26.2 H, Glucose 162 H, Calcium 9.6 D/C Instructions Discharge Activity: Return to Normal Activity Weight Bearing Status: Weight bearing as tolerated Call your doctor if you observe: Fever of 101 or Higher, Shortness of breath, Dizziness and Uncontrolled pain DC O2, CPAP, BIPAP Needs Home O2 Discharge instructions: No DC home with Oxygen: No Patient's Goals Of Care - F/U Goals Reviewed Goals of care reviewed with patient: NA-No significant change in clinical Status /major procedure scheduled Meaningful Use Info Meaningful Use Meaningful Use Diagnoses (Choose all that apply): None applicable Discharge Plan Admission Admit Date/Time: 08/22/25 05:38 Primary Reason for Your Visit: left tibial fracture s/p ORIF Attending Provider: Suzanne Nash Primary Care Provider: Mary Lou Gutierrez Consulting Providers: Mallory Younger; Dave Simms; Sam Frederick Instructions Patient Instructions: Having Tibia/Fibula Fracture ... Discharge Orders/Prescriptions Prescriptions: New acetaminophen 325 mg Tablet 650 mg PO Q6H PRN PRN (Reason: Pain 1-10 Or Fever>100.7) Qty: 30 0RF tizanidine 2 mg Tablet 4 mg PO Q8H PRN PRN (Reason: Muscle Spasms/Musculoskeletal Pain) Qty: 30 1RF oxycodone 5 mg Tablet 5 mg PO Q6H PRN PRN (Reason: Pain Score 4-10) 5 Days Qty: 20 0RF rivaroxaban [Xarelto] 2.5 mg Tablet 2.5 mg PO BID Qty: 60 0RF Continued magnesium oxide 400 mg magnesium capsule 400 mg PO DAILY (DME) Handicap Placard See Rx Instructions .Route .MEDSUPPLY Qty: 1 0RF Rx Instructions: Lifetime Expires 5 years from order date psyllium husk [Daily Fiber] 0.4 gram capsule 0.4 g PO QDAY methimazole 5 mg tablet 5 mg PO .3 days per week Qty: 48 1RF Patient Comments: Mondays, Wednesdays, and Fridays losartan 50 mg tablet 50 mg PO QPM Qty: 90 3RF furosemide 40 mg tablet 40 mg PO DAILY Qty: 90 9RF carvedilol 25 mg tablet 25 mg PO BID Qty: 180 3RF Rx Instructions: must administer with a meal/food Referrals / Follow Up: Mary Lou Gutierrez MD [Primary Care Provider, Internal Medicine] - Within 1 Week Dave Simms MD [Med Staff - Active Staff, Orthopedics] - Within 1 Week Disposition Disposition (needs filled in before D/C Order can be placed): Home Health Service Charges/Coding Visit Charges Inpatient E&M: 76983 Disch Hosp >30min
--- NOTE | 2025-08-28 16:08 | PHA.DC.MC.R ---
Pharmacy [facility] Service has performed discharge medication reconciliation and counseling for this patient. 1. ACETAMINOPHEN 650MG PO Q6H PRN PAIN 2. OXYCODONE 5MG PO Q6H PRN PAIN 3. RIVAROXABAN 2.5MG PO BID X 30 DAYS 4. TIZANIDINE 4MG PO Q8H PRN MUSCLE SPASMS The patient's discharge medication list was reviewed for discrepancies and discrepancies were resolved. The patient was counseled on the following discharge medications and changes in medications for homegoing were reviewed. The Reason for Use, instructions for use, and potential side effects were reviewed for all new medications. The patient's questions regarding all of their medications were answered. The patient was able to verbally demonstrate an understanding of their discharge medications. 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 ordered 12/27/19 Handicap Placard #1 ea 04/08/23 losartan 50 mg tablet 50 mg PO QPM #90 tabs 12/13/24 methimazole 5 mg tablet 5 mg PO .3 days per week #48 tabs 05/04/25 psyllium husk 0.4 gram capsule (Daily Fiber) 0.4 g PO QDAY regularity 05/04/25 furosemide 40 mg tablet 40 mg PO DAILY Dose increased back to whole 40 mg tablet daily #90 tabs 06/15/25 carvedilol 25 mg tablet 25 mg PO BID #180 tabs 06/16/25 acetaminophen 325 mg tablet 650 mg (2 x 325 mg) PO Q6H PRN PRN Pain 1-10 Or Fever>100.7 #30 tabs 08/28/25 oxycodone 5 mg tablet 5 mg PO Q6H PRN PRN Pain Score 4-10 5 days #20 tabs 08/28/25 rivaroxaban 2.5 mg tablet (Xarelto) 2.5 mg PO BID #60 tabs 08/28/25 tizanidine 2 mg tablet 4 mg (2 x 2 mg) PO Q8H PRN PRN Muscle Spasms/Musculoskeletal Pain #30 tabs 08/28/25
== END 2025-08-28 16:53 | disposition home health service (06) | DRG 494 ==
LOC: ED 04:37 → MS3 05:45
PROVIDERS: Anesthesiology; Internal Medicine; Orthopaedic Surgery Sports Medicine; Admitting Provider Internal Medicine; Emergency Provider Emergency Medicine; PCP Internal Medicine; Visit Provider Student in an Organized Health Care Education/Training Program
PROC: 0QSH06Z Reposition Left Tibia with Intramedullary Internal Fixation Device, Open Approach (ICD-10-PCS; principal; 2025-08-25 08:40)
DX: S82.202A Unspecified fracture of shaft of left tibia, initial encounter for closed fracture (principal); E03.9 Hypothyroidism, unspecified; E05.90 Thyrotoxicosis, unspecified without thyrotoxic crisis or storm; I10 Essential (primary) hypertension; Z68.37 Body mass index [BMI] 37.0-37.9, adult; F17.210 Nicotine dependence, cigarettes, uncomplicated; I25.5 Ischemic cardiomyopathy; F10.90 Alcohol use, unspecified, uncomplicated; F12.90 Cannabis use, unspecified, uncomplicated; W01.0XXA Fall on same level from slipping, tripping and stumbling without subsequent striking against object, initial encounter; K59.00 Constipation, unspecified; S82.402A Unspecified fracture of shaft of left fibula, initial encounter for closed fracture; Z79.899 Other long term (current) drug therapy; Z79.82 Long term (current) use of aspirin; E66.812 Obesity, class 2; R09.02 Hypoxemia; R53.81 Other malaise; Y92.009 Unspecified place in unspecified non-institutional (private) residence as the place of occurrence of the external cause; Z98.51 Tubal ligation status; R05.9 Cough, unspecified; R91.8 Other nonspecific abnormal finding of lung field
CPT/HCPCS: 36415; 71045; 73590; 73700; 76000; 80048; 80053; 83735; 84100; 84439; 84443; 85025; 85027; 93005; 94640; 94668; 97116; 97162; 97166; 97530; 97535; 99285; C1713; A4216; J2405